=== PATIENT | male | born 1980 ===

== ENCOUNTER 2022-06-13 12:59 | Inpatient (IN) | payer SELFPAY ==
[2022-06-13] MEDS ORDERED: PIPERACILLIN/TAZOBACTAM 3.375 3.375 GM/50 ML BAG IV ONE (21:25)
[2022-06-13] MEDS ORDERED: SODIUM CHLORIDE 0.9% 1000 ML 1,000 ML IV ONE ×2 (21:25→21:28)
[2022-06-13] MEDS ORDERED: VANCOMYCIN/NS 1 GM/250 ML 1 GM/250 ML BAG IV ONE (21:25)
[2022-06-13] MEDS ORDERED: ONDANSETRON 4 MG/2 ML INJ IV ONE (21:27)
[2022-06-13] MEDS ORDERED: MORPHINE 4 MG/1 ML INJ IV ONE (21:27)
[2022-06-13 23:15] LABS: Basophils % (Auto) 0.3 % (0.0-1.8); Eosinophils # (Auto) 0.1 K/mm3 (0.0-0.4); Eosinophils % (Auto) 0.9 % (0.0-4.3); Hematocrit 32.6 % (35.5-45.6); Hemoglobin 10.9 gm/dl (11.8-15.2); Lymphocytes # (Auto) 1.1 K/mm3 (1.2-5.4); Lymphocytes % (Auto) 16.4 % (13.4-35.0); Mean Corpuscular HGB Conc 34 % (32-34); Mean Corpuscular Volume 88 fl (84-94); Monocytes # (Auto) 0.7 K/mm3 (0.0-0.8); Platelet Count 262 K/mm3 (140-440); Red Blood Count 3.71 M/mm3 (3.65-5.03); Red Cell Distribution Width 13.5 % (13.2-15.2)
[2022-06-13 23:32] LABS: Alanine Aminotransferase 43 units/L (7-56); Albumin 2.2 g/dL (3.9-5); Blood Urea Nitrogen 16 mg/dL (9-20); Calcium 7.5 mg/dL (8.4-10.2); Hemolysis Index 5
[2022-06-13 23:33] LABS: BUN/Creatinine Ratio 32
--- NOTE | 2022-06-14 01:59 | Cat Scan Report ---
CT neck w con HISTORY: PAIN - ABSCESS COMPARISON: None. TECHNIQUE: CT of the neck is performed. All CT scans at this location are performed using CT dose red uction for ALARA by means of automated exposure control. FINDINGS: * There is large peripherally enhancing multiseptated organized collection seen extending from the p osterior scalp caudally along the subcutis tissues and paraspinal musculature to the level of the T1 spinous process. There is small quantity of gas. No cortical lysis. * There is also a large peripherally enhancing collection underlying the left scapula. Skull Base: No significant abnormality. Nasopharynx, oropharynx, hypopharynx: No significant abnormality. No mass identified.. Tonsils: Tonsils appear within normal limits. Airway: Patent and without significant abnormality. Salivary glands: No significant abnormality. Thyroid:No significant abnormality. Lymphatics: No lymphadenopathy. Vasculature: No significant abnormality. Osseous Structures: No significant abnormality Additional findings: Nonspecific dependent groundglass opacity seen within the superior segment of th e right lower lobe. Noncalcified subpleural left apicoposterior pulmonary nodule measuring 7 mm, imag e 39 series 2. IMPRESSION: 1. Large complex abscess involving the subcutaneous soft tissues and paraspinal musculature extending from the scalp to the level of the T1 spinous process. No evidence of osteomyelitis. 2. There is also a large abscess underlying the right scapula. 3. 7mm pulmonary nodule in the apicoposterior segment of the left upper lobe of lung. Recommend CT ch est to further characterize. Signer Name: Hector Mcfarland MD Signed: 06/14/2022 1:55 AM Workstation Name: [id number]
--- NOTE | 2022-06-14 02:03 | Cat Scan Report ---
CT HEAD WITH CONTRAST INDICATION / CLINICAL INFORMATION: PAIN - ABSCESS. TECHNIQUE: All CT scans at this location are performed using CT dose reduction for ALARA by means of automated exposure control. 100 cc of Omnipaque 350 intravenous contrast administered. COMPARISON: Concurrent CT of the soft tissues of the neck. FINDINGS: Please see concurrent soft tissue of the neck for extensive multiloculated multiseptated pe ripherally enhancing collection in the posterior scalp and posterior paraspinal soft tissues. BRAIN PARENCHYMA: No acute intracranial hemorrhage. No evidence of recent infarct. No mass effect or midline shift. Arachnoid cyst in the left middle cranial fossa. VENTRICULAR SYSTEM/EXTRA-AXIAL SPACES: Ventricles are normal for age. No extra-axial fluid collection . ORBITS: Normal as visualized. SKELETAL SYSTEM/SOFT TISSUES: Normal bones and soft tissues. PARANASAL SINUSES/MASTOID AIR CELLS: No significant abnormality. ADDITIONAL FINDINGS: None. IMPRESSION: No acute intracranial abnormality. Signer Name: Narciso Teran MD Signed: 06/14/2022 1:58 AM Workstation Name: [id number]
--- NOTE | 2022-06-14 03:36 | Emergency Department Report ---
ED Neck Pain/Injury HPI - General Chief Complaint: Neck Pain/Injury Stated Complaint: HEAD INJURY Mode of arrival: Ambulatory Limitations: No Limitations - History of Present Illness Initial Comments: Patient is a 41-year-old male with a history of [id number]-wvrudqvpk diabetes who presents to the ED with complaint of acute onset persistent posterior neck pain with swollen erythematous maculopapular rash around an open necrotic wound with thick yellowish malodorous discharge for the last 1 week. 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 Patient states that he is unable to sleep or eat because of worsening pain. Patient also states that he is unable to perform any active range of motion with his neck due to worsening pain and swelling of the neck. Patient denies dizziness, syncope, chest pain or shortness of breath, nausea and vomiting, diarrhea, fever, chills, headache, change in vision, change in speech, dysphagia or dysphonia, numbness and tingling or weakness of upper extremities bilaterally. MD Complaint: neck pain (Posterior neck pain), other (swollen painful erythematous rash with thick purulent discharge ) -: Gradual, week(s) (1) Place: work Radiation: head, occiput Severity: severe Severity scale (0 -10): 8 Quality: sharp, aching Consistency: constant Improves With: none Worsens With: movement of neck Context: direct blow (posterior neck penetrating injury) Associated Symptoms: headache. denies: fever, numbness, tingling, weakness, vertigo, difficulty walking, swollen glands, difficulty swallowing, nausea, vomiting Treatments Prior to Arrival: none - Related Data Allergies Allergy/AdvReac Type Severity Reaction Status Date / Time No Known Allergies Allergy Verified 06/13/22 21:45 ED Review of Systems ROS: Stated complaint: HEAD INJURY Other details as noted in HPI Constitutional: denies: chills, fever Eyes: denies: eye pain, eye discharge, vision change ENT: denies: ear pain, throat pain Respiratory: denies: cough, shortness of breath, wheezing Cardiovascular: denies: chest pain, palpitations Endocrine: no symptoms reported Gastrointestinal: denies: abdominal pain, nausea, diarrhea Genitourinary: denies: urgency, dysuria Musculoskeletal: arthralgia (Posterior neck pain due to erythematous maculopapular rash and open wound with necrotic tissue and thick purulent discharge with malodorous smell), myalgia. denies: back pain, joint swelling Skin: rash, change in color, other (Erythematous maculopapular rash diffusely on posterior neck with open necrotic wound with thick purulent malodorous discharge). denies: lesions Neurological: headache. denies: weakness, paresthesias Psychiatric: denies: anxiety, depression Hematological/Lymphatic: denies: easy bleeding, easy bruising ED Past Medical Hx - Past Medical History Previous Medical History?: Yes Hx Diabetes: Yes ED Physical Exam - General Limitations: No Limitations General appearance: alert, in no apparent distress - Head Head exam: Present: other (Posterior occipital swollen tender rash with necrotic open wound with thick purulent discharge) - Eye Eye exam: Present: normal appearance, PERRL, EOMI Pupils: Present: normal accommodation - ENT ENT exam: Present: normal exam, normal orophraynx, mucous membranes moist, TM's normal bilaterally, normal external ear exam - Neck Neck exam: Present: tenderness, lymphadenopathy, other (Swelling, tender, posterior neck and left scapular region due to erythematous maculopapular rash with open necrotic wound with thick purulent malodorous smell). Absent: full ROM (Limited range of motion due to pain) - Respiratory Respiratory exam: Present: normal lung sounds bilaterally. Absent: respiratory distress, wheezes, rales, rhonchi, chest wall tenderness, accessory muscle use - Cardiovascular Cardiovascular Exam: Present: normal rhythm, tachycardia, normal heart sounds. Absent: systolic murmur, diastolic murmur, rubs, gallop - GI/Abdominal GI/Abdominal exam: Present: soft, normal bowel sounds. Absent: distended, tenderness, rebound, hyperactive bowel sounds, hypoactive bowel sounds, org anomegaly - Extremities Exam Extremities exam: Present: normal inspection, full ROM, normal capillary refill. Absent: tenderness, pedal edema, joint swelling, calf tenderness - Back Exam Back exam: Present: normal inspection, full ROM. Absent: tenderness, CVA tenderness (R), CVA tenderness (L), muscle spasm, paraspinal tenderness, vertebral tenderness - Neurological Exam Neurological exam: Present: alert, oriented X3, CN II-XII intact, normal gait, reflexes normal - Psychiatric Psychiatric exam: Present: normal affect, normal mood - Skin Skin exam: Present: warm, dry, intact, rash (Swollen, tender erythematous maculopapular fluctuant rash diffusely on posterior cervical region due to an open necrotic wound with thick purulent discharge malodorous and localized tenderness), erythema. Absent: normal color ED Course Vital Signs 06/13/22 06/13/22 06/14/22 13:49 23:17 04:15 Temperature 98.6 F 98.8 F Pulse Rate 142 H 92 H Respiratory 20 16 16 Rate Blood Pressure 109/74 [Left] O2 Sat by Pulse 97 100 Oximetry - Reevaluation(s) Reevaluation #1: 06/14/22 04:32 I paged and discussed the patient case with the general surgeon on-call, Dr. Jorge King who advised that the patient be kept n.p.o., and that the patient be treated with IV antibiotics and IV fluids as well as pain medications and that the hospitalist physician admit the patient and he shall consult the patient upon admission. ED Medical Decision Making - Lab Data Result diagrams: 06/13/22 23:24 06/13/22 22:05 - Radiology Data Radiology results: report reviewed, [place] [address] Cat Scan Report Signed Patient: JOSE LUIS MARTINEZ MR#: [id number] : 1980 Acct:[id number] Age/Sex: 41 / M ADM Date: 06/13/22 Loc: ED Attending Dr: Ordering Physician: NANETTE BARBER Date of Service: 06/13/22 Procedure(s): CT neck w con Accession Number(s): [id number] cc: NANETTE BARBER CT neck w con HISTORY: PAIN - ABSCESS COMPARISON: None. TECHNIQUE: CT of the neck is performed. All CT scans at this location are performed using CT dose reduction for ALARA by means of automated exposure control. FINDINGS: * There is large peripherally enhancing multiseptated organized collection seen extending from the posterior scalp caudally along the subcutis tissues and paraspinal musculature to the level of the T1 spinous process. There is small quantity of gas. No cortical lysis. * There is also a large peripherally enhancing collection underlying the left scapula. Skull Base: No significant abnormality. Nasopharynx, oropharynx, hypopharynx: No significant abnormality. No mass identified.. Tonsils: Tonsils appear within normal limits. Airway: Patent and without significant abnormality. Salivary glands: No significant abnormality. Thyroid:No significant abnormality. Lymphatics: No lymphadenopathy. Vasculature: No significant abnormality. Osseous Structures: No significant abnormality Additional findings: Nonspecific dependent groundglass opacity seen within the superior segment of the right lower lobe. Noncalcified subpleural left apicoposterior pulmonary nodule measuring 7 mm, image 39 series 2. IMPRESSION: 1. Large complex abscess involving the subcutaneous soft tissues and paraspinal musculature extending from the scalp to the level of the T1 spinous process. No evidence of osteomyelitis. 2. There is also a large abscess underlying the right scapula. 3. 7mm pulmonary nodule in the apicoposterior segment of the left upper lobe of lung. Recommend CT chest to further characterize. Signer Name: Hector Mcfarland MD Signed: 06/14/2022 1:55 AM Workstation Name: [id number] Transcribed By: RENEE Dictated By: Hector Mcfarland MD Electronically Authenticated By: Hector Mcfarland MD Signed Date/Time: 06/14/22 0155 DD/ 014 TD/TT: [facility] [address] [place] [address] Cat Scan Report Signed Patient: JOSE LUIS MARTINEZ MR#: [id number] : 1980 Acct:[id number] Age/Sex: 41 / M ADM Date: 06/13/22 Loc: ED Attending Dr: Ordering Physician: NANETTE BARBER Date of Service: 06/13/22 Procedure(s): CT head/brain w con Accession Number(s): [id number] cc: NANETTE BARBER CT HEAD WITH CONTRAST INDICATION / CLINICAL INFORMATION: PAIN - ABSCESS. TECHNIQUE: All CT scans at this location are performed using CT dose reduction for ALARA by means of automated exposure control. 100 cc of Omnipaque 350 intravenous contrast administered. COMPARISON: Concurrent CT of the soft tissues of the neck. FINDINGS: Please see concurrent soft tissue of the neck for extensive multiloculated multiseptated peripherally enhancing collection in the posterior scalp and posterior paraspinal soft tissues. BRAIN PARENCHYMA: No acute intracranial hemorrhage. No evidence of recent infarct. No mass effect or midline shift. Arachnoid cyst in the left middle cranial fossa. VENTRICULAR SYSTEM/EXTRA-AXIAL SPACES: Ventricles are normal for age. No extra- axial fluid collection. ORBITS: Normal as visualized. SKELETAL SYSTEM/SOFT TISSUES: Normal bones and soft tissues. PARANASAL SINUSES/MASTOID AIR CELLS: No significant abnormality. ADDITIONAL FINDINGS: None. IMPRESSION: No acute intracranial abnormality. Signer Name: Fletcher Teran MD Signed: 06/14/2022 1:58 AM Workstation Name: [id number] Transcribed By: JS Dictated By: FLETCHER TERAN MD Electronically Authenticated By: FLETCHER TERAN MD Signed Date/Time: 06/14/22157 DD/ 4 TD/TT: - Medical Decision Making This is a 41-year-old male with a history of ssk-uagadvm-docpfanna diabetes who presents to the ED with complaint of acute onset persistent posterior neck pain with swollen erythematous maculopapular rash around an open necrotic wound with thick yellowish malodorous discharge for the last 1 week. 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 Patient states that he is unable to sleep or eat because of worsening pain. Patient also states that he is unable to perform any active range of motion with his neck due to worsening pain and swelling of the neck. In the ED, patient is alert and oriented x3 and is not in any distress. Patient is however tachycardic but afebrile in triage. Patient was treated for pain in the ED, and the other side for sepsis was activated. Patient was initially empirically treated with Zosyn and also treated with vancomycin 1 g IV x1. Patient also got treated for pain and also received 2 L of normal saline IV bolus. Lab test results were reviewed and showed lactic acidosis of 2.70, acute hyponatremia of 122 mmol/L, acute hypochloremia of 87.7 mmol/L, and hyperglycemia of 381 mg/dL. The head CT scan with IV contrast showed no acute acute intracranial abnormalities or hemorrhage. The soft tissue neck CT scan with IV contrast showed large complex abscess involving the subcutaneous soft tissues and paraspinal musculature extending from the scalp to the level of the T1 spinous process. No evidence of osteomyelitis. It also showed a large abscess underlying the right scapula. In addition, there was also an incidental finding of a 7mm pulmonary nodule in the apicoposterior segment of the left up per lobe of lung. Recommend CT chest to further characterize. These findings were discussed with the ED attending physician Dr. Guillaume who advised that the patient be admitted to the hospital after discussing the patient's findings with the general surgeon on-call. I therefore paged and discussed Dr. Patel the general surgeon on-call who advised that the patient be kept n.p.o., patient be treated with IV antibiotics and pain medications as well as IV fluids and that the hospitalist physician on-call Dr. Malloy to admit the patient. Dr. Patel told to consult on the patient in the morning upon admission for possible debridement in the OR. I therefore paged and discussed the patient's case with the hospitalist physician on-call Dr. Malloy who admitted the patient to the hospital. - Differential Diagnosis abscess of neck; cellulitis of neck; sepsis due to abscess Critical care attestation.: If time is entered above; I have spent that time in minutes in the direct care of this critically ill patient, excluding procedure time. ED Disposition Clinical Impression: Abscess of multiple sites of head and neck, Cellulitis and abscess of neck, Acute hyponatremia Hyperglycemia due to type 2 diabetes mellitus Qualifiers: Diabetes mellitus intermediate accountant insulin use: without intermediate accountant use Qualified Code(s): E11.65 - Type 2 diabetes mellitus with hyperglycemia Disposition: 02 [facility]ORT TERM HOSPITAL Is pt being admited?: Yes Does the pt Need Aspirin: No Condition: Stable Instructions: Diabetes Mellitus Type 2 in Adults (ED) Referrals: TRICIA WILLINGHAM MD [Primary Care Provider] - 3-5 Days Time of Disposition: 03:42 Print Language: SAMOAN
[2022-06-14] MEDS ORDERED: ONDANSETRON 4 MG/2 ML INJ IV ONE (04:16)
[2022-06-14] MEDS ORDERED: MORPHINE 4 MG/1 ML INJ IV ONE (04:16)
[2022-06-14] MEDS ORDERED: SODIUM CHLORIDE 0.9% 1000 ML 1,000 ML IV ONE (04:16)
[2022-06-14] MEDS ORDERED: METOCLOPRAMIDE 10 MG/2 ML INJ IV PRN (04:33)
[2022-06-14] MEDS ORDERED: ACETAMINOPHEN 325 MG TAB PO PRN (04:33)
[2022-06-14] MEDS ORDERED: ONDANSETRON 4 MG/2 ML INJ IV PRN ×2 (04:33→10:00)
[2022-06-14] MEDS ORDERED: HYDROmorphone 0.5 MG/0.5 ML INJ IV PRN (04:33)
[2022-06-14] MEDS ORDERED: SODIUM CHLORIDE 0.45% 1000 ML 1,000 ML IV SCH (05:00)
[2022-06-14] MEDS ORDERED: TETANUS,DIPH,PERTUSS(ACELL) VACCINE 0.5 ML SYRINGE IM ONE (06:46)
[2022-06-14] MEDS ORDERED: MORPHINE 4 MG/1 ML INJ IV PRN (08:26)
--- NOTE | 2022-06-14 09:45 | Cat Scan Report ---
CT CHEST WITH CONTRAST INDICATION / CLINICAL INFORMATION: abscess. TECHNIQUE: Axial CT images were obtained through the chest after 100 cc of Omnipaque 350 IV contrast. Please note that IV infiltration occurred during this exam. The technologist notes that approximatel y 50 cc of IV contrast was received prior to infiltration. I see no convincing IV contrast within the vascular structures on this exam. This is essentially a noncontrast CT chest. All CT scans at this l ocation are performed using CT dose reduction for ALARA by means of automated exposure control. COMPARISON: Correlation is made with CT neck with contrast 06/13/2022. FINDINGS: HEART: Heart size is within normal limits. Small pericardial effusion is identified measuring up to 8 mm in thickness along the left ventricular wall. No pericardial thickening or calcification. CORONARY ARTERY CALCIFICATION: Absent -- None. THORACIC AORTA: No significant abnormality. MEDIASTINUM / TRISH: No significant abnormality. PLEURA: No pleural effusion. No pneumothorax. LUNGS: No acute air space or interstitial disease. There are subtle bibasilar airspace opacities most consistent with hypoventilatory/atelectatic changes. No consolidation. An 8 mm subpleural nodule is identified in the anterior right middle lobe. A 6 mm subpleural nodules identified in the posterolate ral left upper lobe. ADDITIONAL FINDINGS: Although this examination received very limited IV contrast and is essentially a noncontrast CT chest which limits detection of abscesses, there does appear to be 2 separate abscess es in the vicinity of the right shoulder. The right subscapularis muscle is thickened and hypodense c ompared to the left side with suspected developing intramuscular abscess. There is a smaller similar appearing hypodense area involving the distal supraspinatus muscle/tendon measuring 3.3 x 2.1 cm in a xial plane on image 7 of series 4. This may represent a second developing abscess. There is diffuse s kin thickening in the upper back consistent with a cellulitis. No soft tissue gas or intramuscular ga s is appreciated. UPPER ABDOMEN: No significant abnormality. SKELETAL SYSTEM: No significant abnormality. IMPRESSION: 1. Limited exam as described. 2. There appear to be 2 developing intramuscular abscesses in the right shoulder region, the largest involving the subscapularis muscle and the smaller involving the distal supraspinatus muscle. 3. Small pericardial effusion. 4. Bibasilar airspace opacities most consistent with atelectatic changes. 5. Multiple incidental pulmonary nodule(s) in the right middle lobe and left upper lobe measuring 8 a nd 6 mm with solid characteristics. Recommendation according to Fleischner Society 2017 Guidelines: L ow Risk Patient: CT at 3-6 months, then consider CT at 18-24 months; High Risk Patient: CT at 3-6 mon ths, then CT at 18-24 month. Signer Name: Antonio Conner Jr, MD Signed: 06/14/2022 9:41 AM Workstation Name: [id number]
[2022-06-14] MEDS ORDERED: VANCOMYCIN PHARMACY TO DOSE IV SCH (10:00)
[2022-06-14] MEDS ORDERED: VANCOMYCIN 1,250 MG in SODIUM CHLORIDE 0.9% 250ML 250 ML IV ONE (10:30)
[2022-06-14 11:21] LABS: Iron 18 ug/dL (49-181); Total Iron Binding Capacity 79 mcg/dL (250-450)
[2022-06-14] MEDS: CEFEPIME/NS 1 GM/100 ML 1 GM/100 ML BAG IV SCH ×2 (12:31→22:02)
[2022-06-14] MEDS ORDERED: BUPIVACAINE-EPINEPHRINE/PF 0.5%-1:200,000 (30 ML) VIAL INFILTRATI ONE ×2 (14:01→15:15)
[2022-06-14] MEDS ORDERED: LIDOCAINE (1%) 10 MG/1 ML VIAL 20 ML MDV ONE (14:01)
[2022-06-14] MEDS ORDERED: LIDOCAINE MPF (2%) 20 MG/1 ML VIAL 5 ML ONE (14:07)
[2022-06-14] MEDS ORDERED: SUCCINYLCHOLINE CHLORIDE 200 MG/10 ML INJ MDV ONE (14:07)
[2022-06-14] MEDS ORDERED: propofoL 200 MG/20 ML VIAL IV ONE ×2 (14:08→14:33)
[2022-06-14] MEDS ORDERED: fentaNYL 100 MCG/2 ML INJ ONE ×2 (14:08→14:52)
--- NOTE | 2022-06-14 14:39 | Consultation ---
History of Present Illness Consult date: 06/14/22 - History of present illness History of present illness: Patient is a 41-year-old male with a history of fhm-zrwishx-wflzrmcyd diabetes who presents to the ED with complaint of acute onset persistent posterior neck pain with swollen erythematous maculopapular rash around an open necrotic wound with thick yellowish malodorous discharge for the last 1 week. 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 Patient states that he is unable to sleep or eat because of worsening pain. Patient also states that he is unable to perform any active range of motion with his neck due to worsening pain and swelling of the neck. Patient denies dizziness, syncope, chest pain or shortness of breath, nausea and vomiting, diarrhea, fever, chills, headache, change in vision, change in speech, dysphagia or dysphonia, numbness and tingling or weakness of upper extremities bilaterally. CT of the Neck and Chest show an extensive soft tissue abscess with extension to the paravertebral muscle and to the deep surface of the scapula on the right side. Several leural based pulmonary nodules were also seen separate from the sti. Medications and Allergies Allergies Allergy/AdvReac Type Severity Reaction Status Date / Time No Known Allergies Allergy Verified 06/13/22 21:45 Active Meds: Active Medications Acetaminophen (Acetaminophen 325 Mg Tab) 650 mg PO Q4H PRN PRN Reason: Pain MILD(1-3)/Fever >100.5/ALMAZAN Heparin Sodium (Porcine) (Heparin 5,000 Unit/1 Ml Vial) 5,000 unit SUB-Q Q8HR KARAN Hydromorphone HCl (Hydromorphone 0.5 Mg/0.5 Ml Inj) 1 mg IV Q4H PRN PRN Reason: Pain , Severe (7-10) Sodium Chloride (Nacl 0.45% 1000 Ml) 1,000 mls @ 125 mls/hr IV DIRECT KARAN Cefepime HCl (Cefepime/Ns 1 Gm/100 Ml) 1 gm in 100 mls @ 200 mls/hr IV Q8H KARAN; Protocol Last Admin: 06/14/22 12:31 Dose: 200 mls/hr Ketorolac Tromethamine (Ketorolac 30 Mg/1 Ml Inj) 15 mg IV Q8H PRN PRN Reason: Pain, Mild (1-3) Stop: 06/19/22 10:59 Metoclopramide HCl (Metoclopramide 10 Mg/2 Ml Inj) 10 mg IV Q6H PRN PRN Reason: Nausea And Vomiting Last Admin: 06/14/22 07:44 Dose: 10 mg Ondansetron HCl (Ondansetron 4 Mg/2 Ml Inj) 4 mg IV Q8H PRN PRN Reason: Nausea And Vomiting Oxycodone/Acetaminophen (Oxycodone /Acetaminophen 5-325mg Tab) 1 tab PO Q6H PRN PRN Reason: Pain, Moderate (4-6) Sodium Chloride (Sodium Chloride 0.9% 10 Ml Flush Syringe) 10 ml IV PRN PRN PRN Reason: LINE FLUSH Sodium Chloride (Sodium Chloride 0.9% 10 Ml Flush Syringe) 10 ml IV BID KARAN Last Admin: 06/14/22 12:30 Dose: 10 ml Exam Vital Signs Temp Pulse Resp BP Pulse Ox 98.6 F 142 H 20 109/74 97 06/13/22 13:49 06/13/22 13:49 06/13/22 13:49 06/13/22 13:49 06/13/22 13:49 - General physical appearance Positive: moderate distress - Neck Positive: no masses, no bruits, trachea midline - Respiratory Positive: normal expansion - Cardiovascular Rhythm: regular - Extremities Extremities: no ischemia, No edema - Abdomen Abdomen: Present: soft, bowel sounds normal. Absent: tender, masses, rebound - Integumentary other (4 x 5 cm area of skin necrosis noted in the posterior neck slightly to th e right side. Purulent drainage from this process is noted.) - Neurologic Neurologic: alert and oriented to time, place and person, motor strength and sensation are grossly intact, CN II-XII intact Results - Labs 06/13/22 23:24 06/13/22 22:05 Abnormal lab results 06/13/22 06/13/22 06/13/22 Range/Units 22:05 22:05 23:24 Hgb 10.9 L (11.8-15.2) gm/dl Hct 32.6 L (35.5-45.6) % [place] % (Auto) 11.0 H (0.0-7.3) % Lymph # (Auto) 1.1 L (1.2-5.4) K/mm3 Seg Neutrophils % 71.4 H (40.0-70.0) % Sodium 122 L (137-145) mmol/L Chloride 87.7 L (98-107) mmol/L Carbon Dioxide 20 L (22-30) mmol/L Creatinine 0.5 L (0.8-1.3) mg/dL Glucose 381 H (75-100) mg/dL POC Glucose (70-105) mg/dL Hemoglobin A1c (4-6) % Lactic Acid 2.70 H* (0.7-2.0) mmol/L Calcium 7.5 L (8.4-10.2) mg/dL Iron (49-181) ug/dL TIBC (250-450) mcg/dL Ferritin (30.0-300.0) ng/mL Albumin 2.2 L (3.9-5) g/dL 06/14/22 06/14/22 06/14/22 Range/Units 09:08 09:08 09:08 Hgb (11.8-15.2) gm/dl Hct (35.5-45.6) % [place] % (Auto) (0.0-7.3) % Lymph # (Auto) (1.2-5.4) K/mm3 Seg Neutrophils % (40.0-70.0) % Sodium (137-145) mmol/L Chloride (98-107) mmol/L Carbon Dioxide (22-30) mmol/L Creatinine (0.8-1.3) mg/dL Glucose (75-100) mg/dL POC Glucose (70-105) mg/dL Hemoglobin A1c 15.6 H (4-6) % Lactic Acid (0.7-2.0) mmol/L Calcium (8.4-10.2) mg/dL Iron 18 L (49-181) ug/dL TIBC 79 L (250-450) mcg/dL Ferritin 894.3 H (30.0-300.0) ng/mL Albumin (3.9-5) g/dL 06/14/22 Range/Units 14:23 Hgb (11.8-15.2) gm/dl Hct (35.5-45.6) % [place] % (Auto) (0.0-7.3) % Lymph # (Auto) (1.2-5.4) K/mm3 Seg Neutrophils % (40.0-70.0) % Sodium (137-145) mmol/L Chloride (98-107) mmol/L Carbon Dioxide (22-30) mmol/L Creatinine (0.8-1.3) mg/dL Glucose (75-100) mg/dL POC Glucose 168 H (70-105) mg/dL Hemoglobin A1c (4-6) % Lactic Acid (0.7-2.0) mmol/L Calcium (8.4-10.2) mg/dL Iron (49-181) ug/dL TIBC (250-450) mcg/dL Ferritin (30.0-300.0) ng/mL Albumin (3.9-5) g/dL Diabetes panel 06/13/22 06/14/22 Range/Units 22:05 09:08 Sodium 122 L (137-145) mmol/L Potassium 4.9 (3.6-5.0) mmol/L Chloride 87.7 L (98-107) mmol/L Carbon Dioxide 20 L (22-30) mmol/L BUN 16 (9-20) mg/dL Creatinine 0.5 L (0.8-1.3) mg/dL Glucose 381 H (75-100) mg/dL Hemoglobin A1c 15.6 H (4-6) % Calcium 7.5 L (8.4-10.2) mg/dL AST 37 (5-40) units/L ALT 43 (7-56) units/L Alkaline Phosphatase 127 (35-129) units/L Total Protein 7.0 (6.3-8.2) g/dL Albumin 2.2 L (3.9-5) g/dL Calcium panel 06/13/22 Range/Units 22:05 Calcium 7.5 L (8.4-10.2) mg/dL Albumin 2.2 L (3.9-5) g/dL Pituitary panel 06/13/22 Range/Units 22:05 Sodium 122 L (137-145) mmol/L Potassium 4.9 (3.6-5.0) mmol/L Chloride 87.7 L (98-107) mmol/L Carbon Dioxide 20 L (22-30) mmol/L BUN 16 (9-20) mg/dL Creatinine 0.5 L (0.8-1.3) mg/dL Glucose 381 H (75-100) mg/dL Calcium 7.5 L (8.4-10.2) mg/dL Adrenal panel 06/13/22 Range/Units 22:05 Sodium 122 L (137-145) mmol/L Potassium 4.9 (3.6-5.0) mmol/L Chloride 87.7 L (98-107) mmol/L Carbon Dioxide 20 L (22-30) mmol/L BUN 16 (9-20) mg/dL Creatinine 0.5 L (0.8-1.3) mg/dL Glucose 381 H (75-100) mg/dL Calcium 7.5 L (8.4-10.2) mg/dL Total Bilirubin 0.60 (0.1-1.2) mg/dL AST 37 (5-40) units/L ALT 43 (7-56) units/L Alkaline Phosphatase 127 (35-129) units/L Total Protein 7.0 (6.3-8.2) g/dL Albumin 2.2 L (3.9-5) g/dL
[2022-06-14] MEDS ORDERED: SODIUM HYPOCHLORITE, DAKIN'S FULL STRENGTH (0.5%) 473 ML TOPICAL SOLN ONE (14:45)
[2022-06-14] MEDS ORDERED: LIDOCAINE (1%) 10 MG/1 ML VIAL 20 ML MDV INFILTRATI ONE (15:15)
[2022-06-14] MEDS ORDERED: SODIUM CHLORIDE 0.9% IRR 1,500 ML BOTTLE IR ONE (15:15)
[2022-06-14] MEDS ORDERED: SODIUM CHLORIDE 0.9% IRRIG SOLN 2000 ML IR ONE (15:15)
--- NOTE | 2022-06-14 15:53 | History and Physical Report ---
History of Present Illness Date of examination: 06/14/22 Date of admission: 06/14/22 08:28 Chief complaint: Neck abscess History of present illness: Patient is a 41-year-old male with a history of ilk-fkybnla-qpunkdvge diabetes who presents to the ED with complaint of acute onset persistent posterior neck pain with swollen erythematous maculopapular rash around an open necrotic wound with thick yellowish malodorous discharge for the last 1 week. 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 Patient states that he is unable to sleep or eat because of worsening pain. Patient also states that he is unable to perform any active range of motion with his neck due to worsening pain and swelling of the neck. Patient denies dizziness, syncope, chest pain or shortness of breath, nausea and vomiting, diarrhea, fever, chills, headache, change in vision, change in speech, dysphagia or dysphonia, numbness and tingling or weakness of upper extremities bilaterally. In the ED, the patient was found to be hemodynamically stable. Labs were remarkable for lactic acid 2.7, sodium 122, bicarbonate 20, hemoglobin 10.9, calcium 7.5, and glucose 3. Patient underwent CT of the head and chest with contrast revealing "large peripherally enhancing multiseptated organized collection seen extending from the posterior scalp along the subcutis tissues + paraspinal musculature to the level of T1 spinous process". Patient was initiated on vancomycin + Zosyn for antibiotic coverage. General surgery was consulted for further management. Past History Past Medical History: diabetes Past Surgical History: No surgical history Social history: Lives alone, full code Family history: diabetes, hypertension Medications and Allergies Allergies Allergy/AdvReac Type Severity Reaction Status Date / Time No Known Allergies Allergy Verified 06/13/22 21:45 Active Meds: Active Medications Acetaminophen (Acetaminophen 325 Mg Tab) 650 mg PO Q4H PRN PRN Reason: Pain MILD(1-3)/Fever >100.5/ALMAZAN Heparin Sodium (Porcine) (Heparin 5,000 Unit/1 Ml Vial) 5,000 unit SUB-Q Q8HR KARAN Hydromorphone HCl (Hydromorphone 0.5 Mg/0.5 Ml Inj) 1 mg IV Q4H PRN PRN Reason: Pain , Severe (7-10) Sodium Chloride (Nacl 0.45% 1000 Ml) 1,000 mls @ 125 mls/hr IV DIRECT KARAN Cefepime HCl (Cefepime/Ns 1 Gm/100 Ml) 1 gm in 100 mls @ 200 mls/hr IV Q8H KARAN; Protocol Last Admin: 06/14/22 12:31 Dose: 200 mls/hr Vancomycin HCl (Vancomycin/Ns 1 Gm/250 Ml) 1 gm in 250 mls @ 166.667 mls/hr IV Q12H KARAN Ketorolac Tromethamine (Ketorolac 30 Mg/1 Ml Inj) 15 mg IV Q8H PRN PRN Reason: Pain, Mild (1-3) Stop: 06/19/22 10:59 Metoclopramide HCl (Metoclopramide 10 Mg/2 Ml Inj) 10 mg IV Q6H PRN PRN Reason: Nausea And Vomiting Last Admin: 06/14/22 07:44 Dose: 10 mg Ondansetron HCl (Ondansetron 4 Mg/2 Ml Inj) 4 mg IV Q8H PRN PRN Reason: Nausea And Vomiting Oxycodone/Acetaminophen (Oxycodone /Acetaminophen 5-325mg Tab) 1 tab PO Q6H PRN PRN Reason: Pain, Moderate (4-6) Sodium Chloride (Sodium Chloride 0.9% 10 Ml Flush Syringe) 10 ml IV PRN PRN PRN Reason: LINE FLUSH Sodium Chloride (Sodium Chloride 0.9% 10 Ml Flush Syringe) 10 ml IV BID [facility] Last Admin: 06/14/22 12:30 Dose: 10 ml Review of Systems All systems: negative Ears, nose, mouth and throat: headache Musculoskeletal: neck pain, limitation of motion Exam - Constitutional Vitals: Temp Pulse Resp BP Pulse Ox 98.8 F 92 H 16 109/74 100 06/14/22 04:15 06/14/22 04:15 06/14/22 04:15 06/13/22 13:49 06/14/22 04:15 General appearance: Present: mild distress, well-nourished - EENT Eyes: Present: PERRL, EOM intact ENT: hearing intact, clear oral mucosa - Neck Neck: Present: other (Necrotic wound of posterior neck with draining purulent fluid. Wound surrounded by erythema and warmth.) - Respiratory Respiratory effort: normal Respiratory: bilateral: CTA - Cardiovascular Rhythm: regular Heart Sounds: Present: S1 & S2 - Extremities Extremities: no ischemia, pulses intact, pulses symmetrical, No edema, normal temperature, normal color, abnormal (Decreased range of motion of neck) Peripheral Pulses: within normal limits - Abdominal General gastrointestinal: Present: soft, non-tender, non-distended, normal bowel sounds Male genitourinary: Present: deferred - Rectal Rectal Exam: deferred - Integumentary Integumentary: Present: clear, warm, dry - Musculoskeletal Musculoskeletal: strength equal bilaterally - Psychiatric Psychiatric: appropriate mood/affect, intact judgment & insight, memory intact, cooperative - Neurologic Neurologic: CNII-XII intact - Allied Health Allied health notes reviewed: nursing Results - Labs CBC & Chem 7: 06/13/22 23:24 06/13/22 22:05 Labs: Laboratory Last Values WBC 6.5 K/mm3 (4.5-11.0) 06/13/22 23:24 RBC 3.71 M/mm3 (3.65-5.03) 06/13/22 23:24 Hgb 10.9 gm/dl (11.8-15.2) L 06/13/22 23:24 Hct 32.6 % (35.5-45.6) L 06/13/22 23:24 MCV 88 fl (84-94) 06/13/22 23:24 MCH 29 pg (28-32) 06/13/22 23:24 MCHC 34 % (32-34) 06/13/22 23:24 RDW 13.5 % (13.2-15.2) 06/13/22 23:24 Plt Count 262 K/mm3 (140-440) 06/13/22 23:24 Lymph % (Auto) 16.4 % (13.4-35.0) 06/13/22 23:24 [place] % (Auto) 11.0 % (0.0-7.3) H 06/13/22 23:24 Eos % (Auto) 0.9 % (0.0-4.3) 06/13/22 23:24 Baso % (Auto) 0.3 % (0.0-1.8) 06/13/22 23:24 Lymph # (Auto) 1.1 K/mm3 (1.2-5.4) L 06/13/22 23:24 [place] # (Auto) 0.7 K/mm3 (0.0-0.8) 06/13/22 23:24 Eos # (Auto) 0.1 K/mm3 (0.0-0.4) 06/13/22 23:24 Baso # (Auto) 0.0 K/mm3 (0.0-0.1) 06/13/22 23:24 Seg Neutrophils % 71.4 % (40.0-70.0) H 06/13/22 23:24 Seg Neutrophils # 4.6 K/mm3 (1.8-7.7) 06/13/22 23:24 Sodium 122 mmol/L (137-145) L 06/13/22 22:05 Potassium 4.9 mmol/L (3.6-5.0) 06/13/22 22:05 Chloride 87.7 mmol/L (98-107) L 06/13/22 22:05 Carbon Dioxide 20 mmol/L (22-30) L 06/13/22 22:05 Anion Gap 19 mmol/L 06/13/22 22:05 BUN 16 mg/dL (9-20) 06/13/22 22:05 Creatinine 0.5 mg/dL (0.8-1.3) L 06/13/22 22:05 Estimated GFR > 60 ml/min 06/13/22 22:05 BUN/Creatinine Ratio 32 % 06/13/22 22:05 Glucose 381 mg/dL (75-100) H 06/13/22 22:05 POC Glucose 168 mg/dL (70-105) H 06/14/22 14:23 Hemoglobin A1c 15.6 % (4-6) H 06/14/22 09:08 Lactic Acid 2.70 mmol/L (0.7-2.0) H* 06/13/22 22:05 Calcium 7.5 mg/dL (8.4-10.2) L 06/13/22 22:05 Iron 18 ug/dL (49-181) L 06/14/22 09:08 TIBC 79 mcg/dL (250-450) L 06/14/22 09:08 Ferritin 894.3 ng/mL (30.0-300.0) H 06/14/22 09:08 Total Bilirubin 0.60 mg/dL (0.1-1.2) 06/13/22 22:05 AST 37 units/L (5-40) 06/13/22 22:05 ALT 43 units/L (7-56) 06/13/22 22:05 Alkaline Phosphatase 127 units/L (35-129) 06/13/22 22:05 Total Protein 7.0 g/dL (6.3-8.2) 06/13/22 22:05 Albumin 2.2 g/dL (3.9-5) L 06/13/22 22:05 Albumin/Globulin Ratio 0.5 % 06/13/22 22:05 Microbiology: Microbiology 06/13/22 22:05 Peripheral/Venous Blood Culture - Preliminary Culture in Progress 06/13/22 22:05 Peripheral/Venous Blood Culture - Preliminary Culture in Progress Assessment and Plan Assessment and plan: #Posterior neck abscess likely secondary to gram-positive cocci #Lactic acidosis Lactic acid 2.7. Pending repeat. CT of the head and chest with contrast revealing "large peripherally enhancing multiseptated organized collection seen extending from the posterior scalp along the subcutis tissues + paraspinal musculature to the level of T1 spinous process". Starting vancomycin + cefepime. Zosyn discontinued due to concerns for increa sed nephrotoxicity in the setting of continued vancomycin. General surgery consulted; appreciate recs. Patient status post I&D of posterior neck abscess. Plans for repeat debridement tomorrow. Blood and wound cultures pending. Infectious disease consulted; pending recs. Continue analgesics as needed. Occupational Therapy consulted due to decreased mobility of right shoulder; pending recs. Continue to monitor. #Non-insulin dependent type II diabetes mellitus - hemoglobin A1c: 15.6 - home regimen: None - current regimen: NPH 70/30 10 units twice daily + moderate SSI - blood glucose goal 140-180 while inpatient - continue to monitor #Hyponatremia Sodium 122 Continue to monitor with repeat BMP. Consider IV fluid resuscitation if sodium level decreases. Pending repeat BMP. #Iron deficiency anemia Hemoglobin 10.9 Iron 18, TIBC 79, ferritin 894 Patient will benefit from IV iron infusions; however, this will be performed after extensive I&D of posterior neck abscess has been completed. Transfuse if hemoglobin <7 or patient become symptomatic. #Hypocalcemia Calcium 7.5 Replete. Continue to monitor. #Moderate protein caloric malnutrition Albumin 2.2 Starting dietary supplementation #Advanced care planning -Disease education conducted, care plan discussed, diagnoses discussed, prognosi s discussed, and patient acknowledges understanding with care plan -Time: +30 min Advance Directives: No VTE prophylaxis?: Chemical Plan of care discussed with patient/family: Yes
--- NOTE | 2022-06-14 16:00 | Operative Report ---
Operative Report Operative Report: Date of procedure: 06/14/2022 Preop diagnosis: Abscess of posterior neck Postop diagnosis: Same with extension of abscess to deep fascia layers paravertebral muscle layers and subscapular areas. Abscess skin wound 8 x 4 cm tunneling sac 9 cm to the patient's right and 8 cm to the patient's left tunneling inferiorly 8 cm 300cm2 Procedure: Drainage of abscess with debridement of necrotic skin and necrotic deep tissue Surgeon: Dr. Patel Anesthesia: General endotracheal anesthesia Estimated blood loss: Minimal Specimen: Gram stain and culture sensitivity Findings: This is a 41-year-old patient with an abscess of the posterior neck and back. He was taken to the OR timeouts are completed consents on the chart. He is under general anesthesia. He is in a prone position. The area of concern is prepped with Betadine draped in a sterile fashion. The area of fluctuance is noted and a 8 x 4 area of necrotic skin is excised. Extensive deep fascial tissue is necrotic and it is sharply debrided with scissors. Bleeding is controlled with hemostasis and pressure. The wound is probed and the abscess is noted to extend 9 cm to the patient's right and 8 cm to the patient's left. It also extends 8 cm towards the back. The total area of the abscess is 300 cm. The wound is irrigated with copious amounts of saline. A wound pulse auto self service station attendant is used to help with irrigation. The wound is then packed with a Kerlix gauze soaked in Dakin solution. Sterile dressing is placed on this.
--- NOTE | 2022-06-14 16:02 | Post Anesthesia Evaluation ---
- Post Anesthesia Evaluation Patient Participated: Yes Airway Patent: Yes Stable Respiratory Function: Yes Nausea/Vomiting: No Temp > 96.8F: Yes Pain Manageable: Yes Adequeate Hydration: Yes Anesthesia Complications: No Block Receding Appropriately: Not Applicable Patient on Ventilator: No
--- NOTE | 2022-06-14 16:22 | Anesthesia Day of Surgery ---
Anesthesia Day of Surgery - Day of Surgery Patient Examined: Yes Patient H&P Reviewed: Yes Patient is NPO: Yes
--- NOTE | 2022-06-14 16:23 | Anesthesia Consultation ---
Anesthesia Consult and Med Hx Date of service: 06/14/22 - Airway Anesthetic Teeth Evaluation: Good ROM Head & Neck: Inadequate Mental/Hyoid Distance: Adequate Mallampati Class: Class III Intubation Access Assessment: Possibly Difficult - Pre-Operative Health Status ASA Pre-Surgery Classification: ASA3, Emergency Proposed Anesthetic Plan: General - Pulmonary Hx Smoking: No Hx Sleep Apnea: No - Gastrointestinal Hx Gastroesophageal Reflux Disease: No - Endocrine Hx Non-Insulin Dependent Diabetes: Yes (HgbA1C 15.6) - Other Systems Hx Obesity: Yes - Additional Comments Anesthesia Medical History Comments: Hyponatremia
[2022-06-14 16:29] LABS: Blood Urea Nitrogen 8 mg/dL (9-20); Calcium 7.3 mg/dL (8.4-10.2); Hemolysis Index 6
[2022-06-14 16:32] LABS: BUN/Creatinine Ratio 27
[2022-06-14] MEDS ORDERED: SODIUM CHLORIDE 0.9% 250ML 250 ML ONE (17:51)
[2022-06-14] MEDS: INSULIN REGULAR, HUMAN 100 UNITS/1 ML SUB-Q SCH ×2 (18:05→22:14)
[2022-06-14] MEDS: INSULIN NPH/REGULAR 70/30 INJ SUB-Q SCH (18:05)
[2022-06-14] MEDS: VANCOMYCIN/NS 1 GM/250 ML 1 GM/250 ML BAG IV SCH (18:06)
[2022-06-14] MEDS ORDERED: LACTATED RINGERS 1,000 ML IV ONE (18:21)
[2022-06-14] MEDS: ACETAMINOPHEN 325 MG TAB PO PRN (21:58)
[2022-06-14] MEDS: HEPARIN 5,000 UNIT/1 ML VIAL SUB-Q SCH (22:00)
[2022-06-15] MEDS: VANCOMYCIN/NS 1 GM/250 ML 1 GM/250 ML BAG IV SCH ×2 (04:11→18:40)
[2022-06-15] MEDS: KETOROLAC 30 MG/1 ML INJ IV PRN (04:11)
[2022-06-15 05:39] LABS: Basophils % (Auto) 0.6 % (0.0-1.8); Eosinophils # (Auto) 0.1 K/mm3 (0.0-0.4); Eosinophils % (Auto) 1.7 % (0.0-4.3); Hematocrit 25.2 % (35.5-45.6); Hemoglobin 8.5 gm/dl (11.8-15.2); Lymphocytes # (Auto) 0.9 K/mm3 (1.2-5.4); Lymphocytes % (Auto) 24.9 % (13.4-35.0); Mean Corpuscular HGB Conc 34 % (32-34); Mean Corpuscular Volume 87 fl (84-94); Monocytes # (Auto) 0.4 K/mm3 (0.0-0.8); Monocytes % (Auto) 11.3 % (0.0-7.3); Platelet Count 221 K/mm3 (140-440); Red Blood Count 2.91 M/mm3 (3.65-5.03); Red Cell Distribution Width 13.6 % (13.2-15.2)
[2022-06-15 05:55] LABS: Blood Urea Nitrogen 7 mg/dL (9-20); Calcium 7.1 mg/dL (8.4-10.2); Hemolysis Index 8
[2022-06-15] MEDS: CEFEPIME/NS 1 GM/100 ML 1 GM/100 ML BAG IV SCH ×3 (05:55→21:47)
[2022-06-15] MEDS: HEPARIN 5,000 UNIT/1 ML VIAL SUB-Q SCH ×3 (05:56→21:47)
[2022-06-15 05:58] LABS: BUN/Creatinine Ratio 23
[2022-06-15] MEDS ORDERED: POTASSIUM CHLORIDE ER 20 MEQ TAB PO NR (08:00)
[2022-06-15] MEDS: INSULIN REGULAR, HUMAN 100 UNITS/1 ML SUB-Q SCH ×3 (09:21→22:00)
[2022-06-15] MEDS: INSULIN NPH/REGULAR 70/30 INJ SUB-Q SCH ×2 (09:21→18:40)
[2022-06-15] MEDS ORDERED: HYDROGEN PEROXIDE 118 ML SOLUTION ONE (10:45)
[2022-06-15] MEDS ORDERED: BUPIVACAINE/PF (0.5%) 5 MG/1 ML 30 ML VIAL INFILTRATI ONE ×2 (10:45→14:03)
--- NOTE | 2022-06-15 10:47 | Consultation ---
History of Present Illness - Reason for Consult Consult date: 06/15/22 large neck abscess Requesting physician: SUSY KNIGHT - History of Present Illness The patient is a 41-year-old male with diabetes admitted to the hospital with acute onset of posterior neck pain and necrotic, malodorous discharge for the last [address] of the neck and chest revealed extensive soft tissue abscess with extension to the paravertebral muscle. CT chest also revealed multiple incidental pulmonary nodules in the right middle lobe and left upper lobe. Taken to the OR on 06/14/2022, found to have extensive deep fascial tissue which was necrotic appearing, abscess noted to extend 9 cm to the patient's right and 8 cm of the patient's left, 8 cm towards the back. Wound was irrigated and then packed. ID consulted for abx management. Patient is mainly Mohawk speaking, speaks a little Latvian. Pain is better. No fever, Tmax 100.2F Review of Systems: Per HPI Past History Past Medical History: diabetes Past Surgical History: No surgical history Social history: Lives alone, full code Family history: diabetes, hypertension Medications and Allergies Allergies Allergy/AdvReac Type Severity Reaction Status Date / Time No Known Allergies Allergy Verified 06/13/22 21:45 Active Meds: Active Medications Acetaminophen (Acetaminophen 325 Mg Tab) 650 mg PO Q4H PRN PRN Reason: Pain MILD(1-3)/Fever >100.5/ALMAZAN Last Admin: 06/14/22 21:58 Dose: 650 mg Dextrose (Dextrose 50% In Water (25gm) 50 Ml Syringe) 50 ml IV Q30MIN PRN; Protocol PRN Reason: Hypoglycemia Heparin Sodium (Porcine) (Heparin 5,000 Unit/1 Ml Vial) 5,000 unit SUB-Q Q8HR KARAN Last Admin: 06/15/22 05:56 Dose: 5,000 unit Hydromorphone HCl (Hydromorphone 0.5 Mg/0.5 Ml Inj) 1 mg IV Q4H PRN PRN Reason: Pain , Severe (7-10) Cefepime HCl (Cefepime/Ns 1 Gm/100 Ml) 1 gm in 100 mls @ 200 mls/hr IV Q8H KARAN; Protocol Last Admin: 06/15/22 05:55 Dose: 200 mls/hr Vancomycin HCl (Vancomycin/Ns 1 Gm/250 Ml) 1 gm in 250 mls @ 166.667 mls/hr IV Q12H [facility] Last Admin: 06/15/22 04:11 Dose: 166.667 mls/hr Insulin Human Isoph/Insulin Regular (Insulin Nph/Regular 70/30 Inj) 10 unit SUB-Q BIDDIAB [facility] Last Admin: 06/15/22 09:21 Dose: Not Given Insulin Human Regular (Insulin Regular, Human 100 Units/1 Ml) 0 units SUB-Q ACHS [facility]; Protocol Last Admin: 06/15/22 09:21 Dose: Not Given Ketorolac Tromethamine (Ketorolac 30 Mg/1 Ml Inj) 15 mg IV Q8H PRN PRN Reason: Pain, Mild (1-3) Stop: 06/19/22 10:59 Last Admin: 06/15/22 04:11 Dose: 15 mg Metoclopramide HCl (Metoclopramide 10 Mg/2 Ml Inj) 10 mg IV Q6H PRN PRN Reason: Nausea And Vomiting Last Admin: 06/14/22 07:44 Dose: 10 mg Ondansetron HCl (Ondansetron 4 Mg/2 Ml Inj) 4 mg IV Q8H PRN PRN Reason: Nausea And Vomiting Oxycodone/Acetaminophen (Oxycodone /Acetaminophen 5-325mg Tab) 1 tab PO Q6H PRN PRN Reason: Pain, Moderate (4-6) Potassium Chloride (Potassium Chloride Er 20 Meq Tab) 40 meq PO ONCE@0800 NR Stop: 06/15/22 12:00 Last Admin: 06/15/22 09:22 Dose: 40 meq Sodium Chloride (Sodium Chloride 0.9% 10 Ml Flush Syringe) 10 ml IV PRN PRN PRN Reason: LINE FLUSH Sodium Chloride (Sodium Chloride 0.9% 10 Ml Flush Syringe) 10 ml IV BID [facility] Last Admin: 06/15/22 09:20 Dose: 10 ml Physical Examination - Physical Exam Narrative exam: Physical Exam: Constitutional: Alert, cooperative. No acute distress Head, Ears, Nose: Normocephalic, atraumatic. External ears, nose normal Eyes: Conjunctivae/corneas clear. No icterus. No ptosis. Neck: Posterior neck region with a large wound, packing, dressing Cardiovascular: S1, S2 + Respiratory: Good air entry, clear to auscultation bilaterally GI: Soft, non-tender; bowel sounds normal. No peritoneal signs Musculoskeletal: No pedal edema, no cyanosis. Skin: No rash or abscess Hem/Lymphatic: No palpable cervical or supraclavicular nodes. No lymphangitis Psych: Mood ok. Affect normal Neurological: Awake, alert, oriented. No gross abnormality - Constitutional Vitals: Vital Signs Temp Pulse Resp BP Pulse Ox 100.2 F H 104 H 18 110/58 100 06/14/22 21:49 06/14/22 21:49 06/15/22 09:26 06/14/22 21:49 06/15/22 09:26 Temperature -Last 24 Hours Temperature 100.2 F Temperature 99.8 F Temperature 98.9 F Temperature 98.8 F Temperature 97.4 F Results - Labs CBC & Chem 7: 06/15/22 04:42 06/15/22 04:42 Labs: Abnormal lab results 06/14/22 06/14/22 06/14/22 Range/Units 09:08 09:08 09:08 WBC (4.5-11.0) K/mm3 RBC (3.65-5.03) M/mm3 Hgb (11.8-15.2) gm/dl Hct (35.5-45.6) % [place] % (Auto) (0.0-7.3) % Lymph # (Auto) (1.2-5.4) K/mm3 Sodium (137-145) mmol/L Potassium (3.6-5.0) mmol/L Carbon Dioxide (22-30) mmol/L BUN (9-20) mg/dL Creatinine (0.8-1.3) mg/dL Glucose (75-100) mg/dL POC Glucose (70-105) mg/dL Hemoglobin A1c 15.6 H (4-6) % Calcium (8.4-10.2) mg/dL Iron 18 L (49-181) ug/dL TIBC 79 L (250-450) mcg/dL Ferritin 894.3 H (30.0-300.0) ng/mL 06/14/22 06/14/22 06/14/22 Range/Units 14:23 15:55 17:35 WBC (4.5-11.0) K/mm3 RBC (3.65-5.03) M/mm3 Hgb (11.8-15.2) gm/dl Hct (35.5-45.6) % [place] % (Auto) (0.0-7.3) % Lymph # (Auto) (1.2-5.4) K/mm3 Sodium 131 L D (137-145) mmol/L Potassium (3.6-5.0) mmol/L Carbon Dioxide 21 L (22-30) mmol/L BUN 8 L (9-20) mg/dL Creatinine 0.3 L (0.8-1.3) mg/dL Glucose 167 H (75-100) mg/dL POC Glucose 168 H 160 H (70-105) mg/dL Hemoglobin A1c (4-6) % Calcium 7.3 L (8.4-10.2) mg/dL Iron (49-181) ug/dL TIBC (250-450) mcg/dL Ferritin (30.0-300.0) ng/mL 06/14/22 06/15/22 06/15/22 Range/Units 21:27 04:42 04:42 WBC 3.5 L (4.5-11.0) K/mm3 RBC 2.91 L (3.65-5.03) M/mm3 Hgb 8.5 L (11.8-15.2) gm/dl Hct 25.2 L D (35.5-45.6) % [place] % (Auto) 11.3 H (0.0-7.3) % Lymph # (Auto) 0.9 L (1.2-5.4) K/mm3 Sodium 129 L (137-145) mmol/L Potassium 3.5 L D (3.6-5.0) mmol/L Carbon Dioxide (22-30) mmol/L BUN 7 L (9-20) mg/dL Creatinine 0.3 L (0.8-1.3) mg/dL Glucose (75-100) mg/dL POC Glucose 207 H (70-105) mg/dL Hemoglobin A1c (4-6) % Calcium 7.1 L (8.4-10.2) mg/dL Iron (49-181) ug/dL TIBC (250-450) mcg/dL Ferritin (30.0-300.0) ng/mL Assessment and Plan Cultures: 06/13/2022 blood culture: No growth 06/14/2022 surgical culture: In process A/P: 41-year-old male with diabetes: #Extensive, necrotic posterior neck abscess extending to the paraspinal musculature: No evidence of osteomyelitis on imaging. S/p extensive I&D on 06/14/2022 by general surgery. #Diabetes mellitus type 2, uncontrolled: HbA1c 15.6 Recs: Continue IV cefepime and vancomycin for now Follow-up OR drainage cultures Anticipate at least 3 weeks of culture directed antibiotics given the extent as well as myositis Rosanna Cartagena MD, FACP, DINA [facility] O: [phone] F: [phone] C: [phone]
--- NOTE | 2022-06-15 10:51 | Electrocardiograph Report ---
[facility] Test Date: 2022-06-13 Test Time: 14:01:07 Pat Name: JOSE LUIS MARTINEZ Department: Room: [facility], [place] Gender: M [employer] Supervisor: CHRISTA : 1980 Requested By: SUSY KNIGHT Order Number: [id number] Reading MD: Matt Rizvi Measurements Intervals [place] Rate: 131 P: 147 VT: 116 QRS: 142 QRSD: 80 T: QT: 275 QTc: 407 Interpretive Statements Right and left arm electrode reversal, interpretation assumes no reversal Sinus or ectopic atrial tachycardia Right axis deviation Nonspecific T abnormalities, lateral leads No previous ECG available for comparison Electronically Signed On 06-15-2022 10:51:39 EDT by Matt Rizvi
--- NOTE | 2022-06-15 12:14 | Progress Note ---
Assessment and Plan Assessment and plan: #Posterior neck abscess likely secondary to gram-positive bacteria #Lactic acidosisresolved Lactic acid 2.7-->1.8 CT of the head and chest with contrast revealing "large peripherally enhancing multiseptated organized collection seen extending from the posterior scalp along the subcutis tissues + paraspinal musculature to the level of T1 spinous process". Continue vancomycin + cefepime. Zosyn discontinued due to concerns for increased nephrotoxicity in the setting of continued vancomycin. General surgery consulted; appreciate recs. Patient status post I&D of posterior neck abscess. Plans for repeat debridement today (06/15/2022). Blood and wound cultures pending. Infectious disease consulted; appreciate recs. Continue analgesics as needed. Occupational Therapy consulted due to decreased mobility of right shoulder; pending recs. Continue to monitor. #Non-insulin dependent type II diabetes mellitus - hemoglobin A1c: 15.6 - home regimen: None - current regimen: NPH 70/30 5 units twice daily + moderate SSI - blood glucose goal 140-180 while inpatient - continue to monitor #Hyponatremiaimproving Sodium 122-->129 Continue to monitor with repeat BMP. Consider IV fluid resuscitation if sodium level decreases. Pending repeat BMP. #Hypokalemia Potassium 3.5 Repleted. Continue to monitor with repeat BMP. #Iron deficiency anemia Hemoglobin 10.9 Iron 18, TIBC 79, ferritin 894 Patient will benefit from IV iron infusions; however, this will be performed after extensive I&D of posterior neck abscess has been completed. Transfuse if hemoglobin <7 or patient become symptomatic. #Hypocalcemia Calcium 7.5 Replete. Continue to monitor. #Moderate protein caloric malnutrition Albumin 2.2 Continue dietary supplementation #Advanced care planning -Disease education conducted, care plan discussed, diagnoses discussed, prognosis discussed, and patient acknowledges understanding with care plan -Time: +30 min Disposition Plan: Continue medical management Total Time Spent with Patient (Minutes): 45 minutes History Interval history: Patient underwent first I&D by general surgery of posterior neck abscess. Patient returned to the room with the wound packed and covered in sterile gauze/bandaging. Hospitalist Physical - Constitutional Vitals: Temp Pulse Resp BP Pulse Ox 100.2 F H 104 H 18 110/58 100 06/14/22 21:49 06/14/22 21:49 06/15/22 09:26 06/14/22 21:49 06/15/22 09:26 General appearance: Present: no acute distress, well-nourished - EENT Eyes: Present: PERRL, EOM intact ENT: hearing intact, clear oral mucosa, dentition normal - Neck Neck: Present: supple, normal ROM - Respiratory Respiratory effort: normal Respiratory: bilateral: CTA - Cardiovascular Rhythm: regular Heart Sounds: Present: S1 & S2 - Extremities Extremities: no ischemia, pulses intact, pulses symmetrical, No edema, normal temperature, normal color Peripheral Pulses: within normal limits - Abdominal General gastrointestinal: soft, non-tender, non-distended, normal bowel sounds - Integumentary Integumentary: Present: erythema (Erythema and copious purulent drainage from posterior neck at site of I&D. Purulence oozes from muscle when pressure is applied.) - Psychiatric Psychiatric: appropriate mood/affect, cooperative, other (Decreased insight regarding overall clinical condition) - Neurologic Neurologic: CNII-XII intact - Allied Health Allied health notes reviewed: nursing Results - Labs CBC & Chem 7: 06/15/22 04:42 06/15/22 04:42 Labs: Laboratory Last Values WBC 3.5 K/mm3 (4.5-11.0) L 06/15/22 04:42 RBC 2.91 M/mm3 (3.65-5.03) L 06/15/22 04:42 Hgb 8.5 gm/dl (11.8-15.2) L 06/15/22 04:42 Hct 25.2 % (35.5-45.6) L D 06/15/22 04:42 MCV 87 fl (84-94) 06/15/22 04:42 MCH 29 pg (28-32) 06/15/22 04:42 MCHC 34 % (32-34) 06/15/22 04:42 RDW 13.6 % (13.2-15.2) 06/15/22 04:42 Plt Count 221 K/mm3 (140-440) 06/15/22 04:42 Lymph % (Auto) 24.9 % (13.4-35.0) 06/15/22 04:42 [place] % (Auto) 11.3 % (0.0-7.3) H 06/15/22 04:42 Eos % (Auto) 1.7 % (0.0-4.3) 06/15/22 04:42 Baso % (Auto) 0.6 % (0.0-1.8) 06/15/22 04:42 Lymph # (Auto) 0.9 K/mm3 (1.2-5.4) L 06/15/22 04:42 [place] # (Auto) 0.4 K/mm3 (0.0-0.8) 06/15/22 04:42 Eos # (Auto) 0.1 K/mm3 (0.0-0.4) 06/15/22 04:42 Baso # (Auto) 0.0 K/mm3 (0.0-0.1) 06/15/22 04:42 Seg Neutrophils % 61.5 % (40.0-70.0) 06/15/22 04:42 Seg Neutrophils # 2.2 K/mm3 (1.8-7.7) 06/15/22 04:42 Sodium 129 mmol/L (137-145) L 06/15/22 04:42 Potassium 3.5 mmol/L (3.6-5.0) L D 06/15/22 04:42 Chloride 98.9 mmol/L (98-107) 06/15/22 04:42 Carbon Dioxide 23 mmol/L (22-30) 06/15/22 04:42 Anion Gap 11 mmol/L 06/15/22 04:42 BUN 7 mg/dL (9-20) L 06/15/22 04:42 Creatinine 0.3 mg/dL (0.8-1.3) L 06/15/22 04:42 Estimated GFR > 60 ml/min 06/15/22 04:42 BUN/Creatinine Ratio 23 % 06/15/22 04:42 Glucose 80 mg/dL (75-100) 06/15/22 04:42 POC Glucose 112 mg/dL (70-105) H 06/15/22 11:47 Hemoglobin A1c 15.6 % (4-6) H 06/14/22 09:08 Lactic Acid 1.80 mmol/L (0.7-2.0) 06/14/22 16:27 Calcium 7.1 mg/dL (8.4-10.2) L 06/15/22 04:42 Iron 18 ug/dL (49-181) L 06/14/22 09:08 TIBC 79 mcg/dL (250-450) L 06/14/22 09:08 Ferritin 894.3 ng/mL (30.0-300.0) H 06/14/22 09:08 Total Bilirubin 0.60 mg/dL (0.1-1.2) 06/13/22 22:05 AST 37 units/L (5-40) 06/13/22 22:05 ALT 43 units/L (7-56) 06/13/22 22:05 Alkaline Phosphatase 127 units/L (35-129) 06/13/22 22:05 Total Protein 7.0 g/dL (6.3-8.2) 06/13/22 22:05 Albumin 2.2 g/dL (3.9-5) L 06/13/22 22:05 Albumin/Globulin Ratio 0.5 % 06/13/22 22:05 Microbiology: Microbiology 06/13/22 22:05 Peripheral/Venous Blood Culture - Preliminary NO GROWTH AFTER 24 HOURS 06/13/22 22:05 Peripheral/Venous Blood Culture - Preliminary NO GROWTH AFTER 24 HOURS Perez/IV: Voiding Method Toilet Active Medications - Current Medications Current Medications: Generic Name Dose Route Start Last Admin Trade Name Freq PRN Reason Stop Dose Admin Acetaminophen 650 mg 06/14/22 10:00 06/14/22 21:58 Acetaminophen 325 Mg Tab PO 650 mg Q4H PRN Administration Pain MILD(1-3)/Fever >100.5/ALMAZAN Dextrose 50 ml 06/14/22 15:48 Dextrose 50% In Water (25gm) 50 Ml Syringe IV Q30MIN PRN Hypoglycemia Protocol Heparin Sodium (Porcine) 5,000 unit 06/14/22 14:00 06/15/22 05:56 Heparin 5,000 Unit/1 Ml Vial SUB-Q 5,000 unit Q8HR KARAN Administration Hydromorphone HCl 1 mg 06/14/22 10:00 Hydromorphone 0.5 Mg/0.5 Ml Inj IV Q4H PRN Pain , Severe (7-10) Cefepime HCl 1 gm in 100 mls @ 200 mls/hr 06/14/22 10:00 06/15/22 05:55 Cefepime/Ns 1 Gm/100 Ml IV 200 mls/hr Q8H KARAN Administration Protocol Vancomycin HCl 1 gm in 250 mls @ 166.667 mls/hr 06/14/22 16:00 06/15/22 04:11 Vancomycin/Ns 1 Gm/250 Ml IV 166.667 mls/hr Q12H KARAN Administration Insulin Human Isoph/Insulin Regular 10 unit 06/14/22 17:00 06/15/22 09:21 Insulin Nph/Regular 70/30 Inj SUB-Q Not Given BIDDIAB [facility] Insulin Human Regular 0 units 06/14/22 16:30 06/15/22 09:21 Insulin Regular, Human 100 Units/1 Ml SUB-Q Not Given ACHS [facility] Protocol Ketorolac Tromethamine 15 mg 06/14/22 11:00 06/15/22 04:11 Ketorolac 30 Mg/1 Ml Inj IV 06/19/22 10:59 15 mg Q8H PRN Administration Pain, Mild (1-3) Metoclopramide HCl 10 mg 06/14/22 04:33 06/14/22 07:44 Metoclopramide 10 Mg/2 Ml Inj IV 10 mg Q6H PRN Administration Nausea And Vomiting Ondansetron HCl 4 mg 06/14/22 10:00 Ondansetron 4 Mg/2 Ml Inj IV Q8H PRN Nausea And Vomiting Oxycodone/Acetaminophen 1 tab 06/14/22 10:00 Oxycodone /Acetaminophen 5-325mg Tab PO Q6H PRN Pain, Moderate (4-6) Sodium Chloride 10 ml 06/14/22 04:33 Sodium Chloride 0.9% 10 Ml Flush Syringe IV PRN PRN LINE FLUSH Sodium Chloride 10 ml 06/14/22 10:00 06/15/22 09:20 Sodium Chloride 0.9% 10 Ml Flush Syringe IV 10 ml BID KARAN Administration
[2022-06-15] MEDS ORDERED: SUCCINYLCHOLINE CHLORIDE 200 MG/10 ML INJ MDV ONE (12:19)
[2022-06-15] MEDS ORDERED: fentaNYL 100 MCG/2 ML INJ ONE ×2 (12:19→13:52)
[2022-06-15] MEDS ORDERED: LIDOCAINE MPF (2%) 20 MG/1 ML VIAL 5 ML ONE (12:19)
[2022-06-15] MEDS ORDERED: propofoL 200 MG/20 ML VIAL IV ONE (12:19)
[2022-06-15] MEDS ORDERED: SODIUM HYPOCHLORITE, DAKIN'S FULL STRENGTH (0.5%) 473 ML TOPICAL SOLN ONE (13:14)
[2022-06-15] MEDS ORDERED: KETOROLAC 30 MG/1 ML INJ ONE (13:32)
[2022-06-15] MEDS ORDERED: ONDANSETRON 4 MG/2 ML INJ ONE (13:32)
[2022-06-15] MEDS ORDERED: dexAMETHasone 20 MG/5 ML VIAL ONE (13:32)
[2022-06-15] MEDS ORDERED: SODIUM HYPOCHLORITE, DAKIN'S FULL STRENGTH (0.5%) 473 ML TOPICAL SOLN IR ONE (14:02)
[2022-06-15] MEDS ORDERED: LACTATED RINGERS 1,000 ML ONE ×3 (14:03→15:44)
[2022-06-15] MEDS ORDERED: SODIUM CHLORIDE 0.9% IRR 1,500 ML BOTTLE IR ONE (14:14)
--- NOTE | 2022-06-15 16:04 | Operative Report ---
Operative Report Operative Report: Date: 06/15/2022 Preoperative diagnosis: Abscess to deep fascia layers paravertebral muscle layers and subscapular areas. Abscess skin wound 8 x 4 cm tunneling sac 9 cm to the patient's right and 8 cm to the patient's left tunneling inferiorly 8 cm (300cm2) Postop diagnosis: Same With additional abscess cephalad 8 x 5cm (340cm2) Procedure: Debridement of neck wound ulcer Surgeon: Dr. Patel EBL: Less than 10 cc Anesthesia:GETA Specimen: Wound cultures from the deep aspect of the wound Procedure: The patient is taken to the OR and after timeouts are completed the wound is prepped with Betadine and draped in a sterile fashion. Thick necrotic tissue was encountered and debrided mechanically with a curved Campbell and an Allis forceps. Extension of the abscess cavity is noted in the cephalad direction an additional 40cm2 is found. Loculations are broken up. Cranial periostium, is at the wound base. The wound is then irrigated with copious amounts of saline and Dakin's. Dakin's quarter percent soaked Kerlix gauze is then used to pack the wound. Sterile dressings placed over this.
--- NOTE | 2022-06-15 19:08 | Anesthesia Day of Surgery ---
Anesthesia Day of Surgery - Day of Surgery Patient Examined: Yes Patient H&P Reviewed: Yes Patient is NPO: Yes
[2022-06-16] MEDS: CEFEPIME/NS 1 GM/100 ML 1 GM/100 ML BAG IV SCH ×3 (05:10→23:02)
[2022-06-16] MEDS: HEPARIN 5,000 UNIT/1 ML VIAL SUB-Q SCH ×3 (05:13→21:28)
[2022-06-16 06:41] LABS: Basophils % (Auto) 0.4 % (0.0-1.8); Eosinophils % (Auto) 1.2 % (0.0-4.3); Hematocrit 22.8 % (35.5-45.6); Hemoglobin 7.8 gm/dl (11.8-15.2); Lymphocytes # (Auto) 1.1 K/mm3 (1.2-5.4); Lymphocytes % (Auto) 34.9 % (13.4-35.0); Mean Corpuscular HGB Conc 34 % (32-34); Mean Corpuscular Volume 86 fl (84-94); Monocytes # (Auto) 0.5 K/mm3 (0.0-0.8); Monocytes % (Auto) 14.4 % (0.0-7.3); Platelet Count 209 K/mm3 (140-440); Red Blood Count 2.65 M/mm3 (3.65-5.03)
[2022-06-16 07:12] LABS: Blood Urea Nitrogen 8 mg/dL (9-20); Calcium 7.2 mg/dL (8.4-10.2); Hemolysis Index 7
[2022-06-16 07:13] LABS: BUN/Creatinine Ratio 27
[2022-06-16] MEDS: INSULIN NPH/REGULAR 70/30 INJ SUB-Q SCH ×2 (08:55→17:20)
[2022-06-16] MEDS: INSULIN REGULAR, HUMAN 100 UNITS/1 ML SUB-Q SCH ×4 (08:57→22:38)
[2022-06-16] MEDS: VANCOMYCIN/NS 1 GM/250 ML 1 GM/250 ML BAG IV SCH (08:59)
[2022-06-16] MEDS: KETOROLAC 30 MG/1 ML INJ IV PRN (09:07)
--- NOTE | 2022-06-16 10:54 | Progress Note ---
Assessment and Plan Cultures: 06/13/2022 blood culture: No growth 06/14/2022 surgical culture: Gram stain with GNR. A/P: 41-year-old male with diabetes: #Extensive, necrotic posterior neck abscess extending to the paraspinal musculature: No evidence of osteomyelitis on imaging. S/p extensive I&D on 06/14/2022, 06/15/2022 by general surgery #Diabetes mellitus type 2, uncontrolled: HbA1c 15.6 Recs: Continue IV cefepime and vancomycin Follow-up OR drainage cultures Anticipate at least 3 weeks of culture directed antibiotics given the extent as well as myositis Rosanna Cartagena MD, FACP, DINA [facility] O: [phone] F: [phone] C: [phone] Subjective Date of service: 06/16/22 Interval history: No fever. Sitting up in a chair. Objective - Exam Narrative Exam: Physical Exam: Constitutional: Alert, cooperative. No acute distress Head, Ears, Nose: Normocephalic, atraumatic. External ears, nose normal Eyes: Conjunctivae/corneas clear. No icterus. No ptosis. Neck: Posterior neck and scalp region with a large wound, packing, dressing Cardiovascular: S1, S2 + Respiratory: Good air entry, clear to auscultation bilaterally GI: Soft, non-tender; bowel sounds normal. No peritoneal signs Musculoskeletal: No pedal edema, no cyanosis. Skin: No rash or abscess Hem/Lymphatic: No palpable cervical or supraclavicular nodes. No lymphangitis Psych: Mood ok. Affect normal Neurological: Awake, alert, oriented. No gross abnormality - Constitutional Vitals: Vital Signs Temp Pulse Resp BP Pulse Ox 98.4 F 74 14 118/76 97 06/16/22 05:06 06/16/22 05:06 06/16/22 09:07 06/16/22 05:06 06/16/22 05:06 Temperature -Last 24 Hours Temperature 98.4 F Temperature 98.5 F Temperature 98.8 F Temperature 97.7 F - Labs CBC & Chem 7: 06/16/22 06:00 06/16/22 06:00 Labs: Abnormal lab results 06/15/22 06/15/22 06/15/22 Range/Units 11:47 17:23 20:47 WBC (4.5-11.0) K/mm3 RBC (3.65-5.03) M/mm3 Hgb (11.8-15.2) gm/dl Hct (35.5-45.6) % RDW (13.2-15.2) % [place] % (Auto) (0.0-7.3) % Lymph # (Auto) (1.2-5.4) K/mm3 Seg Neutrophils # (1.8-7.7) K/mm3 Sodium (137-145) mmol/L Carbon Dioxide (22-30) mmol/L BUN (9-20) mg/dL Creatinine (0.8-1.3) mg/dL Glucose (75-100) mg/dL POC Glucose 112 H 203 H 302 H (70-105) mg/dL Calcium (8.4-10.2) mg/dL 06/16/22 06/16/22 06/16/22 Range/Units 06:00 06:00 07:52 WBC 3.2 L (4.5-11.0) K/mm3 RBC 2.65 L (3.65-5.03) M/mm3 Hgb 7.8 L (11.8-15.2) gm/dl Hct 22.8 L (35.5-45.6) % RDW 13.0 L (13.2-15.2) % [place] % (Auto) 14.4 H (0.0-7.3) % Lymph # (Auto) 1.1 L (1.2-5.4) K/mm3 Seg Neutrophils # 1.6 L (1.8-7.7) K/mm3 Sodium 126 L (137-145) mmol/L Carbon Dioxide 19 L (22-30) mmol/L BUN 8 L (9-20) mg/dL Creatinine 0.3 L (0.8-1.3) mg/dL Glucose 172 H (75-100) mg/dL POC Glucose 162 H (70-105) mg/dL Calcium 7.2 L (8.4-10.2) mg/dL
--- NOTE | 2022-06-16 11:10 | Progress Note ---
Assessment and Plan Continue local wound care continue IV antibiotics. Discussed with hospitalist regarding low white counts and large septic area. HIV testing will be done. Patient may need oncology consult. Subjective Date of service: 06/16/22 Patient Reports: Positive: no new complaints Narrative: Patient resting comfortably in chair. Denies any pain. He is hungry. Objective Vital Signs - 12hr 06/15/22 06/16/22 06/16/22 23:35 01:00 05:06 Temperature 98.5 F 98.4 F Pulse Rate 72 74 Respiratory 20 20 Rate Blood Pressure 100/65 118/76 [Left] O2 Sat by Pulse 97 97 97 Oximetry 06/16/22 09:07 Temperature Pulse Rate Respiratory 14 Rate Blood Pressure [Left] O2 Sat by Pulse Oximetry - Labs 06/16/22 06:00 06/16/22 06:00 Diabetes panel 06/16/22 Range/Units 06:00 Sodium 126 L (137-145) mmol/L Potassium 4.3 D (3.6-5.0) mmol/L Chloride 98.9 (98-107) mmol/L Carbon Dioxide 19 L (22-30) mmol/L BUN 8 L (9-20) mg/dL Creatinine 0.3 L (0.8-1.3) mg/dL Glucose 172 H (75-100) mg/dL Calcium 7.2 L (8.4-10.2) mg/dL Calcium panel 06/16/22 Range/Units 06:00 Calcium 7.2 L (8.4-10.2) mg/dL Pituitary panel 06/16/22 Range/Units 06:00 Sodium 126 L (137-145) mmol/L Potassium 4.3 D (3.6-5.0) mmol/L Chloride 98.9 (98-107) mmol/L Carbon Dioxide 19 L (22-30) mmol/L BUN 8 L (9-20) mg/dL Creatinine 0.3 L (0.8-1.3) mg/dL Glucose 172 H (75-100) mg/dL Calcium 7.2 L (8.4-10.2) mg/dL Adrenal panel 06/16/22 Range/Units 06:00 Sodium 126 L (137-145) mmol/L Potassium 4.3 D (3.6-5.0) mmol/L Chloride 98.9 (98-107) mmol/L Carbon Dioxide 19 L (22-30) mmol/L BUN 8 L (9-20) mg/dL Creatinine 0.3 L (0.8-1.3) mg/dL Glucose 172 H (75-100) mg/dL Calcium 7.2 L (8.4-10.2) mg/dL
--- NOTE | 2022-06-16 11:42 | Progress Note ---
Assessment and Plan Assessment and plan: #Posterior neck abscess likely secondary to gram-positive bacteria #Lactic acidosisresolved Lactic acid 2.7-->1.8 CT of the head and chest with contrast revealing "large peripherally enhancing multiseptated organized collection seen extending from the posterior scalp along the subcutis tissues + paraspinal musculature to the level of T1 spinous process". Continue vancomycin + cefepime. Zosyn discontinued due to concerns for increased nephrotoxicity in the setting of continued vancomycin. General surgery consulted; appreciate recs. Patient status post I&D of posterior neck abscess. Plans for repeat debridement today (06/16/2022). Blood negative x48hrs and wound cultures pending. Infectious disease consulted; appreciate recs. Continue analgesics as needed. Occupational Therapy consulted due to decreased mobility of right shoulder; pending recs. Continue to monitor. #Non-insulin dependent type II diabetes mellitus - hemoglobin A1c: 15.6 - home regimen: None - current regimen: NPH 70/30 5 units twice daily + moderate SSI - blood glucose goal 140-180 while inpatient - continue to monitor #Hyponatremiaimproving Sodium 122-->129 Continue to monitor with repeat BMP. Consider IV fluid resuscitation if sodium level decreases. Pending repeat BMP. #Hypokalemia-resolved Potassium 3.5 Repleted. Continue to monitor with repeat BMP. #Iron deficiency anemia Hemoglobin 10.9 Iron 18, TIBC 79, ferritin 894 Patient will benefit from IV iron infusions; however, this will be performed after extensive I&D of posterior neck abscess has been completed. Transfuse if hemoglobin <7 or patient become symptomatic. #Hypocalcemia Calcium 7.5 Replete. Continue to monitor. #Moderate protein caloric malnutrition Albumin 2.2 Continue dietary supplementation #Advanced care planning -Disease education conducted, care plan discussed, diagnoses discussed, prognosis discussed, and patient acknowledges understanding with care plan -Time: +30 min Disposition Plan: Continue medical management Total Time Spent with Patient (Minutes): 45 min History Interval history: No acute events overnight. Hospitalist Physical - Constitutional Vitals: Temp Pulse Resp BP Pulse Ox 98.4 F 74 14 118/76 97 06/16/22 05:06 06/16/22 05:06 06/16/22 09:07 06/16/22 05:06 06/16/22 05:06 General appearance: Present: no acute distress, well-nourished - EENT Eyes: Present: PERRL, EOM intact ENT: hearing intact, clear oral mucosa, dentition normal - Neck Neck: Present: supple, normal ROM - Respiratory Respiratory effort: normal Respiratory: bilateral: CTA - Cardiovascular Rhythm: regular Heart Sounds: Present: S1 & S2 - Extremities Extremities: no ischemia, pulses intact, pulses symmetrical, No edema, normal temperature, normal color Peripheral Pulses: within normal limits - Abdominal General gastrointestinal: soft, non-tender, non-distended, normal bowel sounds - Integumentary Integumentary: Present: clear, warm, dry - Psychiatric Psychiatric: appropriate mood/affect, cooperative - Neurologic Neurologic: CNII-XII intact, moves all extremities - Allied Health Allied health notes reviewed: nursing, case management Results - Labs CBC & Chem 7: 06/16/22 06:00 06/16/22 06:00 Labs: Laboratory Last Values WBC 3.2 K/mm3 (4.5-11.0) L 06/16/22 06:00 RBC 2.65 M/mm3 (3.65-5.03) L 06/16/22 06:00 Hgb 7.8 gm/dl (11.8-15.2) L 06/16/22 06:00 Hct 22.8 % (35.5-45.6) L 06/16/22 06:00 MCV 86 fl (84-94) 06/16/22 06:00 MCH 29 pg (28-32) 06/16/22 06:00 MCHC 34 % (32-34) 06/16/22 06:00 RDW 13.0 % (13.2-15.2) L 06/16/22 06:00 Plt Count 209 K/mm3 (140-440) 06/16/22 06:00 Lymph % (Auto) 34.9 % (13.4-35.0) 06/16/22 06:00 [place] % (Auto) 14.4 % (0.0-7.3) H 06/16/22 06:00 Eos % (Auto) 1.2 % (0.0-4.3) 06/16/22 06:00 Baso % (Auto) 0.4 % (0.0-1.8) 06/16/22 06:00 Lymph # (Auto) 1.1 K/mm3 (1.2-5.4) L 06/16/22 06:00 [place] # (Auto) 0.5 K/mm3 (0.0-0.8) 06/16/22 06:00 Eos # (Auto) 0.0 K/mm3 (0.0-0.4) 06/16/22 06:00 Baso # (Auto) 0.0 K/mm3 (0.0-0.1) 06/16/22 06:00 Seg Neutrophils % 49.1 % (40.0-70.0) 06/16/22 06:00 Seg Neutrophils # 1.6 K/mm3 (1.8-7.7) L 06/16/22 06:00 Sodium 126 mmol/L (137-145) L 06/16/22 06:00 Potassium 4.3 mmol/L (3.6-5.0) D 06/16/22 06:00 Chloride 98.9 mmol/L (98-107) 06/16/22 06:00 Carbon Dioxide 19 mmol/L (22-30) L 06/16/22 06:00 Anion Gap 12 mmol/L 06/16/22 06:00 BUN 8 mg/dL (9-20) L 06/16/22 06:00 Creatinine 0.3 mg/dL (0.8-1.3) L 06/16/22 06:00 Estimated GFR > 60 ml/min 06/16/22 06:00 BUN/Creatinine Ratio 27 % 06/16/22 06:00 Glucose 172 mg/dL (75-100) H 06/16/22 06:00 POC Glucose 162 mg/dL (70-105) H 06/16/22 07:52 Hemoglobin A1c 15.6 % (4-6) H 06/14/22 09:08 Lactic Acid 1.80 mmol/L (0.7-2.0) 06/14/22 16:27 Calcium 7.2 mg/dL (8.4-10.2) L 06/16/22 06:00 Iron 18 ug/dL (49-181) L 06/14/22 09:08 TIBC 79 mcg/dL (250-450) L 06/14/22 09:08 Ferritin 894.3 ng/mL (30.0-300.0) H 06/14/22 09:08 Total Bilirubin 0.60 mg/dL (0.1-1.2) 06/13/22 22:05 AST 37 units/L (5-40) 06/13/22 22:05 ALT 43 units/L (7-56) 06/13/22 22:05 Alkaline Phosphatase 127 units/L (35-129) 06/13/22 22:05 Total Protein 7.0 g/dL (6.3-8.2) 06/13/22 22:05 Albumin 2.2 g/dL (3.9-5) L 06/13/22 22:05 Albumin/Globulin Ratio 0.5 % 06/13/22 22:05 Vancomycin Trough 7.3 ug/mL (5.0-20.0) 06/16/22 06:00 Microbiology: Microbiology 06/13/22 22:05 Peripheral/Venous Blood Culture - Preliminary NO GROWTH AFTER 48 HOURS 06/13/22 22:05 Peripheral/Venous Blood Culture - Preliminary NO GROWTH AFTER 48 HOURS 06/14/22 16:00 Neck Surgical Culture - Preliminary Perez/IV: Voiding Method Urinal Active Medications - Current Medications Current Medications: Generic Name Dose Route Start Last Admin Trade Name Freq PRN Reason Stop Dose Admin Acetaminophen 650 mg 06/14/22 10:00 06/14/22 21:58 Acetaminophen 325 Mg Tab PO 650 mg Q4H PRN Administration Pain MILD(1-3)/Fever >100.5/ALMAZAN Dextrose 50 ml 06/14/22 15:48 Dextrose 50% In Water (25gm) 50 Ml Syringe IV Q30MIN PRN Hypoglycemia Protocol Heparin Sodium (Porcine) 5,000 unit 06/14/22 14:00 06/16/22 05:13 Heparin 5,000 Unit/1 Ml Vial SUB-Q 5,000 unit Q8HR KARAN Administration Hydromorphone HCl 1 mg 06/14/22 10:00 Hydromorphone 0.5 Mg/0.5 Ml Inj IV Q4H PRN Pain , Severe (7-10) Cefepime HCl 1 gm in 100 mls @ 200 mls/hr 06/14/22 10:00 06/16/22 05:10 Cefepime/Ns 1 Gm/100 Ml IV 200 mls/hr Q8H KARAN Administration Protocol Vancomycin HCl 1,500 mg/ 530 mls @ 333.333 mls/hr 06/16/22 12:00 Sodium Chloride IV Q12H KARAN Insulin Human Isoph/Insulin Regular 5 unit 06/15/22 12:09 06/16/22 08:55 Insulin Nph/Regular 70/30 Inj SUB-Q 5 unit BIDDIAB KARAN Administration Insulin Human Regular 0 units 06/14/22 16:30 06/16/22 08:57 Insulin Regular, Human 100 Units/1 Ml SUB-Q 2 units ACHS KARAN Administration Protocol Ketorolac Tromethamine 15 mg 06/14/22 11:00 06/16/22 09:07 Ketorolac 30 Mg/1 Ml Inj IV 06/19/22 10:59 15 mg Q8H PRN Administration Pain, Mild (1-3) Metoclopramide HCl 10 mg 06/14/22 04:33 06/14/22 07:44 Metoclopramide 10 Mg/2 Ml Inj IV 10 mg Q6H PRN Administration Nausea And Vomiting Ondansetron HCl 4 mg 06/14/22 10:00 Ondansetron 4 Mg/2 Ml Inj IV Q8H PRN Nausea And Vomiting Oxycodone/Acetaminophen 1 tab 06/14/22 10:00 Oxycodone /Acetaminophen 5-325mg Tab PO Q6H PRN Pain, Moderate (4-6) Sodium Chloride 10 ml 06/14/22 04:33 Sodium Chloride 0.9% 10 Ml Flush Syringe IV PRN PRN LINE FLUSH Sodium Chloride 10 ml 06/14/22 10:00 06/16/22 09:00 Sodium Chloride 0.9% 10 Ml Flush Syringe IV 10 ml BID KARAN Administration Nutrition/Malnutrition Assess - Dietary Evaluation Nutrition/Malnutrition Findings: Nutrition Notes Start: 06/15/22 16:25 Freq: Status: Active Protocol: Document 06/15/22 16:25 BRIANDA (Rec: 06/15/22 16:59 BRIANDA [id number]) Nutrition Notes Need for Assessment generated from: MD Order,student finance specialist,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 Current Diet Consistent Carbohydrates Diet+ D Suppl (since D 06/15). Labs/Tests 06/15: Na 129, K 3.5, BUN 7, Crea 0.3, Ca 7.1. Pertinent Medications 06/15: Nutritionally unremarkable. 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 No reports available on Pt's PO intake of meals at the time , will assess at F/U. I will recommend dietary supplementation to support wound healing processes during LOS. Pt is on Room Air, O2 saturation @ 100%, according to Physical Asasessment history notes. Procedure on 06/14: Drainage of abscess w/debridemenmt of necrotic skin and deep tissue, well tolerated, according to Operative Report notes. Procedure on 06/15: Debridement of posterior neck wound ulcer, well tolerated, according to Operative Procedure notes. Pt shows a surgical wound on the posterior neck as sign of concern for skin risk at the time, according to Physical Assessment History notes. Pt is not a new onset diabetes candidate for nutrition education. Percent of energy/protein needs met: Prescribed Consistent Carbohydrates Diet provides for energy/protein needs (2, 061 Kcal/91 g) during LOS; additionally, Dietary Supplements will support wound healing processes with 190 Kcal and 5 g of protein. Burn Absent Trauma Absent GI Symptoms None Food Allergy No Skin Integrity/Comment Neck surgical wound. Minimum of two criteria No Fluid Accumulation N/A Reduced Patient Biller Strength N/A (non-severe) Protein-Calorie Malnutrition N\\A #1 Nutrition Diagnosis Increased nutrient needs ( specify in comment below) Comments: Protein to support wound healing processes. Etiology Posterior Neck wound ulcer. As Evidenced by Signs and Symptoms Procedure on 06/14: Drainage of abscess w/debridemenmt of necrotic skin and deep tissue, well tolerated, according to Operative Report notes. Procedure on 06/15: Debridement of posterior neck wound ulcer, well tolerated, according to Operative Procedure notes. Is patient on ventilator? No Is Patient Ambulatory and/or Out of Bed Yes REE-([place]-St. Jeor-ambulatory/OOB) [ 1968.044 NUTR.[id number]] Kcal/Kg value to use for calculation 23 Approximate Energy Requirements Using 1546 kcal/Kg Calculation Used for Recommendations Kcal/kg Additional Notes Protein: 1.25-1.5 g/Kg ABW; 84 -101 g/day. Fluids: 1 ml/Kcal, or as per MD. Nutrition Intervention Change Diet Order: Continue Consistent Carbohydrates Diet as tolerated. Add Supplement/Snack (indicate name/kcal Start 28.8 g pkt Kash; BID. /protein ) Provides kCal: 190 Provides Protein (gm) 5 Goal #1 Support, through dietary supplementation, wound healing processes during LOS. Goal #2 Adjust the dietary intervention to better serve Pt's needs and clinical conditions during LOS. Follow-Up By: 06/22/22 Additional Comments Continue monitoring food tolerance, %PO intake of meals , dietary supplements, and BM.
[2022-06-16] MEDS: VANCOMYCIN 1,500 MG in SODIUM CHLORIDE 0.9% 500 ML 500 ML IV SCH (12:52)
[2022-06-17] MEDS: VANCOMYCIN 1,500 MG in SODIUM CHLORIDE 0.9% 500 ML 500 ML IV SCH ×2 (01:34→11:38)
[2022-06-17] MEDS: ACETAMINOPHEN 325 MG TAB PO PRN (01:36)
[2022-06-17 05:11] LABS: Basophils % (Auto) 0.4 % (0.0-1.8); Hematocrit 22.4 % (35.5-45.6); Hemoglobin 7.5 gm/dl (11.8-15.2); Lymphocytes % (Auto) 23.3 % (13.4-35.0); Mean Corpuscular HGB Conc 34 % (32-34); Mean Corpuscular Volume 86 fl (84-94); Monocytes # (Auto) 0.4 K/mm3 (0.0-0.8); Monocytes % (Auto) 9.4 % (0.0-7.3); Platelet Count 252 K/mm3 (140-440); Red Cell Distribution Width 13.5 % (13.2-15.2)
[2022-06-17 05:27] LABS: Blood Urea Nitrogen 5 mg/dL (9-20); Calcium 7.1 mg/dL (8.4-10.2); Hemolysis Index 3
[2022-06-17 05:29] LABS: BUN/Creatinine Ratio 17
[2022-06-17] MEDS: HEPARIN 5,000 UNIT/1 ML VIAL SUB-Q SCH ×3 (05:41→21:53)
[2022-06-17] MEDS: CEFEPIME/NS 1 GM/100 ML 1 GM/100 ML BAG IV SCH (05:43)
[2022-06-17] MEDS ORDERED: LIDOCAINE MPF (2%) 20 MG/1 ML VIAL 5 ML ONE (07:16)
[2022-06-17] MEDS ORDERED: propofoL 200 MG/20 ML VIAL IV ONE (07:16)
[2022-06-17] MEDS ORDERED: MIDAZOLAM 2 MG/2 ML INJ ONE (07:16)
[2022-06-17] MEDS ORDERED: SUCCINYLCHOLINE CHLORIDE 200 MG/10 ML INJ MDV ONE (07:46)
[2022-06-17] MEDS: INSULIN REGULAR, HUMAN 100 UNITS/1 ML SUB-Q SCH ×5 (07:48→22:06)
[2022-06-17] MEDS ORDERED: fentaNYL 100 MCG/2 ML INJ ONE (07:50)
[2022-06-17] MEDS: INSULIN NPH/REGULAR 70/30 INJ SUB-Q SCH ×2 (08:00→17:09)
[2022-06-17] MEDS ORDERED: BUPIVACAINE/PF (0.25%) 2.5 MG/ML 30 ML VIAL INFILTRATI ONE ×2 (08:03→08:04)
[2022-06-17] MEDS ORDERED: SODIUM HYPOCHLORITE, DAKIN'S FULL STRENGTH (0.5%) 473 ML TOPICAL SOLN ONE (08:03)
[2022-06-17] MEDS ORDERED: LIDOCAINE (1%) 10 MG/1 ML VIAL 20 ML MDV ONE (08:03)
--- NOTE | 2022-06-17 08:13 | Anesthesia Day of Surgery ---
Anesthesia Day of Surgery - Day of Surgery Patient Examined: Yes Patient H&P Reviewed: Yes Patient is NPO: Yes
[2022-06-17] MEDS ORDERED: KETAMINE/STERILE WATER 50 MG/ML SYRINGE ONE (08:37)
[2022-06-17] MEDS ORDERED: SODIUM CHLORIDE 0.9% 1000 ML 1,000 ML ONE (08:59)
--- NOTE | 2022-06-17 10:04 | Event Note ---
Date: 06/17/22 Patient off the floor. Cultures so far growing Klebsiella and Staph aureus. Cefepime switched to ceftriaxone. Continue IV vancomycin given Staphylococcus aureus susceptibilities are available.
--- NOTE | 2022-06-17 10:23 | Progress Note ---
Assessment and Plan Assessment and plan: #Posterior neck abscess secondary to Klebsiella + staph aureus #Lactic acidosisresolved Lactic acid 2.7-->1.8 CT of the head and chest with contrast revealing "large peripherally enhancing multiseptated organized collection seen extending from the posterior scalp along the subcutis tissues + paraspinal musculature to the level of T1 spinous process". Continue vancomycin + starting ceftriaxone (discontinuing cefepime based on sensitivities). General surgery consulted; appreciate recs. Patient status post I&D of posterior neck abscess. Plans for repeat debridement today (06/17/2022). Blood negative x78hrs. wound cultures positive for Klebsiella and staph aureus (pending speciation). Infectious disease consulted; appreciate recs. HIV negative. Continue analgesics as needed. Occupational Therapy consulted due to decreased mobility of right shoulder; pending recs. Continue to monitor. #Non-insulin dependent type II diabetes mellitus - hemoglobin A1c: 15.6 - home regimen: None - current regimen: NPH 70/30 5 units twice daily + moderate SSI - blood glucose goal 140-180 while inpatient - continue to monitor #Hyponatremiaimproving Sodium 122-->129 Continue to monitor with repeat BMP. Consider IV fluid resuscitation if sodium level decreases. Pending repeat BMP. #Hypokalemia-resolved Potassium 3.5 Repleted. Continue to monitor with repeat BMP. #Iron deficiency anemia Hemoglobin 10.9 Iron 18, TIBC 79, ferritin 894 Patient will benefit from IV iron infusions; however, this will be performed after extensive I&D of posterior neck abscess has been completed. Transfuse if hemoglobin <7 or patient become symptomatic. #Hypocalcemia Calcium 7.5 Replete. Continue to monitor. #Moderate protein caloric malnutrition Albumin 2.2 Continue dietary supplementation #Advanced care planning -Disease education conducted, care plan discussed, diagnoses discussed, prognosis discussed, and patient acknowledges understanding with care plan -Time: +30 min Disposition Plan: Continue medical management Total Time Spent with Patient (Minutes): 45 minutes History Interval history: No acute events overnight. Hospitalist Physical - Constitutional Vitals: Temp Pulse Resp BP Pulse Ox 97.3 F L 88 16 161/91 100 06/17/22 09:33 06/17/22 10:00 06/17/22 10:00 06/17/22 10:00 06/17/22 10:00 General appearance: Present: no acute distress, well-nourished - EENT Eyes: Present: PERRL, EOM intact ENT: hearing intact, clear oral mucosa, dentition normal - Neck Neck: Present: supple, other (Decreased range of motion) - Respiratory Respiratory effort: normal Respiratory: bilateral: CTA - Cardiovascular Rhythm: regular Heart Sounds: Present: S1 & S2 - Extremities Extremities: no ischemia, pulses intact, pulses symmetrical, No edema, normal temperature, normal color, abnormal (Decreased range of motion of right shoulder and upper extremity) Peripheral Pulses: within normal limits - Abdominal General gastrointestinal: soft, non-tender, non-distended, normal bowel sounds - Integumentary Integumentary: Present: erythema (Erythema, purulence, and necrosis of posterior neck; purulent fluid expressed from muscles of posterior neck on palpation) - Psychiatric Psychiatric: appropriate mood/affect, cooperative - Neurologic Neurologic: CNII-XII intact, moves all extremities - Allied Health Allied health notes reviewed: nursing Results - Labs CBC & Chem 7: 06/17/22 04:41 06/17/22 04:41 Labs: Laboratory Last Values WBC 4.2 K/mm3 (4.5-11.0) L 06/17/22 04:41 RBC 2.60 M/mm3 (3.65-5.03) L 06/17/22 04:41 Hgb 7.5 gm/dl (11.8-15.2) L 06/17/22 04:41 Hct 22.4 % (35.5-45.6) L 06/17/22 04:41 MCV 86 fl (84-94) 06/17/22 04:41 MCH 29 pg (28-32) 06/17/22 04:41 MCHC 34 % (32-34) 06/17/22 04:41 RDW 13.5 % (13.2-15.2) 06/17/22 04:41 Plt Count 252 K/mm3 (140-440) 06/17/22 04:41 Lymph % (Auto) 23.3 % (13.4-35.0) 06/17/22 04:41 [place] % (Auto) 9.4 % (0.0-7.3) H 06/17/22 04:41 Eos % (Auto) 1.0 % (0.0-4.3) 06/17/22 04:41 Baso % (Auto) 0.4 % (0.0-1.8) 06/17/22 04:41 Lymph # (Auto) 1.0 K/mm3 (1.2-5.4) L 06/17/22 04:41 [place] # (Auto) 0.4 K/mm3 (0.0-0.8) 06/17/22 04:41 Eos # (Auto) 0.0 K/mm3 (0.0-0.4) 06/17/22 04:41 Baso # (Auto) 0.0 K/mm3 (0.0-0.1) 06/17/22 04:41 Seg Neutrophils % 65.9 % (40.0-70.0) 06/17/22 04:41 Seg Neutrophils # 2.8 K/mm3 (1.8-7.7) 06/17/22 04:41 Sodium 128 mmol/L (137-145) L 06/17/22 04:41 Potassium 3.8 mmol/L (3.6-5.0) 06/17/22 04:41 Chloride 96.8 mmol/L (98-107) L 06/17/22 04:41 Carbon Dioxide 22 mmol/L (22-30) 06/17/22 04:41 Anion Gap 13 mmol/L 06/17/22 04:41 BUN 5 mg/dL (9-20) L 06/17/22 04:41 Creatinine 0.3 mg/dL (0.8-1.3) L 06/17/22 04:41 Estimated GFR > 60 ml/min 06/17/22 04:41 BUN/Creatinine Ratio 17 % 06/17/22 04:41 Glucose 138 mg/dL (75-100) H 06/17/22 04:41 POC Glucose 119 mg/dL (70-105) H 06/17/22 09:41 Hemoglobin A1c 15.6 % (4-6) H 06/14/22 09:08 Lactic Acid 1.80 mmol/L (0.7-2.0) 06/14/22 16:27 Calcium 7.1 mg/dL (8.4-10.2) L 06/17/22 04:41 Iron 18 ug/dL (49-181) L 06/14/22 09:08 TIBC 79 mcg/dL (250-450) L 06/14/22 09:08 Ferritin 894.3 ng/mL (30.0-300.0) H 06/14/22 09:08 Total Bilirubin 0.60 mg/dL (0.1-1.2) 06/13/22 22:05 AST 37 units/L (5-40) 06/13/22 22:05 ALT 43 units/L (7-56) 06/13/22 22:05 Alkaline Phosphatase 127 units/L (35-129) 06/13/22 22:05 Total Protein 7.0 g/dL (6.3-8.2) 06/13/22 22:05 Albumin 2.2 g/dL (3.9-5) L 06/13/22 22:05 Albumin/Globulin Ratio 0.5 % 06/13/22 22:05 Vancomycin Trough 7.3 ug/mL (5.0-20.0) 06/16/22 06:00 HIV 1&2 Antibody Rapid Non react (Non React) 06/16/22 11:11 HIV P24 Antigen Non react (Non React) 06/16/22 11:11 Microbiology: Microbiology 06/13/22 22:05 Peripheral/Venous Blood Culture - Preliminary NO GROWTH AFTER 72 HOURS 06/13/22 22:05 Peripheral/Venous Blood Culture - Preliminary NO GROWTH AFTER 72 HOURS 06/14/22 16:00 Neck Anaerobic Culture - Preliminary 06/14/22 16:00 Neck Surgical Culture - Preliminary Klebsiella Pneumoniae Staphylococcus Aureus Perez/IV: Voiding Method Urinal Active Medications - Current Medications Current Medications: Generic Name Dose Route Start Last Admin Trade Name Freq PRN Reason Stop Dose Admin Acetaminophen 650 mg 06/14/22 10:00 06/17/22 01:36 Acetaminophen 325 Mg Tab PO 650 mg Q4H PRN Administration Pain MILD(1-3)/Fever >100.5/ALMAZAN Dextrose 50 ml 06/14/22 15:48 Dextrose 50% In Water (25gm) 50 Ml Syringe IV Q30MIN PRN Hypoglycemia Protocol Heparin Sodium (Porcine) 5,000 unit 06/14/22 14:00 06/17/22 05:41 Heparin 5,000 Unit/1 Ml Vial SUB-Q 5,000 unit Q8HR KARAN Administration Hydromorphone HCl 1 mg 06/14/22 10:00 Hydromorphone 0.5 Mg/0.5 Ml Inj IV Q4H PRN Pain , Severe (7-10) Vancomycin HCl 1,500 mg/ 530 mls @ 333.333 mls/hr 06/16/22 12:00 06/17/22 01:34 Sodium Chloride IV 333.333 mls/hr Q12H KARAN Administration Ceftriaxone Sodium 2 gm in 100 mls @ 200 mls/hr 06/17/22 11:00 Rocephin/Ns 2 Gm/100 Ml IV Q24HR [facility] Protocol Insulin Human Isoph/Insulin Regular 5 unit 06/15/22 12:09 06/17/22 08:00 Insulin Nph/Regular 70/30 Inj SUB-Q Not Given BIDDIAB [facility] Insulin Human Regular 0 units 06/14/22 16:30 06/17/22 07:48 Insulin Regular, Human 100 Units/1 Ml SUB-Q Not Given ACHS [facility] Protocol Ketorolac Tromethamine 15 mg 06/14/22 11:00 06/16/22 09:07 Ketorolac 30 Mg/1 Ml Inj IV 06/19/22 10:59 15 mg Q8H PRN Administration Pain, Mild (1-3) Metoclopramide HCl 10 mg 06/14/22 04:33 06/14/22 07:44 Metoclopramide 10 Mg/2 Ml Inj IV 10 mg Q6H PRN Administration Nausea And Vomiting Ondansetron HCl 4 mg 06/14/22 10:00 Ondansetron 4 Mg/2 Ml Inj IV Q8H PRN Nausea And Vomiting Oxycodone/Acetaminophen 1 tab 06/14/22 10:00 Oxycodone /Acetaminophen 5-325mg Tab PO Q6H PRN Pain, Moderate (4-6) Sodium Chloride 10 ml 06/14/22 04:33 Sodium Chloride 0.9% 10 Ml Flush Syringe IV PRN PRN LINE FLUSH Sodium Chloride 10 ml 06/14/22 10:00 06/16/22 21:29 Sodium Chloride 0.9% 10 Ml Flush Syringe IV 10 ml BID KARAN Administration Nutrition/Malnutrition Assess - Dietary Evaluation Nutrition/Malnutrition Findings: Nutrition Notes Start: 06/15/22 16:25 Freq: Status: Active Protocol: Document 06/15/22 16:25 BRIANDA (Rec: 06/15/22 16:59 BRIANDA [id number]) Nutrition Notes Need for Assessment generated from: 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 Current Diet Consistent Carbohydrates Diet+ D Suppl (since D 06/15). Labs/Tests 06/15: Na 129, K 3.5, BUN 7, Crea 0.3, Ca 7.1. Pertinent Medications 06/15: Nutritionally unremarkable. 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 No reports available on Pt's PO intake of meals at the time , will assess at F/U. I will recommend dietary supplementation to support wound healing processes during LOS. Pt is on Room Air, O2 saturation @ 100%, according to Physical Asasessment history notes. Procedure on 06/14: Drainage of abscess w/debridemenmt of necrotic skin and deep tissue, well tolerated, according to Operative Report notes. Procedure on 06/15: Debridement of posterior neck wound ulcer, well tolerated, according to Operative Procedure notes. Pt shows a surgical wound on the posterior neck as sign of concern for skin risk at the time, according to Physical Assessment History notes. Pt is not a new onset diabetes candidate for nutrition education. Percent of energy/protein needs met: Prescribed Consistent Carbohydrates Diet provides for energy/protein needs (2, 061 Kcal/91 g) during LOS; additionally, Dietary Supplements will support wound healing processes with 190 Kcal and 5 g of protein. Burn Absent Trauma Absent GI Symptoms None Food Allergy No Skin Integrity/Comment Neck surgical wound. Minimum of two criteria No Fluid Accumulation N/A Reduced Nursing Assoc Strength N/A (non-severe) Protein-Calorie Malnutrition N\\A #1 Nutrition Diagnosis Increased nutrient needs ( specify in comment below) Comments: Protein to support wound healing processes. Etiology Posterior Neck wound ulcer. As Evidenced by Signs and Symptoms Procedure on 06/14: Drainage of abscess w/debridemenmt of necrotic skin and deep tissue, well tolerated, according to Operative Report notes. Procedure on 06/15: Debridement of posterior neck wound ulcer, well tolerated, according to Operative Procedure notes. Is patient on ventilator? No Is Patient Ambulatory and/or Out of Bed Yes REE-([place]-St. Jeor-ambulatory/OOB) [ 1968.044 NUTR.MSJOOB] Kcal/Kg value to use for calculation 23 Approximate Energy Requirements Using 1546 kcal/Kg Calculation Used for Recommendations Kcal/kg Additional Notes Protein: 1.25-1.5 g/Kg ABW; 84 -101 g/day. Fluids: 1 ml/Kcal, or as per MD. Nutrition Intervention Change Diet Order: Continue Consistent Carbohydrates Diet as tolerated. Add Supplement/Snack (indicate name/kcal Start 28.8 g pkt Kash; BID. /protein ) Provides kCal: 190 Provides Protein (gm) 5 Goal #1 Support, through dietary supplementation, wound healing processes during LOS. Goal #2 Adjust the dietary intervention to better serve Pt's needs and clinical conditions during LOS. Follow-Up By: 06/22/22 Additional Comments Continue monitoring food tolerance, %PO intake of meals , dietary supplements, and BM.
--- NOTE | 2022-06-17 10:36 | Operative Report ---
Operative Report Operative Report: Date: 06/09/2022 Preoperative diagnosis: Chronic wound of posterior neck Postop diagnosis: Same Procedure: Debridement of Chronic wound of posterior neck Surgeon: Dr. Patel EBL: Less than 10 cc Anesthesia: General endotracheal anesthesia Specimen: None Procedure: The patient is taken to the OR and after timeouts are completed. Patient is intubated and then rolled into a prone position all pressure points were padded. The Chronic wound of posterior neck is prepped with Betadine and draped in a sterile fashion. Thick necrotic tissue was encountered and debrided mechanically with a curved Campbell and an Allis forceps. The [employer] generator platform was then used with the flat tip for ultrasound debridement of the interface between the necrotic tissue and the living tissue. The wound site including all areas of tunneling is 23 cm x 19 cm x 1 cm. Debridement is of the dermis and epidermis muscle and deep fascia and subcutaneous tissue. Electrocautery was used for hemostasis. The wound is then irrigated with copious amounts of saline. Dakin's quarter percent is used to irrigate the wound. The black foam from the wound VAC kit is then placed into the wound in all areas of tunneling. Skin-Prep is used along the wound edge. Wound VAC adhesive dressing is then placed and attached to vacu um. A good seal was obtained.
[2022-06-17] MEDS: cefTRIAXone/NS 2 GM/100 ML 2 GM/100 ML BAG IV SCH (11:36)
[2022-06-17] MEDS: HYDROmorphone 0.5 MG/0.5 ML INJ IV PRN (11:38)
[2022-06-18] MEDS: VANCOMYCIN 1,500 MG in SODIUM CHLORIDE 0.9% 500 ML 500 ML IV SCH ×2 (01:33→12:09)
[2022-06-18] MEDS: HEPARIN 5,000 UNIT/1 ML VIAL SUB-Q SCH ×3 (06:00→21:44)
[2022-06-18 06:17] LABS: Basophils % (Auto) 0.4 % (0.0-1.8); Eosinophils % (Auto) 1.2 % (0.0-4.3); Hematocrit 20.9 % (35.5-45.6); Lymphocytes % (Auto) 24.3 % (13.4-35.0); Mean Corpuscular HGB Conc 34 % (32-34); Mean Corpuscular Volume 86 fl (84-94); Monocytes # (Auto) 0.4 K/mm3 (0.0-0.8); Monocytes % (Auto) 10.2 % (0.0-7.3); Platelet Count 246 K/mm3 (140-440); Red Blood Count 2.42 M/mm3 (3.65-5.03); Red Cell Distribution Width 13.5 % (13.2-15.2)
[2022-06-18 06:35] LABS: Blood Urea Nitrogen 4 mg/dL (9-20); Hemolysis Index 0
[2022-06-18 06:51] LABS: BUN/Creatinine Ratio 13
[2022-06-18] MEDS: INSULIN REGULAR, HUMAN 100 UNITS/1 ML SUB-Q SCH ×4 (08:46→21:52)
[2022-06-18] MEDS: INSULIN NPH/REGULAR 70/30 INJ SUB-Q SCH ×2 (08:47→18:14)
[2022-06-18] MEDS: POTASSIUM CHLORIDE ER 20 MEQ TAB PO SCH ×2 (09:45→21:43)
[2022-06-18] MEDS: cefTRIAXone/NS 2 GM/100 ML 2 GM/100 ML BAG IV SCH (11:07)
[2022-06-18] MEDS: ACETAMINOPHEN 325 MG TAB PO PRN (17:05)
[2022-06-18] MEDS ORDERED: POTASSIUM CHLORIDE ER 20 MEQ TAB PO ONE (19:53)
[2022-06-18] MEDS: KETOROLAC 30 MG/1 ML INJ IV PRN (21:44)
[2022-06-19] MEDS: VANCOMYCIN 1,500 MG in SODIUM CHLORIDE 0.9% 500 ML 500 ML IV SCH ×2 (01:12→11:23)
[2022-06-19 06:20] LABS: Basophils % (Auto) 0.7 % (0.0-1.8); Eosinophils # (Auto) 0.1 K/mm3 (0.0-0.4); Eosinophils % (Auto) 2.7 % (0.0-4.3); Hematocrit 22.7 % (35.5-45.6); Hemoglobin 7.7 gm/dl (11.8-15.2); Lymphocytes # (Auto) 0.9 K/mm3 (1.2-5.4); Lymphocytes % (Auto) 24.5 % (13.4-35.0); Mean Corpuscular HGB Conc 34 % (32-34); Mean Corpuscular Volume 87 fl (84-94); Monocytes # (Auto) 0.3 K/mm3 (0.0-0.8); Monocytes % (Auto) 9.2 % (0.0-7.3); Platelet Count 290 K/mm3 (140-440); Red Blood Count 2.62 M/mm3 (3.65-5.03); Red Cell Distribution Width 13.5 % (13.2-15.2)
[2022-06-19] MEDS: HEPARIN 5,000 UNIT/1 ML VIAL SUB-Q SCH ×3 (06:43→22:12)
[2022-06-19 06:44] LABS: BUN/Creatinine Ratio 15; Blood Urea Nitrogen 3 mg/dL (9-20); Calcium 7.3 mg/dL (8.4-10.2); Hemolysis Index 2
--- NOTE | 2022-06-19 07:42 | Progress Note ---
Assessment and Plan Assessment and plan: #Posterior neck abscess secondary to Klebsiella + staph aureus #Lactic acidosisresolved Lactic acid 2.7-->1.8 CT of the head and chest with contrast revealing "large peripherally enhancing multiseptated organized collection seen extending from the posterior scalp along the subcutis tissues + paraspinal musculature to the level of T1 spinous process". Continue vancomycin + ceftriaxone (discontinuing cefepime based on sensitivities). General surgery consulted; appreciate recs. Patient status post I&D of posterior neck abscess. Blood negative x96hrs. wound cultures positive for Klebsiella and staph aureus (pending speciation). Infectious disease consulted; appreciate recs. HIV negative. Continue analgesics as needed. Occupational Therapy consulted due to decreased mobility of right shoulder; recommending acute rehab. Continue to monitor. #Non-insulin dependent type II diabetes mellitus - hemoglobin A1c: 15.6 - home regimen: None - current regimen: NPH 70/30 5 units twice daily + moderate SSI - blood glucose goal 140-180 while inpatient - continue to monitor #Hyponatremiaimproving Sodium 122-->129-->131 Continue to monitor with repeat BMP. Consider IV fluid resuscitation if sodium level decreases. Pending repeat BMP. #Hypokalemia-resolved Potassium 3.5 Repleted. Continue to monitor with repeat BMP. #Iron deficiency anemia Hemoglobin 10.9 Iron 18, TIBC 79, ferritin 894 Patient will benefit from IV iron infusions; however, this will be performed after extensive I&D of posterior neck abscess has been completed. Transfuse if hemoglobin <7 or patient become symptomatic. #Hypocalcemia Calcium 7.5 Replete. Continue to monitor. #Moderate protein caloric malnutrition Albumin 2.2 Continue dietary supplementation #Advanced care planning -Disease education conducted, care plan discussed, diagnoses discussed, prognosis discussed, and patient acknowledges understanding with care plan -Time: +30 min Disposition Plan: Continue medical management Total Time Spent with Patient (Minutes): 45 min History Interval history: No acute events overnight. Hospitalist Physical - Constitutional Vitals: Temp Pulse Resp BP Pulse Ox 99.1 F 77 17 139/81 97 06/19/22 06:36 06/19/22 06:36 06/19/22 06:36 06/19/22 06:36 06/19/22 06:36 General appearance: Present: no acute distress, well-nourished - EENT Eyes: Present: PERRL, EOM intact ENT: hearing intact, clear oral mucosa, dentition normal - Neck Neck: Present: supple, normal ROM - Respiratory Respiratory effort: normal Respiratory: bilateral: CTA - Cardiovascular Rhythm: regular Heart Sounds: Present: S1 & S2 - Extremities Extremities: no ischemia, pulses intact, pulses symmetrical, No edema, normal temperature, normal color, abnormal (limited ROM of R shoulder and upper extremity) Peripheral Pulses: within normal limits - Abdominal General gastrointestinal: soft, non-tender, non-distended, normal bowel sounds - Integumentary Integumentary: Present: warm, dry, erythema (erythema, purulence, and significant tenderness of posterior neck abscess) - Psychiatric Psychiatric: appropriate mood/affect, memory intact, cooperative - Neurologic Neurologic: CNII-XII intact, moves all extremities - Allied Health Allied health notes reviewed: nursing Results - Labs CBC & Chem 7: 06/19/22 05:19 06/19/22 05:19 Labs: Laboratory Last Values WBC 3.5 K/mm3 (4.5-11.0) L 06/19/22 05:19 RBC 2.62 M/mm3 (3.65-5.03) L 06/19/22 05:19 Hgb 7.7 gm/dl (11.8-15.2) L 06/19/22 05:19 Hct 22.7 % (35.5-45.6) L 06/19/22 05:19 MCV 87 fl (84-94) 06/19/22 05:19 MCH 29 pg (28-32) 06/19/22 05:19 MCHC 34 % (32-34) 06/19/22 05:19 RDW 13.5 % (13.2-15.2) 06/19/22 05:19 Plt Count 290 K/mm3 (140-440) 06/19/22 05:19 Lymph % (Auto) 24.5 % (13.4-35.0) 06/19/22 05:19 Luna % (Auto) 9.2 % (0.0-7.3) H 06/19/22 05:19 Eos % (Auto) 2.7 % (0.0-4.3) 06/19/22 05:19 Baso % (Auto) 0.7 % (0.0-1.8) 06/19/22 05:19 Lymph # (Auto) 0.9 K/mm3 (1.2-5.4) L 06/19/22 05:19 Luna # (Auto) 0.3 K/mm3 (0.0-0.8) 06/19/22 05:19 Eos # (Auto) 0.1 K/mm3 (0.0-0.4) 06/19/22 05:19 Baso # (Auto) 0.0 K/mm3 (0.0-0.1) 06/19/22 05:19 Seg Neutrophils % 62.9 % (40.0-70.0) 06/19/22 05:19 Seg Neutrophils # 2.2 K/mm3 (1.8-7.7) 06/19/22 05:19 Sodium 131 mmol/L (137-145) L 06/19/22 05:19 Potassium 4.0 mmol/L (3.6-5.0) 06/19/22 05:19 Chloride 98.5 mmol/L (98-107) 06/19/22 05:19 Carbon Dioxide 25 mmol/L (22-30) 06/19/22 05:19 Anion Gap 12 mmol/L 06/19/22 05:19 BUN 3 mg/dL (9-20) L 06/19/22 05:19 Creatinine 0.2 mg/dL (0.8-1.3) L 06/19/22 05:19 Estimated GFR > 60 ml/min 06/19/22 05:19 BUN/Creatinine Ratio 15 % 06/19/22 05:19 Glucose 90 mg/dL (75-100) 06/19/22 05:19 POC Glucose 88 mg/dL (70-105) 06/19/22 07:27 Hemoglobin A1c 15.6 % (4-6) H 06/14/22 09:08 Lactic Acid 1.80 mmol/L (0.7-2.0) 06/14/22 16:27 Calcium 7.3 mg/dL (8.4-10.2) L 06/19/22 05:19 Iron 18 ug/dL (49-181) L 06/14/22 09:08 TIBC 79 mcg/dL (250-450) L 06/14/22 09:08 Ferritin 894.3 ng/mL (30.0-300.0) H 06/14/22 09:08 Total Bilirubin 0.60 mg/dL (0.1-1.2) 06/13/22 22:05 AST 37 units/L (5-40) 06/13/22 22:05 ALT 43 units/L (7-56) 06/13/22 22:05 Alkaline Phosphatase 127 units/L (35-129) 06/13/22 22:05 Total Protein 7.0 g/dL (6.3-8.2) 06/13/22 22:05 Albumin 2.2 g/dL (3.9-5) L 06/13/22 22:05 Albumin/Globulin Ratio 0.5 % 06/13/22 22:05 Vancomycin Trough 7.3 ug/mL (5.0-20.0) 06/16/22 06:00 HIV 1&2 Antibody Rapid Non react (Non React) 06/16/22 11:11 HIV P24 Antigen Non react (Non React) 06/16/22 11:11 Microbiology: Microbiology 06/13/22 22:05 Peripheral/Venous Blood Culture - Final NO GROWTH AFTER 5 DAYS 06/13/22 22:05 Peripheral/Venous Blood Culture - Final NO GROWTH AFTER 5 DAYS 06/14/22 16:00 Neck Anaerobic Culture - Final 06/14/22 16:00 Neck Surgical Culture - Final Klebsiella Pneumoniae Staphylococcus Aureus Perez/IV: Voiding Method Urinal Active Medications - Current Medications Current Medications: Generic Name Dose Route Start Last Admin Trade Name Freq PRN Reason Stop Dose Admin Acetaminophen 650 mg 06/14/22 10:00 06/18/22 17:05 Acetaminophen 325 Mg Tab PO 650 mg Q4H PRN Administration Pain MILD(1-3)/Fever >100.5/ALMAZAN Dextrose 50 ml 06/14/22 15:48 Dextrose 50% In Water (25gm) 50 Ml Syringe IV Q30MIN PRN Hypoglycemia Protocol Heparin Sodium (Porcine) 5,000 unit 06/14/22 14:00 06/19/22 06:43 Heparin 5,000 Unit/1 Ml Vial SUB-Q 5,000 unit Q8HR KARAN Administration Hydromorphone HCl 1 mg 06/14/22 10:00 06/17/22 11:38 Hydromorphone 0.5 Mg/0.5 Ml Inj IV 1 mg Q4H PRN Administration Pain , Severe (7-10) Vancomycin HCl 1,500 mg/ 530 mls @ 333.333 mls/hr 06/16/22 12:00 06/19/22 01:12 Sodium Chloride IV 333.333 mls/hr Q12H KARAN Administration Ceftriaxone Sodium 2 gm in 100 mls @ 200 mls/hr 06/17/22 11:00 06/18/22 11:07 Rocephin/Ns 2 Gm/100 Ml IV 200 mls/hr Q24H KARAN Administration Protocol Insulin Human Isoph/Insulin Regular 5 unit 06/15/22 12:09 06/18/22 18:14 Insulin Nph/Regular 70/30 Inj SUB-Q 5 unit BIDDIAB [facility] Administration Insulin Human Regular 0 units 06/14/22 16:30 06/18/22 21:52 Insulin Regular, Human 100 Units/1 Ml SUB-Q Not Given ACHS [facility] Protocol Ketorolac Tromethamine 15 mg 06/14/22 11:00 06/18/22 21:44 Ketorolac 30 Mg/1 Ml Inj IV 06/19/22 10:59 15 mg Q8H PRN Administration Pain, Mild (1-3) Metoclopramide HCl 10 mg 06/14/22 04:33 06/14/22 07:44 Metoclopramide 10 Mg/2 Ml Inj IV 10 mg Q6H PRN Administration Nausea And Vomiting Ondansetron HCl 4 mg 06/14/22 10:00 Ondansetron 4 Mg/2 Ml Inj IV Q8H PRN Nausea And Vomiting Oxycodone/Acetaminophen 1 tab 06/14/22 10:00 Oxycodone /Acetaminophen 5-325mg Tab PO Q6H PRN Pain, Moderate (4-6) Sodium Chloride 10 ml 06/14/22 04:33 Sodium Chloride 0.9% 10 Ml Flush Syringe IV PRN PRN LINE FLUSH Sodium Chloride 10 ml 06/14/22 10:00 06/18/22 21:47 Sodium Chloride 0.9% 10 Ml Flush Syringe IV 10 ml BID KARAN Administration Nutrition/Malnutrition Assess - Dietary Evaluation Nutrition/Malnutrition Findings: Nutrition Notes Start: 06/15/22 16:25 Freq: Status: Active Protocol: Document 06/15/22 16:25 BRIANDA (Rec: 06/15/22 16:59 BRIANDA [id number]) Nutrition Notes Need for Assessment generated from: MD Order,hand hardener,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 Current Diet Consistent Carbohydrates Diet+ D Suppl (since D 06/15). Labs/Tests 06/15: Na 129, K 3.5, BUN 7, Crea 0.3, Ca 7.1. Pertinent Medications 06/15: Nutritionally unremarkable. 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 Weight Status Appropriate Subjective/Other Information RD consult for new onset diabetes and dietary supplementation assessment. No reports available on Pt's PO intake of meals at the time , will assess at F/U. I will recommend dietary supplementation to support wound healing processes during LOS. Pt is on Room Air, O2 saturation @ 100%, according to Physical Asasessment history notes. Procedure on 06/14: Drainage of abscess w/debridemenmt of necrotic skin and deep tissue, well tolerated, according to Operative Report notes. Procedure on 06/15: Debridement of posterior neck wound ulcer, well tolerated, according to Operative Procedure notes. Pt shows a surgical wound on the posterior neck as sign of concern for skin risk at the time, according to Physical Assessment History notes. Pt is not a new onset diabetes candidate for nutrition education. Percent of energy/protein needs met: Prescribed Consistent Carbohydrates Diet provides for energy/protein needs (2, 061 Kcal/91 g) during LOS; additionally, Dietary Supplements will support wound healing processes with 190 Kcal and 5 g of protein. Burn Absent Trauma Absent GI Symptoms None Food Allergy No Skin Integrity/Comment Neck surgical wound. 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 Etiology Posterior Neck wound ulcer. As Evidenced by Signs and Symptoms Procedure on 06/14: Drainage of abscess w/debridemenmt of necrotic skin and deep tissue, well tolerated, according to Operative Report notes. Procedure on 06/15: Debridement of posterior neck wound ulcer, well tolerated, according to Operative Procedure notes. Is patient on ventilator? No Is Patient Ambulatory and/or Out of Bed Yes REE-([place]-St. Jeor-ambulatory/OOB) [ 1968.044 [id number]] Kcal/Kg value to use for calculation 23 Approximate Energy Requirements Using 1546 kcal/Kg Calculation Used for Recommendations Kcal/kg Additional Notes Protein: 1.25-1.5 g/Kg ABW; 84 -101 g/day. Fluids: 1 ml/Kcal, or as per MD. Nutrition Intervention Change Diet Order: Continue Consistent Carbohydrates Diet as tolerated. Add Supplement/Snack (indicate name/kcal Start 28.8 g pkt Kash; BID. /protein ) Provides kCal: 190 Provides Protein (gm) 5 Goal #1 Support, through dietary supplementation, wound healing processes during LOS. Goal #2 Adjust the dietary intervention to better serve Pt's needs and clinical conditions during LOS. Follow-Up By: 06/22/22 Additional Comments Continue monitoring food tolerance, %PO intake of meals , dietary supplements, and BM.
--- NOTE | 2022-06-19 07:44 | Progress Note ---
Assessment and Plan Assessment and plan: #Posterior neck abscess secondary to Klebsiella + staph aureus #Lactic acidosisresolved Lactic acid 2.7-->1.8 CT of the head and chest with contrast revealing "large peripherally enhancing multiseptated organized collection seen extending from the posterior scalp along the subcutis tissues + paraspinal musculature to the level of T1 spinous process". Continue vancomycin + ceftriaxone (discontinuing cefepime based on sensitivities). General surgery consulted; appreciate recs. Patient status post I&D of posterior neck abscess. Blood negative x96hrs. wound cultures positive for Klebsiella and staph aureus (pending speciation). Infectious disease consulted; appreciate recs. HIV negative. Continue analgesics as needed. Occupational Therapy consulted due to decreased mobility of right shoulder; recommending acute rehab. Continue to monitor. #Non-insulin dependent type II diabetes mellitus - hemoglobin A1c: 15.6 - home regimen: None - current regimen: NPH 70/30 5 units twice daily + moderate SSI - blood glucose goal 140-180 while inpatient - continue to monitor #Hyponatremiaimproving Sodium 122-->129-->131 Continue to monitor with repeat BMP. Consider IV fluid resuscitation if sodium level decreases. Pending repeat BMP. #Hypokalemia-resolved Potassium 3.5 Repleted. Continue to monitor with repeat BMP. #Iron deficiency anemia Hemoglobin 10.9 Iron 18, TIBC 79, ferritin 894 Patient will benefit from IV iron infusions; however, this will be performed after extensive I&D of posterior neck abscess has been completed. Transfuse if hemoglobin <7 or patient become symptomatic. #Hypocalcemia Calcium 7.5 Replete. Continue to monitor. #Moderate protein caloric malnutrition Albumin 2.2 Continue dietary supplementation #Advanced care planning -Disease education conducted, care plan discussed, diagnoses discussed, prognosis discussed, and patient acknowledges understanding with care plan -Time: +30 min Disposition Plan: Continue medical management Total Time Spent with Patient (Minutes): 45 min History Interval history: No acute events overnight. Hospitalist Physical - Constitutional Vitals: Temp Pulse Resp BP Pulse Ox 99.1 F 77 17 139/81 97 06/19/22 06:36 06/19/22 06:36 06/19/22 06:36 06/19/22 06:36 06/19/22 06:36 General appearance: Present: no acute distress, well-nourished - EENT Eyes: Present: PERRL, EOM intact ENT: hearing intact, clear oral mucosa, dentition normal - Neck Neck: Present: supple - Respiratory Respiratory effort: normal Respiratory: bilateral: CTA - Cardiovascular Rhythm: regular Heart Sounds: Present: S1 & S2 - Extremities Extremities: no ischemia, pulses intact, pulses symmetrical, No edema, normal temperature, normal color, abnormal (decreased ROM of R shoulder and upper extremity) Peripheral Pulses: within normal limits - Abdominal General gastrointestinal: soft, non-tender, non-distended, normal bowel sounds - Integumentary Integumentary: Present: warm, dry, erythema (erythema, tenderness, and purulence of posterior neck abscess) - Psychiatric Psychiatric: appropriate mood/affect, intact judgment & insight, memory intact, cooperative - Neurologic Neurologic: CNII-XII intact, moves all extremities - Allied Health Allied health notes reviewed: nursing Results - Labs CBC & Chem 7: 06/19/22 05:19 06/19/22 05:19 Labs: Laboratory Last Values WBC 3.5 K/mm3 (4.5-11.0) L 06/19/22 05:19 RBC 2.62 M/mm3 (3.65-5.03) L 06/19/22 05:19 Hgb 7.7 gm/dl (11.8-15.2) L 06/19/22 05:19 Hct 22.7 % (35.5-45.6) L 06/19/22 05:19 MCV 87 fl (84-94) 06/19/22 05:19 MCH 29 pg (28-32) 06/19/22 05:19 MCHC 34 % (32-34) 06/19/22 05:19 RDW 13.5 % (13.2-15.2) 06/19/22 05:19 Plt Count 290 K/mm3 (140-440) 06/19/22 05:19 Lymph % (Auto) 24.5 % (13.4-35.0) 06/19/22 05:19 [place] % (Auto) 9.2 % (0.0-7.3) H 06/19/22 05:19 Eos % (Auto) 2.7 % (0.0-4.3) 06/19/22 05:19 Baso % (Auto) 0.7 % (0.0-1.8) 06/19/22 05:19 Lymph # (Auto) 0.9 K/mm3 (1.2-5.4) L 06/19/22 05:19 [place] # (Auto) 0.3 K/mm3 (0.0-0.8) 06/19/22 05:19 Eos # (Auto) 0.1 K/mm3 (0.0-0.4) 06/19/22 05:19 Baso # (Auto) 0.0 K/mm3 (0.0-0.1) 06/19/22 05:19 Seg Neutrophils % 62.9 % (40.0-70.0) 06/19/22 05:19 Seg Neutrophils # 2.2 K/mm3 (1.8-7.7) 06/19/22 05:19 Sodium 131 mmol/L (137-145) L 06/19/22 05:19 Potassium 4.0 mmol/L (3.6-5.0) 06/19/22 05:19 Chloride 98.5 mmol/L (98-107) 06/19/22 05:19 Carbon Dioxide 25 mmol/L (22-30) 06/19/22 05:19 Anion Gap 12 mmol/L 06/19/22 05:19 BUN 3 mg/dL (9-20) L 06/19/22 05:19 Creatinine 0.2 mg/dL (0.8-1.3) L 06/19/22 05:19 Estimated GFR > 60 ml/min 06/19/22 05:19 BUN/Creatinine Ratio 15 % 06/19/22 05:19 Glucose 90 mg/dL (75-100) 06/19/22 05:19 POC Glucose 88 mg/dL (70-105) 06/19/22 07:27 Hemoglobin A1c 15.6 % (4-6) H 06/14/22 09:08 Lactic Acid 1.80 mmol/L (0.7-2.0) 06/14/22 16:27 Calcium 7.3 mg/dL (8.4-10.2) L 06/19/22 05:19 Iron 18 ug/dL (49-181) L 06/14/22 09:08 TIBC 79 mcg/dL (250-450) L 06/14/22 09:08 Ferritin 894.3 ng/mL (30.0-300.0) H 06/14/22 09:08 Total Bilirubin 0.60 mg/dL (0.1-1.2) 06/13/22 22:05 AST 37 units/L (5-40) 06/13/22 22:05 ALT 43 units/L (7-56) 06/13/22 22:05 Alkaline Phosphatase 127 units/L (35-129) 06/13/22 22:05 Total Protein 7.0 g/dL (6.3-8.2) 06/13/22 22:05 Albumin 2.2 g/dL (3.9-5) L 06/13/22 22:05 Albumin/Globulin Ratio 0.5 % 06/13/22 22:05 Vancomycin Trough 7.3 ug/mL (5.0-20.0) 06/16/22 06:00 HIV 1&2 Antibody Rapid Non react (Non React) 06/16/22 11:11 HIV P24 Antigen Non react (Non React) 06/16/22 11:11 Microbiology: Microbiology 06/13/22 22:05 Peripheral/Venous Blood Culture - Final NO GROWTH AFTER 5 DAYS 06/13/22 22:05 Peripheral/Venous Blood Culture - Final NO GROWTH AFTER 5 DAYS 06/14/22 16:00 Neck Anaerobic Culture - Final 06/14/22 16:00 Neck Surgical Culture - Final Klebsiella Pneumoniae Staphylococcus Aureus Perez/IV: Voiding Method Urinal Active Medications - Current Medications Current Medications: Generic Name Dose Route Start Last Admin Trade Name Freq PRN Reason Stop Dose Admin Acetaminophen 650 mg 06/14/22 10:00 06/18/22 17:05 Acetaminophen 325 Mg Tab PO 650 mg Q4H PRN Administration Pain MILD(1-3)/Fever >100.5/ALMAZAN Dextrose 50 ml 06/14/22 15:48 Dextrose 50% In Water (25gm) 50 Ml Syringe IV Q30MIN PRN Hypoglycemia Protocol Heparin Sodium (Porcine) 5,000 unit 06/14/22 14:00 06/19/22 06:43 Heparin 5,000 Unit/1 Ml Vial SUB-Q 5,000 unit Q8HR KARAN Administration Hydromorphone HCl 1 mg 06/14/22 10:00 06/17/22 11:38 Hydromorphone 0.5 Mg/0.5 Ml Inj IV 1 mg Q4H PRN Administration Pain , Severe (7-10) Vancomycin HCl 1,500 mg/ 530 mls @ 333.333 mls/hr 06/16/22 12:00 06/19/22 01:12 Sodium Chloride IV 333.333 mls/hr Q12H KARAN Administration Ceftriaxone Sodium 2 gm in 100 mls @ 200 mls/hr 06/17/22 11:00 06/18/22 11:07 Rocephin/Ns 2 Gm/100 Ml IV 200 mls/hr Q24H KARAN Administration Protocol Insulin Human Isoph/Insulin Regular 5 unit 06/15/22 12:09 06/18/22 18:14 Insulin Nph/Regular 70/30 Inj SUB-Q 5 unit [facility] Administration Insulin Human Regular 0 units 06/14/22 16:30 06/18/22 21:52 Insulin Regular, Human 100 Units/1 Ml SUB-Q Not Given A[facility]S [facility] Protocol Ketorolac Tromethamine 15 mg 06/14/22 11:00 06/18/22 21:44 Ketorolac 30 Mg/1 Ml Inj IV 06/19/22 10:59 15 mg Q8H PRN Administration Pain, Mild (1-3) Metoclopramide HCl 10 mg 06/14/22 04:33 06/14/22 07:44 Metoclopramide 10 Mg/2 Ml Inj IV 10 mg Q6H PRN Administration Nausea And Vomiting Ondansetron HCl 4 mg 06/14/22 10:00 Ondansetron 4 Mg/2 Ml Inj IV Q8H PRN Nausea And Vomiting Oxycodone/Acetaminophen 1 tab 06/14/22 10:00 Oxycodone /Acetaminophen 5-325mg Tab PO Q6H PRN Pain, Moderate (4-6) Sodium Chloride 10 ml 06/14/22 04:33 Sodium Chloride 0.9% 10 Ml Flush Syringe IV PRN PRN LINE FLUSH Sodium Chloride 10 ml 06/14/22 10:00 06/18/22 21:47 Sodium Chloride 0.9% 10 Ml Flush Syringe IV 10 ml BID KARAN Administration Nutrition/Malnutrition Assess - Dietary Evaluation Nutrition/Malnutrition Findings: Nutrition Notes Start: 06/15/22 16:25 Freq: Status: Active Protocol: Document 06/15/22 16:25 BRIANDA (Rec: 06/15/22 16:59 BRIANDA [id number]) Nutrition Notes Need for Assessment generated from: MD Order,investigator fraud,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 Current Diet Consistent Carbohydrates Diet+ D Suppl (since D 06/15). Labs/Tests 06/15: Na 129, K 3.5, BUN 7, Crea 0.3, Ca 7.1. Pertinent Medications 06/15: Nutritionally unremarkable. Height 5 ft 5 in Weight 67.2 kg [place] Body Weight (kg) 61.81 BMI 24.6 Intake Prior to Admission Good Weight change and time frame Pt denies having loss body weight [employer]. Weight Status Appropriate Subjective/Other Information RD consult for new onset diabetes and dietary supplementation assessment. No reports available on Pt's PO intake of meals at the time , will assess at F/U. I will recommend dietary supplementation to support wound healing processes during LOS. Pt is on Room Air, O2 saturation @ 100%, according to Physical Asasessment history notes. Procedure on 06/14: Drainage of abscess w/debridemenmt of necrotic skin and deep tissue, well tolerated, according to Operative Report notes. Procedure on 06/15: Debridement of posterior neck wound ulcer, well tolerated, according to Operative Procedure notes. Pt shows a surgical wound on the posterior neck as sign of concern for skin risk at the time, according to Physical Assessment History notes. Pt is not a new onset diabetes candidate for nutrition education. Percent of energy/protein needs met: Prescribed Consistent Carbohydrates Diet provides for energy/protein needs (2, 061 Kcal/91 g) during LOS; additionally, Dietary Supplements will support wound healing processes with 190 Kcal and 5 g of protein. Burn Absent Trauma Absent GI Symptoms None Food Allergy No Skin Integrity/Comment Neck surgical wound. Minimum of two criteria No Fluid Accumulation N/A Reduced Betting Clerks Strength N/A (non-severe) Protein-Calorie Malnutrition N\\A #1 Nutrition Diagnosis Increased nutrient needs ( specify in comment below) Comments: Protein to support wound healing processes. Etiology Posterior Neck wound ulcer. As Evidenced by Signs and Symptoms Procedure on 06/14: Drainage of abscess w/debridemenmt of necrotic skin and deep tissue, well tolerated, according to Operative Report notes. Procedure on 06/15: Debridement of posterior neck wound ulcer, well tolerated, according to Operative Procedure notes. Is patient on ventilator? No Is Patient Ambulatory and/or Out of Bed Yes REE-([place]. Jeor-ambulatory/OOB) [ 1968.044 [id number]] Kcal/Kg value to use for calculation 23 Approximate Energy Requirements Using 1546 kcal/Kg Calculation Used for Recommendations Kcal/kg Additional Notes Protein: 1.25-1.5 g/Kg ABW; 84 -101 g/day. Fluids: 1 ml/Kcal, or as per MD. Nutrition Intervention Change Diet Order: Continue Consistent Carbohydrates Diet as tolerated. Add Supplement/Snack (indicate name/kcal Start 28.8 g pkt Kash; BID. /protein ) Provides kCal: 190 Provides Protein (gm) 5 Goal #1 Support, through dietary supplementation, wound healing processes during LOS. Goal #2 Adjust the dietary intervention to better serve Pt's needs and clinical conditions during LOS. Follow-Up By: 06/22/22 Additional Comments Continue monitoring food tolerance, %PO intake of meals , dietary supplements, and BM.
[2022-06-19] MEDS: INSULIN REGULAR, HUMAN 100 UNITS/1 ML SUB-Q SCH ×4 (08:59→22:13)
[2022-06-19] MEDS: INSULIN NPH/REGULAR 70/30 INJ SUB-Q SCH ×2 (09:01→18:09)
[2022-06-19] MEDS: cefTRIAXone/NS 2 GM/100 ML 2 GM/100 ML BAG IV SCH (11:10)
[2022-06-20] MEDS: VANCOMYCIN 1,500 MG in SODIUM CHLORIDE 0.9% 500 ML 500 ML IV SCH (00:37)
[2022-06-20] MEDS: HEPARIN 5,000 UNIT/1 ML VIAL SUB-Q SCH ×3 (06:27→22:17)
[2022-06-20] MEDS: INSULIN REGULAR, HUMAN 100 UNITS/1 ML SUB-Q SCH ×4 (07:30→22:24)
[2022-06-20] MEDS: INSULIN NPH/REGULAR 70/30 INJ SUB-Q SCH ×2 (08:00→17:04)
[2022-06-20 08:25] LABS: Blood Urea Nitrogen 2 mg/dL (9-20); Calcium 7.3 mg/dL (8.4-10.2); Hemolysis Index 7
[2022-06-20 08:37] LABS: Basophils % (Auto) 0.9 % (0.0-1.8); Eosinophils # (Auto) 0.1 K/mm3 (0.0-0.4); Eosinophils % (Auto) 2.7 % (0.0-4.3); Hematocrit 24.2 % (35.5-45.6); Hemoglobin 8.2 gm/dl (11.8-15.2); Lymphocytes # (Auto) 0.9 K/mm3 (1.2-5.4); Lymphocytes % (Auto) 20.3 % (13.4-35.0); Mean Corpuscular HGB Conc 34 % (32-34); Mean Corpuscular Volume 86 fl (84-94); Monocytes # (Auto) 0.4 K/mm3 (0.0-0.8); Monocytes % (Auto) 9.6 % (0.0-7.3); Platelet Count 344 K/mm3 (140-440); Red Blood Count 2.83 M/mm3 (3.65-5.03); Red Cell Distribution Width 13.3 % (13.2-15.2)
[2022-06-20 08:48] LABS: BUN/Creatinine Ratio 7
[2022-06-20] MEDS ORDERED: SODIUM HYPOCHLORITE, DAKIN'S FULL STRENGTH (0.5%) 473 ML TOPICAL SOLN TP PRN (09:39)
[2022-06-20] MEDS: cefTRIAXone/NS 2 GM/100 ML 2 GM/100 ML BAG IV SCH (10:10)
--- NOTE | 2022-06-20 10:22 | Progress Note ---
Assessment and Plan Cultures: 06/13/2022 blood culture: No growth 06/14/2022 surgical culture: MSSA, Klebsiella pneumoniae A/P: 41-year-old male with diabetes: #Extensive, necrotic posterior neck abscess extending to the paraspinal musculature: No evidence of osteomyelitis on imaging. S/p extensive I&D on 06/14/2022, 06/15/2022 by general surgery #Diabetes mellitus type 2, uncontrolled: HbA1c 15.6 Recs: -Antibiotics switched to IV Ancef 2 g every 8 hours while he remains inpatient. Upon discharge, plan for p.o. Keflex 750 mg QID for 3 weeks -CRP ordered -wound care and glycemic control Rosanna Cartagena MD, FACP, DINA [facility] ([facility] O: [phone] F: [phone] C: [phone] Subjective Date of service: 06/20/22 Interval history: No fever. No pain in neck. Objective - Exam Narrative Exam: Physical Exam: Constitutional: Alert, cooperative. No acute distress Head, Ears, Nose: Normocephalic, atraumatic. External ears, nose normal Eyes: Conjunctivae/corneas clear. No icterus. No ptosis. Neck: Posterior neck and scalp region with a large wound, packing, dressing Cardiovascular: S1, S2 + Respiratory: Good air entry, clear to auscultation bilaterally GI: Soft, non-tender; bowel sounds normal. No peritoneal signs Musculoskeletal: No pedal edema, no cyanosis. Skin: No rash or abscess Hem/Lymphatic: No palpable cervical or supraclavicular nodes. No lymphangitis Psych: Mood ok. Affect normal Neurological: Awake, alert, oriented. No gross abnormality - Constitutional Vitals: Vital Signs Temp Pulse Resp BP Pulse Ox 97.4 F L 80 16 136/80 98 06/20/22 04:16 06/20/22 04:16 06/20/22 04:16 06/20/22 04:16 06/20/22 05:00 Temperature -Last 24 Hours Temperature 97.4 F Temperature 99.0 F Temperature 99.0 F - Labs CBC & Chem 7: 06/20/22 Unknown 06/20/22 Unknown Labs: Abnormal lab results 06/19/22 06/19/22 06/20/22 Range/Units 16:45 21:31 07:41 RBC (3.65-5.03) M/mm3 Hgb (11.8-15.2) gm/dl Hct (35.5-45.6) % [place] % (Auto) (0.0-7.3) % Lymph # (Auto) (1.2-5.4) K/mm3 Sodium (137-145) mmol/L Chloride (98-107) mmol/L BUN (9-20) mg/dL Creatinine (0.8-1.3) mg/dL Glucose (75-100) mg/dL POC Glucose 123 H 125 H 106 H (70-105) mg/dL Calcium (8.4-10.2) mg/dL 06/20/22 06/20/22 Range/Units Unknown Unknown RBC 2.83 L (3.65-5.03) M/mm3 Hgb 8.2 L (11.8-15.2) gm/dl Hct 24.2 L (35.5-45.6) % [place] % (Auto) 9.6 H (0.0-7.3) % Lymph # (Auto) 0.9 L (1.2-5.4) K/mm3 Sodium 129 L (137-145) mmol/L Chloride 94.3 L (98-107) mmol/L BUN 2 L (9-20) mg/dL Creatinine 0.3 L (0.8-1.3) mg/dL Glucose 109 H (75-100) mg/dL POC Glucose (70-105) mg/dL Calcium 7.3 L (8.4-10.2) mg/dL
--- NOTE | 2022-06-20 13:16 | Progress Note ---
Assessment and Plan Assessment and plan: #Posterior neck abscess secondary to Klebsiella + staph aureus #Lactic acidosisresolved Lactic acid 2.7-->1.8 CT of the head and chest with contrast revealing "large peripherally enhancing multiseptated organized collection seen extending from the posterior scalp along the subcutis tissues + paraspinal musculature to the level of T1 spinous process". Antibiotics switched to IV Ancef 2 g every 8 hours while he remains inpatient. Upon discharge, plan for p.o. Keflex 750 mg QID for 3 weeks General surgery consulted; appreciate recs. Patient status post I&D of posterior neck abscess. Blood negative x96hrs. wound cultures positive for Klebsiella and staph aureus. Currently exchanging wound vacs. General surgery will decide if the patient needs further I&D's. Infectious disease consulted; appreciate recs. HIV negative. Continue analgesics as needed. Occupational Therapy consulted due to decreased mobility of right shoulder; recommending acute rehab. Continue to monitor. #Non-insulin dependent type II diabetes mellitus - hemoglobin A1c: 15.6 - home regimen: None - current regimen: NPH 70/30 5 units twice daily + moderate SSI - blood glucose goal 140-180 while inpatient - continue to monitor #Hyponatremiaimproving Sodium 122-->129-->131 Continue to monitor with repeat BMP. Consider IV fluid resuscitation if sodium level decreases. Pending repeat BMP. #Hypokalemia-resolved Potassium 3.5 Repleted. Continue to monitor with repeat BMP. #Iron deficiency anemia Hemoglobin 10.9 Iron 18, TIBC 79, ferritin 894 Patient will benefit from IV iron infusions; however, this will be performed after extensive I&D of posterior neck abscess has been completed. Transfuse if hemoglobin <7 or patient become symptomatic. #Hypocalcemia Calcium 7.5 Replete. Continue to monitor. #Moderate protein caloric malnutrition Albumin 2.2 Continue dietary supplementation #Advanced care planning -Disease education conducted, care plan discussed, diagnoses discussed, prognosis discussed, and patient acknowledges understanding with care plan -Time: +30 min Disposition Plan: Continue medical manage Total Time Spent with Patient (Minutes): 45 min History Interval history: No acute events overnight. Hospitalist Physical - Constitutional Vitals: Temp Pulse Resp BP Pulse Ox 97.4 F L 80 16 136/80 98 06/20/22 04:16 06/20/22 04:16 06/20/22 04:16 06/20/22 04:16 06/20/22 05:00 General appearance: Present: no acute distress, well-nourished - EENT Eyes: Present: PERRL, EOM intact ENT: hearing intact, clear oral mucosa, dentition normal - Neck Neck: Present: supple, other (Decreased range of motion) - Respiratory Respiratory effort: normal Respiratory: bilateral: CTA - Cardiovascular Rhythm: regular Heart Sounds: Present: S1 & S2 - Extremities Extremities: no ischemia, pulses intact, pulses symmetrical, No edema, normal temperature, normal color Peripheral Pulses: within normal limits - Abdominal General gastrointestinal: soft, non-tender, non-distended, normal bowel sounds - Integumentary Integumentary: Present: warm, dry, erythema (Erythema and decreased purulence of posterior neck abscess; wound VAC in place draining purulent fluid) - Psychiatric Psychiatric: appropriate mood/affect, memory intact, cooperative - Neurologic Neurologic: CNII-XII intact, moves all extremities - Allied Health Allied health notes reviewed: nursing Results - Labs CBC & Chem 7: 06/20/22 Unknown 06/20/22 Unknown Labs: Laboratory Last Values WBC 4.5 K/mm3 (4.5-11.0) 06/20/22 Unknown RBC 2.83 M/mm3 (3.65-5.03) L 06/20/22 Unknown Hgb 8.2 gm/dl (11.8-15.2) L 06/20/22 Unknown Hct 24.2 % (35.5-45.6) L 06/20/22 Unknown MCV 86 fl (84-94) 06/20/22 Unknown MCH 29 pg (28-32) 06/20/22 Unknown MCHC 34 % (32-34) 06/20/22 Unknown RDW 13.3 % (13.2-15.2) 06/20/22 Unknown Plt Count 344 K/mm3 (140-440) 06/20/22 Unknown Lymph % (Auto) 20.3 % (13.4-35.0) 06/20/22 Unknown [place] % (Auto) 9.6 % (0.0-7.3) H 06/20/22 Unknown Eos % (Auto) 2.7 % (0.0-4.3) 06/20/22 Unknown Baso % (Auto) 0.9 % (0.0-1.8) 06/20/22 Unknown Lymph # (Auto) 0.9 K/mm3 (1.2-5.4) L 06/20/22 Unknown [place] # (Auto) 0.4 K/mm3 (0.0-0.8) 06/20/22 Unknown Eos # (Auto) 0.1 K/mm3 (0.0-0.4) 06/20/22 Unknown Baso # (Auto) 0.0 K/mm3 (0.0-0.1) 06/20/22 Unknown Seg Neutrophils % 66.5 % (40.0-70.0) 06/20/22 Unknown Seg Neutrophils # 3.0 K/mm3 (1.8-7.7) 06/20/22 Unknown Sodium 129 mmol/L (137-145) L 06/20/22 Unknown Potassium 4.3 mmol/L (3.6-5.0) 06/20/22 Unknown Chloride 94.3 mmol/L (98-107) L 06/20/22 Unknown Carbon Dioxide 26 mmol/L (22-30) 06/20/22 Unknown Anion Gap 13 mmol/L 06/20/22 Unknown BUN 2 mg/dL (9-20) L 06/20/22 Unknown Creatinine 0.3 mg/dL (0.8-1.3) L 06/20/22 Unknown Estimated GFR > 60 ml/min 06/20/22 Unknown BUN/Creatinine Ratio 7 % 06/20/22 Unknown Glucose 109 mg/dL (75-100) H 06/20/22 Unknown POC Glucose 98 mg/dL (70-105) 06/20/22 11:46 Hemoglobin A1c 15.6 % (4-6) H 06/14/22 09:08 Lactic Acid 1.80 mmol/L (0.7-2.0) 06/14/22 16:27 Calcium 7.3 mg/dL (8.4-10.2) L 06/20/22 Unknown Iron 18 ug/dL (49-181) L 06/14/22 09:08 TIBC 79 mcg/dL (250-450) L 06/14/22 09:08 Ferritin 894.3 ng/mL (30.0-300.0) H 06/14/22 09:08 Total Bilirubin 0.60 mg/dL (0.1-1.2) 06/13/22 22:05 AST 37 units/L (5-40) 06/13/22 22:05 ALT 43 units/L (7-56) 06/13/22 22:05 Alkaline Phosphatase 127 units/L (35-129) 06/13/22 22:05 Total Protein 7.0 g/dL (6.3-8.2) 06/13/22 22:05 Albumin 2.2 g/dL (3.9-5) L 06/13/22 22:05 Albumin/Globulin Ratio 0.5 % 06/13/22 22:05 Vancomycin Trough 7.3 ug/mL (5.0-20.0) 06/16/22 06:00 HIV DNA Qual (PCR) Not detected (Not Detected) 06/16/22 11:11 HIV 1&2 Antibody Rapid Non react (Non React) 06/16/22 11:11 HIV P24 Antigen Non react (Non React) 06/16/22 11:11 Perez/IV: Voiding Method Urinal Active Medications - Current Medications Current Medications: Generic Name Dose Route Start Last Admin Trade Name Freq PRN Reason Stop Dose Admin Acetaminophen 650 mg 06/14/22 10:00 06/18/22 17:05 Acetaminophen 325 Mg Tab PO 650 mg Q4H PRN Administration Pain MILD(1-3)/Fever >100.5/ALMAZAN Dextrose 50 ml 06/14/22 15:48 Dextrose 50% In Water (25gm) 50 Ml Syringe IV Q30MIN PRN Hypoglycemia Protocol Heparin Sodium (Porcine) 5,000 unit 06/14/22 14:00 06/20/22 06:27 Heparin 5,000 Unit/1 Ml Vial SUB-Q 5,000 unit Q8HR KARAN Administration Hydromorphone HCl 1 mg 06/14/22 10:00 06/17/22 11:38 Hydromorphone 0.5 Mg/0.5 Ml Inj IV 1 mg Q4H PRN Administration Pain , Severe (7-10) Cefazolin Sodium 2 gm/ Sodium 100 mls @ 200 mls/hr 06/20/22 14:00 Chloride IV Q8HR [facility] Protocol Insulin Human Isoph/Insulin Regular 5 unit 06/15/22 12:09 06/20/22 08:00 Insulin Nph/Regular 70/30 Inj SUB-Q Not Given BIDDIAB [facility] Insulin Human Regular 0 units 08/09/22 16:30 06/20/22 11:30 Insulin Regular, Human 100 Units/1 Ml SUB-Q Not Given ACHS [facility] Protocol Metoclopramide HCl 10 mg 06/14/22 04:33 06/14/22 07:44 Metoclopramide 10 Mg/2 Ml Inj IV 10 mg Q6H PRN Administration Nausea And Vomiting Ondansetron HCl 4 mg 06/14/22 10:00 Ondansetron 4 Mg/2 Ml Inj IV Q8H PRN Nausea And Vomiting Oxycodone/Acetaminophen 1 tab 06/14/22 10:00 Oxycodone /Acetaminophen 5-325mg Tab PO Q6H PRN Pain, Moderate (4-6) Sodium Chloride 10 ml 06/14/22 04:33 Sodium Chloride 0.9% 10 Ml Flush Syringe IV PRN PRN LINE FLUSH Sodium Chloride 10 ml 06/14/22 10:00 06/20/22 10:11 Sodium Chloride 0.9% 10 Ml Flush Syringe IV 10 ml BID [facility] Administration Sodium Hypochlorite 1 applic 06/20/22 09:39 Sodium Hypochlorite, [place]'s Full Strength (0.5%) 473 Ml Topical Soln TP Q12H PRN Wound Care Nutrition/Malnutrition Assess - Dietary Evaluation Nutrition/Malnutrition Findings: Nutrition Notes Start: 06/15/22 16:25 Freq: Status: Active Protocol: Document 06/15/22 16:25 BRIANDA (Rec: 06/15/22 16:59 BRIANDA [id number]) Nutrition Notes Need for Assessment generated from: MD Order,emergency medicine nurse practitioner,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 Current Diet Consistent Carbohydrates Diet+ D Suppl (since D 06/15). Labs/Tests 06/15: Na 129, K 3.5, BUN 7, Crea 0.3, Ca 7.1. Pertinent Medications 06/15: Nutritionally unremarkable. 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 Weight Status Appropriate Subjective/Other Information RD consult for new onset diabetes and dietary supplementation assessment. No reports available on Pt's PO intake of meals at the time , will assess at F/U. I will recommend dietary supplementation to support wound healing processes during LOS. Pt is on Room Air, O2 saturation @ 100%, according to Physical Asasessment history notes. Procedure on 06/14: Drainage of abscess w/debridemenmt of necrotic skin and deep tissue, well tolerated, according to Operative Report notes. Procedure on 06/15: Debridement of posterior neck wound ulcer, well tolerated, according to Operative Procedure notes. Pt shows a surgical wound on the posterior neck as sign of concern for skin risk at the time, according to Physical Assessment History notes. Pt is not a new onset diabetes candidate for nutrition education. Percent of energy/protein needs met: Prescribed Consistent Carbohydrates Diet provides for energy/protein needs (2, 061 Kcal/91 g) during LOS; additionally, Dietary Supplements will support wound healing processes with 190 Kcal and 5 g of protein. Burn Absent Trauma Absent GI Symptoms None Food Allergy No Skin Integrity/Comment Neck surgical wound. 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 Etiology Posterior Neck wound ulcer. As Evidenced by Signs and Symptoms Procedure on 06/14: Drainage of abscess w/debridemenmt of necrotic skin and deep tissue, well tolerated, according to Operative Report notes. Procedure on 06/15: Debridement of posterior neck wound ulcer, well tolerated, according to Operative Procedure notes. Is patient on ventilator? No Is Patient Ambulatory and/or Out of Bed Yes REE-([place]-ambulatory/OOB) [ 1968.044 [id number]] Kcal/Kg value to use for calculation 23 Approximate Energy Requirements Using 1546 kcal/Kg Calculation Used for Recommendations Kcal/kg Additional Notes Protein: 1.25-1.5 g/Kg ABW; 84 -101 g/day. Fluids: 1 ml/Kcal, or as per MD. Nutrition Intervention Change Diet Order: Continue Consistent Carbohydrates Diet as tolerated. Add Supplement/Snack (indicate name/kcal Start 28.8 g pkt Kash; BID. /protein ) Provides kCal: 190 Provides Protein (gm) 5 Goal #1 Support, through dietary supplementation, wound healing processes during LOS. Goal #2 Adjust the dietary intervention to better serve Pt's needs and clinical conditions during LOS. Follow-Up By: 06/22/22 Additional Comments Continue monitoring food tolerance, %PO intake of meals , dietary supplements, and BM.
[2022-06-21] MEDS ORDERED: diphenhydrAMINE 25 MG CAP PO ONE (05:00)
[2022-06-21] MEDS: oxyCODONE /ACETAMINOPHEN 5-325MG TAB PO PRN (05:13)
[2022-06-21] MEDS: HEPARIN 5,000 UNIT/1 ML VIAL SUB-Q SCH ×3 (05:18→22:44)
[2022-06-21 05:28] LABS: Basophils % (Auto) 0.5 % (0.0-1.8); Eosinophils # (Auto) 0.1 K/mm3 (0.0-0.4); Eosinophils % (Auto) 1.5 % (0.0-4.3); Hematocrit 21.9 % (35.5-45.6); Hemoglobin 7.7 gm/dl (11.8-15.2); Lymphocytes % (Auto) 17.6 % (13.4-35.0); Mean Corpuscular HGB Conc 35 % (32-34); Mean Corpuscular Volume 85 fl (84-94); Monocytes # (Auto) 0.5 K/mm3 (0.0-0.8); Monocytes % (Auto) 8.4 % (0.0-7.3); Platelet Count 349 K/mm3 (140-440); Red Blood Count 2.57 M/mm3 (3.65-5.03); Red Cell Distribution Width 13.8 % (13.2-15.2)
[2022-06-21 05:33] LABS: Blood Urea Nitrogen 3 mg/dL (9-20); Calcium 7.4 mg/dL (8.4-10.2); Hemolysis Index 0
[2022-06-21 05:52] LABS: BUN/Creatinine Ratio 10
[2022-06-21] MEDS ORDERED: SODIUM CHLORIDE 0.9% 1000 ML 1,000 ML IV SCH (07:30)
[2022-06-21] MEDS: INSULIN REGULAR, HUMAN 100 UNITS/1 ML SUB-Q SCH ×4 (07:30→22:44)
[2022-06-21] MEDS: INSULIN NPH/REGULAR 70/30 INJ SUB-Q SCH ×2 (08:25→17:36)
--- NOTE | 2022-06-21 11:20 | Progress Note ---
Assessment and Plan Cultures: 06/13/2022 blood culture: No growth 06/14/2022 surgical culture: MSSA, Klebsiella pneumoniae A/P: 41-year-old male with diabetes: #Extensive, necrotic posterior neck abscess extending to the paraspinal musculature: No evidence of osteomyelitis on imaging. S/p extensive I&D on 06/14/2022, 06/15/2022 and 06/17/2022 by general surgery. #Diabetes mellitus type 2, uncontrolled: HbA1c 15.6 Recs: -continue IV Ancef 2 g every 8 hours while he remains inpatient. Upon discharge, plan for p.o. Keflex 750 mg QID for 3 weeks -f/u CRP -wound care and glycemic control Rosanna Cartagena MD, FACP, DINA [facility] ([facility] O: [phone] F: [phone] C: [phone] Subjective Date of service: 06/21/22 Interval history: No fever. No new complaints. Appears comfortable. Objective - Exam Narrative Exam: Physical Exam: Constitutional: Alert, cooperative. No acute distress Head, Ears, Nose: Normocephalic, atraumatic. External ears, nose normal Eyes: Conjunctivae/corneas clear. No icterus. No ptosis. Neck: Posterior neck and scalp region with a large wound, packing, dressing Cardiovascular: S1, S2 + Respiratory: Good air entry, clear to auscultation bilaterally GI: Soft, non-tender; bowel sounds normal. No peritoneal signs Musculoskeletal: No pedal edema, no cyanosis. Skin: No rash or abscess Hem/Lymphatic: No palpable cervical or supraclavicular nodes. No lymphangitis Psych: Mood ok. Affect normal Neurological: Awake, alert, oriented. No gross abnormality - Constitutional Vitals: Vital Signs Temp Pulse Resp BP Pulse Ox 99.0 F 89 20 145/87 96 06/21/22 05:20 06/21/22 05:20 06/21/22 05:20 06/21/22 05:20 06/21/22 05:20 Temperature -Last 24 Hours Temperature 99.0 F Temperature 99.7 F Temperature 100.0 F Temperature 98.7 F - Labs CBC & Chem 7: 06/21/22 04:00 06/21/22 04:00 Labs: Abnormal lab results 06/20/22 06/20/22 06/21/22 Range/Units 16:55 21:27 04:00 RBC 2.57 L (3.65-5.03) M/mm3 Hgb 7.7 L (11.8-15.2) gm/dl Hct 21.9 L (35.5-45.6) % MCHC 35 H (32-34) % [place] % (Auto) 8.4 H (0.0-7.3) % Lymph # (Auto) 1.0 L (1.2-5.4) K/mm3 Seg Neutrophils % 72.0 H (40.0-70.0) % Sodium (137-145) mmol/L Chloride (98-107) mmol/L BUN (9-20) mg/dL Creatinine (0.8-1.3) mg/dL Glucose (75-100) mg/dL POC Glucose 127 H 137 H (70-105) mg/dL Calcium (8.4-10.2) mg/dL 06/21/22 06/21/22 Range/Units 04:00 07:42 RBC (3.65-5.03) M/mm3 Hgb (11.8-15.2) gm/dl Hct (35.5-45.6) % MCHC (32-34) % [place] % (Auto) (0.0-7.3) % Lymph # (Auto) (1.2-5.4) K/mm3 Seg Neutrophils % (40.0-70.0) % Sodium 127 L (137-145) mmol/L Chloride 94.7 L (98-107) mmol/L BUN 3 L (9-20) mg/dL Creatinine 0.3 L (0.8-1.3) mg/dL Glucose 134 H (75-100) mg/dL POC Glucose 128 H (70-105) mg/dL Calcium 7.4 L (8.4-10.2) mg/dL
--- NOTE | 2022-06-21 13:21 | Progress Note ---
Assessment and Plan Assessment and plan: #Posterior neck abscess secondary to Klebsiella + staph aureus #R scapular abscess #Lactic acidosisresolved CT of the head and chest with contrast revealing "large peripherally enhancing multiseptated organized collection seen extending from the posterior scalp along the subcutis tissues + paraspinal musculature to the level of T1 spinous process". continue IV Ancef 2 g every 8 hours while inpatient. Upon discharge, plan for p.o. Keflex 750 mg QID for 3 weeks General surgery consulted; appreciate recs. status post I&D of posterior neck abscess. Blood cultures negative. wound cultures positive for Klebsiella and staph aureus. Currently exchanging wound vacs. Infectious disease consulted; appreciate recs. HIV negative. Continue analgesics as needed. Occupational Therapy consulted due to decreased mobility of right shoulder; recommending acute rehab. Continue to monitor, patient will likely need wound care and PT as outpatient - CT of the R arm ordered due to patient inability to move and noted abscess on CT scan #Non-insulin dependent type II diabetes mellitus - hemoglobin A1c: 15.6 - home regimen: None - current regimen: NPH 70/30 5 units twice daily + moderate SSI - blood glucose goal 140-180 while inpatient - continue to monitor #Hyponatremiaimproving Sodium 122-->129-->131 Continue to monitor with repeat BMP. Consider IV fluid resuscitation if sodium level decreases. Pending repeat BMP. #Hypokalemia-resolved Potassium 3.5 Repleted. Continue to monitor with repeat BMP. #Iron deficiency anemia Hemoglobin 10.9 Iron 18, TIBC 79, ferritin 894 Transfuse if hemoglobin <7 or patient become symptomatic. #Hypocalcemia Calcium 7.5 Replete. Continue to monitor. #Moderate protein caloric malnutrition Albumin 2.2 Continue dietary supplementation #Advanced care planning -Disease education conducted, care plan discussed, diagnoses discussed, prognosis discussed, and patient acknowledges understanding with care plan -Time: +30 min #Social issues -Patient is undocumented and does not have health insurance. All items needed for wound VAC and medications mood be required to self-pay. Case management/social work aware to attempt to provide patient with lucero items History Interval history: No acute events overnight. 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 Patient reports right arm pain that has worsened over the last 4 days. He is unable to move the arm and has to put a cover on it to keep it from hurting. We discussed his current care plan and the importance of him following with a PCP at discharge. Hospitalist Physical - Physical exam Narrative exam: GENERAL: Well-developed well-nourished. In no acute distress. HEENT: Normocephalic. Atraumatic. NECK: Wound vac in place @ posterior neck CHEST/LUNGS: CTAB on room air HEART/CARDIOVASCULAR: RRR. No murmur, rubs or gallops appreciated. ABDOMEN: +BS. NT/ND. NEURO: No focal motor deficit. Follows all commands. MUSCULOSKELETAL: R arm with limited movement due to pain. Arm TTP most exquisite at the upper arm and shoulder. EXTREMITIES: No cyanosis, clubbing or edema. PSYCH: Cooperative. - Constitutional Vitals: Temp Pulse Resp BP Pulse Ox 98.4 F 79 16 126/80 99 06/21/22 12:01 06/21/22 12:01 06/21/22 12:01 06/21/22 12:01 06/21/22 12:01 General appearance: Present: no acute distress, well-nourished Results - Labs CBC & Chem 7: 06/21/22 04:00 06/21/22 04:00 Labs: Laboratory Last Values WBC 5.8 K/mm3 (4.5-11.0) 06/21/22 04:00 RBC 2.57 M/mm3 (3.65-5.03) L 06/21/22 04:00 Hgb 7.7 gm/dl (11.8-15.2) L 06/21/22 04:00 Hct 21.9 % (35.5-45.6) L 06/21/22 04:00 MCV 85 fl (84-94) 06/21/22 04:00 MCH 30 pg (28-32) 06/21/22 04:00 MCHC 35 % (32-34) H 06/21/22 04:00 RDW 13.8 % (13.2-15.2) 06/21/22 04:00 Plt Count 349 K/mm3 (140-440) 06/21/22 04:00 Lymph % (Auto) 17.6 % (13.4-35.0) 06/21/22 04:00 [place] % (Auto) 8.4 % (0.0-7.3) H 06/21/22 04:00 Eos % (Auto) 1.5 % (0.0-4.3) 06/21/22 04:00 Baso % (Auto) 0.5 % (0.0-1.8) 06/21/22 04:00 Lymph # (Auto) 1.0 K/mm3 (1.2-5.4) L 06/21/22 04:00 [place] # (Auto) 0.5 K/mm3 (0.0-0.8) 06/21/22 04:00 Eos # (Auto) 0.1 K/mm3 (0.0-0.4) 06/21/22 04:00 Baso # (Auto) 0.0 K/mm3 (0.0-0.1) 06/21/22 04:00 Seg Neutrophils % 72.0 % (40.0-70.0) H 06/21/22 04:00 Seg Neutrophils # 4.2 K/mm3 (1.8-7.7) 06/21/22 04:00 Sodium 127 mmol/L (137-145) L 06/21/22 04:00 Potassium 3.6 mmol/L (3.6-5.0) 06/21/22 04:00 Chloride 94.7 mmol/L (98-107) L 06/21/22 04:00 Carbon Dioxide 25 mmol/L (22-30) 06/21/22 04:00 Anion Gap 11 mmol/L 06/21/22 04:00 BUN 3 mg/dL (9-20) L 06/21/22 04:00 Creatinine 0.3 mg/dL (0.8-1.3) L 06/21/22 04:00 Estimated GFR > 60 ml/min 06/21/22 04:00 BUN/Creatinine Ratio 10 % 06/21/22 04:00 Glucose 134 mg/dL (75-100) H 06/21/22 04:00 POC Glucose 77 mg/dL (70-105) 06/21/22 12:10 Hemoglobin A1c 15.6 % (4-6) H 06/14/22 09:08 Lactic Acid 1.80 mmol/L (0.7-2.0) 06/14/22 16:27 Calcium 7.4 mg/dL (8.4-10.2) L 06/21/22 04:00 Iron 18 ug/dL (49-181) L 06/14/22 09:08 TIBC 79 mcg/dL (250-450) L 06/14/22 09:08 Ferritin 894.3 ng/mL (30.0-300.0) H 06/14/22 09:08 Total Bilirubin 0.60 mg/dL (0.1-1.2) 06/13/22 22:05 AST 37 units/L (5-40) 06/13/22 22:05 ALT 43 units/L (7-56) 06/13/22 22:05 Alkaline Phosphatase 127 units/L (35-129) 06/13/22 22:05 Total Protein 7.0 g/dL (6.3-8.2) 06/13/22 22:05 Albumin 2.2 g/dL (3.9-5) L 06/13/22 22:05 Albumin/Globulin Ratio 0.5 % 06/13/22 22:05 Vancomycin Trough 7.3 ug/mL (5.0-20.0) 06/16/22 06:00 HIV DNA Qual (PCR) Not detected (Not Detected) 06/16/22 11:11 HIV 1&2 Antibody Rapid Non react (Non React) 06/16/22 11:11 HIV P24 Antigen Non react (Non React) 06/16/22 11:11 Perez/IV: Voiding Method Urinal Active Medications - Current Medications Current Medications: Generic Name Dose Route Start Last Admin Trade Name Freq PRN Reason Stop Dose Admin Acetaminophen 650 mg 06/14/22 10:00 06/18/22 17:05 Acetaminophen 325 Mg Tab PO 650 mg Q4H PRN Administration Pain MILD(1-3)/Fever >100.5/ALMAZAN Dextrose 50 ml 06/14/22 15:48 Dextrose 50% In Water (25gm) 50 Ml Syringe IV Q30MIN PRN Hypoglycemia Protocol Heparin Sodium (Porcine) 5,000 unit 06/14/22 14:00 06/21/22 05:18 Heparin 5,000 Unit/1 Ml Vial SUB-Q 5,000 unit Q8HR KARAN Administration Hydromorphone HCl 1 mg 06/14/22 10:00 06/17/22 11:38 Hydromorphone 0.5 Mg/0.5 Ml Inj IV 1 mg Q4H PRN Administration Pain , Severe (7-10) Cefazolin Sodium 2 gm/ Sodium 100 mls @ 200 mls/hr 06/20/22 14:00 06/21/22 07:08 Chloride IV Infused Q8HR KARAN Infusion Protocol Sodium Chloride 1,000 mls @ 75 mls/hr 06/21/22 07:30 06/21/22 08:26 Nacl 0.9% 1000 Ml IV 06/21/22 20:49 75 mls/hr DIRECT KARAN Administration Insulin Human Isoph/Insulin Regular 5 unit 06/15/22 12:09 06/21/22 08:25 Insulin Nph/Regular 70/30 Inj SUB-Q 5 unit BIDDIAB KARAN Administration Insulin Human Regular 0 units 06/14/22 16:30 06/21/22 11:30 Insulin Regular, Human 100 Units/1 Ml SUB-Q Not Given ACHS KARAN Protocol Metoclopramide HCl 10 mg 06/14/22 04:33 06/14/22 07:44 Metoclopramide 10 Mg/2 Ml Inj IV 10 mg Q6H PRN Administration Nausea And Vomiting Ondansetron HCl 4 mg 06/14/22 10:00 Ondansetron 4 Mg/2 Ml Inj IV Q8H PRN Nausea And Vomiting Oxycodone/Acetaminophen 1 tab 06/14/22 10:00 06/21/22 05:13 Oxycodone /Acetaminophen 5-325mg Tab PO 1 tab Q6H PRN Administration Pain, Moderate (4-6) Sodium Chloride 10 ml 06/14/22 04:33 Sodium Chloride 0.9% 10 Ml Flush Syringe IV PRN PRN LINE FLUSH Sodium Chloride 10 ml 06/14/22 10:00 06/20/22 21:46 Sodium Chloride 0.9% 10 Ml Flush Syringe IV 10 ml BID KARAN Administration Sodium Hypochlorite 1 applic 06/20/22 09:39 Sodium Hypochlorite, Dakin's Full Strength (0.5%) 473 Ml Topical Soln TP Q12H PRN Wound Care Nutrition/Malnutrition Assess - Dietary Evaluation Nutrition/Malnutrition Findings: Nutrition Notes Start: 06/15/22 16:25 Freq: Status: Active Protocol: Document 06/15/22 16:25 BRIANDA (Rec: 06/15/22 16:59 BRIANDA [id number]) Nutrition Notes Need for Assessment generated from: MD Order,qualifications examiner,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 Current Diet Consistent Carbohydrates Diet+ D Suppl (since D 06/15). Labs/Tests 06/15: Na 129, K 3.5, BUN 7, Crea 0.3, Ca 7.1. Pertinent Medications 06/15: Nutritionally unremarkable. 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 No reports available on Pt's PO intake of meals at the time , will assess at F/U. I will recommend dietary supplementation to support wound healing processes during LOS. Pt is on Room Air, O2 saturation @ 100%, according to Physical Asasessment history notes. Procedure on 06/14: Drainage of abscess w/debridemenmt of necrotic skin and deep tissue, well tolerated, according to Operative Report notes. Procedure on 06/15: Debridement of posterior neck wound ulcer, well tolerated, according to Operative Procedure notes. Pt shows a surgical wound on the posterior neck as sign of concern for skin risk at the time, according to Physical Assessment History notes. Pt is not a new onset diabetes candidate for nutrition education. Percent of energy/protein needs met: Prescribed Consistent Carbohydrates Diet provides for energy/protein needs (2, 061 Kcal/91 g) during LOS; additionally, Dietary Supplements will support wound healing processes with 190 Kcal and 5 g of protein. Burn Absent Trauma Absent GI Symptoms None Food Allergy No Skin Integrity/Comment Neck surgical wound. Minimum of two criteria No Fluid Accumulation N/A Reduced Imaging Scheduler Strength N/A (non-severe) Protein-Calorie Malnutrition N\\A #1 Nutrition Diagnosis Increased nutrient needs ( specify in comment below) Comments: Protein to support wound healing processes. Etiology Posterior Neck wound ulcer. As Evidenced by Signs and Symptoms Procedure on 06/14: Drainage of abscess w/debridemenmt of necrotic skin and deep tissue, well tolerated, according to Operative Report notes. Procedure on 06/15: Debridement of posterior neck wound ulcer, well tolerated, according to Operative Procedure notes. Is patient on ventilator? No Is Patient Ambulatory and/or Out of Bed Yes REE-(Benson-St. Jeor-ambulatory/OOB) [ 1968.044 [id number]] Kcal/Kg value to use for calculation 23 Approximate Energy Requirements Using 1546 kcal/Kg Calculation Used for Recommendations Kcal/kg Additional Notes Protein: 1.25-1.5 g/Kg ABW; 84 -101 g/day. Fluids: 1 ml/Kcal, or as per MD. Nutrition Intervention Change Diet Order: Continue Consistent Carbohydrates Diet as tolerated. Add Supplement/Snack (indicate name/kcal Start 28.8 g pkt Kash; BID. /protein ) Provides kCal: 190 Provides Protein (gm) 5 Goal #1 Support, through dietary supplementation, wound healing processes during LOS. Goal #2 Adjust the dietary intervention to better serve Pt's needs and clinical conditions during LOS. Follow-Up By: 06/22/22 Additional Comments Continue monitoring food tolerance, %PO intake of meals , dietary supplements, and BM.
--- NOTE | 2022-06-21 16:53 | XRay Report ---
RIGHT SHOULDER 2 VIEWS INDICATION / CLINICAL INFORMATION: Right shoulder pain. COMPARISON: None available. FINDINGS: BONES / JOINT(S): The joint spaces are well-maintained. No significant arthritis. There is no evidenc e of fracture, subluxation or destructive lesion. SOFT TISSUES: No significant abnormality. ADDITIONAL FINDINGS: There is patchy parenchymal opacity in the right lower lung, likely representing atelectasis. IMPRESSION: No acute osseous abnormality. Signer Name: Alexander Day MD Signed: 06/21/2022 4:48 PM Workstation Name: [id number]
--- NOTE | 2022-06-21 20:31 | Post Operative Note ---
Pre-op diagnosis: Chronic neck wound 2 to 3 cm Post-op diagnosis: same Findings: Patient with chronic neck wound posteriorly as a result of a large abscess initially being 300 cm in size. Abscess appears to be closing in from the periphery. Wound VAC was placed last week and is changed today. Procedure: Changing wound VAC at bedside Anesthesia: none Surgeon: ADITYA SINGH Estimated blood loss: minimal Pathology: none Condition: stable Disposition: floor
--- NOTE | 2022-06-21 21:57 | Cat Scan Report ---
CT RIGHT SHOULDER WITHOUT AND WITH CONTRAST INDICATION / CLINICAL INFORMATION: R arm pain and R shoulder abscesses 100ml of [id number]. TECHNIQUE: All CT scans at this location are performed using CT dose reduction for ALARA by means of automated exposure control. COMPARISON: Radiographs earlier today. FINDINGS: BONES: No fracture or subluxation. No osseous lesion. JOINT SPACE / CAPSULE: There is an effusion. ACROMION / A.C. JOINT: No significant abnormality. SUBACROMIAL / SUBDELTOID SPACE: No significant abnormality. MUSCLES / TENDONS: In the expected location of the subscapularis muscle, there is a peripherally enha ncing, somewhat septated fluid collection which measures 10.1 x 4.0 cm on axial image 30. This may co mmunicate with joint space. More inferiorly, there is a second collection anterior and inferior to th e scapula which measures 4.3 x 3.1 cm on axial image 46. There is a small 3.4 x 1.2 cm fluid collecti on in the proximal anterior deltoid muscle adjacent to the distal clavicle. There is also a tiny flui d collection superficial to the inferior scapula (axial image 61. SOFT TISSUES: Incompletely included on this exam within the paraspinous musculature posterior lateral to the cervical spine, there is an elongate fluid collection which extends craniocaudally for at jacoby st 9 cm (axial images 1-31. VISUALIZED CHEST: Small right pleural effusion with atelectasis in the dependent right lung. There is a 2.7 cm epicardial/pericardial cyst in the mediastinum on axial image 56. ADDITIONAL FINDINGS: There are a few shotty right axillary nodes. IMPRESSION: 1. In addition to a small joint effusion at the right shoulder, there are multiple peripherally enhan cing circumscribed fluid collections primarily in the region of the subscapularis muscle bed, measure ments as above.. These are concerning for multiple abscesses. These may communicate with the joint sp sherry. 2. Incompletely included on this exam there is a peripherally enhancing fluid collection within the p araspinous musculature right of midline adjacent to the cervical spine. This is likely an additional abscess. CT of the neck is recommended to completely characterize this. 3. Trace right pleural effusion. 4. No acute skeletal abnormality. Signer Name: Aleksandr Agarwal MD Signed: 06/21/2022 9:53 PM Workstation Name: [id number]
[2022-06-21] MEDS: DEXTROSE 50% IN WATER (25GM) 50 ML SYRINGE IV PRN ×2 (22:41→22:42)
[2022-06-22 05:34] LABS: Hematocrit 22.6 % (35.5-45.6); Hemoglobin 7.6 gm/dl (11.8-15.2); Mean Corpuscular HGB Conc 34 % (32-34); Mean Corpuscular Volume 86 fl (84-94); Platelet Count 371 K/mm3 (140-440); Red Blood Count 2.62 M/mm3 (3.65-5.03); Red Cell Distribution Width 13.8 % (13.2-15.2)
[2022-06-22 05:48] LABS: Blood Urea Nitrogen 3 mg/dL (9-20); Calcium 7.5 mg/dL (8.4-10.2); Hemolysis Index 4
[2022-06-22 05:52] LABS: BUN/Creatinine Ratio 10
[2022-06-22] MEDS: HEPARIN 5,000 UNIT/1 ML VIAL SUB-Q SCH ×3 (06:08→20:59)
[2022-06-22] MEDS: INSULIN REGULAR, HUMAN 100 UNITS/1 ML SUB-Q SCH ×4 (07:30→23:24)
[2022-06-22] MEDS ORDERED: POTASSIUM CHLORIDE ER 20 MEQ TAB PO NR (08:30)
--- NOTE | 2022-06-22 09:41 | Progress Note ---
Assessment and Plan Assessment and plan: #Posterior neck abscess secondary to Klebsiella + staph aureus #R scapular abscess #Lactic acidosisresolved CT of the head and chest with contrast revealing "large peripherally enhancing multiseptated organized collection seen extending from the posterior scalp along the subcutis tissues + paraspinal musculature to the level of T1 spinous process". continue IV Ancef 2 g every 8 hours while inpatient. Upon discharge, plan for p.o. Keflex 750 mg QID for 3 weeks General surgery consulted; appreciate recs. status post I&D of posterior neck abscess. Blood cultures negative. wound cultures positive for Klebsiella and staph aureus. Currently exchanging wound vacs. Infectious disease consulted; appreciate recs. HIV negative. Continue analgesics as needed. Occupational Therapy consulted due to decreased mobility of right shoulder; recommending acute rehab. - CT of the R arm showed possible fluid collections at the the subscapularis muscle bed. Discussed findings with general surgery, IR consult for possible drainage of abscess -Plan for wound VAC exchange in OR Monday #Non-insulin dependent type II diabetes mellitus - hemoglobin A1c: 15.6 - home regimen: None - current regimen: NPH 70/30 5 units twice daily + moderate SSI - blood glucose goal 140-180 while inpatient - continue to monitor #Hyponatremiaimproving Continue to monitor with repeat BMP. Consider IV fluid resuscitation if sodium level decreases. #Hypokalemia will continue to replete and monitor #Iron deficiency anemia Hemoglobin 7-8 Iron 18, TIBC 79, ferritin 894 Transfuse if hemoglobin <7 or patient become symptomatic. #Hypocalcemia Calcium 7.5 Replete. Continue to monitor. #Moderate protein caloric malnutrition Albumin 2.2 Continue dietary supplementation #Advanced care planning -Disease education conducted, care plan discussed, diagnoses discussed, prognosis discussed, and patient acknowledges understanding with care plan -Time: +30 min #Social issues -Patient is undocumented and does not have health insurance. All items needed for wound VAC and medications mood be required to self-pay. Case management/social work aware to attempt to provide patient with lucero items History Interval history: No acute events overnight. Medicated with the patient through [place] ([place] [id number]) at bedside. Patient reports right arm pain is improving. We discussed the CT findings from yesterday and the need for intervention to remove fluid collections. Patient is agreeable with IR consult for abscess drainage. We will continue with current care plan. Hospitalist Physical - Physical exam Narrative exam: GENERAL: Well-developed well-nourished. In no acute distress. HEENT: Normocephalic. Atraumatic. NECK: Wound vac in place @ posterior neck CHEST/LUNGS: CTAB on room air HEART/CARDIOVASCULAR: RRR. No murmur, rubs or gallops appreciated. ABDOMEN: +BS. NT/ND. NEURO: No focal motor deficit. Follows all commands. MUSCULOSKELETAL: R arm with limited movement due to pain. Arm TTP most exquisite at the upper arm. EXTREMITIES: No cyanosis, clubbing or edema. PSYCH: Cooperative. - Constitutional Vitals: Temp Pulse Resp BP Pulse Ox 99.5 F 84 18 123/77 98 06/22/22 05:48 06/22/22 05:48 06/22/22 05:48 06/22/22 05:48 06/22/22 05:48 General appearance: Present: no acute distress, well-nourished Results - Labs CBC & Chem 7: 06/22/22 04:55 06/22/22 04:55 Labs: Laboratory Last Values WBC 5.6 K/mm3 (4.5-11.0) 06/22/22 04:55 RBC 2.62 M/mm3 (3.65-5.03) L 06/22/22 04:55 Hgb 7.6 gm/dl (11.8-15.2) L 06/22/22 04:55 Hct 22.6 % (35.5-45.6) L 06/22/22 04:55 MCV 86 fl (84-94) 06/22/22 04:55 MCH 29 pg (28-32) 06/22/22 04:55 MCHC 34 % (32-34) 06/22/22 04:55 RDW 13.8 % (13.2-15.2) 06/22/22 04:55 Plt Count 371 K/mm3 (140-440) 06/22/22 04:55 Lymph % (Auto) 17.6 % (13.4-35.0) 06/21/22 04:00 [place] % (Auto) 8.4 % (0.0-7.3) H 06/21/22 04:00 Eos % (Auto) 1.5 % (0.0-4.3) 06/21/22 04:00 Baso % (Auto) 0.5 % (0.0-1.8) 06/21/22 04:00 Lymph # (Auto) 1.0 K/mm3 (1.2-5.4) L 06/21/22 04:00 [place] # (Auto) 0.5 K/mm3 (0.0-0.8) 06/21/22 04:00 Eos # (Auto) 0.1 K/mm3 (0.0-0.4) 06/21/22 04:00 Baso # (Auto) 0.0 K/mm3 (0.0-0.1) 06/21/22 04:00 Seg Neutrophils % 72.0 % (40.0-70.0) H 06/21/22 04:00 Seg Neutrophils # 4.2 K/mm3 (1.8-7.7) 06/21/22 04:00 Sodium 130 mmol/L (137-145) L 06/22/22 04:55 Potassium 3.5 mmol/L (3.6-5.0) L 06/22/22 04:55 Chloride 95.2 mmol/L (98-107) L 06/22/22 04:55 Carbon Dioxide 25 mmol/L (22-30) 06/22/22 04:55 Anion Gap 13 mmol/L 06/22/22 04:55 BUN 3 mg/dL (9-20) L 06/22/22 04:55 Creatinine 0.3 mg/dL (0.8-1.3) L 06/22/22 04:55 Estimated GFR > 60 ml/min 06/22/22 04:55 BUN/Creatinine Ratio 10 % 06/22/22 04:55 Glucose 102 mg/dL (75-100) H 06/22/22 04:55 POC Glucose 62 mg/dL (70-105) L 06/21/22 22:30 Hemoglobin A1c 15.6 % (4-6) H 06/14/22 09:08 Lactic Acid 1.80 mmol/L (0.7-2.0) 06/14/22 16:27 Calcium 7.5 mg/dL (8.4-10.2) L 06/22/22 04:55 Iron 18 ug/dL (49-181) L 06/14/22 09:08 TIBC 79 mcg/dL (250-450) L 06/14/22 09:08 Ferritin 894.3 ng/mL (30.0-300.0) H 06/14/22 09:08 Total Bilirubin 0.60 mg/dL (0.1-1.2) 06/13/22 22:05 AST 37 units/L (5-40) 06/13/22 22:05 ALT 43 units/L (7-56) 06/13/22 22:05 Alkaline Phosphatase 127 units/L (35-129) 06/13/22 22:05 C-Reactive Protein 12.60 mg/dL (0.00-1.30) H 06/22/22 04:55 Total Protein 7.0 g/dL (6.3-8.2) 06/13/22 22:05 Albumin 2.2 g/dL (3.9-5) L 06/13/22 22:05 Albumin/Globulin Ratio 0.5 % 06/13/22 22:05 Vancomycin Trough 7.3 ug/mL (5.0-20.0) 06/16/22 06:00 HIV DNA Qual (PCR) Not detected (Not Detected) 06/16/22 11:11 HIV 1&2 Antibody Rapid Non react (Non React) 06/16/22 11:11 HIV P24 Antigen Non react (Non React) 06/16/22 11:11 Perez/IV: Voiding Method Urinal Active Medications - Current Medications Current Medications: Generic Name Dose Route Start Last Admin Trade Name Freq PRN Reason Stop Dose Admin Acetaminophen 650 mg 06/14/22 10:00 06/18/22 17:05 Acetaminophen 325 Mg Tab PO 650 mg Q4H PRN Administration Pain MILD(1-3)/Fever >100.5/ALMAZAN Dextrose 50 ml 06/14/22 15:48 06/21/22 22:42 Dextrose 50% In Water (25gm) 50 Ml Syringe IV 50 ml Q30MIN PRN Administration Hypoglycemia Protocol Heparin Sodium (Porcine) 5,000 unit 06/14/22 14:00 06/22/22 06:08 Heparin 5,000 Unit/1 Ml Vial SUB-Q 5,000 unit Q8HR KARAN Administration Hydromorphone HCl 1 mg 06/14/22 10:00 06/17/22 11:38 Hydromorphone 0.5 Mg/0.5 Ml Inj IV 1 mg Q4H PRN Administration Pain , Severe (7-10) Cefazolin Sodium 2 gm/ Sodium 100 mls @ 200 mls/hr 06/20/22 14:00 06/22/22 06:08 Chloride IV 200 mls/hr Q8HR KARAN Administration Protocol Insulin Human Isoph/Insulin Regular 5 unit 06/15/22 12:09 06/21/22 17:36 Insulin Nph/Regular 70/30 Inj SUB-Q 5 unit BIDDIAB KARAN Administration Insulin Human Regular 0 units 06/14/22 16:30 06/21/22 22:44 Insulin Regular, Human 100 Units/1 Ml SUB-Q Not Given ACHS [facility] Protocol Metoclopramide HCl 10 mg 06/14/22 04:33 06/14/22 07:44 Metoclopramide 10 Mg/2 Ml Inj IV 10 mg Q6H PRN Administration Nausea And Vomiting Ondansetron HCl 4 mg 06/14/22 10:00 Ondansetron 4 Mg/2 Ml Inj IV Q8H PRN Nausea And Vomiting Oxycodone/Acetaminophen 1 tab 06/14/22 10:00 06/21/22 05:13 Oxycodone /Acetaminophen 5-325mg Tab PO 1 tab Q6H PRN Administration Pain, Moderate (4-6) Potassium Chloride 40 meq 06/22/22 08:30 Potassium Chloride Er 20 Meq Tab PO 06/22/22 14:00 ONCE@0830 NR Sodium Chloride 10 ml 06/14/22 04:33 Sodium Chloride 0.9% 10 Ml Flush Syringe IV PRN PRN LINE FLUSH Sodium Chloride 10 ml 06/14/22 10:00 06/21/22 22:44 Sodium Chloride 0.9% 10 Ml Flush Syringe IV 10 ml BID KARAN Administration Sodium Hypochlorite 1 applic 06/20/22 09:39 Sodium Hypochlorite, Dakin's Full Strength (0.5%) 473 Ml Topical Soln TP Q12H PRN Wound Care Nutrition/Malnutrition Assess - Dietary Evaluation Nutrition/Malnutrition Findings: Nutrition Notes Start: 06/15/22 16:25 Freq: Status: Active Protocol: Document 06/15/22 16:25 BRIANDA (Rec: 06/15/22 16:59 BRIANDA [id number]) Nutrition Notes Need for Assessment 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 Current Diet Consistent Carbohydrates Diet+ D Suppl (since D 06/15). Labs/Tests 06/15: Na 129, K 3.5, BUN 7, Crea 0.3, Ca 7.1. Pertinent Medications 06/15: Nutritionally unremarkable. 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 No reports available on Pt's PO intake of meals at the time , will assess at F/U. I will recommend dietary supplementation to support wound healing processes during LOS. Pt is on Room Air, O2 saturation @ 100%, according to Physical Asasessment history notes. Procedure on 06/14: Drainage of abscess w/debridemenmt of necrotic skin and deep tissue, well tolerated, according to Operative Report notes. Procedure on 06/15: Debridement of posterior neck wound ulcer, well tolerated, according to Operative Procedure notes. Pt shows a surgical wound on the posterior neck as sign of concern for skin risk at the time, according to Physical Assessment History notes. Pt is not a new onset diabetes candidate for nutrition education. Percent of energy/protein needs met: Prescribed Consistent Carbohydrates Diet provides for energy/protein needs (2, 061 Kcal/91 g) during LOS; additionally, Dietary Supplements will support wound healing processes with 190 Kcal and 5 g of protein. Burn Absent Trauma Absent GI Symptoms None Food Allergy No Skin Integrity/Comment Neck surgical wound. 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 Etiology Posterior Neck wound ulcer. As Evidenced by Signs and Symptoms Procedure on 06/14: Drainage of abscess w/debridemenmt of necrotic skin and deep tissue, well tolerated, according to Operative Report notes. Procedure on 06/15: Debridement of posterior neck wound ulcer, well tolerated, according to Operative Procedure notes. Is patient on ventilator? No Is Patient Ambulatory and/or Out of Bed Yes REE-([place]-St. Jeor-ambulatory/OOB) [ 1968.044 [id number]] Kcal/Kg value to use for calculation 23 Approximate Energy Requirements Using 1546 kcal/Kg Calculation Used for Recommendations Kcal/kg Additional Notes Protein: 1.25-1.5 g/Kg ABW; 84 -101 g/day. Fluids: 1 ml/Kcal, or as per MD. Nutrition Intervention Change Diet Order: Continue Consistent Carbohydrates Diet as tolerated. Add Supplement/Snack (indicate name/kcal Start 28.8 g pkt Kash; BID. /protein ) Provides kCal: 190 Provides Protein (gm) 5 Goal #1 Support, through dietary supplementation, wound healing processes during LOS. Goal #2 Adjust the dietary intervention to better serve Pt's needs and clinical conditions during LOS. Follow-Up By: 06/22/22 Additional Comments Continue monitoring food tolerance, %PO intake of meals , dietary supplements, and BM.
--- NOTE | 2022-06-22 11:02 | Progress Note ---
Assessment and Plan Cultures: 06/13/2022 blood culture: No growth 06/14/2022 surgical culture: MSSA, Klebsiella pneumoniae A/P: 41-year-old male with diabetes: #Extensive, necrotic posterior neck abscess extending to the paraspinal musculature: No evidence of osteomyelitis on imaging. S/p extensive I&D on 06/14/2022, 06/15/2022 and 06/17/2022 by general surgery. VAC changed on 06/21/2022. #Diabetes mellitus type 2, uncontrolled: HbA1c 15.6 #Leucopenia: resolved. HIV negative. Recs: -continue IV Ancef 2 g every 8 hours -recheck CRP in 2-3 days -d/w Dr. Patel, planned for IR drainage -wound care and glycemic control Rosanna Cartagena MD, FACP, DINA [facility] O: [phone] F: [phone] C: [phone] Subjective Date of service: 06/22/22 Interval history: No fever. No new complaints. Appears comfortable. Lying in bed. Objective - Exam Narrative Exam: Physical Exam: Constitutional: Alert, cooperative. No acute distress Head, Ears, Nose: Normocephalic, atraumatic. External ears, nose normal Eyes: Conjunctivae/corneas clear. No icterus. No ptosis. Neck: Posterior neck and scalp region with a large wound, VAC + Cardiovascular: S1, S2 + Respiratory: Good air entry, clear to auscultation bilaterally GI: Soft, non-tender; bowel sounds normal. No peritoneal signs Musculoskeletal: No pedal edema, no cyanosis. Skin: No rash or abscess Hem/Lymphatic: No palpable cervical or supraclavicular nodes. No lymphangitis Psych: Mood ok. Affect normal Neurological: Awake, alert, oriented. No gross abnormality - Constitutional Vitals: Vital Signs Temp Pulse Resp BP Pulse Ox 99.5 F 84 18 123/77 98 06/22/22 05:48 06/22/22 05:48 06/22/22 05:48 06/22/22 05:48 06/22/22 05:48 Temperature -Last 24 Hours Temperature 99.5 F Temperature 100.1 F Temperature 98.4 F - Labs CBC & Chem 7: 06/22/22 04:55 06/22/22 04:55 Labs: Abnormal lab results 06/21/22 06/22/22 06/22/22 Range/Units 22:30 04:55 04:55 RBC 2.62 L (3.65-5.03) M/mm3 Hgb 7.6 L (11.8-15.2) gm/dl Hct 22.6 L (35.5-45.6) % Sodium 130 L (137-145) mmol/L Potassium 3.5 L (3.6-5.0) mmol/L Chloride 95.2 L (98-107) mmol/L BUN 3 L (9-20) mg/dL Creatinine 0.3 L (0.8-1.3) mg/dL Glucose 102 H (75-100) mg/dL POC Glucose 62 L (70-105) mg/dL Calcium 7.5 L (8.4-10.2) mg/dL C-Reactive Protein 12.60 H (0.00-1.30) mg/dL
[2022-06-22] MEDS: INSULIN NPH/REGULAR 70/30 INJ SUB-Q SCH ×2 (12:14→16:47)
[2022-06-23] MEDS: HEPARIN 5,000 UNIT/1 ML VIAL SUB-Q SCH ×3 (05:12→22:52)
[2022-06-23 06:14] LABS: Blood Urea Nitrogen 4 mg/dL (9-20); Calcium 7.7 mg/dL (8.4-10.2); Hemolysis Index 0
[2022-06-23 06:32] LABS: BUN/Creatinine Ratio 13
[2022-06-23] MEDS ORDERED: CALCIUM GLUCONATE 1,000 MG in SODIUM CHLORIDE 0.9% 100 ML IV ONE (07:06)
--- NOTE | 2022-06-23 07:29 | Progress Note ---
Assessment and Plan Cultures: 06/13/2022 blood culture: No growth 06/14/2022 surgical culture: MSSA, Klebsiella pneumoniae A/P: 41-year-old male with diabetes: #Extensive, necrotic posterior neck abscess extending to the paraspinal musculature: No evidence of osteomyelitis on imaging. S/p extensive I&D on 06/14/2022, 06/15/2022 and 06/17/2022 by general surgery. VAC changed on 06/21/2022. #R shoulder abscess: CT right shoulder with and without contrast showed multiple abscesses in the right subscapularis muscle bed. #Diabetes mellitus type 2, uncontrolled: HbA1c 15.6 #Leucopenia: resolved. HIV negative. Recs: -continue IV Ancef 2 g every 8 hours -recheck CRP tomorrow -planned for IR drainage of R subscapularis muscle bed abscesses -wound care and glycemic control Rosanna Cartagena MD, FACP, DINA [facility] O: [phone] F: [phone] C: [phone] Subjective Date of service: 06/23/22 Interval history: No fever, low grade temps +. No new complaints. Appears comfortable. Lying in bed. Objective - Exam Narrative Exam: Physical Exam: Constitutional: Alert, cooperative. No acute distress Head, Ears, Nose: Normocephalic, atraumatic. External ears, nose normal Eyes: Conjunctivae/corneas clear. No icterus. No ptosis. Neck: Posterior neck and scalp region with a large wound, VAC + Cardiovascular: S1, S2 + Respiratory: Good air entry, clear to auscultation bilaterally GI: Soft, non-tender; bowel sounds normal. No peritoneal signs Musculoskeletal: No pedal edema, no cyanosis. Skin: No rash or abscess Hem/Lymphatic: No palpable cervical or supraclavicular nodes. No lymphangitis Psych: Mood ok. Affect normal Neurological: Awake, alert, oriented. No gross abnormality - Constitutional Vitals: Vital Signs Temp Pulse Resp BP Pulse Ox 98.5 F 88 20 133/79 100 06/22/22 23:39 06/22/22 23:39 06/22/22 23:39 06/22/22 23:39 06/22/22 23:39 Temperature -Last 24 Hours Temperature 98.5 F Temperature 98.2 F - Labs CBC & Chem 7: 06/22/22 04:55 06/23/22 05:02 Labs: Abnormal lab results 06/22/22 06/22/22 06/22/22 Range/Units 08:11 11:20 12:07 Sodium (137-145) mmol/L Chloride (98-107) mmol/L BUN (9-20) mg/dL Creatinine (0.8-1.3) mg/dL Glucose (75-100) mg/dL POC Glucose 145 H 111 H 110 H (70-105) mg/dL Calcium (8.4-10.2) mg/dL 06/22/22 06/22/22 06/23/22 Range/Units 16:45 20:15 05:02 Sodium 129 L (137-145) mmol/L Chloride 95.9 L (98-107) mmol/L BUN 4 L (9-20) mg/dL Creatinine 0.3 L (0.8-1.3) mg/dL Glucose 110 H (75-100) mg/dL POC Glucose 126 H 127 H (70-105) mg/dL Calcium 7.7 L (8.4-10.2) mg/dL
[2022-06-23] MEDS: INSULIN NPH/REGULAR 70/30 INJ SUB-Q SCH ×2 (08:57→17:19)
[2022-06-23] MEDS ORDERED: CALC GLUCONATE 1GM/NS 100 ML 1 GM/100 ML BAG IV ONE (09:00)
[2022-06-23] MEDS: INSULIN REGULAR, HUMAN 100 UNITS/1 ML SUB-Q SCH ×4 (09:16→22:31)
--- NOTE | 2022-06-23 11:56 | Progress Note ---
Assessment and Plan Continue local wound care continue IV antibiotics. Discussed with hospitalist regarding low white counts and large septic area. HIV testing was negative. CT of the shoulder is showing a large abscess under the scapula. Awaiting consultation with Dr. Chavarria with IR with regards to the subscapular abscess. Will likely need wound VAC change tomorrow in the OR. No other procedure is being planned. Subjective Date of service: 06/23/22 Patient Reports: Positive: still having pain Narrative: Awaiting consultation with Dr. hCavarria with IR with regards to the subscapular abscess. Will likely need wound VAC change tomorrow in the OR. No other procedure is being planned. Objective Vital Signs - 12hr 06/23/22 11:00 O2 Sat by Pulse 97 Oximetry - Labs 06/22/22 04:55 06/23/22 05:02 Diabetes panel 06/23/22 Range/Units 05:02 Sodium 129 L (137-145) mmol/L Potassium 4.1 (3.6-5.0) mmol/L Chloride 95.9 L (98-107) mmol/L Carbon Dioxide 26 (22-30) mmol/L BUN 4 L (9-20) mg/dL Creatinine 0.3 L (0.8-1.3) mg/dL Glucose 110 H (75-100) mg/dL Calcium 7.7 L (8.4-10.2) mg/dL Calcium panel 06/23/22 Range/Units 05:02 Calcium 7.7 L (8.4-10.2) mg/dL Pituitary panel 06/23/22 Range/Units 05:02 Sodium 129 L (137-145) mmol/L Potassium 4.1 (3.6-5.0) mmol/L Chloride 95.9 L (98-107) mmol/L Carbon Dioxide 26 (22-30) mmol/L BUN 4 L (9-20) mg/dL Creatinine 0.3 L (0.8-1.3) mg/dL Glucose 110 H (75-100) mg/dL Calcium 7.7 L (8.4-10.2) mg/dL Adrenal panel 06/23/22 Range/Units 05:02 Sodium 129 L (137-145) mmol/L Potassium 4.1 (3.6-5.0) mmol/L Chloride 95.9 L (98-107) mmol/L Carbon Dioxide 26 (22-30) mmol/L BUN 4 L (9-20) mg/dL Creatinine 0.3 L (0.8-1.3) mg/dL Glucose 110 H (75-100) mg/dL Calcium 7.7 L (8.4-10.2) mg/dL
--- NOTE | 2022-06-23 12:36 | Progress Note ---
Assessment and Plan Assessment and plan: #Posterior neck abscess secondary to Klebsiella + staph aureus #R scapular abscess #Septic joint #Lactic acidosisresolved CT of the head and chest with contrast revealing "large peripherally enhancing multiseptated organized collection seen extending from the posterior scalp along the subcutis tissues + paraspinal musculature to the level of T1 spinous process". continue IV Ancef 2 g every 8 hours while inpatient. Upon discharge, plan for p.o. Keflex 750 mg QID for 3 weeks General surgery consulted; appreciate recs. status post I&D of posterior neck abscess. Blood cultures negative. wound cultures positive for Klebsiella and staph aureus. Currently exchanging wound vacs. Infectious disease consulted; appreciate recs. HIV negative. Continue analgesics as needed. Occupational Therapy consulted due to decreased mobility of right shoulder; recommending acute rehab. - CT of the R arm showed possible fluid collections at the the subscapularis m uscle bed. Discussed findings with general surgery, concern for septic joint, Orthopaedic surgery consulted -Plan for wound VAC exchange in OR tomorrow #Non-insulin dependent type II diabetes mellitus - hemoglobin A1c: 15.6 - home regimen: None - current regimen: NPH 70/30 5 units twice daily + moderate SSI - blood glucose goal 140-180 while inpatient - continue to monitor #Hyponatremia-stable Continue to monitor with repeat BMP #Hypokalemia will continue to replete and monitor #Iron deficiency anemia Hemoglobin 7-8 Iron 18, TIBC 79, ferritin 894 Transfuse if hemoglobin <7 or patient become symptomatic. #Hypocalcemia Calcium 7.5 Replete. Continue to monitor. #Moderate protein caloric malnutrition Albumin 2.2 Continue dietary supplementation #Advanced care planning -Disease education conducted, care plan discussed, diagnoses discussed, prognosis discussed, and patient acknowledges understanding with care plan -Time: +30 min #Social issues -Patient is undocumented and does not have health insurance. All items needed for wound VAC and medications mood be required to self-pay. Case management/social work aware to attempt to provide patient with lucero items History Interval history: No acute events overnight. Patient still has limited motion in his R arm and pain. We discussed clinical updates. Patient seen by interventional radiology today and orthopedic surgery was consulted. Patient agreeable to treatment plan. Hospitalist Physical - Physical exam Narrative exam: GENERAL: Well-developed well-nourished. In no acute distress. HEENT: Normocephalic. Atraumatic. NECK: Wound vac in place @ posterior neck CHEST/LUNGS: CTAB on room air HEART/CARDIOVASCULAR: RRR. No murmur, rubs or gallops appreciated. ABDOMEN: +BS. NT/ND. NEURO: No focal motor deficit. Follows all commands. MUSCULOSKELETAL: R arm with limited movement due to pain. Arm TTP most exquisite at the upper arm. EXTREMITIES: No cyanosis, clubbing or edema. PSYCH: Cooperative. - Constitutional Vitals: Temp Pulse Resp BP Pulse Ox 98.5 F 88 20 133/79 97 06/22/22 23:39 06/22/22 23:39 06/22/22 23:39 06/22/22 23:39 06/23/22 11:00 General appearance: Present: no acute distress, well-nourished Results - Labs CBC & Chem 7: 06/22/22 04:55 06/23/22 05:02 Labs: Laboratory Last Values WBC 5.6 K/mm3 (4.5-11.0) 06/22/22 04:55 RBC 2.62 M/mm3 (3.65-5.03) L 06/22/22 04:55 Hgb 7.6 gm/dl (11.8-15.2) L 06/22/22 04:55 Hct 22.6 % (35.5-45.6) L 06/22/22 04:55 MCV 86 fl (84-94) 06/22/22 04:55 MCH 29 pg (28-32) 06/22/22 04:55 MCHC 34 % (32-34) 06/22/22 04:55 RDW 13.8 % (13.2-15.2) 06/22/22 04:55 Plt Count 371 K/mm3 (140-440) 06/22/22 04:55 Lymph % (Auto) 17.6 % (13.4-35.0) 06/21/22 04:00 Boyle % (Auto) 8.4 % (0.0-7.3) H 06/21/22 04:00 Eos % (Auto) 1.5 % (0.0-4.3) 06/21/22 04:00 Baso % (Auto) 0.5 % (0.0-1.8) 06/21/22 04:00 Lymph # (Auto) 1.0 K/mm3 (1.2-5.4) L 06/21/22 04:00 Boyle # (Auto) 0.5 K/mm3 (0.0-0.8) 06/21/22 04:00 Eos # (Auto) 0.1 K/mm3 (0.0-0.4) 06/21/22 04:00 Baso # (Auto) 0.0 K/mm3 (0.0-0.1) 06/21/22 04:00 Seg Neutrophils % 72.0 % (40.0-70.0) H 06/21/22 04:00 Seg Neutrophils # 4.2 K/mm3 (1.8-7.7) 06/21/22 04:00 Sodium 129 mmol/L (137-145) L 06/23/22 05:02 Potassium 4.1 mmol/L (3.6-5.0) 06/23/22 05:02 Chloride 95.9 mmol/L (98-107) L 06/23/22 05:02 Carbon Dioxide 26 mmol/L (22-30) 06/23/22 05:02 Anion Gap 11 mmol/L 06/23/22 05:02 BUN 4 mg/dL (9-20) L 06/23/22 05:02 Creatinine 0.3 mg/dL (0.8-1.3) L 06/23/22 05:02 Estimated GFR > 60 ml/min 06/23/22 05:02 BUN/Creatinine Ratio 13 % 06/23/22 05:02 Glucose 110 mg/dL (75-100) H 06/23/22 05:02 POC Glucose 127 mg/dL (70-105) H 06/22/22 20:15 Hemoglobin A1c 15.6 % (4-6) H 06/14/22 09:08 Lactic Acid 1.80 mmol/L (0.7-2.0) 06/14/22 16:27 Calcium 7.7 mg/dL (8.4-10.2) L 06/23/22 05:02 Iron 18 ug/dL (49-181) L 06/14/22 09:08 TIBC 79 mcg/dL (250-450) L 06/14/22 09:08 Ferritin 894.3 ng/mL (30.0-300.0) H 06/14/22 09:08 Total Bilirubin 0.60 mg/dL (0.1-1.2) 06/13/22 22:05 AST 37 units/L (5-40) 06/13/22 22:05 ALT 43 units/L (7-56) 06/13/22 22:05 Alkaline Phosphatase 127 units/L (35-129) 06/13/22 22:05 C-Reactive Protein 12.60 mg/dL (0.00-1.30) H 06/22/22 04:55 Total Protein 7.0 g/dL (6.3-8.2) 06/13/22 22:05 Albumin 2.2 g/dL (3.9-5) L 06/13/22 22:05 Albumin/Globulin Ratio 0.5 % 06/13/22 22:05 Vancomycin Trough 7.3 ug/mL (5.0-20.0) 06/16/22 06:00 HIV DNA Qual (PCR) Not detected (Not Detected) 06/16/22 11:11 HIV 1&2 Antibody Rapid Non react (Non React) 06/16/22 11:11 HIV P24 Antigen Non react (Non React) 06/16/22 11:11 Perez/IV: Voiding Method Urinal Active Medications - Current Medications Current Medications: Generic Name Dose Route Start Last Admin Trade Name Freq PRN Reason Stop Dose Admin Acetaminophen 650 mg 06/14/22 10:00 06/18/22 17:05 Acetaminophen 325 Mg Tab PO 650 mg Q4H PRN Administration Pain MILD(1-3)/Fever >100.5/ALMAZAN Dextrose 50 ml 06/14/22 15:48 06/21/22 22:42 Dextrose 50% In Water (25gm) 50 Ml Syringe IV 50 ml Q30MIN PRN Administration Hypoglycemia Protocol Heparin Sodium (Porcine) 5,000 unit 06/14/22 14:00 06/23/22 05:12 Heparin 5,000 Unit/1 Ml Vial SUB-Q 5,000 unit Q8HR KARAN Administration Hydromorphone HCl 1 mg 06/14/22 10:00 06/17/22 11:38 Hydromorphone 0.5 Mg/0.5 Ml Inj IV 1 mg Q4H PRN Administration Pain , Severe (7-10) Cefazolin Sodium 2 gm/ Sodium 100 mls @ 200 mls/hr 06/20/22 14:00 06/23/22 05:12 Chloride IV 200 mls/hr Q8HR KARAN Administration Protocol Insulin Human Isoph/Insulin Regular 5 unit 06/15/22 12:09 06/23/22 08:57 Insulin Nph/Regular 70/30 Inj SUB-Q 5 unit BIDDIAB KARAN Administration Insulin Human Regular 0 units 06/14/22 16:30 06/23/22 09:16 Insulin Regular, Human 100 Units/1 Ml SUB-Q Not Given ACHS [facility] Protocol Metoclopramide HCl 10 mg 06/14/22 04:33 06/14/22 07:44 Metoclopramide 10 Mg/2 Ml Inj IV 10 mg Q6H PRN Administration Nausea And Vomiting Ondansetron HCl 4 mg 06/14/22 10:00 Ondansetron 4 Mg/2 Ml Inj IV Q8H PRN Nausea And Vomiting Oxycodone/Acetaminophen 1 tab 06/14/22 10:00 06/21/22 05:13 Oxycodone /Acetaminophen 5-325mg Tab PO 1 tab Q6H PRN Administration Pain, Moderate (4-6) Sodium Chloride 10 ml 06/14/22 04:33 Sodium Chloride 0.9% 10 Ml Flush Syringe IV PRN PRN LINE FLUSH Sodium Chloride 10 ml 06/14/22 10:00 06/23/22 09:05 Sodium Chloride 0.9% 10 Ml Flush Syringe IV 10 ml BID KARAN Administration Sodium Hypochlorite 1 applic 06/20/22 09:39 Sodium Hypochlorite, Dakin's Full Strength (0.5%) 473 Ml Topical Soln TP Q12H PRN Wound Care Nutrition/Malnutrition Assess - Dietary Evaluation Nutrition/Malnutrition Findings: Nutrition Notes Start: 06/15/22 16:25 Freq: Status: Active Protocol: Document 06/22/22 15:18 BRIANDA (Rec: 06/22/22 15:47 BRIANDA [id number]) Nutrition Notes Initial or Follow up Reassessment Current Diagnosis Diabetes,Malnutrition Other Pertinent Diagnosis s/p Neck Abscess, Anemia, Electrolyte Imbalance. Current Diet Consistent Carbohydrates Diet (since L 06/17)+D Suppl (from D 06/22). Labs/Tests 06/22: Na 130, K 3.5, Cl 95.2, BUN 3, Crea 0.3, Glu 102, Ca 7.5, HbA1c 15.6%. Pertinent Medications 06/22: Nutritionally unremarkable. Height 5 ft 5 in Weight 73.3 kg Tripp Body Weight (kg) 61.81 BMI 26.9 Weight change and time frame 6.1 Kg body weight gain reported in 1 week. Weight Status Overweight Subjective/Other Information RD consult for routine F/U on dietyary advancement. Diet continues as prescribed, without the dietary supplements, Pt's PO intake of meals has been Poor (25-50%) and fairly tolerated, according to ADL notes. I will prescribe dietary supplements to compensate for poor or insufficient PO intake of meals during LOS. Pt is on Room Air, O2 saturation @ 100%, according to Physical Assessment history notes. Pt shows a surgical incision on the back of the neck as sign of concern for skin risk at the time, according to Physical Assessment history notes. Procedure on 06/21: WoundVac replacement over neck wound, well tolerated, according to Pprogress notes. Percent of energy/protein needs met: Prescribed Consistent Carbohydrates Diet provides for energy/protein needs (2, 061 Kcal/91 g) during LOS; additionally, Dietary Supplements will compensate for possible poor or insufficient PO intake of meals with 660 Kcal and 30 g of protein. Burn Absent Trauma Absent GI Symptoms None Food Allergy No Skin Integrity/Comment Neck surgical wound. Current % PO Poor (25-49%) Minimum of two criteria No Fluid Accumulation N/A Reduced Purification Operator Helper Strength N/A (non-severe) Protein-Calorie Malnutrition N\\A #2 Nutrition Diagnosis Inadequate protein-energy intake Etiology Uncertain. As Evidenced by Signs and Symptoms Pt's PO intake of meals has been Poor (25-50%) and fairly tolerated, according to ADL notes. #1 Nutrition Diagnosis Increased nutrient needs ( specify in comment below) Comments: Protein to support wound healing processes. Diagnosis Progress(for reassessment Continues documentation) Is patient on ventilator? No Is Patient Ambulatory and/or Out of Bed Yes REE-([place]house-St. Jeor-ambulatory/OOB) [ 7.344 NUTR.MSJOOB] Kcal/Kg value to use for calculation 21 Approximate Energy Requirements Using 1539 kcal/Kg Calculation Used for Recommendations Kcal/kg Additional Notes Protein: 1.25-1.5 g/Kg ABW; 84 -101 g/day. Fluids: 1 ml/Kcal, or as per MD. Nutrition Intervention Change Diet Order: Continue Consistent Carbohydrates Diet as tolerated. Add Supplement/Snack (indicate name/kcal Start 8 fl oz Glucerna; TID /protein ) Provides kCal: 660 Provides Protein (gm) 30 Goal #1 Compensate, through dietary supplementation, for possible poor or insufficient PO intake of meals during LOS. Goal #2 Adjust the dietary intervention to better serve Pt's needs and clinical conditions during LOS. Follow-Up By: 06/29/22 Additional Comments Continue monitoring food tolerance, %PO intake of meals , dietary supplements, and BM.
--- NOTE | 2022-06-23 13:21 | Consultation ---
History of Present Illness - Reason for Consult Consult date: 06/23/22 Abscess - History of Present Illness Patient with a history of posterior fossa abscess extending to the crown of his head. Additionally, there is multiseptated abscess extending along the anterior aspect of the scapula with extension to the right shoulder. Of the right shoulder joint is involved consistent with septic arthritis and the patient is unable to raise his arm. Past History Past Medical History: diabetes Past Surgical History: No surgical history Social history: Lives alone, full code Family history: diabetes, hypertension Medications and Allergies Allergies Allergy/AdvReac Type Severity Reaction Status Date / Time No Known Allergies Allergy Verified 06/13/22 21:45 Active Meds: Active Medications Acetaminophen (Acetaminophen 325 Mg Tab) 650 mg PO Q4H PRN PRN Reason: Pain MILD(1-3)/Fever >100.5/ALMAZAN Last Admin: 06/18/22 17:05 Dose: 650 mg Dextrose (Dextrose 50% In Water (25gm) 50 Ml Syringe) 50 ml IV Q30MIN PRN; Protocol PRN Reason: Hypoglycemia Last Admin: 06/21/22 22:42 Dose: 50 ml Heparin Sodium (Porcine) (Heparin 5,000 Unit/1 Ml Vial) 5,000 unit SUB-Q Q8HR KARAN Last Admin: 06/23/22 05:12 Dose: 5,000 unit Hydromorphone HCl (Hydromorphone 0.5 Mg/0.5 Ml Inj) 1 mg IV Q4H PRN PRN Reason: Pain , Severe (7-10) Last Admin: 06/17/22 11:38 Dose: 1 mg Cefazolin Sodium 2 gm/ Sodium (Chloride) 100 mls @ 200 mls/hr IV Q8HR KARAN; Protocol Last Admin: 06/23/22 05:12 Dose: 200 mls/hr Insulin Human Isoph/Insulin Regular (Insulin Nph/Regular 70/30 Inj) 5 unit SUB- Q BIDDIAB KARAN Last Admin: 06/23/22 08:57 Dose: 5 unit Insulin Human Regular (Insulin Regular, Human 100 Units/1 Ml) 0 units SUB-Q ACHS KARAN; Protocol Last Admin: 06/23/22 09:16 Dose: Not Given Metoclopramide HCl (Metoclopramide 10 Mg/2 Ml Inj) 10 mg IV Q6H PRN PRN Reason: Nausea And Vomiting Last Admin: 06/14/22 07:44 Dose: 10 mg Ondansetron HCl (Ondansetron 4 Mg/2 Ml Inj) 4 mg IV Q8H PRN PRN Reason: Nausea And Vomiting Oxycodone/Acetaminophen (Oxycodone /Acetaminophen 5-325mg Tab) 1 tab PO Q6H PRN PRN Reason: Pain, Moderate (4-6) Last Admin: 06/21/22 05:13 Dose: 1 tab Sodium Chloride (Sodium Chloride 0.9% 10 Ml Flush Syringe) 10 ml IV PRN PRN PRN Reason: LINE FLUSH Sodium Chloride (Sodium Chloride 0.9% 10 Ml Flush Syringe) 10 ml IV BID KARAN Last Admin: 06/23/22 09:05 Dose: 10 ml Sodium Hypochlorite (Sodium Hypochlorite, Dakin's Full Strength (0.5%) 473 Ml Topical Soln) 1 applic TP Q12H PRN PRN Reason: Wound Care Exam - Constitutional Vitals: Temp Pulse Resp BP Pulse Ox 98.5 F 88 20 133/79 97 06/22/22 23:39 06/22/22 23:39 06/22/22 23:39 06/22/22 23:39 06/23/22 11:00 General appearance: Present: no acute distress - EENT Eyes: Present: EOM intact ENT: hearing intact - Neck Neck: Present: supple - Respiratory Respiratory effort: normal - Extremities Extremities: abnormal - Abdominal General gastrointestinal: Present: deferred Male genitourinary: Present: deferred - Rectal Rectal Exam: deferred Results - Labs CBC & Chem 7: 06/22/22 04:55 06/23/22 05:02 Labs: Abnormal lab results 06/22/22 06/22/22 06/22/22 Range/Units 08:11 11:20 12:07 Sodium (137-145) mmol/L Chloride (98-107) mmol/L BUN (9-20) mg/dL Creatinine (0.8-1.3) mg/dL Glucose (75-100) mg/dL POC Glucose 145 H 111 H 110 H (70-105) mg/dL Calcium (8.4-10.2) mg/dL 06/22/22 06/22/22 06/23/22 Range/Units 16:45 20:15 05:02 Sodium 129 L (137-145) mmol/L Chloride 95.9 L (98-107) mmol/L BUN 4 L (9-20) mg/dL Creatinine 0.3 L (0.8-1.3) mg/dL Glucose 110 H (75-100) mg/dL POC Glucose 126 H 127 H (70-105) mg/dL Calcium 7.7 L (8.4-10.2) mg/dL 06/23/22 Range/Units 07:47 Sodium (137-145) mmol/L Chloride (98-107) mmol/L BUN (9-20) mg/dL Creatinine (0.8-1.3) mg/dL Glucose (75-100) mg/dL POC Glucose 106 H (70-105) mg/dL Calcium (8.4-10.2) mg/dL - Imaging and Cardiology CT Scan - head: image reviewed (Neck) Assessment and Plan A given the fact that the patient has a right septic shoulder joint with extension to the scapula, the patient will need evaluation by orthopedic surgery. The scapular abscess demonstrates significant number of septations which would not be beneficial to drainage through percutaneous drainage and may likely require washout.
[2022-06-24] MEDS: HEPARIN 5,000 UNIT/1 ML VIAL SUB-Q SCH ×3 (06:09→21:35)
[2022-06-24] MEDS: INSULIN NPH/REGULAR 70/30 INJ SUB-Q SCH ×2 (09:01→17:14)
[2022-06-24] MEDS: INSULIN REGULAR, HUMAN 100 UNITS/1 ML SUB-Q SCH ×4 (10:08→21:36)
--- NOTE | 2022-06-24 10:19 | Consultation ---
History of Present Illness - HPI Consult date: 06/24/22 Consult reason: joint pain History of present illness: 41 y/o male with c/o right shoulder pain, hx of infected neck wound, s/p I&D... Past History Past Medical History: diabetes Past Surgical History: No surgical history Social history: Lives alone, full code Family history: diabetes, hypertension Medications and Allergies Allergies Allergy/AdvReac Type Severity Reaction Status Date / Time No Known Allergies Allergy Verified 06/13/22 21:45 Active Meds: Active Medications Acetaminophen (Acetaminophen 325 Mg Tab) 650 mg PO Q4H PRN PRN Reason: Pain MILD(1-3)/Fever >100.5/ALMAZAN Last Admin: 06/18/22 17:05 Dose: 650 mg Dextrose (Dextrose 50% In Water (25gm) 50 Ml Syringe) 50 ml IV Q30MIN PRN; Protocol PRN Reason: Hypoglycemia Last Admin: 06/21/22 22:42 Dose: 50 ml Heparin Sodium (Porcine) (Heparin 5,000 Unit/1 Ml Vial) 5,000 unit SUB-Q Q8HR [facility] Last Admin: 06/24/22 06:09 Dose: 5,000 unit Hydromorphone HCl (Hydromorphone 0.5 Mg/0.5 Ml Inj) 1 mg IV Q4H PRN PRN Reason: Pain , Severe (7-10) Last Admin: 06/17/22 11:38 Dose: 1 mg Cefazolin Sodium 2 gm/ Sodium (Chloride) 100 mls @ 200 mls/hr IV Q8HR [facility]; Protocol Last Admin: 06/24/22 06:09 Dose: 200 mls/hr Insulin Human Isoph/Insulin Regular (Insulin Nph/Regular 70/30 Inj) 5 unit SUB- Q BIDDIAB [facility] Last Admin: 06/24/22 09:01 Dose: 5 unit Insulin Human Regular (Insulin Regular, Human 100 Units/1 Ml) 0 units SUB-Q ACHS [facility]; Protocol Last Admin: 06/24/22 10:08 Dose: Not Given Metoclopramide HCl (Metoclopramide 10 Mg/2 Ml Inj) 10 mg IV Q6H PRN PRN Reason: Nausea And Vomiting Last Admin: 06/14/22 07:44 Dose: 10 mg Ondansetron HCl (Ondansetron 4 Mg/2 Ml Inj) 4 mg IV Q8H PRN PRN Reason: Nausea And Vomiting Oxycodone/Acetaminophen (Oxycodone /Acetaminophen 5-325mg Tab) 1 tab PO Q6H PRN PRN Reason: Pain, Moderate (4-6) Last Admin: 06/21/22 05:13 Dose: 1 tab Sodium Chloride (Sodium Chloride 0.9% 10 Ml Flush Syringe) 10 ml IV PRN PRN PRN Reason: LINE FLUSH Sodium Chloride (Sodium Chloride 0.9% 10 Ml Flush Syringe) 10 ml IV BID KARAN Last Admin: 06/24/22 09:04 Dose: 10 ml Sodium Hypochlorite (Sodium Hypochlorite, Dakin's Full Strength (0.5%) 473 Ml Topical Soln) 1 applic TP Q12H PRN PRN Reason: Wound Care Physical Examination - Physical exam Narrative exam: right shoulder - no obvious swelling, no redness/erythema, dec PROM at GH joint, distal n/v intact Eyes: PERRL ENT: Positive: clear oral mucosa Respiratory effort: normal Respiratory: bilateral: CTA Rhythm: regular Heart Sounds: Positive: S1 & S2 General gastrointestinal: Positive: soft, non-tender, non-distended, normal bowel sounds Integumentary: clear, warm, dry Neurologic: Positive: CNII-XII intact, moves all extremities, gait normal. Neg ative: focal deficits Assessment and Plan r/o sepsis right shoulder under sterile conditions, right shoulder aspiration attempted with no aspirate, " dry tap " .... CT scan appears to show subscapular fluid collection recommend head/neck surgeon possible drainage...
--- NOTE | 2022-06-24 10:35 | Progress Note ---
Assessment and Plan Cultures: 06/13/2022 blood culture: No growth 06/14/2022 surgical culture: MSSA, Klebsiella pneumoniae A/P: 41-year-old male with diabetes: #Extensive, necrotic posterior neck abscess extending to the paraspinal musculature: No evidence of osteomyelitis on imaging. S/p extensive I&D on 06/14/2022, 06/15/2022 and 06/17/2022 by general surgery. VAC changed on 06/21/2022. #R shoulder abscess: CT right shoulder with and without contrast showed multiple abscesses in the right subscapularis muscle bed. #Diabetes mellitus type 2, uncontrolled: HbA1c 15.6 #Leucopenia: resolved. HIV negative. Recs: -continue IV Ancef 2 g every 8 hours -awaiting R shoulder arthrocentesis by orthopedics -continue wound care and glycemic control Rosanna Cartagena MD, FACP, DINA [facility] ([facility] O: [phone] F: [phone] C: [phone] Subjective Date of service: 06/24/22 Interval history: No fever. Painful ROM of R shoulder, awaiting arthrocentesis. Appears comfortable. Lying in bed. Objective - Exam Narrative Exam: Physical Exam: Constitutional: Alert, cooperative. No acute distress Head, Ears, Nose: Normocephalic, atraumatic. External ears, nose normal Eyes: Conjunctivae/corneas clear. No icterus. No ptosis. Neck: Posterior neck and scalp region with a large wound, VAC + Cardiovascular: S1, S2 + Respiratory: Good air entry, clear to auscultation bilaterally GI: Soft, non-tender; bowel sounds normal. No peritoneal signs Musculoskeletal: R shoulder painful ROM Skin: No rash or abscess Hem/Lymphatic: No palpable cervical or supraclavicular nodes. No lymphangitis Psych: Mood ok. Affect normal Neurological: Awake, alert, oriented. No gross abnormality - Constitutional Vitals: Vital Signs Temp Pulse Resp BP Pulse Ox 98.6 F 83 18 130/88 98 06/24/22 04:53 06/24/22 04:53 06/24/22 04:53 06/24/22 04:53 06/24/22 04:53 Temperature -Last 24 Hours Temperature 98.6 F Temperature 98.3 F Temperature 99.4 F Temperature 98.6 F - Labs CBC & Chem 7: 06/22/22 04:55 06/23/22 05:02 Labs: Abnormal lab results 06/23/22 06/23/22 06/23/22 Range/Units 07:47 16:25 21:43 POC Glucose 106 H 126 H 117 H (70-105) mg/dL C-Reactive Protein (0.00-1.30) mg/dL 06/24/22 Range/Units 05:54 POC Glucose (70-105) mg/dL C-Reactive Protein 9.30 H (0.00-1.30) mg/dL
--- NOTE | 2022-06-24 11:30 | Progress Note ---
Hospitalist Physical - Constitutional Vitals: Temp Pulse Resp BP Pulse Ox 98.6 F 83 18 130/88 98 06/24/22 04:53 06/24/22 04:53 06/24/22 04:53 06/24/22 04:53 06/24/22 04:53 General appearance: Present: no acute distress, well-nourished Results - Labs CBC & Chem 7: 06/22/22 04:55 06/23/22 05:02 Labs: Laboratory Last Values WBC 5.6 K/mm3 (4.5-11.0) 06/22/22 04:55 RBC 2.62 M/mm3 (3.65-5.03) L 06/22/22 04:55 Hgb 7.6 gm/dl (11.8-15.2) L 06/22/22 04:55 Hct 22.6 % (35.5-45.6) L 06/22/22 04:55 MCV 86 fl (84-94) 06/22/22 04:55 MCH 29 pg (28-32) 06/22/22 04:55 MCHC 34 % (32-34) 06/22/22 04:55 RDW 13.8 % (13.2-15.2) 06/22/22 04:55 Plt Count 371 K/mm3 (140-440) 06/22/22 04:55 Lymph % (Auto) 17.6 % (13.4-35.0) 06/21/22 04:00 [place] % (Auto) 8.4 % (0.0-7.3) H 06/21/22 04:00 Eos % (Auto) 1.5 % (0.0-4.3) 06/21/22 04:00 Baso % (Auto) 0.5 % (0.0-1.8) 06/21/22 04:00 Lymph # (Auto) 1.0 K/mm3 (1.2-5.4) L 06/21/22 04:00 [place] # (Auto) 0.5 K/mm3 (0.0-0.8) 06/21/22 04:00 Eos # (Auto) 0.1 K/mm3 (0.0-0.4) 06/21/22 04:00 Baso # (Auto) 0.0 K/mm3 (0.0-0.1) 06/21/22 04:00 Seg Neutrophils % 72.0 % (40.0-70.0) H 06/21/22 04:00 Seg Neutrophils # 4.2 K/mm3 (1.8-7.7) 06/21/22 04:00 Sodium 129 mmol/L (137-145) L 06/23/22 05:02 Potassium 4.1 mmol/L (3.6-5.0) 06/23/22 05:02 Chloride 95.9 mmol/L (98-107) L 06/23/22 05:02 Carbon Dioxide 26 mmol/L (22-30) 06/23/22 05:02 Anion Gap 11 mmol/L 06/23/22 05:02 BUN 4 mg/dL (9-20) L 06/23/22 05:02 Creatinine 0.3 mg/dL (0.8-1.3) L 06/23/22 05:02 Estimated GFR > 60 ml/min 06/23/22 05:02 BUN/Creatinine Ratio 13 % 06/23/22 05:02 Glucose 110 mg/dL (75-100) H 06/23/22 05:02 POC Glucose 117 mg/dL (70-105) H 06/23/22 21:43 Hemoglobin A1c 15.6 % (4-6) H 06/14/22 09:08 Lactic Acid 1.80 mmol/L (0.7-2.0) 06/14/22 16:27 Calcium 7.7 mg/dL (8.4-10.2) L 06/23/22 05:02 Iron 18 ug/dL (49-181) L 06/14/22 09:08 TIBC 79 mcg/dL (250-450) L 06/14/22 09:08 Ferritin 894.3 ng/mL (30.0-300.0) H 06/14/22 09:08 Total Bilirubin 0.60 mg/dL (0.1-1.2) 06/13/22 22:05 AST 37 units/L (5-40) 06/13/22 22:05 ALT 43 units/L (7-56) 06/13/22 22:05 Alkaline Phosphatase 127 units/L (35-129) 06/13/22 22:05 C-Reactive Protein 9.30 mg/dL (0.00-1.30) H 06/24/22 05:54 Total Protein 7.0 g/dL (6.3-8.2) 06/13/22 22:05 Albumin 2.2 g/dL (3.9-5) L 06/13/22 22:05 Albumin/Globulin Ratio 0.5 % 06/13/22 22:05 Vancomycin Trough 7.3 ug/mL (5.0-20.0) 06/16/22 06:00 HIV DNA Qual (PCR) Not detected (Not Detected) 06/16/22 11:11 HIV 1&2 Antibody Rapid Non react (Non React) 06/16/22 11:11 HIV P24 Antigen Non react (Non React) 06/16/22 11:11 Perez/IV: Voiding Method Urinal Active Medications - Current Medications Current Medications: Generic Name Dose Route Start Last Admin Trade Name Freq PRN Reason Stop Dose Admin Acetaminophen 650 mg 06/14/22 10:00 06/18/22 17:05 Acetaminophen 325 Mg Tab PO 650 mg Q4H PRN Administration Pain MILD(1-3)/Fever >100.5/ALMAZAN Dextrose 50 ml 06/14/22 15:48 06/21/22 22:42 Dextrose 50% In Water (25gm) 50 Ml Syringe IV 50 ml Q30MIN PRN Administration Hypoglycemia Protocol Heparin Sodium (Porcine) 5,000 unit 06/14/22 14:00 06/24/22 06:09 Heparin 5,000 Unit/1 Ml Vial SUB-Q 5,000 unit Q8HR KARAN Administration Hydromorphone HCl 1 mg 06/14/22 10:00 06/17/22 11:38 Hydromorphone 0.5 Mg/0.5 Ml Inj IV 1 mg Q4H PRN Administration Pain , Severe (7-10) Cefazolin Sodium 2 gm/ Sodium 100 mls @ 200 mls/hr 06/20/22 14:00 06/24/22 06:09 Chloride IV 200 mls/hr Q8HR KARAN Administration Protocol Insulin Human Isoph/Insulin Regular 5 unit 06/15/22 12:09 06/24/22 09:01 Insulin Nph/Regular 70/30 Inj SUB-Q 5 unit BIDDIAB KARAN Administration Insulin Human Regular 0 units 06/14/22 16:30 06/24/22 10:08 Insulin Regular, Human 100 Units/1 Ml SUB-Q Not Given ACHS [facility] Protocol Metoclopramide HCl 10 mg 06/14/22 04:33 06/14/22 07:44 Metoclopramide 10 Mg/2 Ml Inj IV 10 mg Q6H PRN Administration Nausea And Vomiting Ondansetron HCl 4 mg 06/14/22 10:00 Ondansetron 4 Mg/2 Ml Inj IV Q8H PRN Nausea And Vomiting Oxycodone/Acetaminophen 1 tab 06/14/22 10:00 06/21/22 05:13 Oxycodone /Acetaminophen 5-325mg Tab PO 1 tab Q6H PRN Administration Pain, Moderate (4-6) Sodium Chloride 10 ml 06/14/22 04:33 Sodium Chloride 0.9% 10 Ml Flush Syringe IV PRN PRN LINE FLUSH Sodium Chloride 10 ml 06/14/22 10:00 06/24/22 09:04 Sodium Chloride 0.9% 10 Ml Flush Syringe IV 10 ml BID KARAN Administration Sodium Hypochlorite 1 applic 06/20/22 09:39 Sodium Hypochlorite, Dakin's Full Strength (0.5%) 473 Ml Topical Soln TP Q12H PRN Wound Care Nutrition/Malnutrition Assess - Dietary Evaluation Nutrition/Malnutrition Findings: Nutrition Notes Start: 06/15/22 16:25 Freq: Status: Active Protocol: Document 06/22/22 15:18 BRIANDA (Rec: 06/22/22 15:47 BRIANDA [id number]) Nutrition Notes Initial or Follow up Reassessment Current Diagnosis Diabetes,Malnutrition Other Pertinent Diagnosis s/p Neck Abscess, Anemia, Electrolyte Imbalance. Current Diet Consistent Carbohydrates Diet (since L 06/17)+D Suppl (from D 06/22). Labs/Tests 06/22: Na 130, K 3.5, Cl 95.2, BUN 3, Crea 0.3, Glu 102, Ca 7.5, HbA1c 15.6%. Pertinent Medications 06/22: Nutritionally unremarkable. Height 5 ft 5 in Weight 73.3 kg [place] Body Weight (kg) 61.81 BMI 26.9 Weight change and time frame 6.1 Kg body weight gain reported in 1 week. Weight Status Overweight Subjective/Other Information RD consult for routine F/U on dietyary advancement. Diet continues as prescribed, without the dietary supplements, Pt's PO intake of meals has been Poor (25-50%) and fairly tolerated, according to ADL notes. I will prescribe dietary supplements to compensate for poor or insufficient PO intake of meals during LOS. Pt is on Room Air, O2 saturation @ 100%, according to Physical Assessment history notes. Pt shows a surgical incision on the back of the neck as sign of concern for skin risk at the time, according to Physical Assessment history notes. Procedure on 06/21: WoundVac replacement over neck wound, well tolerated, according to Pprogress notes. Percent of energy/protein needs met: Prescribed Consistent Carbohydrates Diet provides for energy/protein needs (2, 061 Kcal/91 g) during LOS; additionally, Dietary Supplements will compensate for possible poor or insufficient PO intake of meals with 660 Kcal and 30 g of protein. Burn Absent Trauma Absent GI Symptoms None Food Allergy No Skin Integrity/Comment Neck surgical wound. Current % PO Poor (25-49%) Minimum of two criteria No Fluid Accumulation N/A Reduced Trans Router Strength N/A (non-severe) Protein-Calorie Malnutrition N\A #2 Nutrition Diagnosis Inadequate protein-energy intake Etiology Uncertain. As Evidenced by Signs and Symptoms Pt's PO intake of meals has been Poor (25-50%) and fairly tolerated, according to ADL notes. #1 Nutrition Diagnosis Increased nutrient needs ( specify in comment below) Comments: Protein to support wound healing processes. Diagnosis Progress(for reassessment Continues documentation) Is patient on ventilator? No Is Patient Ambulatory and/or Out of Bed Yes REE-([place]-St. Jeor-ambulatory/OOB) [ 2047.344 NUTR.MSJOOB] Kcal/Kg value to use for calculation 21 Approximate Energy Requirements Using 1539 kcal/Kg Calculation Used for Recommendations Kcal/kg Additional Notes Protein: 1.25-1.5 g/Kg ABW; 84 -101 g/day. Fluids: 1 ml/Kcal, or as per MD. Nutrition Intervention Change Diet Order: Continue Consistent Carbohydrates Diet as tolerated. Add Supplement/Snack (indicate name/kcal Start 8 fl oz Glucerna; TID /protein ) Provides kCal: 660 Provides Protein (gm) 30 Goal #1 Compensate, through dietary supplementation, for possible poor or insufficient PO intake of meals during LOS. Goal #2 Adjust the dietary intervention to better serve Pt's needs and clinical conditions during LOS. Follow-Up By: 06/29/22 Additional Comments Continue monitoring food tolerance, %PO intake of meals , dietary supplements, and BM.
--- NOTE | 2022-06-24 12:04 | Progress Note ---
Assessment and Plan Continue local wound care continue IV antibiotics. Discussed with hospitalist regarding low white counts and large septic area. HIV testing was negative. CT of the shoulder is showing a large abscess under the scapula. Patient with continued wound VAC care of large open wound posterior neck. IR is unable to drain subscapular abscess because of loculations. Orthopedics plans to tap the shoulder to rule out a septic arthritis. Would consider transferring patient to hospital that can address the subscapular abscess at this point. Will plan to change patient's wound VAC for the neck wound tomorrow in the OR. Patient will need to be n.p.o. after midnight tonight. Subjective Date of service: 06/24/22 Patient Reports: Positive: pain is less Narrative: Patient with continued wound VAC care of large open wound posterior neck. IR is unable to drain subscapular abscess because of loculations. Orthopedics plans to tap the shoulder to rule out a septic arthritis. Would consider transferring patient to hospital that can address the subscapular abscess at this point. Objective Vital Signs - 12hr 06/24/22 04:53 Temperature 98.6 F Pulse Rate 83 Respiratory 18 Rate Blood Pressure 130/88 O2 Sat by Pulse 98 Oximetry - Labs 06/22/22 04:55 06/23/22 05:02
--- NOTE | 2022-06-24 12:10 | Progress Note ---
Assessment and Plan Assessment and plan: #Posterior neck abscess secondary to Klebsiella + staph aureus #R scapular abscess #Septic joint #Lactic acidosisresolved CT of the head and chest with contrast revealing "large peripherally enhancing multiseptated organized collection seen extending from the posterior scalp along the subcutis tissues + paraspinal musculature to the level of T1 spinous process". continue IV Ancef 2 g every 8 hours while inpatient. Upon discharge, plan for p.o. Keflex 750 mg QID for 3 weeks General surgery consulted; appreciate recs. status post I&D of posterior neck abscess. Blood cultures negative. wound cultures positive for Klebsiella and staph aureus. Currently exchanging wound vacs. Infectious disease consulted; appreciate recs. HIV negative. CRP 12.60 -> 9.30 Continue analgesics as needed. Occupational Therapy consulted due to decreased mobility of right shoulder; recommending acute rehab. - CT of the R arm showed possible fluid collections at the the subscapularis muscle bed. Discussed findings with general surgery, concern for septic joint - Orthopaedics consulted, assistance appreciated, plan for arthrocentesis -Plan for wound VAC exchange in OR tomorrow #Non-insulin dependent type II diabetes mellitus - hemoglobin A1c: 15.6 - home regimen: None - current regimen: NPH 70/30 5 units twice daily + moderate SSI - blood glucose goal 140-180 while inpatient - continue to monitor #Hyponatremia-stable Continue to monitor with repeat BMP #Hypokalemia will continue to replete and monitor #Iron deficiency anemia Hemoglobin 7-8 Iron 18, TIBC 79, ferritin 894 Transfuse if hemoglobin <7 or patient become symptomatic. #Hypocalcemia Calcium 7.5 Replete. Continue to monitor. #Moderate protein caloric malnutrition Albumin 2.2 Continue dietary supplementation #Advanced care planning -Disease education conducted, care plan discussed, diagnoses discussed, prognosis discussed, and patient acknowledges understanding with care plan -Time: +30 min #Social issues -Patient is undocumented and does not have health insurance. All items needed for wound VAC and medications may be required to self-pay. Case management/social work aware to attempt to provide patient with lucero items History Interval history: No acute events overnight. Patient still has limited motion in his R arm with pain. He knows that he has pain medications available, but he does not want to take any extra medications if he does not have to. Patient agreeable to surgery tomorrow. Hospitalist Physical - Physical exam Narrative exam: GENERAL: Well-developed well-nourished. In no acute distress. HEENT: Normocephalic. Atraumatic. NECK: Wound vac in place @ posterior neck CHEST/LUNGS: CTAB on room air HEART/CARDIOVASCULAR: RRR. No murmur, rubs or gallops appreciated. ABDOMEN: +BS. NT/ND. NEURO: No focal motor deficit. Follows all commands. MUSCULOSKELETAL: R arm with limited movement due to pain. Arm TTP most exquisite at the upper arm. EXTREMITIES: No cyanosis, clubbing or edema. PSYCH: Cooperative. - Constitutional Vitals: Temp Pulse Resp BP Pulse Ox 98.6 F 83 18 130/88 98 06/24/22 04:53 06/24/22 04:53 06/24/22 04:53 06/24/22 04:53 06/24/22 04:53 General appearance: Present: no acute distress, well-nourished Results - Labs CBC & Chem 7: 06/22/22 04:55 06/23/22 05:02 Labs: Laboratory Last Values WBC 5.6 K/mm3 (4.5-11.0) 06/22/22 04:55 RBC 2.62 M/mm3 (3.65-5.03) L 06/22/22 04:55 Hgb 7.6 gm/dl (11.8-15.2) L 06/22/22 04:55 Hct 22.6 % (35.5-45.6) L 06/22/22 04:55 MCV 86 fl (84-94) 06/22/22 04:55 MCH 29 pg (28-32) 06/22/22 04:55 MCHC 34 % (32-34) 06/22/22 04:55 RDW 13.8 % (13.2-15.2) 06/22/22 04:55 Plt Count 371 K/mm3 (140-440) 06/22/22 04:55 Lymph % (Auto) 17.6 % (13.4-35.0) 06/21/22 04:00 [place] % (Auto) 8.4 % (0.0-7.3) H 06/21/22 04:00 Eos % (Auto) 1.5 % (0.0-4.3) 06/21/22 04:00 Baso % (Auto) 0.5 % (0.0-1.8) 06/21/22 04:00 Lymph # (Auto) 1.0 K/mm3 (1.2-5.4) L 06/21/22 04:00 [place] # (Auto) 0.5 K/mm3 (0.0-0.8) 06/21/22 04:00 Eos # (Auto) 0.1 K/mm3 (0.0-0.4) 06/21/22 04:00 Baso # (Auto) 0.0 K/mm3 (0.0-0.1) 06/21/22 04:00 Seg Neutrophils % 72.0 % (40.0-70.0) H 06/21/22 04:00 Seg Neutrophils # 4.2 K/mm3 (1.8-7.7) 06/21/22 04:00 Sodium 129 mmol/L (137-145) L 06/23/22 05:02 Potassium 4.1 mmol/L (3.6-5.0) 06/23/22 05:02 Chloride 95.9 mmol/L (98-107) L 06/23/22 05:02 Carbon Dioxide 26 mmol/L (22-30) 06/23/22 05:02 Anion Gap 11 mmol/L 06/23/22 05:02 BUN 4 mg/dL (9-20) L 06/23/22 05:02 Creatinine 0.3 mg/dL (0.8-1.3) L 06/23/22 05:02 Estimated GFR > 60 ml/min 06/23/22 05:02 BUN/Creatinine Ratio 13 % 06/23/22 05:02 Glucose 110 mg/dL (75-100) H 06/23/22 05:02 POC Glucose 117 mg/dL (70-105) H 06/23/22 21:43 Hemoglobin A1c 15.6 % (4-6) H 06/14/22 09:08 Lactic Acid 1.80 mmol/L (0.7-2.0) 06/14/22 16:27 Calcium 7.7 mg/dL (8.4-10.2) L 06/23/22 05:02 Iron 18 ug/dL (49-181) L 06/14/22 09:08 TIBC 79 mcg/dL (250-450) L 06/14/22 09:08 Ferritin 894.3 ng/mL (30.0-300.0) H 06/14/22 09:08 Total Bilirubin 0.60 mg/dL (0.1-1.2) 06/13/22 22:05 AST 37 units/L (5-40) 06/13/22 22:05 ALT 43 units/L (7-56) 06/13/22 22:05 Alkaline Phosphatase 127 units/L (35-129) 06/13/22 22:05 C-Reactive Protein 9.30 mg/dL (0.00-1.30) H 06/24/22 05:54 Total Protein 7.0 g/dL (6.3-8.2) 06/13/22 22:05 Albumin 2.2 g/dL (3.9-5) L 06/13/22 22:05 Albumin/Globulin Ratio 0.5 % 06/13/22 22:05 Vancomycin Trough 7.3 ug/mL (5.0-20.0) 06/16/22 06:00 HIV DNA Qual (PCR) Not detected (Not Detected) 06/16/22 11:11 HIV 1&2 Antibody Rapid Non react (Non React) 06/16/22 11:11 HIV P24 Antigen Non react (Non React) 06/16/22 11:11 Perez/IV: Voiding Method Urinal Active Medications - Current Medications Current Medications: Generic Name Dose Route Start Last Admin Trade Name Freq PRN Reason Stop Dose Admin Acetaminophen 650 mg 06/14/22 10:00 06/18/22 17:05 Acetaminophen 325 Mg Tab PO 650 mg Q4H PRN Administration Pain MILD(1-3)/Fever >100.5/ALMAZAN Dextrose 50 ml 06/14/22 15:48 06/21/22 22:42 Dextrose 50% In Water (25gm) 50 Ml Syringe IV 50 ml Q30MIN PRN Administration Hypoglycemia Protocol Heparin Sodium (Porcine) 5,000 unit 06/14/22 14:00 06/24/22 06:09 Heparin 5,000 Unit/1 Ml Vial SUB-Q 5,000 unit Q8HR KARAN Administration Hydromorphone HCl 1 mg 06/14/22 10:00 06/17/22 11:38 Hydromorphone 0.5 Mg/0.5 Ml Inj IV 1 mg Q4H PRN Administration Pain , Severe (7-10) Cefazolin Sodium 2 gm/ Sodium 100 mls @ 200 mls/hr 06/20/22 14:00 06/24/22 06:09 Chloride IV 200 mls/hr Q8HR KARAN Administration Protocol Insulin Human Isoph/Insulin Regular 5 unit 06/15/22 12:09 06/24/22 09:01 Insulin Nph/Regular 70/30 Inj SUB-Q 5 unit BIDDIAB KARAN Administration Insulin Human Regular 0 units 06/14/22 16:30 06/24/22 10:08 Insulin Regular, Human 100 Units/1 Ml SUB-Q Not Given ACHS [facility] Protocol Metoclopramide HCl 10 mg 06/14/22 04:33 06/14/22 07:44 Metoclopramide 10 Mg/2 Ml Inj IV 10 mg Q6H PRN Administration Nausea And Vomiting Ondansetron HCl 4 mg 06/14/22 10:00 Ondansetron 4 Mg/2 Ml Inj IV Q8H PRN Nausea And Vomiting Oxycodone/Acetaminophen 1 tab 06/14/22 10:00 06/21/22 05:13 Oxycodone /Acetaminophen 5-325mg Tab PO 1 tab Q6H PRN Administration Pain, Moderate (4-6) Sodium Chloride 10 ml 06/14/22 04:33 Sodium Chloride 0.9% 10 Ml Flush Syringe IV PRN PRN LINE FLUSH Sodium Chloride 10 ml 06/14/22 10:00 06/24/22 09:04 Sodium Chloride 0.9% 10 Ml Flush Syringe IV 10 ml BID KARAN Administration Sodium Hypochlorite 1 applic 06/20/22 09:39 Sodium Hypochlorite, Dakin's Full Strength (0.5%) 473 Ml Topical Soln TP Q12H PRN Wound Care Nutrition/Malnutrition Assess - Dietary Evaluation Nutrition/Malnutrition Findings: Nutrition Notes Start: 06/15/22 16:25 Freq: Status: Active Protocol: Document 06/22/22 15:18 BRIANDA (Rec: 06/22/22 15:47 BRIANDA [id number]) Nutrition Notes Initial or Follow up Reassessment Current Diagnosis Diabetes,Malnutrition Other Pertinent Diagnosis s/p Neck Abscess, Anemia, Electrolyte Imbalance. Current Diet Consistent Carbohydrates Diet (since L 06/17)+D Suppl (from D 06/22). Labs/Tests 06/22: Na 130, K 3.5, Cl 95.2, BUN 3, Crea 0.3, Glu 102, Ca 7.5, HbA1c 15.6%. Pertinent Medications 06/22: Nutritionally unremarkable. Height 5 ft 5 in Weight 73.3 kg [place] Body Weight (kg) 61.81 BMI 26.9 Weight change and time frame 6.1 Kg body weight gain reported in 1 week. Weight Status Overweight Subjective/Other Information RD consult for routine F/U on dietyary advancement. Diet continues as prescribed, without the dietary supplements, Pt's PO intake of meals has been Poor (25-50%) and fairly tolerated, according to ADL notes. I will prescribe dietary supplements to compensate for poor or insufficient PO intake of meals during LOS. Pt is on Room Air, O2 saturation @ 100%, according to Physical Assessment history notes. Pt shows a surgical incision on the back of the neck as sign of concern for skin risk at the time, according to Physical Assessment history notes. Procedure on 06/21: WoundVac replacement over neck wound, well tolerated, according to Pprogress notes. Percent of energy/protein needs met: Prescribed Consistent Carbohydrates Diet provides for energy/protein needs (2, 061 Kcal/91 g) during LOS; additionally, Dietary Supplements will compensate for possible poor or insufficient PO intake of meals with 660 Kcal and 30 g of protein. Burn Absent Trauma Absent GI Symptoms None Food Allergy No Skin Integrity/Comment Neck surgical wound. Current % PO Poor (25-49%) Minimum of two criteria No Fluid Accumulation N/A Reduced Customs Consultant Strength N/A (non-severe) Protein-Calorie Malnutrition N\\A #2 Nutrition Diagnosis Inadequate protein-energy intake Etiology Uncertain. As Evidenced by Signs and Symptoms Pt's PO intake of meals has been Poor (25-50%) and fairly tolerated, according to ADL notes. #1 Nutrition Diagnosis Increased nutrient needs ( specify in comment below) Comments: Protein to support wound healing processes. Diagnosis Progress(for reassessment Continues documentation) Is patient on ventilator? No Is Patient Ambulatory and/or Out of Bed Yes REE-([place]-St. Jeor-ambulatory/OOB) [ 7.344 NUTR.MSJOOB] Kcal/Kg value to use for calculation 21 Approximate Energy Requirements Using 1539 kcal/Kg Calculation Used for Recommendations Kcal/kg Additional Notes Protein: 1.25-1.5 g/Kg ABW; 84 -101 g/day. Fluids: 1 ml/Kcal, or as per MD. Nutrition Intervention Change Diet Order: Continue Consistent Carbohydrates Diet as tolerated. Add Supplement/Snack (indicate name/kcal Start 8 fl oz Glucerna; TID /protein ) Provides kCal: 660 Provides Protein (gm) 30 Goal #1 Compensate, through dietary supplementation, for possible poor or insufficient PO intake of meals during LOS. Goal #2 Adjust the dietary intervention to better serve Pt's needs and clinical conditions during LOS. Follow-Up By: 06/29/22 Additional Comments Continue monitoring food tolerance, %PO intake of meals , dietary supplements, and BM.
--- NOTE | 2022-06-24 14:26 | Event Note ---
Date: 06/24/22 Spoke with earlier today about patient's current clinical status. He suggested transfer to outside facility that could intervene on the subscapularis abscesses. [facility] and [place] were contacted. They did not have any available beds at this time. I spoke with [facility] and I am currently awaiting callback from surgeon manager environmental services to discuss possibility of transfer.
[2022-06-25 05:10] LABS: Hematocrit 23.7 % (35.5-45.6); Hemoglobin 8.1 gm/dl (11.8-15.2); Mean Corpuscular HGB Conc 34 % (32-34); Mean Corpuscular Volume 85 fl (84-94); Platelet Count 419 K/mm3 (140-440); Red Blood Count 2.77 M/mm3 (3.65-5.03); Red Cell Distribution Width 14.2 % (13.2-15.2)
[2022-06-25 05:18] LABS: Blood Urea Nitrogen 5 mg/dL (9-20); Calcium 7.5 mg/dL (8.4-10.2); Hemolysis Index 4
[2022-06-25 05:21] LABS: BUN/Creatinine Ratio 17
[2022-06-25] MEDS: HEPARIN 5,000 UNIT/1 ML VIAL SUB-Q SCH ×3 (05:56→22:34)
[2022-06-25] MEDS: INSULIN NPH/REGULAR 70/30 INJ SUB-Q SCH ×2 (07:52→16:03)
[2022-06-25] MEDS: INSULIN REGULAR, HUMAN 100 UNITS/1 ML SUB-Q SCH ×4 (07:52→22:41)
--- NOTE | 2022-06-25 09:09 | Progress Note ---
Assessment and Plan Assessment and plan: #Posterior neck abscess secondary to Klebsiella + staph aureus #R scapular abscess #Septic joint #Lactic acidosisresolved CT of the head and chest with contrast revealing "large peripherally enhancing multiseptated organized collection seen extending from the posterior scalp along the subcutis tissues + paraspinal musculature to the level of T1 spinous process". continue IV Ancef 2 g every 8 hours while inpatient. Upon discharge, plan for p.o. Keflex 750 mg QID for 3 weeks General surgery consulted; appreciate recs. status post I&D of posterior neck abscess. Blood cultures negative. wound cultures positive for Klebsiella and staph aureus. Currently exchanging wound vacs. Infectious disease consulted; appreciate recs. HIV negative. CRP 12.60 -> 9.30 Continue analgesics as needed. Occupational Therapy consulted due to decreased mobility of right shoulder; recommending acute rehab. - CT of the R arm showed possible fluid collections at the the subscapularis muscle bed. Discussed findings with general surgery, concern for septic joint - Orthopaedics consulted, plan for arthrocentesis -wound VAC exchange in OR today -General surgery recommends patient transfer to OSH for intervention of the abscesses at subscapularis muscle bed. [place], [facility] [place] was contacted and they all are at capacity and unable to take the patient #Non-insulin dependent type II diabetes mellitus - hemoglobin A1c: 15.6 - home regimen: None - current regimen: NPH 70/30 5 units twice daily + moderate SSI - blood glucose goal 140-180 while inpatient - continue to monitor #Hyponatremia-stable Continue to monitor with repeat BMP #Hypokalemia will continue to replete and monitor #Iron deficiency anemia Hemoglobin 7-8 Iron 18, TIBC 79, ferritin 894 Transfuse if hemoglobin <7 or patient become symptomatic. #Hypocalcemia Calcium 7.5 Replete. Continue to monitor. #Moderate protein caloric malnutrition Albumin 2.2 Continue dietary supplementation #Advanced care planning -Disease education conducted, care plan discussed, diagnoses discussed, prognosis discussed, and patient acknowledges understanding with care plan -Time: +30 min #Social issues -Patient is undocumented and does not have health insurance. All items needed for wound VAC and medications may be required to self-pay. Case management/social work aware to attempt to provide patient with lucero items History Interval history: No acute events overnight. Patient reports stable arm pain that is not distressing to him. He was updated about current care plan and is awaiting wound vac change. Hospitalist Physical - Physical exam Narrative exam: GENERAL: Well-developed well-nourished. In no acute distress. HEENT: Normocephalic. Atraumatic. NECK: Wound vac in place @ posterior neck CHEST/LUNGS: CTAB on room air HEART/CARDIOVASCULAR: RRR. No murmur, rubs or gallops appreciated. ABDOMEN: +BS. NT/ND. NEURO: No focal motor deficit. Follows all commands. MUSCULOSKELETAL: R arm with limited movement due to pain. EXTREMITIES: No cyanosis, clubbing or edema. PSYCH: Cooperative. - Constitutional Vitals: Temp Pulse Resp BP Pulse Ox 98.6 F 88 18 116/73 99 06/24/22 04:53 06/24/22 21:33 06/24/22 21:33 06/24/22 21:33 06/25/22 02:00 General appearance: Present: no acute distress, well-nourished Results - Labs CBC & Chem 7: 06/25/22 04:34 06/25/22 04:34 Labs: Laboratory Last Values WBC 5.8 K/mm3 (4.5-11.0) 06/25/22 04:34 RBC 2.77 M/mm3 (3.65-5.03) L 06/25/22 04:34 Hgb 8.1 gm/dl (11.8-15.2) L 06/25/22 04:34 Hct 23.7 % (35.5-45.6) L 06/25/22 04:34 MCV 85 fl (84-94) 06/25/22 04:34 MCH 29 pg (28-32) 06/25/22 04:34 MCHC 34 % (32-34) 06/25/22 04:34 RDW 14.2 % (13.2-15.2) 06/25/22 04:34 Plt Count 419 K/mm3 (140-440) 06/25/22 04:34 Lymph % (Auto) 17.6 % (13.4-35.0) 06/21/22 04:00 [place] % (Auto) 8.4 % (0.0-7.3) H 06/21/22 04:00 Eos % (Auto) 1.5 % (0.0-4.3) 06/21/22 04:00 Baso % (Auto) 0.5 % (0.0-1.8) 06/21/22 04:00 Lymph # (Auto) 1.0 K/mm3 (1.2-5.4) L 06/21/22 04:00 [place] # (Auto) 0.5 K/mm3 (0.0-0.8) 06/21/22 04:00 Eos # (Auto) 0.1 K/mm3 (0.0-0.4) 06/21/22 04:00 Baso # (Auto) 0.0 K/mm3 (0.0-0.1) 06/21/22 04:00 Seg Neutrophils % 72.0 % (40.0-70.0) H 06/21/22 04:00 Seg Neutrophils # 4.2 K/mm3 (1.8-7.7) 06/21/22 04:00 Sodium 127 mmol/L (137-145) L 06/25/22 04:34 Potassium 3.9 mmol/L (3.6-5.0) 06/25/22 04:34 Chloride 94.4 mmol/L (98-107) L 06/25/22 04:34 Carbon Dioxide 24 mmol/L (22-30) 06/25/22 04:34 Anion Gap 13 mmol/L 06/25/22 04:34 BUN 5 mg/dL (9-20) L 06/25/22 04:34 Creatinine 0.3 mg/dL (0.8-1.3) L 06/25/22 04:34 Estimated GFR > 60 ml/min 06/25/22 04:34 BUN/Creatinine Ratio 17 % 06/25/22 04:34 Glucose 109 mg/dL (75-100) H 06/25/22 04:34 POC Glucose 113 mg/dL (70-105) H 06/25/22 07:31 Hemoglobin A1c 15.6 % (4-6) H 06/14/22 09:08 Lactic Acid 1.80 mmol/L (0.7-2.0) 06/14/22 16:27 Calcium 7.5 mg/dL (8.4-10.2) L 06/25/22 04:34 Iron 18 ug/dL (49-181) L 06/14/22 09:08 TIBC 79 mcg/dL (250-450) L 06/14/22 09:08 Ferritin 894.3 ng/mL (30.0-300.0) H 06/14/22 09:08 Total Bilirubin 0.60 mg/dL (0.1-1.2) 06/13/22 22:05 AST 37 units/L (5-40) 06/13/22 22:05 ALT 43 units/L (7-56) 06/13/22 22:05 Alkaline Phosphatase 127 units/L (35-129) 06/13/22 22:05 C-Reactive Protein 9.30 mg/dL (0.00-1.30) H 06/24/22 05:54 Total Protein 7.0 g/dL (6.3-8.2) 06/13/22 22:05 Albumin 2.2 g/dL (3.9-5) L 06/13/22 22:05 Albumin/Globulin Ratio 0.5 % 06/13/22 22:05 Vancomycin Trough 7.3 ug/mL (5.0-20.0) 06/16/22 06:00 HIV DNA Qual (PCR) Not detected (Not Detected) 06/16/22 11:11 HIV 1&2 Antibody Rapid Non react (Non React) 06/16/22 11:11 HIV P24 Antigen Non react (Non React) 06/16/22 11:11 Blood Type O POSITIVE 06/25/22 04:34 Antibody Screen Negative 06/25/22 04:34 Perez/IV: Voiding Method Urinal Active Medications - Current Medications Current Medications: Generic Name Dose Route Start Last Admin Trade Name Freq PRN Reason Stop Dose Admin Acetaminophen 650 mg 06/14/22 10:00 06/18/22 17:05 Acetaminophen 325 Mg Tab PO 650 mg Q4H PRN Administration Pain MILD(1-3)/Fever >100.5/ALMAZAN Dextrose 50 ml 06/14/22 15:48 06/21/22 22:42 Dextrose 50% In Water (25gm) 50 Ml Syringe IV 50 ml Q30MIN PRN Administration Hypoglycemia Protocol Heparin Sodium (Porcine) 5,000 unit 06/14/22 14:00 06/25/22 05:56 Heparin 5,000 Unit/1 Ml Vial SUB-Q Not Given Q8HR KARAN Hydromorphone HCl 1 mg 06/14/22 10:00 06/17/22 11:38 Hydromorphone 0.5 Mg/0.5 Ml Inj IV 1 mg Q4H PRN Administration Pain , Severe (7-10) Cefazolin Sodium 2 gm/ Sodium 100 mls @ 200 mls/hr 06/20/22 14:00 06/25/22 05:56 Chloride IV 200 mls/hr Q8HR KARAN Administration Protocol Insulin Human Isoph/Insulin Regular 5 unit 06/15/22 12:09 06/25/22 07:52 Insulin Nph/Regular 70/30 Inj SUB-Q Not Given BIDDIAB KARAN Insulin Human Regular 0 units 06/14/22 16:30 06/25/22 07:52 Insulin Regular, Human 100 Units/1 Ml SUB-Q Not Given ACHS [facility] Protocol Metoclopramide HCl 10 mg 06/14/22 04:33 06/14/22 07:44 Metoclopramide 10 Mg/2 Ml Inj IV 10 mg Q6H PRN Administration Nausea And Vomiting Ondansetron HCl 4 mg 06/14/22 10:00 Ondansetron 4 Mg/2 Ml Inj IV Q8H PRN Nausea And Vomiting Oxycodone/Acetaminophen 1 tab 06/14/22 10:00 06/21/22 05:13 Oxycodone /Acetaminophen 5-325mg Tab PO 1 tab Q6H PRN Administration Pain, Moderate (4-6) Sodium Chloride 10 ml 06/14/22 04:33 Sodium Chloride 0.9% 10 Ml Flush Syringe IV PRN PRN LINE FLUSH Sodium Chloride 10 ml 06/14/22 10:00 06/24/22 21:35 Sodium Chloride 0.9% 10 Ml Flush Syringe IV 10 ml BID KARAN Administration Sodium Hypochlorite 1 applic 06/20/22 09:39 Sodium Hypochlorite, Dakin's Full Strength (0.5%) 473 Ml Topical Soln TP Q12H PRN Wound Care Nutrition/Malnutrition Assess - Dietary Evaluation Nutrition/Malnutrition Findings: Nutrition Notes Start: 06/15/22 16:25 Freq: Status: Active Protocol: Document 06/22/22 15:18 BRIANDA (Rec: 06/22/22 15:47 BRIANDA [id number]) Nutrition Notes Initial or Follow up Reassessment Current Diagnosis Diabetes,Malnutrition Other Pertinent Diagnosis s/p Neck Abscess, Anemia, Electrolyte Imbalance. Current Diet Consistent Carbohydrates Diet (since L 06/17)+D Suppl (from D 06/22). Labs/Tests 06/22: Na 130, K 3.5, Cl 95.2, BUN 3, Crea 0.3, Glu 102, Ca 7.5, HbA1c 15.6%. Pertinent Medications 06/22: Nutritionally unremarkable. Height 5 ft 5 in Weight 73.3 kg [place] Body Weight (kg) 61.81 BMI 26.9 Weight change and time frame 6.1 Kg body weight gain reported in 1 week. Weight Status Overweight Subjective/Other Information RD consult for routine F/U on dietyary advancement. Diet continues as prescribed, without the dietary supplements, Pt's PO intake of meals has been Poor (25-50%) and fairly tolerated, according to ADL notes. I will prescribe dietary supplements to compensate for poor or insufficient PO intake of meals during LOS. Pt is on Room Air, O2 saturation @ 100%, according to Physical Assessment history notes. Pt shows a surgical incision on the back of the neck as sign of concern for skin risk at the time, according to Physical Assessment history notes. Procedure on 06/21: WoundVac replacement over neck wound, well tolerated, according to Pprogress notes. Percent of energy/protein needs met: Prescribed Consistent Carbohydrates Diet provides for energy/protein needs (2, 061 Kcal/91 g) during LOS; additionally, Dietary Supplements will compensate for possible poor or insufficient PO intake of meals with 660 Kcal and 30 g of protein. Burn Absent Trauma Absent GI Symptoms None Food Allergy No Skin Integrity/Comment Neck surgical wound. 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 As Evidenced by Signs and Symptoms Pt's PO intake of meals has been Poor (25-50%) and fairly tolerated, according to ADL notes. #1 Nutrition Diagnosis Increased nutrient needs ( specify in comment below) Comments: Protein to support wound healing processes. Diagnosis Progress(for reassessment Continues documentation) Is patient on ventilator? No Is Patient Ambulatory and/or Out of Bed Yes [facility]) [ 2046.344 NUTR.MSJOOB] Kcal/Kg value to use for calculation 21 Approximate Energy Requirements Using 1539 kcal/Kg Calculation Used for Recommendations Kcal/kg Additional Notes Protein: 1.25-1.5 g/Kg ABW; 84 -101 g/day. Fluids: 1 ml/Kcal, or as per MD. Nutrition Intervention Change Diet Order: Continue Consistent Carbohydrates Diet as tolerated. Add Supplement/Snack (indicate name/kcal Start 8 fl oz Glucerna; TID /protein ) Provides kCal: 660 Provides Protein (gm) 30 Goal #1 Compensate, through dietary supplementation, for possible poor or insufficient PO intake of meals during LOS. Goal #2 Adjust the dietary intervention to better serve Pt's needs and clinical conditions during LOS. Follow-Up By: 06/29/22 Additional Comments Continue monitoring food tolerance, %PO intake of meals , dietary supplements, and BM.
[2022-06-25] MEDS ORDERED: ONDANSETRON 4 MG/2 ML INJ ONE (09:12)
[2022-06-25] MEDS ORDERED: LIDOCAINE MPF (2%) 20 MG/1 ML VIAL 5 ML ONE (09:12)
[2022-06-25] MEDS ORDERED: SUCCINYLCHOLINE CHLORIDE 200 MG/10 ML INJ MDV ONE (09:12)
[2022-06-25] MEDS ORDERED: HYDROmorphone 0.5 MG/0.5 ML INJ ONE (09:13)
[2022-06-25] MEDS ORDERED: propofoL 200 MG/20 ML VIAL IV ONE (09:13)
--- NOTE | 2022-06-25 09:26 | Anesthesia Day of Surgery ---
<MICK THAKKAR - Last Filed: 06/25/22 09:24> Anesthesia Day of Surgery - Day of Surgery Patient Examined: Yes Patient H&P Reviewed: Yes Patient is NPO: Yes Beta Blockers: No Cardiac Clearance: No Pulmonary Clearance: No <CANDI ZAMORANO - Last Filed: 06/30/22 15:05> Anesthesia Day of Surgery - Day of Surgery Patient Examined: No (Co-signed for chart completion only.)
[2022-06-25] MEDS ORDERED: LACTATED RINGERS 1,000 ML ONE ×2 (09:38→11:40)
[2022-06-25] MEDS ORDERED: SODIUM HYPOCHLORITE, DAKIN'S 1/2 STRENGTH (0.25%) 473 ML TOPICAL SOLN IR ONE (11:07)
[2022-06-25] MEDS ORDERED: SODIUM CHLORIDE 0.9% IRR 1,500 ML BOTTLE IR ONE (11:07)
--- NOTE | 2022-06-25 12:00 | Operative Report ---
Operative Report Operative Report: Date: 06/25/2022 Preoperative diagnosis: Ulcer of posterior neck and abscess under right scapula Postop diagnosis: Same Procedure: Debridement of chronic wound posterior neck Surgeon: Dr. Patel EBL: Less than 10 cc Anesthesia: General endotracheal anesthesia Specimen: Wound cultures from the deep aspect of the wound cultures to include fungal cultures Procedure: The patient is taken to the OR and after timeouts are completed the neck ulcer is prepped with Betadine and draped in a sterile fashion. Patient is in a prone position Thick necrotic tissue was encountered and debrided mechanically with a curved Campbell and an Allis forceps and electrocautery. Deep fascia and muscle as well as subcutaneous tissue are excised. Extensive granulation tissue is also excised. Several tunneling areas are noted superiorly to the base of the skull. To the right lateral and inferior area of the wound. And also to the right lateral temporal area more medially located a deep tunnel is located. Extensive debridement to the necrotic tissue was done to all areas. Each area systematically irrigated with half percent Dakin solution. The wound is then irrigated with copious amounts of saline. Dakin's quarter percent soaked Kerlix gauze is then used to pack the wound. Sterile dressings placed over this.
--- NOTE | 2022-06-25 12:30 | Post Anesthesia Evaluation ---
<MICK THAKKAR - Last Filed: 06/25/22 12:29> - Post Anesthesia Evaluation Patient Participated: Yes Airway Patent: Yes Stable Respiratory Function: Yes Nausea/Vomiting: No Temp > 96.8F: Yes Pain Manageable: Yes Adequeate Hydration: Yes Anesthesia Complications: No Block Receding Appropriately: Not Applicable Patient on Ventilator: No <CANDI ZAMORANO - Last Filed: 06/30/22 15:04> - Post Anesthesia Evaluation Other Comments: Co-signed for chart completion only.
[2022-06-25] MEDS: HYDROmorphone 0.5 MG/0.5 ML INJ IV PRN (23:41)
[2022-06-26] MEDS: HEPARIN 5,000 UNIT/1 ML VIAL SUB-Q SCH ×3 (07:22→23:09)
[2022-06-26] MEDS: INSULIN REGULAR, HUMAN 100 UNITS/1 ML SUB-Q SCH ×4 (07:30→23:17)
--- NOTE | 2022-06-26 07:37 | Progress Note ---
Assessment and Plan Assessment and plan: #Posterior neck abscess secondary to Klebsiella + staph aureus #R scapular abscess #Septic joint #Lactic acidosisresolved CT of the head and chest with contrast revealing "large peripherally enhancing multiseptated organized collection seen extending from the posterior scalp along the subcutis tissues + paraspinal musculature to the level of T1 spinous process". continue IV Ancef 2 g every 8 hours while inpatient. Upon discharge, plan for p.o. Keflex 750 mg QID for 3 weeks General surgery consulted; appreciate recs. status post I&D of posterior neck abscess. Blood cultures negative. wound cultures positive for Klebsiella and staph aureus. Currently exchanging wound vacs. Infectious disease consulted; appreciate recs. HIV negative. CRP 12.60 -> 9.30 Continue analgesics as needed. Occupational Therapy consulted due to decreased mobility of right shoulder; recommending acute rehab. - CT of the R arm showed possible fluid collections at the the subscapularis muscle bed. Discussed findings with general surgery, concern for septic joint - Orthopaedics consulted, plan for arthrocentesis -wound VAC exchanged 06/25 -General surgery recommends patient transfer to OSH for intervention of the abscesses at subscapularis muscle bed. [place], [facility] [place] was contacted and they all are at capacity and unable to take the patient #Non-insulin dependent type II diabetes mellitus - hemoglobin A1c: 15.6 - home regimen: None - current regimen: NPH 70/30 5 units twice daily + moderate SSI - blood glucose goal 140-180 while inpatient - continue to monitor #Hyponatremia-stable Continue to monitor with repeat BMP #Hypokalemia will continue to replete and monitor #Iron deficiency anemia Hemoglobin 7-8 Iron 18, TIBC 79, ferritin 894 Transfuse if hemoglobin <7 or patient become symptomatic. #Hypocalcemia Calcium 7.5 Replete. Continue to monitor. #Moderate protein caloric malnutrition Albumin 2.2 Continue dietary supplementation #Advanced care planning -Disease education conducted, care plan discussed, diagnoses discussed, prog nosis discussed, and patient acknowledges understanding with care plan -Time: +30 min #Social issues -Patient is undocumented and does not have health insurance. All items needed for wound VAC and medications may be required to self-pay. Case management/social work aware to attempt to provide patient with lucero items History Interval history: No acute events overnight. Patient reports improvement in neck pain. He was updated about current care plan. Hospitalist Physical - Physical exam Narrative exam: GENERAL: Well-developed well-nourished. In no acute distress. HEENT: Normocephalic. Atraumatic. NECK: Wound vac in place @ posterior neck CHEST/LUNGS: CTAB on room air HEART/CARDIOVASCULAR: RRR. No murmur, rubs or gallops appreciated. ABDOMEN: +BS. NT/ND. NEURO: No focal motor deficit. Follows all commands. MUSCULOSKELETAL: R arm with limited movement due to pain. EXTREMITIES: No cyanosis, clubbing or edema. PSYCH: Cooperative. - Constitutional Vitals: Temp Pulse Resp BP Pulse Ox 99 F 96 H 16 120/72 99 06/25/22 21:35 06/25/22 21:35 06/25/22 21:35 06/25/22 21:35 06/26/22 02:00 General appearance: Present: no acute distress, well-nourished Results - Labs CBC & Chem 7: 06/25/22 04:34 06/25/22 04:34 Labs: Laboratory Last Values WBC 5.8 K/mm3 (4.5-11.0) 06/25/22 04:34 RBC 2.77 M/mm3 (3.65-5.03) L 06/25/22 04:34 Hgb 8.1 gm/dl (11.8-15.2) L 06/25/22 04:34 Hct 23.7 % (35.5-45.6) L 06/25/22 04:34 MCV 85 fl (84-94) 06/25/22 04:34 MCH 29 pg (28-32) 06/25/22 04:34 MCHC 34 % (32-34) 06/25/22 04:34 RDW 14.2 % (13.2-15.2) 06/25/22 04:34 Plt Count 419 K/mm3 (140-440) 06/25/22 04:34 Lymph % (Auto) 17.6 % (13.4-35.0) 06/21/22 04:00 [place] % (Auto) 8.4 % (0.0-7.3) H 06/21/22 04:00 Eos % (Auto) 1.5 % (0.0-4.3) 06/21/22 04:00 Baso % (Auto) 0.5 % (0.0-1.8) 06/21/22 04:00 Lymph # (Auto) 1.0 K/mm3 (1.2-5.4) L 06/21/22 04:00 [place] # (Auto) 0.5 K/mm3 (0.0-0.8) 06/21/22 04:00 Eos # (Auto) 0.1 K/mm3 (0.0-0.4) 06/21/22 04:00 Baso # (Auto) 0.0 K/mm3 (0.0-0.1) 06/21/22 04:00 Seg Neutrophils % 72.0 % (40.0-70.0) H 06/21/22 04:00 Seg Neutrophils # 4.2 K/mm3 (1.8-7.7) 06/21/22 04:00 Sodium 127 mmol/L (137-145) L 06/25/22 04:34 Potassium 3.9 mmol/L (3.6-5.0) 06/25/22 04:34 Chloride 94.4 mmol/L (98-107) L 06/25/22 04:34 Carbon Dioxide 24 mmol/L (22-30) 06/25/22 04:34 Anion Gap 13 mmol/L 06/25/22 04:34 BUN 5 mg/dL (9-20) L 06/25/22 04:34 Creatinine 0.3 mg/dL (0.8-1.3) L 06/25/22 04:34 Estimated GFR > 60 ml/min 06/25/22 04:34 BUN/Creatinine Ratio 17 % 06/25/22 04:34 Glucose 109 mg/dL (75-100) H 06/25/22 04:34 POC Glucose 174 mg/dL (70-105) H 06/25/22 22:35 Hemoglobin A1c 15.6 % (4-6) H 06/14/22 09:08 Lactic Acid 1.80 mmol/L (0.7-2.0) 06/14/22 16:27 Calcium 7.5 mg/dL (8.4-10.2) L 06/25/22 04:34 Iron 18 ug/dL (49-181) L 06/14/22 09:08 TIBC 79 mcg/dL (250-450) L 06/14/22 09:08 Ferritin 894.3 ng/mL (30.0-300.0) H 06/14/22 09:08 Total Bilirubin 0.60 mg/dL (0.1-1.2) 06/13/22 22:05 AST 37 units/L (5-40) 06/13/22 22:05 ALT 43 units/L (7-56) 06/13/22 22:05 Alkaline Phosphatase 127 units/L (35-129) 06/13/22 22:05 C-Reactive Protein 9.30 mg/dL (0.00-1.30) H 06/24/22 05:54 Total Protein 7.0 g/dL (6.3-8.2) 06/13/22 22:05 Albumin 2.2 g/dL (3.9-5) L 06/13/22 22:05 Albumin/Globulin Ratio 0.5 % 06/13/22 22:05 Vancomycin Trough 7.3 ug/mL (5.0-20.0) 06/16/22 06:00 HIV DNA Qual (PCR) Not detected (Not Detected) 06/16/22 11:11 HIV 1&2 Antibody Rapid Non react (Non React) 06/16/22 11:11 HIV P24 Antigen Non react (Non React) 06/16/22 11:11 Blood Type O POSITIVE 06/25/22 04:34 Antibody Screen Negative 06/25/22 04:34 Perez/IV: Voiding Method Urinal Active Medications - Current Medications Current Medications: Generic Name Dose Route Start Last Admin Trade Name Mykeq PRN Reason Stop Dose Admin Acetaminophen 650 mg 06/14/22 10:00 06/18/22 17:05 Acetaminophen 325 Mg Tab PO 650 mg Q4H PRN Administration Pain MILD(1-3)/Fever >100.5/ALMAZAN Dextrose 50 ml 06/14/22 15:48 06/21/22 22:42 Dextrose 50% In Water (25gm) 50 Ml Syringe IV 50 ml Q30MIN PRN Administration Hypoglycemia Protocol Heparin Sodium (Porcine) 5,000 unit 06/14/22 14:00 06/26/22 07:22 Heparin 5,000 Unit/1 Ml Vial SUB-Q 5,000 unit Q8HR KARAN Administration Hydromorphone HCl 1 mg 06/14/22 10:00 06/25/22 23:41 Hydromorphone 0.5 Mg/0.5 Ml Inj IV 1 mg Q4H PRN Administration Pain , Severe (7-10) Cefazolin Sodium 2 gm/ Sodium 100 mls @ 200 mls/hr 06/20/22 14:00 06/26/22 07:21 Chloride IV Infused Q8HR [facility] Infusion Protocol Insulin Human Isoph/Insulin Regular 5 unit 06/15/22 12:09 06/25/22 16:03 Insulin Nph/Regular 70/30 Inj SUB-Q Not Given BIDDIAB KARAN Insulin Human Regular 0 units 06/14/22 16:30 06/25/22 22:41 Insulin Regular, Human 100 Units/1 Ml SUB-Q 2 units ACHS KARAN Administration Protocol Metoclopramide HCl 10 mg 06/14/22 04:33 06/14/22 07:44 Metoclopramide 10 Mg/2 Ml Inj IV 10 mg Q6H PRN Administration Nausea And Vomiting Ondansetron HCl 4 mg 06/14/22 10:00 Ondansetron 4 Mg/2 Ml Inj IV Q8H PRN Nausea And Vomiting Oxycodone/Acetaminophen 1 tab 06/14/22 10:00 06/21/22 05:13 Oxycodone /Acetaminophen 5-325mg Tab PO 1 tab Q6H PRN Administration Pain, Moderate (4-6) Sodium Chloride 10 ml 06/14/22 04:33 Sodium Chloride 0.9% 10 Ml Flush Syringe IV PRN PRN LINE FLUSH Sodium Chloride 10 ml 06/14/22 10:00 06/25/22 22:35 Sodium Chloride 0.9% 10 Ml Flush Syringe IV 10 ml BID KARAN Administration Sodium Hypochlorite 1 applic 06/20/22 09:39 Sodium Hypochlorite, Dakin's Full Strength (0.5%) 473 Ml Topical Soln TP Q12H PRN Wound Care Nutrition/Malnutrition Assess - Dietary Evaluation Nutrition/Malnutrition Findings: Nutrition Notes Start: 06/15/22 16:25 Freq: Status: Active Protocol: Document 06/25/22 13:09 BRIANDA (Rec: 06/25/22 13:25 BRIANDA [id number]) Nutrition Notes Initial or Follow up Brief Note Current Diagnosis Diabetes,Malnutrition Other Pertinent Diagnosis s/p Neck Abscess, Anemia. Current Diet Consistent Carbohydrates Diet (since L 06/17)+D Suppl (from D 06/25). Height 5 ft 5 in Weight 73.3 kg [place] Body Weight (kg) 61.81 BMI 26.9 Weight change and time frame No body weight change reported in 2 days. Weight Status Overweight Subjective/Other Information RD consult for dietary supplementation assessment. Pt was temporarily on NPO due to surgical procedure. Pt's PO intake of meals has been Poor (25-50%) and fairly tolerated, according to ADL notes. Procedure on 06/25: Debridement of posterior neck wound, well tolerated, according to Procedure notes. I will prescribe again dietary supplements to compensate for poor or insufficient PO intake of meals during LOS. Pt is on Room Air, O2 saturation @ 99%, according to Physical Assessment history notes. Percent of energy/protein needs met: Prescribed Consistent Carbohydrates Diet provides for energy/protein needs (2, 061 Kcal/91 g) during LOS; additionally, Dietary Supplements will compensate for possible poor or insufficient PO intake of meals with 660 Kcal and 30 g of protein. #2 Nutrition Diagnosis Inadequate protein-energy intake Comments: Pt's PO intake of meals has been Poor (25-50%) and fairly tolerated, according to ADL notes. Diagnosis Progress(for reassessment Continues documentation) #1 Nutrition Diagnosis Increased nutrient needs ( specify in comment below) Diagnosis Progress(for reassessment Continues documentation) Is patient on ventilator? No Is Patient Ambulatory and/or Out of Bed Yes REE-([place]-ambulatory/OOB) [ 2047.344 NUTR.MSJOOB] Kcal/Kg value to use for calculation 21 Approximate Energy Requirements Using 1539 kcal/Kg Calculation Used for Recommendations Kcal/kg Additional Notes Protein: 1.25-1.5 g/Kg ABW; 84 -101 g/day. Fluids: 1 ml/Kcal, or as per MD. Nutrition Intervention Change Diet Order: Continue Consistent Carbohydrates Diet as tolerated. Add Supplement/Snack (indicate name/kcal Restart 8 fl oz Glucerna; TID. /protein ) Provides kCal: 660 Provides Protein (gm) 30 Goal #1 Compensate, through dietary supplementation, for possible poor or insufficient PO intake of meals during LOS. Goal #2 Adjust the dietary intervention to better serve Pt's needs and clinical conditions during LOS. Follow-Up By: 06/29/22 Additional Comments Continue monitoring food tolerance, %PO intake of meals , dietary supplements, and BM.
[2022-06-26] MEDS: INSULIN NPH/REGULAR 70/30 INJ SUB-Q SCH ×2 (08:00→19:12)
--- NOTE | 2022-06-26 13:01 | Progress Note ---
Assessment and Plan Continue local wound care continue IV antibiotics. Discussed with hospitalist regarding low white counts and large septic area. HIV testing was negative. CT of the shoulder is showing a large abscess under the scapula. Debridement yesterday showed that wound vac was not evacuating purulent discharge effectively. Extensive tunnelling and tissue necrosis encountered. Dressing changes altered to BID wound irrigations with packing. Pt also with continued abscess in subscapular area. Pt notes pain with motion of the shoulder or arm. Would continue to try to transfer to an inpt setting that can manage the extensive nexk wound and subscapular abscess. Subjective Date of service: 06/26/22 Narrative: Debridement yesterday showed that wound vac was not evacuating purulent discharge effectively. Extensive tunnelling and tissue necrosis encountered. Dressing changes altered to BID wound irrigations with packing. Pt also with continued abscess in subscapular area. Pt notes pain with motion of the shoulder or arm. Would continue to try to transfer to an inpt setting that can manage the extensive nexk wound and subscapular abscess. Objective Vital Signs - 12hr 06/26/22 06/26/22 02:00 09:46 O2 Sat by Pulse 99 99 Oximetry - Labs 06/25/22 04:34 06/25/22 04:34
[2022-06-27] MEDS: HEPARIN 5,000 UNIT/1 ML VIAL SUB-Q SCH ×3 (06:38→22:37)
[2022-06-27] MEDS: INSULIN REGULAR, HUMAN 100 UNITS/1 ML SUB-Q SCH ×4 (09:32→22:56)
[2022-06-27] MEDS: INSULIN NPH/REGULAR 70/30 INJ SUB-Q SCH ×2 (09:32→17:08)
--- NOTE | 2022-06-27 11:39 | Progress Note ---
Assessment and Plan Assessment and plan: #Posterior neck abscess secondary to Klebsiella + staph aureus #R scapular abscess #Septic joint #Lactic acidosisresolved CT of the head and chest with contrast revealing "large peripherally enhancing multiseptated organized collection seen extending from the posterior scalp along the subcutis tissues + paraspinal musculature to the level of T1 spinous process". continue IV Ancef 2 g every 8 hours while inpatient. Upon discharge, plan for p.o. Keflex 750 mg QID for 3 weeks General surgery consulted; appreciate recs. status post I&D of posterior neck abscess. Blood cultures negative. wound cultures positive for Klebsiella and staph aureus. Currently exchanging wound vacs. Infectious disease consulted; appreciate recs. HIV negative. CRP 12.60 -> 9.30 Continue analgesics as needed. Occupational Therapy consulted due to decreased mobility of right shoulder; recommending acute rehab. - CT of the R arm showed possible fluid collections at the the subscapularis muscle bed. Discussed findings with general surgery, concern for septic joint - Orthopaedics consulted, plan for arthrocentesis -wound VAC exchanged 06/25 -General surgery recommends patient transfer to OSH for intervention of the abscesses at subscapularis muscle bed. [place], [facility] [place] was contacted again. They are unable to accept the patient at this time. #Non-insulin dependent type II diabetes mellitus - hemoglobin A1c: 15.6 - home regimen: None - current regimen: NPH 70/30 5 units twice daily + moderate SSI - blood glucose goal 140-180 while inpatient - continue to monitor #Hyponatremia-stable Continue to monitor with repeat BMP #Hypokalemia will continue to replete and monitor #Iron deficiency anemia Hemoglobin 7-8 Iron 18, TIBC 79, ferritin 894 Transfuse if hemoglobin <7 or patient become symptomatic. #Hypocalcemia Calcium 7.5 Replete. Continue to monitor. #Moderate protein caloric malnutrition Albumin 2.2 Continue dietary supplementation #Advanced care planning -Disease education conducted, care plan discussed, diagnoses discussed, progn osis discussed, and patient acknowledges understanding with care plan -Time: +30 min #Social issues -Patient is undocumented and does not have health insurance. All items needed for wound VAC and medications may be required to self-pay. Case management/social work aware to attempt to provide patient with lucero items History Interval history: No acute events overnight. Patient denies pain and discomfort at this time. He still has unlimited range of motion in the R arm. He was updated about current issues with his care. Hospitalist Physical - Physical exam Narrative exam: GENERAL: Well-developed well-nourished. In no acute distress. HEENT: Normocephalic. Atraumatic. NECK: Wound vac in place @ posterior neck CHEST/LUNGS: CTAB on room air HEART/CARDIOVASCULAR: RRR. No murmur, rubs or gallops appreciated. ABDOMEN: +BS. NT/ND. NEURO: No focal motor deficit. Follows all commands. MUSCULOSKELETAL: R arm with limited movement due to pain. EXTREMITIES: No cyanosis, clubbing or edema. PSYCH: Cooperative. - Constitutional Vitals: Temp Pulse Resp BP Pulse Ox 99.2 F 90 16 121/78 99 06/26/22 21:18 06/26/22 21:18 06/27/22 10:00 06/26/22 21:18 06/27/22 10:00 General appearance: Present: no acute distress, well-nourished Results - Labs CBC & Chem 7: 06/25/22 04:34 06/25/22 04:34 Labs: Laboratory Last Values WBC 5.8 K/mm3 (4.5-11.0) 06/25/22 04:34 RBC 2.77 M/mm3 (3.65-5.03) L 06/25/22 04:34 Hgb 8.1 gm/dl (11.8-15.2) L 06/25/22 04:34 Hct 23.7 % (35.5-45.6) L 06/25/22 04:34 MCV 85 fl (84-94) 06/25/22 04:34 MCH 29 pg (28-32) 06/25/22 04:34 MCHC 34 % (32-34) 06/25/22 04:34 RDW 14.2 % (13.2-15.2) 06/25/22 04:34 Plt Count 419 K/mm3 (140-440) 06/25/22 04:34 Lymph % (Auto) 17.6 % (13.4-35.0) 06/21/22 04:00 [place] % (Auto) 8.4 % (0.0-7.3) H 06/21/22 04:00 Eos % (Auto) 1.5 % (0.0-4.3) 06/21/22 04:00 Baso % (Auto) 0.5 % (0.0-1.8) 06/21/22 04:00 Lymph # (Auto) 1.0 K/mm3 (1.2-5.4) L 06/21/22 04:00 [place] # (Auto) 0.5 K/mm3 (0.0-0.8) 06/21/22 04:00 Eos # (Auto) 0.1 K/mm3 (0.0-0.4) 06/21/22 04:00 Baso # (Auto) 0.0 K/mm3 (0.0-0.1) 06/21/22 04:00 Seg Neutrophils % 72.0 % (40.0-70.0) H 06/21/22 04:00 Seg Neutrophils # 4.2 K/mm3 (1.8-7.7) 06/21/22 04:00 Sodium 127 mmol/L (137-145) L 06/25/22 04:34 Potassium 3.9 mmol/L (3.6-5.0) 06/25/22 04:34 Chloride 94.4 mmol/L (98-107) L 06/25/22 04:34 Carbon Dioxide 24 mmol/L (22-30) 06/25/22 04:34 Anion Gap 13 mmol/L 06/25/22 04:34 BUN 5 mg/dL (9-20) L 06/25/22 04:34 Creatinine 0.3 mg/dL (0.8-1.3) L 06/25/22 04:34 Estimated GFR > 60 ml/min 06/25/22 04:34 BUN/Creatinine Ratio 17 % 06/25/22 04:34 Glucose 109 mg/dL (75-100) H 06/25/22 04:34 POC Glucose 100 mg/dL (70-105) 06/27/22 07:32 Hemoglobin A1c 15.6 % (4-6) H 06/14/22 09:08 Lactic Acid 1.80 mmol/L (0.7-2.0) 06/14/22 16:27 Calcium 7.5 mg/dL (8.4-10.2) L 06/25/22 04:34 Iron 18 ug/dL (49-181) L 06/14/22 09:08 TIBC 79 mcg/dL (250-450) L 06/14/22 09:08 Ferritin 894.3 ng/mL (30.0-300.0) H 06/14/22 09:08 Total Bilirubin 0.60 mg/dL (0.1-1.2) 06/13/22 22:05 AST 37 units/L (5-40) 06/13/22 22:05 ALT 43 units/L (7-56) 06/13/22 22:05 Alkaline Phosphatase 127 units/L (35-129) 06/13/22 22:05 C-Reactive Protein 8.00 mg/dL (0.00-1.30) H 06/27/22 04:53 Total Protein 7.0 g/dL (6.3-8.2) 06/13/22 22:05 Albumin 2.2 g/dL (3.9-5) L 06/13/22 22:05 Albumin/Globulin Ratio 0.5 % 06/13/22 22:05 Vancomycin Trough 7.3 ug/mL (5.0-20.0) 06/16/22 06:00 HIV DNA Qual (PCR) Not detected (Not Detected) 06/16/22 11:11 HIV 1&2 Antibody Rapid Non react (Non React) 06/16/22 11:11 HIV P24 Antigen Non react (Non React) 06/16/22 11:11 Blood Type O POSITIVE 06/25/22 04:34 Antibody Screen Negative 06/25/22 04:34 Microbiology: Microbiology 06/25/22 Unknown Neck Surgical Culture - Preliminary Gram Negative [place] Staphylococcus Aureus Perez/IV: Voiding Method Urinal Active Medications - Current Medications Current Medications: Generic Name Dose Route Start Last Admin Trade Name Freq PRN Reason Stop Dose Admin Acetaminophen 650 mg 06/14/22 10:00 06/18/22 17:05 Acetaminophen 325 Mg Tab PO 650 mg Q4H PRN Administration Pain MILD(1-3)/Fever >100.5/ALMAZAN Dextrose 50 ml 06/14/22 15:48 06/21/22 22:42 Dextrose 50% In Water (25gm) 50 Ml Syringe IV 50 ml Q30MIN PRN Administration Hypoglycemia Protocol Heparin Sodium (Porcine) 5,000 unit 06/14/22 14:00 06/27/22 06:38 Heparin 5,000 Unit/1 Ml Vial SUB-Q 5,000 unit Q8HR KARAN Administration Hydromorphone HCl 1 mg 06/14/22 10:00 06/25/22 23:41 Hydromorphone 0.5 Mg/0.5 Ml Inj IV 1 mg Q4H PRN Administration Pain , Severe (7-10) Cefazolin Sodium 2 gm/ Sodium 100 mls @ 200 mls/hr 06/20/22 14:00 06/27/22 06:34 Chloride IV 200 mls/hr Q8HR KARAN Administration Protocol Insulin Human Isoph/Insulin Regular 5 unit 06/15/22 12:09 06/27/22 09:32 Insulin Nph/Regular 70/30 Inj SUB-Q Not Given BIDDIAB [facility] Insulin Human Regular 0 units 06/14/22 16:30 06/27/22 09:32 Insulin Regular, Human 100 Units/1 Ml SUB-Q Not Given ACHS [facility] Protocol Metoclopramide HCl 10 mg 06/14/22 04:33 06/14/22 07:44 Metoclopramide 10 Mg/2 Ml Inj IV 10 mg Q6H PRN Administration Nausea And Vomiting Ondansetron HCl 4 mg 06/14/22 10:00 Ondansetron 4 Mg/2 Ml Inj IV Q8H PRN Nausea And Vomiting Oxycodone/Acetaminophen 1 tab 06/14/22 10:00 06/21/22 05:13 Oxycodone /Acetaminophen 5-325mg Tab PO 1 tab Q6H PRN Administration Pain, Moderate (4-6) Sodium Chloride 10 ml 06/14/22 04:33 Sodium Chloride 0.9% 10 Ml Flush Syringe IV PRN PRN LINE FLUSH Sodium Chloride 10 ml 06/14/22 10:00 06/27/22 09:31 Sodium Chloride 0.9% 10 Ml Flush Syringe IV 10 ml BID KARAN Administration Sodium Hypochlorite 1 applic 06/20/22 09:39 Sodium Hypochlorite, Dakin's Full Strength (0.5%) 473 Ml Topical Soln TP Q12H PRN Wound Care Nutrition/Malnutrition Assess - Dietary Evaluation Nutrition/Malnutrition Findings: Nutrition Notes Start: 06/15/22 16:25 Freq: Status: Active Protocol: Document 06/25/22 13:09 BRIANDA (Rec: 06/25/22 13:25 BRIANDA [id number]) Nutrition Notes Initial or Follow up Brief Note Current Diagnosis Diabetes,Malnutrition Other Pertinent Diagnosis s/p Neck Abscess, Anemia. Current Diet Consistent Carbohydrates Diet (since L 06/17)+D Suppl (from D 06/25). Height 5 ft 5 in Weight 73.3 kg [place] Body Weight (kg) 61.81 BMI 26.9 Weight change and time frame No body weight change reported in 2 days. Weight Status Overweight Subjective/Other Information RD consult for dietary supplementation assessment. Pt was temporarily on NPO due to surgical procedure. Pt's PO intake of meals has been Poor (25-50%) and fairly tolerated, according to ADL notes. Procedure on 06/25: Debridement of posterior neck wound, well tolerated, according to Procedure notes. I will prescribe again dietary supplements to compensate for poor or insufficient PO intake of meals during LOS. Pt is on Room Air, O2 saturation @ 99%, according to Physical Assessment history notes. Percent of energy/protein needs met: Prescribed Consistent Carbohydrates Diet provides for energy/protein needs (2, 061 Kcal/91 g) during LOS; additionally, Dietary Supplements will compensate for possible poor or insufficient PO intake of meals with 660 Kcal and 30 g of protein. #2 Nutrition Diagnosis Inadequate protein-energy intake Comments: Pt's PO intake of meals has been Poor (25-50%) and fairly tolerated, according to ADL notes. Diagnosis Progress(for reassessment Continues documentation) #1 Nutrition Diagnosis Increased nutrient needs ( specify in comment below) Diagnosis Progress(for reassessment Continues documentation) Is patient on ventilator? No Is Patient Ambulatory and/or Out of Bed Yes REE-([place]-ambulatory/OOB) [ 2047.344 NUTR.MSJOOB] Kcal/Kg value to use for calculation 21 Approximate Energy Requirements Using 1539 kcal/Kg Calculation Used for Recommendations Kcal/kg Additional Notes Protein: 1.25-1.5 g/Kg ABW; 84 -101 g/day. Fluids: 1 ml/Kcal, or as per MD. Nutrition Intervention Change Diet Order: Continue Consistent Carbohydrates Diet as tolerated. Add Supplement/Snack (indicate name/kcal Restart 8 fl oz Glucerna; TID. /protein ) Provides kCal: 660 Provides Protein (gm) 30 Goal #1 Compensate, through dietary supplementation, for possible poor or insufficient PO intake of meals during LOS. Goal #2 Adjust the dietary intervention to better serve Pt's needs and clinical conditions during LOS. Follow-Up By: 06/29/22 Additional Comments Continue monitoring food tolerance, %PO intake of meals , dietary supplements, and BM.
--- NOTE | 2022-06-27 17:58 | Progress Note ---
Assessment and Plan Continue local wound care continue IV antibiotics. Discussed with hospitalist regarding low white counts and large septic area. HIV testing was negative. CT of the shoulder is showing a large abscess under the scapula. Dressing changes altered to BID wound irrigations with packing. Pt also with continued abscess in subscapular area. Pt notes pain with motion of the shoulder or arm. Would continue to try to transfer to an inpt setting that can manage the extensive nexk wound and subscapular abscess. Subjective Date of service: 06/27/22 Patient Reports: Positive: no new complaints, still having pain Objective Vital Signs - 12hr 06/27/22 06/27/22 06/27/22 10:00 11:25 16:14 Temperature 98.1 F 98.1 F Pulse Rate 89 91 H Respiratory 16 18 16 Rate Blood Pressure 107/67 106/67 O2 Sat by Pulse 99 99 100 Oximetry - Labs 06/25/22 04:34 06/25/22 04:34
[2022-06-28] MEDS: HEPARIN 5,000 UNIT/1 ML VIAL SUB-Q SCH ×3 (05:32→21:53)
[2022-06-28 05:57] LABS: Blood Urea Nitrogen 4 mg/dL (9-20); Calcium 7.4 mg/dL (8.4-10.2); Hemolysis Index 1
[2022-06-28 06:05] LABS: BUN/Creatinine Ratio 13
[2022-06-28] MEDS: INSULIN REGULAR, HUMAN 100 UNITS/1 ML SUB-Q SCH ×4 (07:13→21:56)
--- NOTE | 2022-06-28 07:59 | Progress Note ---
Assessment and Plan Assessment and plan: #Posterior neck abscess secondary to Klebsiella + staph aureus #R scapular abscess #Septic joint #Lactic acidosisresolved CT of the head and chest with contrast revealing "large peripherally enhancing multiseptated organized collection seen extending from the posterior scalp along the subcutis tissues + paraspinal musculature to the level of T1 spinous process". continue IV Ancef 2 g every 8 hours while inpatient. Upon discharge, plan for p.o. Keflex 750 mg QID for 3 weeks General surgery consulted; appreciate recs. status post I&D of posterior neck abscess. Blood cultures negative. wound cultures positive for Klebsiella and staph aureus. Currently exchanging wound vacs. Infectious disease consulted; appreciate recs. HIV negative. CRP 12.60 -> 9.30 Continue analgesics as needed. Occupational Therapy consulted due to decreased mobility of right shoulder; recommending acute rehab. - CT of the R arm showed possible fluid collections at the the subscapularis muscle bed. Discussed findings with general surgery, concern for septic joint - Orthopaedics consulted, plan for arthrocentesis -wound VAC exchanged 06/25 -General surgery recommends patient transfer to OSH for intervention of the abscesses at subscapularis muscle bed. [place], [facility] was contacted again. They are unable to accept the patient at this time. #Non-insulin dependent type II diabetes mellitus - hemoglobin A1c: 15.6 - home regimen: None - current regimen: NPH 70/30 5 units twice daily + moderate SSI - blood glucose goal 140-180 while inpatient - continue to monitor #Hyponatremia-stable Continue to monitor with repeat BMP #Hypokalemia will continue to replete and monitor #Iron deficiency anemia Hemoglobin 7-8 Iron 18, TIBC 79, ferritin 894 Transfuse if hemoglobin <7 or patient become symptomatic. #Hypocalcemia Calcium 7.5 Replete. Continue to monitor. #Moderate protein caloric malnutrition Albumin 2.2 Continue dietary supplementation #Advanced care planning -Disease education conducted, care plan discussed, diagnoses discussed, progn osis discussed, and patient acknowledges understanding with care plan -Time: +30 min #Social issues -Patient is undocumented and does not have health insurance. All items needed for wound VAC and medications may be required to self-pay. Case management/social work aware to attempt to provide patient with lucero items DC planning per case management We will closely monitor patient and adjust management as needed Plan of care reviewed with the patient and his nurse History Interval history: Have seen and examined the patient at the bedside Patient's chart and medications reviewed Patient is feeling better Complains of some headache and neck pain vital IND was started Vital signs noted Patient underwent IND of the neck abscess Hospitalist Physical - Constitutional Vitals: Temp Pulse Resp BP Pulse Ox 98.7 F 92 H 16 123/75 98 06/27/22 21:31 06/27/22 21:31 06/27/22 22:00 06/27/22 21:31 06/27/22 22:00 General appearance: Present: no acute distress, well-nourished - EENT Eyes: Present: PERRL, EOM intact - Neck Neck: Present: supple, normal ROM, other (Neck pain/dressing in place) - Respiratory Respiratory effort: normal Respiratory: bilateral: diminished, negative: rales, rhonchi, wheezing - Cardiovascular Rhythm: regular Heart Sounds: Present: S1 & S2 - Extremities Extremities: no ischemia, No edema - Abdominal General gastrointestinal: soft, non-tender, non-distended, normal bowel sounds - Integumentary Integumentary: Present: clear, warm - Psychiatric Psychiatric: appropriate mood/affect, cooperative - Neurologic Neurologic: CNII-XII intact, moves all extremities Results - Labs CBC & Chem 7: 06/25/22 04:34 06/28/22 04:41 Labs: Laboratory Last Values WBC 5.8 K/mm3 (4.5-11.0) 06/25/22 04:34 RBC 2.77 M/mm3 (3.65-5.03) L 06/25/22 04:34 Hgb 8.1 gm/dl (11.8-15.2) L 06/25/22 04:34 Hct 23.7 % (35.5-45.6) L 06/25/22 04:34 MCV 85 fl (84-94) 06/25/22 04:34 MCH 29 pg (28-32) 06/25/22 04:34 MCHC 34 % (32-34) 06/25/22 04:34 RDW 14.2 % (13.2-15.2) 06/25/22 04:34 Plt Count 419 K/mm3 (140-440) 06/25/22 04:34 Lymph % (Auto) 17.6 % (13.4-35.0) 06/21/22 04:00 [place] % (Auto) 8.4 % (0.0-7.3) H 06/21/22 04:00 Eos % (Auto) 1.5 % (0.0-4.3) 06/21/22 04:00 Baso % (Auto) 0.5 % (0.0-1.8) 06/21/22 04:00 Lymph # (Auto) 1.0 K/mm3 (1.2-5.4) L 06/21/22 04:00 [place] # (Auto) 0.5 K/mm3 (0.0-0.8) 06/21/22 04:00 Eos # (Auto) 0.1 K/mm3 (0.0-0.4) 06/21/22 04:00 Baso # (Auto) 0.0 K/mm3 (0.0-0.1) 06/21/22 04:00 Seg Neutrophils % 72.0 % (40.0-70.0) H 06/21/22 04:00 Seg Neutrophils # 4.2 K/mm3 (1.8-7.7) 06/21/22 04:00 Sodium 126 mmol/L (137-145) L 06/28/22 04:41 Potassium 4.0 mmol/L (3.6-5.0) 06/28/22 04:41 Chloride 94.9 mmol/L (98-107) L 06/28/22 04:41 Carbon Dioxide 23 mmol/L (22-30) 06/28/22 04:41 Anion Gap 12 mmol/L 06/28/22 04:41 BUN 4 mg/dL (9-20) L 06/28/22 04:41 Creatinine 0.3 mg/dL (0.8-1.3) L 06/28/22 04:41 Estimated GFR > 60 ml/min 06/28/22 04:41 BUN/Creatinine Ratio 13 % 06/28/22 04:41 Glucose 107 mg/dL (75-100) H 06/28/22 04:41 POC Glucose 141 mg/dL (70-105) H 06/27/22 21:53 Hemoglobin A1c 15.6 % (4-6) H 06/14/22 09:08 Lactic Acid 1.80 mmol/L (0.7-2.0) 06/14/22 16:27 Calcium 7.4 mg/dL (8.4-10.2) L 06/28/22 04:41 Iron 18 ug/dL (49-181) L 06/14/22 09:08 TIBC 79 mcg/dL (250-450) L 06/14/22 09:08 Ferritin 894.3 ng/mL (30.0-300.0) H 06/14/22 09:08 Total Bilirubin 0.60 mg/dL (0.1-1.2) 06/13/22 22:05 AST 37 units/L (5-40) 06/13/22 22:05 ALT 43 units/L (7-56) 06/13/22 22:05 Alkaline Phosphatase 127 units/L (35-129) 06/13/22 22:05 C-Reactive Protein 8.00 mg/dL (0.00-1.30) H 06/27/22 04:53 Total Protein 7.0 g/dL (6.3-8.2) 06/13/22 22:05 Albumin 2.2 g/dL (3.9-5) L 06/13/22 22:05 Albumin/Globulin Ratio 0.5 % 06/13/22 22:05 Vancomycin Trough 7.3 ug/mL (5.0-20.0) 06/16/22 06:00 HIV DNA Qual (PCR) Not detected (Not Detected) 06/16/22 11:11 HIV 1&2 Antibody Rapid Non react (Non React) 06/16/22 11:11 HIV P24 Antigen Non react (Non React) 06/16/22 11:11 Blood Type O POSITIVE 06/25/22 04:34 Antibody Screen Negative 06/25/22 04:34 Microbiology: Microbiology 06/25/22 Unknown Neck Surgical Culture - Final Klebsiella Pneumoniae Methicillin Resist S. Aureus 06/25/22 Unknown Neck Anaerobic Culture - Preliminary Perez/IV: Voiding Method Toilet Active Medications - Current Medications Current Medications: Generic Name Dose Route Start Last Admin Trade Name Freq PRN Reason Stop Dose Admin Acetaminophen 650 mg 06/14/22 10:00 06/18/22 17:05 Acetaminophen 325 Mg Tab PO 650 mg Q4H PRN Administration Pain MILD(1-3)/Fever >100.5/ALMAZAN Dextrose 50 ml 06/14/22 15:48 06/21/22 22:42 Dextrose 50% In Water (25gm) 50 Ml Syringe IV 50 ml Q30MIN PRN Administration Hypoglycemia Protocol Heparin Sodium (Porcine) 5,000 unit 06/14/22 14:00 06/28/22 05:32 Heparin 5,000 Unit/1 Ml Vial SUB-Q 5,000 unit Q8HR KARAN Administration Hydromorphone HCl 1 mg 06/14/22 10:00 06/25/22 23:41 Hydromorphone 0.5 Mg/0.5 Ml Inj IV 1 mg Q4H PRN Administration Pain , Severe (7-10) Cefazolin Sodium 2 gm/ Sodium 100 mls @ 200 mls/hr 06/20/22 14:00 06/28/22 05:28 Chloride IV 200 mls/hr Q8HR KARAN Administration Protocol Insulin Human Isoph/Insulin Regular 5 unit 06/15/22 12:09 06/27/22 17:08 Insulin Nph/Regular 70/30 Inj SUB-Q 5 unit BIDDIAB KARAN Administration Insulin Human Regular 0 units 06/14/22 16:30 06/27/22 22:56 Insulin Regular, Human 100 Units/1 Ml SUB-Q 2 units ACHS KARAN Administration Protocol Metoclopramide HCl 10 mg 06/14/22 04:33 06/14/22 07:44 Metoclopramide 10 Mg/2 Ml Inj IV 10 mg Q6H PRN Administration Nausea And Vomiting Ondansetron HCl 4 mg 06/14/22 10:00 Ondansetron 4 Mg/2 Ml Inj IV Q8H PRN Nausea And Vomiting Oxycodone/Acetaminophen 1 tab 06/14/22 10:00 06/21/22 05:13 Oxycodone /Acetaminophen 5-325mg Tab PO 1 tab Q6H PRN Administration Pain, Moderate (4-6) Sodium Chloride 10 ml 06/14/22 04:33 Sodium Chloride 0.9% 10 Ml Flush Syringe IV PRN PRN LINE FLUSH Sodium Chloride 10 ml 06/14/22 10:00 06/27/22 22:38 Sodium Chloride 0.9% 10 Ml Flush Syringe IV 10 ml BID KARAN Administration Sodium Hypochlorite 1 applic 06/20/22 09:39 Sodium Hypochlorite, Dakin's Full Strength (0.5%) 473 Ml Topical Soln TP Q12H PRN Wound Care Nutrition/Malnutrition Assess - Dietary Evaluation Nutrition/Malnutrition Findings: Nutrition Notes Start: 06/15/22 16:25 Freq: Status: Active Protocol: Document 06/25/22 13:09 BRIANDA (Rec: 06/25/22 13:25 BRIANDA [id number]) Nutrition Notes Initial or Follow up Brief Note Current Diagnosis Diabetes,Malnutrition Other Pertinent Diagnosis s/p Neck Abscess, Anemia. Current Diet Consistent Carbohydrates Diet (since L 06/17)+D Suppl (from D 06/25). Height 5 ft 5 in Weight 73.3 kg [place] Body Weight (kg) 61.81 BMI 26.9 Weight change and time frame No body weight change reported in 2 days. Weight Status Overweight Subjective/Other Information RD consult for dietary supplementation assessment. Pt was temporarily on NPO due to surgical procedure. Pt's PO intake of meals has been Poor (25-50%) and fairly tolerated, according to ADL notes. Procedure on 06/25: Debridement of posterior neck wound, well tolerated, according to Procedure notes. I will prescribe again dietary supplements to compensate for poor or insufficient PO intake of meals during LOS. Pt is on Room Air, O2 saturation @ 99%, according to Physical Assessment history notes. Percent of energy/protein needs met: Prescribed Consistent Carbohydrates Diet provides for energy/protein needs (2, 061 Kcal/91 g) during LOS; additionally, Dietary Supplements will compensate for possible poor or insufficient PO intake of meals with 660 Kcal and 30 g of protein. #2 Nutrition Diagnosis Inadequate protein-energy intake Comments: Pt's PO intake of meals has been Poor (25-50%) and fairly tolerated, according to ADL notes. Diagnosis Progress(for reassessment Continues documentation) #1 Nutrition Diagnosis Increased nutrient needs ( specify in comment below) Diagnosis Progress(for reassessment Continues documentation) Is patient on ventilator? No Is Patient Ambulatory and/or Out of Bed Yes REE-([facility]-ambulatory/OOB) [ 2046.344 NUTR.MSJOOB] Kcal/Kg value to use for calculation 21 Approximate Energy Requirements Using 1539 kcal/Kg Calculation Used for Recommendations Kcal/kg Additional Notes Protein: 1.25-1.5 g/Kg ABW; 84 -101 g/day. Fluids: 1 ml/Kcal, or as per MD. Nutrition Intervention Change Diet Order: Continue Consistent Carbohydrates Diet as tolerated. Add Supplement/Snack (indicate name/kcal Restart 8 fl oz Glucerna; TID. /protein ) Provides kCal: 660 Provides Protein (gm) 30 Goal #1 Compensate, through dietary supplementation, for possible poor or insufficient PO intake of meals during LOS. Goal #2 Adjust the dietary intervention to better serve Pt's needs and clinical conditions during LOS. Follow-Up By: 06/29/22 Additional Comments Continue monitoring food tolerance, %PO intake of meals , dietary supplements, and BM.
[2022-06-28] MEDS: INSULIN NPH/REGULAR 70/30 INJ SUB-Q SCH ×2 (10:12→18:14)
--- NOTE | 2022-06-28 13:32 | Progress Note ---
Assessment and Plan Cultures: 06/13/2022 blood culture: No growth 06/14/2022 surgical culture: MSSA, Klebsiella pneumoniae 06/25/2022 surgical culture MRSA, Klebsiella A/P: 41-year-old male with diabetes: #Extensive, necrotic posterior neck abscess extending to the paraspinal musculature: No evidence of osteomyelitis on imaging. S/p extensive I&D on 06/14/2022, 06/15/2022 and 06/17/2022 by general surgery. VAC changed on 06/21/2022. #R shoulder abscess: CT right shoulder with and without contrast showed multiple abscesses in the right subscapularis muscle bed. #Diabetes mellitus type 2, uncontrolled: HbA1c 15.6 #Leucopenia: resolved. HIV negative. Recs: -Newest cultures with MRSA, Klebsiella. -Will change antibiotics to vancomycin, ceftriaxone -continue wound care and glycemic control Levon Burns MD [facility] ([facility] O: [phone] F: [phone] Subjective Date of service: 06/28/22 Interval history: Afebrile over the weekend, normal white count. Surgical culture finalized with Klebsiella, MRSA. This is different from his previous cultures which finalized with MSSA. Objective - Exam Narrative Exam: Physical Exam: Constitutional: Alert, cooperative. No acute distress Head, Ears, Nose: Normocephalic, atraumatic. External ears, nose normal Eyes: Conjunctivae/corneas clear. No icterus. No ptosis. Neck: Posterior neck and scalp region with a large wound, VAC + Cardiovascular: S1, S2 + Respiratory: Good air entry, clear to auscultation bilaterally GI: Soft, non-tender; bowel sounds normal. No peritoneal signs Musculoskeletal: R shoulder painful ROM Skin: No rash or abscess Hem/Lymphatic: No palpable cervical or supraclavicular nodes. No lymphangitis Psych: Mood ok. Affect normal Neurological: Awake, alert, oriented. No gross abnormality - Constitutional Vitals: Vital Signs Temp Pulse Resp BP Pulse Ox 98.6 F 82 16 110/72 100 06/28/22 11:13 06/28/22 11:13 06/28/22 11:13 06/28/22 11:13 06/28/22 11:13 Temperature -Last 24 Hours Temperature 98.6 F Temperature 98.3 F Temperature 98.7 F Temperature 98.1 F - Labs CBC & Chem 7: 06/25/22 04:34 06/28/22 04:41 Labs: Abnormal lab results 06/27/22 06/27/22 06/27/22 Range/Units 11:25 15:36 21:53 Sodium (137-145) mmol/L Chloride (98-107) mmol/L BUN (9-20) mg/dL Creatinine (0.8-1.3) mg/dL Glucose (75-100) mg/dL POC Glucose 124 H 165 H 141 H (70-105) mg/dL Calcium (8.4-10.2) mg/dL 06/28/22 Range/Units 04:41 Sodium 126 L (137-145) mmol/L Chloride 94.9 L (98-107) mmol/L BUN 4 L (9-20) mg/dL Creatinine 0.3 L (0.8-1.3) mg/dL Glucose 107 H (75-100) mg/dL POC Glucose (70-105) mg/dL Calcium 7.4 L (8.4-10.2) mg/dL
[2022-06-28] MEDS ORDERED: VANCOMYCIN PHARMACY TO DOSE IV SCH (14:00)
--- NOTE | 2022-06-28 14:43 | Cat Scan Report ---
CT CHEST WITH CONTRAST INDICATION / CLINICAL INFORMATION: Right subscapular muscle abscess. TECHNIQUE: Axial CT images were obtained through the chest after 100 cc of Omnipaque [address] scans at this location are performed using CT dose reduction for ALARA by means of automated exposure control. COMPARISON: Chest CT dated 06/14/2022 FINDINGS: HEART: Pericardial effusion is decreased in size when compared to the prior study. CORONARY ARTERY CALCIFICATION: Absent -- None. THORACIC AORTA: No significant abnormality. MEDIASTINUM / TRISH: No significant abnormality. PLEURA: No pleural effusion. No pneumothorax. LUNGS: there is a nodular density in the left upper lobe which measures 7 mm. There is small area of cavitation within this nodule on the current study which was not present previously. Pleural-based n odular density in the right lung base appears unchanged. The lungs are otherwise unchanged in appeara nce. Small additional nodules are stable. Right middle lobe nodule measured 8 mm previously and measu res 5 mm currently. ADDITIONAL FINDINGS: Fluid collections in the right shoulder region are again noted. Subscapularis co llection measures approximately 7.8 x 3.2 cm. Supraspinatus collection measures approximately 3.1 x 3 cm. UPPER ABDOMEN: No significant abnormality. SKELETAL SYSTEM: No significant abnormality. IMPRESSION: 1. Fluid collections in the right shoulder region are again noted with measurements given above. The collections appear slightly larger when compared to 06/14/2022. These could represent enlarging hematom as or enlarging abscess is. 2. Pulmonary nodules are again noted. Nodule in the left upper lobe adjacent to the pleura is slightl y increased in size measuring 7 mm currently. This measured 6 mm previously. This nodule shows a smal l area of cavitation. Pleural-based nodule in the right middle lobe has decreased in size in the inte rval. Additional smaller nodules appear similar to the prior study. 3 month follow-up CT is recommend ed. Signer Name: Jim Ramos MD Signed: 06/28/2022 2:39 PM Workstation Name: [id number]
[2022-06-28] MEDS: HYDROmorphone 0.5 MG/0.5 ML INJ IV PRN (15:00)
[2022-06-28] MEDS: cefTRIAXone/NS 2 GM/100 ML 2 GM/100 ML BAG IV SCH (15:13)
[2022-06-28] MEDS: VANCOMYCIN 1,500 MG in SODIUM CHLORIDE 0.9% 500 ML 500 ML IV SCH (18:23)
[2022-06-29] MEDS: VANCOMYCIN 1,500 MG in SODIUM CHLORIDE 0.9% 500 ML 500 ML IV SCH ×2 (05:44→19:26)
[2022-06-29] MEDS: HEPARIN 5,000 UNIT/1 ML VIAL SUB-Q SCH ×3 (05:44→21:50)
[2022-06-29] MEDS: INSULIN REGULAR, HUMAN 100 UNITS/1 ML SUB-Q SCH ×4 (08:22→23:00)
[2022-06-29] MEDS: INSULIN NPH/REGULAR 70/30 INJ SUB-Q SCH ×2 (08:23→18:26)
[2022-06-29] MEDS ORDERED: ONDANSETRON 4 MG/2 ML INJ IV NR (08:42)
[2022-06-29] MEDS ORDERED: HYDROmorphone 1 MG/1 ML INJ IV NR (08:44)
[2022-06-29] MEDS ORDERED: LIDOCAINE (1%) 10 MG/1 ML VIAL 20 ML MDV ONE (08:50)
--- NOTE | 2022-06-29 10:46 | Cat Scan Report ---
CT DRAIN CYST/ABSCESS INDICATION : Right subscapular muscle abscess. COMPARISON: CT chest with contrast performed yesterday PROCEDURE: The risks (including but not limited to bleeding and infection) and benefits were explain ed to the patient and informed consent was obtained. All CT scans at this location are performed usi ng CT dose reduction for ALARA by means of automated exposure control. A time out procedure was performed. The procedure site was prepped and draped in the usual sterile f ashion and lidocaine was used for local anesthesia. IV Dilaudid and Zofran was utilized for anxiolysi s. Using CT guidance, a 17-gauge introducer needle was advanced into the central portions of a right sub scapular abscess/fluid collection. There was spontaneous return of rather thick yellow fluid. Approxi mately 80-90 cc of debris ridden fluid was aspirated. 10-20 cc of fluid was sent to the lab for cultu re. Follow-up scan demonstrated approximately 75% evacuation of the fluid collection. The patient tolerated the procedure well with no complications. IMPRESSION: Successful CT-guided aspiration of the right subscapular abscess. See above. Signer Name: Antonio Conner Jr, MD Signed: 06/29/2022 10:42 AM Workstation Name: [id number]
[2022-06-29] MEDS: cefTRIAXone/NS 2 GM/100 ML 2 GM/100 ML BAG IV SCH (15:25)
--- NOTE | 2022-06-29 17:10 | Progress Note ---
Assessment and Plan Continue local wound care continue IV antibiotics. Discussed with hospitalist regarding low white counts and large septic area. HIV testing was negative. CT of the shoulder is showing a large abscess under the scapula. Dressing changes altered to BID wound irrigations with packing. Pt with bid dressing changes with dakins irrigation. Plan return to or in am for debridement. CT guided drainage of subscular mus abscess done today. Culture and sensitivity pending. Subjective Date of service: 06/29/22 Patient Reports: Positive: no new complaints Narrative: Pt with bid dressing changes with dakins irrigation. Plan return to or in am for debridement. CT guided drainage of subscular mus abscess done today. Culture and sensitivity pending. Objective Vital Signs - 12hr 06/29/22 06/29/22 06/29/22 09:39 09:40 09:45 Temperature [ Post-Procedure] Temperature [ 98.0 F Pre-Procedure] Pulse Rate [ 88 88 Intra-Procedure ] Pulse Rate [ Post-Procedure] Pulse Rate [Pre 92 H -Procedure] Respiratory 18 Rate Respiratory 26 H 14 Rate [Intra- Procedure] Respiratory Rate [Post- Procedure] Respiratory 14 Rate [Pre- Procedure] Blood Pressure 124/77 119/79 [Intra- Procedure] Blood Pressure [Post-Procedure ] Blood Pressure 117/74 [Pre-Procedure] O2 Sat by Pulse 100 100 Oximetry [ Intra-Procedure ] O2 Sat by Pulse Oximetry [Post -Procedure] O2 Sat by Pulse 100 Oximetry [Pre- Procedure] 06/29/22 06/29/22 06/29/22 09:50 09:55 10:00 Temperature [ Post-Procedure] Temperature [ Pre-Procedure] Pulse Rate [ 88 89 Intra-Procedure ] Pulse Rate [ 88 Post-Procedure] Pulse Rate [Pre -Procedure] Respiratory Rate Respiratory 14 12 Rate [Intra- Procedure] Respiratory 12 Rate [Post- Procedure] Respiratory Rate [Pre- Procedure] Blood Pressure 124/75 122/75 [Intra- Procedure] Blood Pressure 120/76 [Post-Procedure ] Blood Pressure [Pre-Procedure] O2 Sat by Pulse 100 100 Oximetry [ Intra-Procedure ] O2 Sat by Pulse 100 Oximetry [Post -Procedure] O2 Sat by Pulse Oximetry [Pre- Procedure] 06/29/22 06/29/22 10:15 10:31 Temperature [ 98.8 F Post-Procedure] Temperature [ Pre-Procedure] Pulse Rate [ Intra-Procedure ] Pulse Rate [ 90 85 Post-Procedure] Pulse Rate [Pre -Procedure] Respiratory Rate Respiratory Rate [Intra- Procedure] Respiratory 16 15 Rate [Post- Procedure] Respiratory Rate [Pre- Procedure] Blood Pressure [Intra- Procedure] Blood Pressure 127/78 119/68 [Post-Procedure ] Blood Pressure [Pre-Procedure] O2 Sat by Pulse Oximetry [ Intra-Procedure ] O2 Sat by Pulse 100 100 Oximetry [Post -Procedure] O2 Sat by Pulse Oximetry [Pre- Procedure] - Labs 06/25/22 04:34 06/28/22 04:41
--- NOTE | 2022-06-29 18:30 | Progress Note ---
Assessment and Plan Cultures: 06/13/2022 blood culture: No growth 06/14/2022 surgical culture: MSSA, Klebsiella pneumoniae 06/25/2022 surgical culture MRSA, Klebsiella A/P: 41-year-old male with diabetes: #Extensive, necrotic posterior neck abscess extending to the paraspinal musculature: No evidence of osteomyelitis on imaging. S/p extensive I&D on 06/14/2022, 06/15/2022 and 06/17/2022 by general surgery. VAC changed on 06/21/2022. #R shoulder abscess: CT right shoulder with and without contrast showed multiple abscesses in the right subscapularis muscle bed. #Diabetes mellitus type 2, uncontrolled: HbA1c 15.6 #Leucopenia: resolved. HIV negative. Recs: -Will change antibiotics to vancomycin, ceftriaxone -continue wound care and glycemic control -Follow-up cultures from aspiration of abscess. Levon Burns MD [facility] ([facility]) O: [phone] F: [phone] Subjective Date of service: 06/29/22 Interval history: Afebrile, normal white count. The surgical culture today. Had CT-guided aspiration of abscess. Objective - Exam Narrative Exam: Physical Exam: Constitutional: Alert, cooperative. No acute distress Head, Ears, Nose: Normocephalic, atraumatic. External ears, nose normal Eyes: Conjunctivae/corneas clear. No icterus. No ptosis. Neck: Posterior neck and scalp region with a large wound, VAC + Cardiovascular: S1, S2 + Respiratory: Good air entry, clear to auscultation bilaterally GI: Soft, non-tender; bowel sounds normal. No peritoneal signs Musculoskeletal: R shoulder painful ROM Skin: No rash or abscess Hem/Lymphatic: No palpable cervical or supraclavicular nodes. No lymphangitis Psych: Mood ok. Affect normal Neurological: Awake, alert, oriented. No gross abnormality - Constitutional Vitals: Vital Signs Temp Pulse Resp BP Pulse Ox 98.8 F 85 15 119/68 100 06/29/22 10:15 06/29/22 10:31 06/29/22 10:31 06/29/22 10:31 06/29/22 10:31 Temperature -Last 24 Hours Temperature [Post-Procedure] 98.8 F Temperature [Pre-Procedure] 98.0 F Temperature 97.7 F - Labs CBC & Chem 7: 06/25/22 04:34 06/28/22 04:41 Labs: Abnormal lab results 06/28/22 06/28/22 06/28/22 Range/Units 07:31 16:19 21:52 POC Glucose 113 H 208 H 156 H (70-105) mg/dL 06/29/22 Range/Units 07:33 POC Glucose 123 H (70-105) mg/dL
--- NOTE | 2022-06-29 21:08 | Progress Note ---
Assessment and Plan Assessment and plan: #R scapular abscess Right subcapsular muscle abscess: successful CT-guided aspiration of the right subcu scapular abscess present for fluid analysis ID change antibiotics to vancomycin and ceftriaxone Follow cultures #Posterior neck abscess secondary to Klebsiella + staph aureus #Septic joint #Lactic acidosisresolved CT of the head and chest with contrast revealing "large peripherally enhancing multiseptated organized collection seen extending from the posterior scalp along the subcutis tissues + paraspinal musculature to the level of T1 spinous process". continue IV Ancef 2 g every 8 hours while inpatient. Upon discharge, plan for p.o. Keflex 750 mg QID for 3 weeks General surgery consulted; appreciate recs. status post I&D of posterior neck abscess. Blood cultures negative. wound cultures positive for Klebsiella and staph aureus. Currently exchanging wound vacs. Infectious disease consulted; appreciate recs. HIV negative. CRP 12.60 -> 9.3 0 Continue analgesics as needed. Occupational Therapy consulted due to decreased mobility of right shoulder; recommending acute rehab. - CT of the R arm showed possible fluid collections at the the subscapularis muscle bed. Discussed findings with general surgery, concern for septic joint - Orthopaedics consulted, plan for arthrocentesis -wound VAC exchanged 06/25 -General surgery recommends patient transfer to OSH for intervention of the abscesses at subscapularis muscle bed. [facility] [place] was contacted again. They are unable to accept the patient at this time. #Non-insulin dependent type II diabetes mellitus - hemoglobin A1c: 15.6 - home regimen: None - current regimen: NPH 70/30 5 units twice daily + moderate SSI - blood glucose goal 140-180 while inpatient - continue to monitor #Hyponatremia-stable Continue to monitor with repeat BMP #Hypokalemia will continue to replete and monitor #Iron deficiency anemia Hemoglobin 7-8 Iron 18, TIBC 79, ferritin 894 Transfuse if hemoglobin <7 or patient become symptomatic. #Hypocalcemia Calcium 7.5 Replete. Continue to monitor. #Moderate protein caloric malnutrition Albumin 2.2 Continue dietary supplementation #Advanced care planning -Disease education conducted, care plan discussed, diagnoses discussed, prognosis discussed, and patient acknowledges understanding with care plan -Time: +30 min #Social issues -Patient is undocumented and does not have health insurance. All items needed for wound VAC and medications may be required to self-pay. Case management/social work aware to attempt to provide patient with lucero items DC planning per case management We will closely monitor patient and adjust management as needed Plan of care reviewed with the patient and his nurse History Interval history: Seen and examined the patient at the bedside Patient's chart and medications reviewed Patient underwent CT-guided aspiration of subscapular abscess Fluid sent for analysis Patient tolerated the procedure well Hospitalist Physical - Constitutional Vitals: Temp Pulse Resp BP Pulse Ox 99.7 F H 95 H 14 109/62 100 06/29/22 18:12 06/29/22 18:12 06/29/22 18:12 06/29/22 18:12 06/29/22 18:12 General appearance: Present: no acute distress, well-nourished - EENT Eyes: Present: PERRL, EOM intact - Neck Neck: Present: supple, normal ROM - Respiratory Respiratory effort: normal Respiratory: bilateral: diminished, negative: rales, rhonchi, wheezing - Cardiovascular Rhythm: regular Heart Sounds: Present: S1 & S2 - Extremities Extremities: no ischemia, No edema - Abdominal General gastrointestinal: soft, non-tender, non-distended, normal bowel sounds - Integumentary Integumentary: Present: clear, warm - Psychiatric Psychiatric: appropriate mood/affect - Neurologic Neurologic: moves all extremities Results - Labs CBC & Chem 7: 06/25/22 04:34 06/30/22 05:46 Labs: Laboratory Last Values WBC 5.8 K/mm3 (4.5-11.0) 06/25/22 04:34 RBC 2.77 M/mm3 (3.65-5.03) L 06/25/22 04:34 Hgb 8.1 gm/dl (11.8-15.2) L 06/25/22 04:34 Hct 23.7 % (35.5-45.6) L 06/25/22 04:34 MCV 85 fl (84-94) 06/25/22 04:34 MCH 29 pg (28-32) 06/25/22 04:34 MCHC 34 % (32-34) 06/25/22 04:34 RDW 14.2 % (13.2-15.2) 06/25/22 04:34 Plt Count 419 K/mm3 (140-440) 06/25/22 04:34 Lymph % (Auto) 17.6 % (13.4-35.0) 06/21/22 04:00 [place] % (Auto) 8.4 % (0.0-7.3) H 06/21/22 04:00 Eos % (Auto) 1.5 % (0.0-4.3) 06/21/22 04:00 Baso % (Auto) 0.5 % (0.0-1.8) 06/21/22 04:00 Lymph # (Auto) 1.0 K/mm3 (1.2-5.4) L 06/21/22 04:00 [place] # (Auto) 0.5 K/mm3 (0.0-0.8) 06/21/22 04:00 Eos # (Auto) 0.1 K/mm3 (0.0-0.4) 06/21/22 04:00 Baso # (Auto) 0.0 K/mm3 (0.0-0.1) 06/21/22 04:00 Seg Neutrophils % 72.0 % (40.0-70.0) H 06/21/22 04:00 Seg Neutrophils # 4.2 K/mm3 (1.8-7.7) 06/21/22 04:00 Sodium 126 mmol/L (137-145) L 06/28/22 04:41 Potassium 4.0 mmol/L (3.6-5.0) 06/28/22 04:41 Chloride 94.9 mmol/L (98-107) L 06/28/22 04:41 Carbon Dioxide 23 mmol/L (22-30) 06/28/22 04:41 Anion Gap 12 mmol/L 06/28/22 04:41 BUN 4 mg/dL (9-20) L 06/28/22 04:41 Creatinine 0.3 mg/dL (0.8-1.3) L 06/28/22 04:41 Estimated GFR > 60 ml/min 06/28/22 04:41 BUN/Creatinine Ratio 13 % 06/28/22 04:41 Glucose 107 mg/dL (75-100) H 06/28/22 04:41 POC Glucose 93 mg/dL (70-105) 06/29/22 11:54 Hemoglobin A1c 15.6 % (4-6) H 06/14/22 09:08 Lactic Acid 1.80 mmol/L (0.7-2.0) 06/14/22 16:27 Calcium 7.4 mg/dL (8.4-10.2) L 06/28/22 04:41 Iron 18 ug/dL (49-181) L 06/14/22 09:08 TIBC 79 mcg/dL (250-450) L 06/14/22 09:08 Ferritin 894.3 ng/mL (30.0-300.0) H 06/14/22 09:08 Total Bilirubin 0.60 mg/dL (0.1-1.2) 06/13/22 22:05 AST 37 units/L (5-40) 06/13/22 22:05 ALT 43 units/L (7-56) 06/13/22 22:05 Alkaline Phosphatase 127 units/L (35-129) 06/13/22 22:05 C-Reactive Protein 8.00 mg/dL (0.00-1.30) H 06/27/22 04:53 Total Protein 7.0 g/dL (6.3-8.2) 06/13/22 22:05 Albumin 2.2 g/dL (3.9-5) L 06/13/22 22:05 Albumin/Globulin Ratio 0.5 % 06/13/22 22:05 Vancomycin Trough 7.3 ug/mL (5.0-20.0) 06/16/22 06:00 HIV DNA Qual (PCR) Not detected (Not Detected) 06/16/22 11:11 HIV 1&2 Antibody Rapid Non react (Non React) 06/16/22 11:11 HIV P24 Antigen Non react (Non React) 06/16/22 11:11 Blood Type O POSITIVE 06/25/22 04:34 Antibody Screen Negative 06/25/22 04:34 Microbiology: Microbiology 06/29/22 Unknown Other (Please Specify:) - Abscess Surgical Culture - Preliminary Perez/IV: Voiding Method Urinal Active Medications - Current Medications Current Medications: Generic Name Dose Route Start Last Admin Trade Name Freq PRN Reason Stop Dose Admin Acetaminophen 650 mg 06/14/22 10:00 06/18/22 17:05 Acetaminophen 325 Mg Tab PO 650 mg Q4H PRN Administration Pain MILD(1-3)/Fever >100.5/ALMAZAN Dextrose 50 ml 06/14/22 15:48 06/21/22 22:42 Dextrose 50% In Water (25gm) 50 Ml Syringe IV 50 ml Q30MIN PRN Administration Hypoglycemia Protocol Heparin Sodium (Porcine) 5,000 unit 06/14/22 14:00 06/29/22 14:24 Heparin 5,000 Unit/1 Ml Vial SUB-Q 5,000 unit Q8HR KARAN Administration Hydromorphone HCl 1 mg 06/14/22 10:00 06/28/22 15:00 Hydromorphone 0.5 Mg/0.5 Ml Inj IV 1 mg Q4H PRN Administration Pain , Severe (7-10) Ceftriaxone Sodium 2 gm in 100 mls @ 200 mls/hr 06/28/22 14:00 06/29/22 15:25 Rocephin/Ns 2 Gm/100 Ml IV Not Given Q24H [facility] Protocol Vancomycin HCl 1,500 mg/ 530 mls @ 333.333 mls/hr 06/28/22 17:00 06/29/22 19:26 Sodium Chloride IV 333.333 mls/hr Q12H KARAN Administration Insulin Human Isoph/Insulin Regular 5 unit 06/15/22 12:09 06/29/22 18:26 Insulin Nph/Regular 70/30 Inj SUB-Q 5 unit BIDDIAB KARAN Administration Insulin Human Regular 0 units 06/14/22 16:30 06/29/22 17:23 Insulin Regular, Human 100 Units/1 Ml SUB-Q Not Given ACHS [facility] Protocol Metoclopramide HCl 10 mg 06/14/22 04:33 06/14/22 07:44 Metoclopramide 10 Mg/2 Ml Inj IV 10 mg Q6H PRN Administration Nausea And Vomiting Ondansetron HCl 4 mg 06/14/22 10:00 Ondansetron 4 Mg/2 Ml Inj IV Q8H PRN Nausea And Vomiting Oxycodone/Acetaminophen 1 tab 06/14/22 10:00 06/21/22 05:13 Oxycodone /Acetaminophen 5-325mg Tab PO 1 tab Q6H PRN Administration Pain, Moderate (4-6) Sodium Chloride 10 ml 06/14/22 04:33 06/29/22 05:44 Sodium Chloride 0.9% 10 Ml Flush Syringe IV 10 ml PRN PRN Administration LINE FLUSH Sodium Chloride 10 ml 06/14/22 10:00 06/29/22 12:25 Sodium Chloride 0.9% 10 Ml Flush Syringe IV 10 ml BID KARAN Administration Sodium Hypochlorite 1 applic 06/20/22 09:39 Sodium Hypochlorite, Dakin's Full Strength (0.5%) 473 Ml Topical Soln TP Q12H PRN Wound Care Nutrition/Malnutrition Assess - Dietary Evaluation Nutrition/Malnutrition Findings: Nutrition Notes Start: 06/15/22 16:25 Freq: Status: Active Protocol: Document 06/29/22 11:42 BRIANDA (Rec: 06/29/22 12:12 BRIANDA [id number]) Nutrition Notes Initial or Follow up Reassessment Current Diagnosis Diabetes,Sepsis,Malnutrition Other Pertinent Diagnosis Posterior-Neck & Subscapular Abscesses, Anemia. Current Diet Consistent Carbohydrates Diet (since L 06/17)+D Suppl (from D 06/25). Labs/Tests 06/28: Na 126, Cl 94.9, BUN 4, Crea 0.3, Glu 107, Ca 7.4. Pertinent Medications 06/29: Humulin 70/30 5U, Humulin R 2U, others nutritionally unremarkable. Height 5 ft 5 in Weight 73.3 kg [place] Body Weight (kg) 61.81 BMI 26.9 Weight change and time frame No body weight change reported in 1 week. Weight Status Overweight Subjective/Other Information RD consult for routine F/U on dietary advancement. Diet+ONS continue as prescribed, Pt's PO intake of meals has been Good (75-100%), according to ADL notes. Pt is on Room Air, O2 saturation @ 98%, according to Physical Assessment History notes. Pt shows posterior-neck surgical incision as sign of concern for skin risk at the time, according to Physical Assessment History notes. WoundVac changed on 06/25, culture showed MRSA & Klebsiella; different from previous culture withy MSSA, according to Progress notes. Pt awaiting transfer tomore specialized facility, according to Progress notes. Percent of energy/protein needs met: Prescribed Consistent Carbohydrates Diet provides for energy/protein needs (2, 061 Kcal/91 g) during LOS; additionally, Dietary Supplements will compensate for possible poor or insufficient PO intake of meals with 660 Kcal and 30 g of protein. Burn Absent Trauma Absent GI Symptoms None Food Allergy No Skin Integrity/Comment Neck surgical wound. Current % PO Good (75-100%) Minimum of two criteria No Fluid Accumulation N/A Reduced Pilot Manager Strength N/A (non-severe) Protein-Calorie Malnutrition N\\A #2 Nutrition Diagnosis Inadequate protein-energy intake Comments: Diet+ONS continue as prescribed, Pt's PO intake of meals has been Good (75-100%), according to ADL notes. Diagnosis Progress(for reassessment Improved documentation) #1 Nutrition Diagnosis Increased nutrient needs ( specify in comment below) Comments: Protein to support wound healing processes. Diagnosis Progress(for reassessment Continues documentation) Is patient on ventilator? No Is Patient Ambulatory and/or Out of Bed Yes REE-([place]-St. Jeor-ambulatory/OOB) [ 2047.344 [id number]] Kcal/Kg value to use for calculation 21 Approximate Energy Requirements Using 1539 kcal/Kg Calculation Used for Recommendations Kcal/kg Additional Notes Protein: 1.25-1.5 g/Kg ABW; 84 -101 g/day. Fluids: 1 ml/Kcal, or as per MD. Nutrition Intervention Change Diet Order: Continue Consistent Carbohydrates Diet as tolerated. Add Supplement/Snack (indicate name/kcal Continue 8 fl oz Glucerna; TID /protein ) . Provides kCal: 660 Provides Protein (gm) 30 Goal #1 Support, through dietary supplementation, wound healing processes during LOS. Goal #2 Adjust the dietary intervention to better serve Pt's needs and clinical conditions during LOS. Follow-Up By: 07/06/22 Additional Comments Continue monitoring food tolerance, %PO intake of meals , dietary supplements, and BM.
[2022-06-30] MEDS: VANCOMYCIN 1,500 MG in SODIUM CHLORIDE 0.9% 500 ML 500 ML IV SCH ×2 (05:39→20:07)
[2022-06-30] MEDS: HEPARIN 5,000 UNIT/1 ML VIAL SUB-Q SCH ×3 (05:43→22:55)
[2022-06-30 06:23] LABS: Blood Urea Nitrogen 4 mg/dL (9-20); Calcium 7.2 mg/dL (8.4-10.2); Hemolysis Index 18
[2022-06-30 06:26] LABS: BUN/Creatinine Ratio 13
[2022-06-30] MEDS: INSULIN REGULAR, HUMAN 100 UNITS/1 ML SUB-Q SCH ×4 (09:00→23:48)
[2022-06-30] MEDS: INSULIN NPH/REGULAR 70/30 INJ SUB-Q SCH ×2 (09:01→14:32)
--- NOTE | 2022-06-30 09:14 | Progress Note ---
Assessment and Plan Assessment and plan: #R scapular abscess Right subcapsular muscle abscess: successful CT-guided aspiration of the right subcu scapular abscess present for fluid analysis ID change antibiotics to vancomycin and ceftriaxone Follow cultures #Posterior neck abscess secondary to Klebsiella + staph aureus #Septic joint #Lactic acidosisresolved CT of the head and chest with contrast revealing "large peripherally enhancing multiseptated organized collection seen extending from the posterior scalp along the subcutis tissues + paraspinal musculature to the level of T1 spinous process". continue IV Ancef 2 g every 8 hours while inpatient. Upon discharge, plan for p.o. Keflex 750 mg QID for 3 weeks General surgery consulted; appreciate recs. status post I&D of posterior neck abscess. Blood cultures negative. wound cultures positive for Klebsiella and staph aureus. Currently exchanging wound vacs. Infectious disease consulted; appreciate recs. HIV negative. CRP 12.60 -> 9.3 0 Continue analgesics as needed. Occupational Therapy consulted due to decreased mobility of right shoulder; recommending acute rehab. - CT of the R arm showed possible fluid collections at the the subscapularis muscle bed. Discussed findings with general surgery, concern for septic joint - Orthopaedics consulted, plan for arthrocentesis -wound VAC exchanged 06/25 -General surgery recommends patient transfer to OSH for intervention of the abscesses at subscapularis muscle bed. [facility] [place] was contacted again. They are unable to accept the patient at this time. #Non-insulin dependent type II diabetes mellitus - hemoglobin A1c: 15.6 - home regimen: None - current regimen: NPH 70/30 5 units twice daily + moderate SSI - blood glucose goal 140-180 while inpatient - continue to monitor #Hyponatremia-stable Continue to monitor with repeat BMP #Hypokalemia will continue to replete and monitor #Iron deficiency anemia Hemoglobin 7-8 Iron 18, TIBC 79, ferritin 894 Transfuse if hemoglobin <7 or patient become symptomatic. #Hypocalcemia Calcium 7.5 Replete. Continue to monitor. #Moderate protein caloric malnutrition Albumin 2.2 Continue dietary supplementation #Advanced care planning -Disease education conducted, care plan discussed, diagnoses discussed, prognosis discussed, and patient acknowledges understanding with care plan -Time: +30 min #Social issues -Patient is undocumented and does not have health insurance. All items needed for wound VAC and medications may be required to self-pay. Case management/social work aware to attempt to provide patient with lucero items DC planning per case management We will closely monitor patient and adjust management as needed Plan of care reviewed with the patient and his nurse History Interval history: I have seen and examined the patient at the bedside Patient's chart and medications reviewed, Vital signs noted Patient underwent surgical debridement of wound on the back of the neck 06/30/2022 Patient complains of some pain Hospitalist Physical - Constitutional Vitals: Temp Pulse Resp BP Pulse Ox 98.2 F 85 18 121/77 99 06/30/22 05:53 06/30/22 05:53 06/30/22 05:53 06/30/22 05:53 06/30/22 05:53 General appearance: Present: no acute distress, well-nourished - EENT Eyes: Present: PERRL, EOM intact - Neck Neck: Present: supple, normal ROM - Respiratory Respiratory effort: normal Respiratory: bilateral: diminished, negative: rales, rhonchi, wheezing - Cardiovascular Rhythm: regular Heart Sounds: Present: S1 & S2 - Extremities Extremities: no ischemia, No edema - Abdominal General gastrointestinal: soft, non-tender, non-distended, normal bowel sounds - Integumentary Integumentary: Present: clear, warm - Psychiatric Psychiatric: appropriate mood/affect, cooperative - Neurologic Neurologic: moves all extremities Results - Labs CBC & Chem 7: 06/25/22 04:34 06/30/22 05:46 Labs: Laboratory Last Values WBC 5.8 K/mm3 (4.5-11.0) 06/25/22 04:34 RBC 2.77 M/mm3 (3.65-5.03) L 06/25/22 04:34 Hgb 8.1 gm/dl (11.8-15.2) L 06/25/22 04:34 Hct 23.7 % (35.5-45.6) L 06/25/22 04:34 MCV 85 fl (84-94) 06/25/22 04:34 MCH 29 pg (28-32) 06/25/22 04:34 MCHC 34 % (32-34) 06/25/22 04:34 RDW 14.2 % (13.2-15.2) 06/25/22 04:34 Plt Count 419 K/mm3 (140-440) 06/25/22 04:34 Lymph % (Auto) 17.6 % (13.4-35.0) 06/21/22 04:00 [place] % (Auto) 8.4 % (0.0-7.3) H 06/21/22 04:00 Eos % (Auto) 1.5 % (0.0-4.3) 06/21/22 04:00 Baso % (Auto) 0.5 % (0.0-1.8) 06/21/22 04:00 Lymph # (Auto) 1.0 K/mm3 (1.2-5.4) L 06/21/22 04:00 Wythe # (Auto) 0.5 K/mm3 (0.0-0.8) 06/21/22 04:00 Eos # (Auto) 0.1 K/mm3 (0.0-0.4) 06/21/22 04:00 Baso # (Auto) 0.0 K/mm3 (0.0-0.1) 06/21/22 04:00 Seg Neutrophils % 72.0 % (40.0-70.0) H 06/21/22 04:00 Seg Neutrophils # 4.2 K/mm3 (1.8-7.7) 06/21/22 04:00 Sodium 126 mmol/L (137-145) L 06/30/22 05:46 Potassium 3.9 mmol/L (3.6-5.0) 06/30/22 05:46 Chloride 95.1 mmol/L (98-107) L 06/30/22 05:46 Carbon Dioxide 22 mmol/L (22-30) 06/30/22 05:46 Anion Gap 13 mmol/L 06/30/22 05:46 BUN 4 mg/dL (9-20) L 06/30/22 05:46 Creatinine 0.3 mg/dL (0.8-1.3) L 06/30/22 05:46 Estimated GFR > 60 ml/min 06/30/22 05:46 BUN/Creatinine Ratio 13 % 06/30/22 05:46 Glucose 132 mg/dL (75-100) H 06/30/22 05:46 POC Glucose 163 mg/dL (70-105) H 06/29/22 22:10 Hemoglobin A1c 15.6 % (4-6) H 06/14/22 09:08 Lactic Acid 1.80 mmol/L (0.7-2.0) 06/14/22 16:27 Calcium 7.2 mg/dL (8.4-10.2) L 06/30/22 05:46 Magnesium 1.50 mg/dL (1.7-2.3) L 06/30/22 05:46 Iron 18 ug/dL (49-181) L 06/14/22 09:08 TIBC 79 mcg/dL (250-450) L 06/14/22 09:08 Ferritin 894.3 ng/mL (30.0-300.0) H 06/14/22 09:08 Total Bilirubin 0.60 mg/dL (0.1-1.2) 06/13/22 22:05 AST 37 units/L (5-40) 06/13/22 22:05 ALT 43 units/L (7-56) 06/13/22 22:05 Alkaline Phosphatase 127 units/L (35-129) 06/13/22 22:05 C-Reactive Protein 8.00 mg/dL (0.00-1.30) H 06/27/22 04:53 Total Protein 7.0 g/dL (6.3-8.2) 06/13/22 22:05 Albumin 2.2 g/dL (3.9-5) L 06/13/22 22:05 Albumin/Globulin Ratio 0.5 % 06/13/22 22:05 Vancomycin Trough 7.3 ug/mL (5.0-20.0) 06/16/22 06:00 HIV DNA Qual (PCR) Not detected (Not Detected) 06/16/22 11:11 HIV 1&2 Antibody Rapid Non react (Non React) 06/16/22 11:11 HIV P24 Antigen Non react (Non React) 06/16/22 11:11 Blood Type O POSITIVE 06/25/22 04:34 Antibody Screen Negative 06/25/22 04:34 Microbiology: Microbiology 06/29/22 Unknown Other (Please Specify:) - Abscess Surgical Culture - Preliminary Perez/IV: Voiding Method Urinal Active Medications - Current Medications Current Medications: Generic Name Dose Route Start Last Admin Trade Name Freq PRN Reason Stop Dose Admin Acetaminophen 650 mg 06/14/22 10:00 06/18/22 17:05 Acetaminophen 325 Mg Tab PO 650 mg Q4H PRN Administration Pain MILD(1-3)/Fever >100.5/ALMAZAN Dextrose 50 ml 06/14/22 15:48 06/21/22 22:42 Dextrose 50% In Water (25gm) 50 Ml Syringe IV 50 ml Q30MIN PRN Administration Hypoglycemia Protocol Heparin Sodium (Porcine) 5,000 unit 06/14/22 14:00 06/30/22 05:43 Heparin 5,000 Unit/1 Ml Vial SUB-Q 5,000 unit Q8HR KARAN Administration Hydromorphone HCl 1 mg 06/14/22 10:00 06/28/22 15:00 Hydromorphone 0.5 Mg/0.5 Ml Inj IV 1 mg Q4H PRN Administration Pain , Severe (7-10) Ceftriaxone Sodium 2 gm in 100 mls @ 200 mls/hr 06/28/22 14:00 06/29/22 15:25 Rocephin/Ns 2 Gm/100 Ml IV Not Given Q24H [facility] Protocol Vancomycin HCl 1,500 mg/ 530 mls @ 333.333 mls/hr 06/28/22 17:00 06/30/22 05:39 Sodium Chloride IV 333.333 mls/hr Q12H KARAN Administration Magnesium Sulfate 2 gm in 50 mls @ 25 mls/hr 06/30/22 09:08 Magnesium Sulfate 2gm/50ml IV 06/30/22 11:07 ONCE ONE Insulin Human Isoph/Insulin Regular 5 unit 06/15/22 12:09 06/30/22 09:01 Insulin Nph/Regular 70/30 Inj SUB-Q Not Given BIDDIAB [facility] Insulin Human Regular 0 units 06/14/22 16:30 06/30/22 09:00 Insulin Regular, Human 100 Units/1 Ml SUB-Q Not Given ACHS [facility] Protocol Metoclopramide HCl 10 mg 06/14/22 04:33 06/14/22 07:44 Metoclopramide 10 Mg/2 Ml Inj IV 10 mg Q6H PRN Administration Nausea And Vomiting Ondansetron HCl 4 mg 06/14/22 10:00 Ondansetron 4 Mg/2 Ml Inj IV Q8H PRN Nausea And Vomiting Oxycodone/Acetaminophen 1 tab 06/14/22 10:00 06/21/22 05:13 Oxycodone /Acetaminophen 5-325mg Tab PO 1 tab Q6H PRN Administration Pain, Moderate (4-6) Sodium Chloride 10 ml 06/14/22 04:33 06/29/22 05:44 Sodium Chloride 0.9% 10 Ml Flush Syringe IV 10 ml PRN PRN Administration LINE FLUSH Sodium Chloride 10 ml 06/14/22 10:00 06/30/22 09:08 Sodium Chloride 0.9% 10 Ml Flush Syringe IV 10 ml BID KARAN Administration Sodium Chloride 1 gm 06/30/22 10:00 Sodium Chloride 1 Gm Tab PO BID KARAN Sodium Hypochlorite 1 applic 06/20/22 09:39 Sodium Hypochlorite, Dakin's Full Strength (0.5%) 473 Ml Topical Soln TP Q12H PRN Wound Care Nutrition/Malnutrition Assess - Dietary Evaluation Nutrition/Malnutrition Findings: Nutrition Notes Start: 06/15/22 16:25 Freq: Status: Active Protocol: Document 06/29/22 11:42 BRIANDA (Rec: 06/29/22 12:12 BRIANDA [id number]) Nutrition Notes Initial or Follow up Reassessment Current Diagnosis Diabetes,Sepsis,Malnutrition Other Pertinent Diagnosis Posterior-Neck & Subscapular Abscesses, Anemia. Current Diet Consistent Carbohydrates Diet (since L 06/17)+D Suppl (from D 06/25). Labs/Tests 06/28: Na 126, Cl 94.9, BUN 4, Crea 0.3, Glu 107, Ca 7.4. Pertinent Medications 06/29: Humulin 70/30 5U, Humulin R 2U, others nutritionally unremarkable. Height 5 ft 5 in Weight 73.3 kg [place] Body Weight (kg) 61.81 BMI 26.9 Weight change and time frame No body weight change reported in 1 week. Weight Status Overweight Subjective/Other Information RD consult for routine F/U on dietary advancement. Diet+ONS continue as prescribed, Pt's PO intake of meals has been Good (75-100%), according to ADL notes. Pt is on Room Air, O2 saturation @ 98%, according to Physical Assessment History notes. Pt shows posterior-neck surgical incision as sign of concern for skin risk at the time, according to Physical Assessment History notes. WoundVac changed on 06/25, culture showed MRSA & Klebsiella; different from previous culture withy MSSA, according to Progress notes. Pt awaiting transfer [facility], according to Progress notes. Percent of energy/protein needs met: Prescribed Consistent Carbohydrates Diet provides for energy/protein needs (2, 061 Kcal/91 g) during LOS; additionally, Dietary Supplements will compensate for possible poor or insufficient PO intake of meals with 660 Kcal and 30 g of protein. Burn Absent Trauma Absent GI Symptoms None Food Allergy No Skin Integrity/Comment Neck surgical wound. 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 Diagnosis Progress(for reassessment Improved documentation) #1 Nutrition Diagnosis Increased nutrient needs ( specify in comment below) Comments: Protein to support wound healing processes. Diagnosis Progress(for reassessment Continues documentation) Is patient on ventilator? No Is Patient Ambulatory and/or Out of Bed Yes REE-([place]-St. Jeor-ambulatory/OOB) [ 2047.344 [id number]] Kcal/Kg value to use for calculation 21 Approximate Energy Requirements Using 1539 kcal/Kg Calculation Used for Recommendations Kcal/kg Additional Notes Protein: 1.25-1.5 g/Kg ABW; 84 -101 g/day. Fluids: 1 ml/Kcal, or as per MD. Nutrition Intervention Change Diet Order: Continue Consistent Carbohydrates Diet as tolerated. Add Supplement/Snack (indicate name/kcal Continue 8 fl oz Glucerna; TID /protein ) . Provides kCal: 660 Provides Protein (gm) 30 Goal #1 Support, through dietary supplementation, wound healing processes during LOS. Goal #2 Adjust the dietary intervention to better serve Pt's needs and clinical conditions during LOS. Follow-Up By: 07/06/22 Additional Comments Continue monitoring food tolerance, %PO intake of meals , dietary supplements, and BM.
[2022-06-30] MEDS ORDERED: HYDROmorphone 1 MG/1 ML INJ ONE (09:42)
[2022-06-30] MEDS ORDERED: LIDOCAINE MPF (2%) 20 MG/1 ML VIAL 5 ML ONE (09:43)
[2022-06-30] MEDS ORDERED: propofoL 200 MG/20 ML VIAL IV ONE (09:43)
[2022-06-30] MEDS ORDERED: ROCURONIUM 50 MG/5 ML INJ IV ONE (09:43)
[2022-06-30] MEDS ORDERED: MAGNESIUM SULFATE 2 GM/50 ML BAG IV ONE (10:00)
[2022-06-30] MEDS ORDERED: SODIUM HYPOCHLORITE, DAKIN'S 1/2 STRENGTH (0.25%) 473 ML TOPICAL SOLN ONE (10:02)
[2022-06-30] MEDS ORDERED: SODIUM CHLORIDE 0.9% 1000 ML 1,000 ML ONE ×2 (10:04→11:29)
--- NOTE | 2022-06-30 10:11 | Anesthesia Day of Surgery ---
Anesthesia Day of Surgery - Day of Surgery Patient Examined: Yes Patient H&P Reviewed: Yes Patient is NPO: Yes
[2022-06-30] MEDS ORDERED: GLYCOPYRROLATE 0.4 MG/2 ML INJ ONE (11:05)
[2022-06-30] MEDS ORDERED: NEOSTIGMINE 10MG/10 ML INJ MDV ONE (11:05)
[2022-06-30] MEDS ORDERED: ONDANSETRON 4 MG/2 ML INJ ONE (11:06)
--- NOTE | 2022-06-30 11:31 | Operative Report ---
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 Patel EBL: Less than 10 cc Anesthesia: General endotracheal anesthesia Specimen: None Procedure: The patient is taken to the OR and after timeouts are completed. Patient is intubated and then rolled into a prone position all pressure points were padded. The Chronic wound of posterior neck is prepped with Betadine and draped in a sterile fashion. Thick necrotic tissue was encountered and debrided mechanically with a curved Campbell and an Allis forceps. The Acronis generator platform was then used with the flat tip for ultrasound debridement of the interface between the necrotic tissue and the living tissue. The wound site including all areas of tunneling is 16 cm x 9 cm x 1 cm. Total wound area 148.5 cm2. After debridement wound size is 16cm x 9cm x 1.2cm. Debridement is of the dermis and epidermis muscle and deep fascia and subcutaneous tissue. Electrocautery was used for hemostasis. The wound is then irrigated with copious amounts of saline. Dakin's quarter percent is used to irrigate the wound. The black foam from the wound VAC kit is then placed into the wound in all areas of tunneling. Skin-Prep is used along the wound edge. Wound VAC adhesive dressing is then placed and attached to vacuum. A good seal was obtained.
--- NOTE | 2022-06-30 17:46 | Progress Note ---
Assessment and Plan Cultures: 06/13/2022 blood culture: No growth 06/14/2022 surgical culture: MSSA, Klebsiella pneumoniae 06/25/2022 surgical culture MRSA, Klebsiella A/P: 41-year-old male with diabetes: #Extensive, necrotic posterior neck abscess extending to the paraspinal musculature: No evidence of osteomyelitis on imaging. S/p extensive I&D on 06/14/2022, 06/15/2022 and 06/17/2022 by general surgery. VAC changed on 06/21/2022. #R shoulder abscess: CT right shoulder with and without contrast showed multiple abscesses in the right subscapularis muscle bed. #Diabetes mellitus type 2, uncontrolled: HbA1c 15.6 #Leucopenia: resolved. HIV negative. Recs: -Continue vancomycin, ceftriaxone -continue wound care and glycemic control -Follow-up cultures from aspiration of abscess. Levon Burns MD [facility] [place] O: [phone] F: [phone] Subjective Date of service: 06/30/22 Interval history: Afebrile, normal white count. Taken back to the OR today for further debridemen t. Objective - Exam Narrative Exam: Physical Exam: Constitutional: Alert, cooperative. No acute distress Head, Ears, Nose: Normocephalic, atraumatic. External ears, nose normal Eyes: Conjunctivae/corneas clear. No icterus. No ptosis. Neck: Posterior neck and scalp region with a large wound, VAC + Cardiovascular: S1, S2 + Respiratory: Good air entry, clear to auscultation bilaterally GI: Soft, non-tender; bowel sounds normal. No peritoneal signs Musculoskeletal: R shoulder painful ROM Skin: No rash or abscess Hem/Lymphatic: No palpable cervical or supraclavicular nodes. No lymphangitis Psych: Mood ok. Affect normal Neurological: Awake, alert, oriented. No gross abnormality - Constitutional Vitals: Vital Signs Temp Pulse Resp BP Pulse Ox 97.2 F L 81 16 119/62 100 06/30/22 11:23 06/30/22 12:00 06/30/22 12:00 06/30/22 12:00 06/30/22 12:00 Temperature -Last 24 Hours Temperature 97.2 F Temperature 98.2 F Temperature 98.4 F Temperature 99.7 F - Labs CBC & Chem 7: 06/25/22 04:34 06/30/22 05:46 Labs: Abnormal lab results 06/29/22 06/29/22 06/30/22 Range/Units 18:06 22:10 05:46 Sodium 126 L (137-145) mmol/L Chloride 95.1 L (98-107) mmol/L BUN 4 L (9-20) mg/dL Creatinine 0.3 L (0.8-1.3) mg/dL Glucose 132 H (75-100) mg/dL POC Glucose 205 H 163 H (70-105) mg/dL Calcium 7.2 L (8.4-10.2) mg/dL Magnesium 1.50 L (1.7-2.3) mg/dL 06/30/22 06/30/22 Range/Units 07:59 11:30 Sodium (137-145) mmol/L Chloride (98-107) mmol/L BUN (9-20) mg/dL Creatinine (0.8-1.3) mg/dL Glucose (75-100) mg/dL POC Glucose 124 H 113 H (70-105) mg/dL Calcium (8.4-10.2) mg/dL Magnesium (1.7-2.3) mg/dL
[2022-06-30] MEDS: SODIUM CHLORIDE 1 GM TAB PO SCH ×2 (18:26→22:55)
[2022-06-30] MEDS: cefTRIAXone/NS 2 GM/100 ML 2 GM/100 ML BAG IV SCH (18:58)
[2022-07-01] MEDS: HEPARIN 5,000 UNIT/1 ML VIAL SUB-Q SCH ×3 (05:10→22:41)
[2022-07-01] MEDS: VANCOMYCIN 1,500 MG in SODIUM CHLORIDE 0.9% 500 ML 500 ML IV SCH (05:10)
[2022-07-01] MEDS: INSULIN NPH/REGULAR 70/30 INJ SUB-Q SCH ×2 (08:41→17:07)
[2022-07-01] MEDS: INSULIN REGULAR, HUMAN 100 UNITS/1 ML SUB-Q SCH ×4 (08:41→22:41)
[2022-07-01] MEDS: oxyCODONE /ACETAMINOPHEN 5-325MG TAB PO PRN (10:05)
--- NOTE | 2022-07-01 11:10 | Progress Note ---
Assessment and Plan Continue local wound care continue IV antibiotics. Discussed with hospitalist regarding low white counts and large septic area. HIV testing was negative. CT of the shoulder is showing a large abscess under the scapula. Patient status post debridement yesterday with placement of wound VAC. Wound is markedly improved. Wound VAC today is intact and functional. 2 days ago patient had a CT-guided aspiration of the right subscapularis muscle abscess. Culture sensitivity remain pending on this. Continue IV antibiotics for now. Plan changing the wound VAC on Monday. May need to possibly repeat CT of the right shoulder on Monday as well.. Subjective Date of service: 07/01/22 Patient Reports: Positive: no new complaints, still having pain Narrative: Patient status post debridement yesterday with placement of wound VAC. Wound is markedly improved. Wound VAC today is intact and functional. 2 days ago patient had a CT-guided aspiration of the right subscapularis muscle abscess. Culture sensitivity remain pending on this. Continue IV antibiotics for now. Plan changing the wound VAC on Monday. May need to possibly repeat CT of the right shoulder on Monday as well. Objective - Labs 06/25/22 04:34 06/30/22 05:46
[2022-07-01] MEDS: SODIUM CHLORIDE 1 GM TAB PO SCH ×2 (17:07→22:41)
[2022-07-01] MEDS: cefTRIAXone/NS 2 GM/100 ML 2 GM/100 ML BAG IV SCH (17:13)
--- NOTE | 2022-07-01 18:29 | Progress Note ---
Assessment and Plan Cultures: 06/13/2022 blood culture: No growth 06/14/2022 surgical culture: MSSA, Klebsiella pneumoniae 06/25/2022 surgical culture MRSA, Klebsiella A/P: 41-year-old male with diabetes: #Extensive, necrotic posterior neck abscess extending to the paraspinal musculature: No evidence of osteomyelitis on imaging. S/p extensive I&D on 06/14/2022, 06/15/2022 and 06/17/2022 by general surgery. VAC changed on 06/21/2022. #R shoulder abscess: CT right shoulder with and without contrast showed multiple abscesses in the right subscapularis muscle bed. #Diabetes mellitus type 2, uncontrolled: HbA1c 15.6 #Leucopenia: HIV negative. Recs: -Continue vancomycin, ceftriaxone -continue wound care and glycemic control -Follow-up cultures from aspiration of abscess. Levon Burns MD [facility] O: [phone] F: [phone] Subjective Date of service: 07/01/22 Interval history: Afebrile, no acute change. Most recent cultures negative. Plan for wound VAC change on Monday. Objective - Exam Narrative Exam: Physical Exam: Constitutional: Alert, cooperative. No acute distress Head, Ears, Nose: Normocephalic, atraumatic. External ears, nose normal Eyes: Conjunctivae/corneas clear. No icterus. No ptosis. Neck: Posterior neck and scalp region with a large wound, VAC + Cardiovascular: S1, S2 + Respiratory: Good air entry, clear to auscultation bilaterally GI: Soft, non-tender; bowel sounds normal. No peritoneal signs Musculoskeletal: R shoulder painful ROM Skin: No rash or abscess Hem/Lymphatic: No palpable cervical or supraclavicular nodes. No lymphangitis Psych: Mood ok. Affect normal Neurological: Awake, alert, oriented. No gross abnormality - Constitutional Vitals: Vital Signs Temp Pulse Resp BP Pulse Ox 98.1 F 83 18 115/72 100 07/01/22 16:52 07/01/22 16:52 07/01/22 16:52 07/01/22 16:52 07/01/22 16:52 Temperature -Last 24 Hours Temperature 98.1 F Temperature 99.7 F - Labs CBC & Chem 7: 06/25/22 04:34 06/30/22 05:46 Labs: Abnormal lab results 06/30/22 07/01/22 07/01/22 Range/Units 21:46 07:58 11:49 POC Glucose 115 H 119 H 116 H (70-105) mg/dL 07/01/22 Range/Units 16:21 POC Glucose 122 H (70-105) mg/dL
--- NOTE | 2022-07-01 18:31 | Progress Note ---
Assessment and Plan Assessment and plan: #R scapular abscess Right subcapsular muscle abscess: successful CT-guided aspiration of the right subcu scapular abscess present for fluid analysis ID change antibiotics to vancomycin and ceftriaxone Follow cultures #Posterior neck abscess secondary to Klebsiella + staph aureus Chronic wound of posterior neck s/p Debridement of Chronic wound of posterior neck 06/30/2022 #Septic joint #Lactic acidosisresolved CT of the head and chest with contrast revealing "large peripherally enhancing multiseptated organized collection seen extending from the posterior scalp along the subcutis tissues + paraspinal musculature to the level of T1 spinous process". continue IV Ancef 2 g every 8 hours while inpatient. Upon discharge, plan for p.o. Keflex 750 mg QID for 3 weeks General surgery consulted; appreciate recs. status post I&D of posterior neck abscess. Blood cultures negative. wound cultures positive for Klebsiella and staph aureus. Currently exchanging wound vacs. Infectious disease consulted; appreciate recs. HIV negative. CRP 12.60 -> 9.30 Continue analgesics as needed. Occupational Therapy consulted due to decreased mobility of right shoulder; recommending acute rehab. - CT of the R arm showed possible fluid collections at the the subscapularis muscle bed. Discussed findings with general surgery, concern for septic joint - Orthopaedics consulted, plan for arthrocentesis -wound VAC exchanged 06/25 -General surgery recommends patient transfer to OSH for intervention of the abscesses at subscapularis muscle bed. [place] [facility] [place] was contacted again. They are unable to accept the patient at this time. #Non-insulin dependent type II diabetes mellitus - hemoglobin A1c: 15.6 - home regimen: None - current regimen: NPH 70/30 5 units twice daily + moderate SSI - blood glucose goal 140-180 while inpatient - continue to monitor #Hyponatremia-stable Continue to monitor with repeat BMP #Hypokalemia will continue to replete and monitor #Iron deficiency anemia Hemoglobin 7-8 Iron 18, TIBC 79, ferritin 894 Transfuse if hemoglobin <7 or patient become symptomatic. #Hypocalcemia Calcium 7.5 Replete. Continue to monitor. #Moderate protein caloric malnutrition Albumin 2.2 Continue dietary supplementation #Advanced care planning -Disease education conducted, care plan discussed, diagnoses discussed, prognosis discussed, and patient acknowledges understanding with care plan -Time: +30 min #Social issues -Patient is undocumented and does not have health insurance. All items needed for wound VAC and medications may be required to self-pay. Case management/social work aware to attempt to provide patient with lucero items DC planning per case management We will closely monitor patient and adjust management as needed Plan of care reviewed with the patient and his nurse History Interval history: I have seen and examined the patient at the bedside Patient's chart and medications reviewed Patient had surgical debridement of chronic wound in the back of the neck yesterday 06/30 Complains of some mild pain at the surgical site Afebrile vital signs stable Hospitalist Physical - Constitutional Vitals: Temp Pulse Resp BP Pulse Ox 98.1 F 83 18 115/72 100 07/01/22 16:52 07/01/22 16:52 07/01/22 16:52 07/01/22 16:52 07/01/22 16:52 General appearance: Present: no acute distress, well-nourished - EENT Eyes: Present: PERRL, EOM intact - Neck Neck: Present: supple, normal ROM - Respiratory Respiratory effort: normal Respiratory: bilateral: diminished, negative: rales, rhonchi, wheezing - Cardiovascular Rhythm: regular Heart Sounds: Present: S1 & S2 - Extremities Extremities: no ischemia, No edema - Abdominal General gastrointestinal: soft, non-tender, non-distended, normal bowel sounds - Integumentary Integumentary: Present: clear, warm - Psychiatric Psychiatric: appropriate mood/affect, cooperative - Neurologic Neurologic: CNII-XII intact, moves all extremities Results - Labs CBC & Chem 7: 06/25/22 04:34 06/30/22 05:46 Labs: Laboratory Last Values WBC 5.8 K/mm3 (4.5-11.0) 06/25/22 04:34 RBC 2.77 M/mm3 (3.65-5.03) L 06/25/22 04:34 Hgb 8.1 gm/dl (11.8-15.2) L 06/25/22 04:34 Hct 23.7 % (35.5-45.6) L 06/25/22 04:34 MCV 85 fl (84-94) 06/25/22 04:34 MCH 29 pg (28-32) 06/25/22 04:34 MCHC 34 % (32-34) 06/25/22 04:34 RDW 14.2 % (13.2-15.2) 06/25/22 04:34 Plt Count 419 K/mm3 (140-440) 06/25/22 04:34 Lymph % (Auto) 17.6 % (13.4-35.0) 06/21/22 04:00 [place] % (Auto) 8.4 % (0.0-7.3) H 06/21/22 04:00 Eos % (Auto) 1.5 % (0.0-4.3) 06/21/22 04:00 Baso % (Auto) 0.5 % (0.0-1.8) 06/21/22 04:00 Lymph # (Auto) 1.0 K/mm3 (1.2-5.4) L 06/21/22 04:00 [place] # (Auto) 0.5 K/mm3 (0.0-0.8) 06/21/22 04:00 Eos # (Auto) 0.1 K/mm3 (0.0-0.4) 06/21/22 04:00 Baso # (Auto) 0.0 K/mm3 (0.0-0.1) 06/21/22 04:00 Seg Neutrophils % 72.0 % (40.0-70.0) H 06/21/22 04:00 Seg Neutrophils # 4.2 K/mm3 (1.8-7.7) 06/21/22 04:00 Sodium 126 mmol/L (137-145) L 06/30/22 05:46 Potassium 3.9 mmol/L (3.6-5.0) 06/30/22 05:46 Chloride 95.1 mmol/L (98-107) L 06/30/22 05:46 Carbon Dioxide 22 mmol/L (22-30) 06/30/22 05:46 Anion Gap 13 mmol/L 06/30/22 05:46 BUN 4 mg/dL (9-20) L 06/30/22 05:46 Creatinine 0.3 mg/dL (0.8-1.3) L 06/30/22 05:46 Estimated GFR > 60 ml/min 06/30/22 05:46 BUN/Creatinine Ratio 13 % 06/30/22 05:46 Glucose 132 mg/dL (75-100) H 06/30/22 05:46 POC Glucose 122 mg/dL (70-105) H 07/01/22 16:21 Hemoglobin A1c 15.6 % (4-6) H 06/14/22 09:08 Lactic Acid 1.80 mmol/L (0.7-2.0) 06/14/22 16:27 Calcium 7.2 mg/dL (8.4-10.2) L 06/30/22 05:46 Magnesium 1.50 mg/dL (1.7-2.3) L 06/30/22 05:46 Iron 18 ug/dL (49-181) L 06/14/22 09:08 TIBC 79 mcg/dL (250-450) L 06/14/22 09:08 Ferritin 894.3 ng/mL (30.0-300.0) H 06/14/22 09:08 Total Bilirubin 0.60 mg/dL (0.1-1.2) 06/13/22 22:05 AST 37 units/L (5-40) 06/13/22 22:05 ALT 43 units/L (7-56) 06/13/22 22:05 Alkaline Phosphatase 127 units/L (35-129) 06/13/22 22:05 C-Reactive Protein 8.00 mg/dL (0.00-1.30) H 06/27/22 04:53 Total Protein 7.0 g/dL (6.3-8.2) 06/13/22 22:05 Albumin 2.2 g/dL (3.9-5) L 06/13/22 22:05 Albumin/Globulin Ratio 0.5 % 06/13/22 22:05 Vancomycin Trough 8.6 ug/mL (5.0-20.0) 06/30/22 17:45 HIV DNA Qual (PCR) Not detected (Not Detected) 06/16/22 11:11 HIV 1&2 Antibody Rapid Non react (Non React) 06/16/22 11:11 HIV P24 Antigen Non react (Non React) 06/16/22 11:11 Blood Type O POSITIVE 06/25/22 04:34 Antibody Screen Negative 06/25/22 04:34 Microbiology: Microbiology 06/25/22 Unknown Neck Anaerobic Culture - Final 06/29/22 Unknown Other (Please Specify:) - Abscess Surgical Culture - Preli minary Perez/IV: Voiding Method Urinal Active Medications - Current Medications Current Medications: Generic Name Dose Route Start Last Admin Trade Name Freq PRN Reason Stop Dose Admin Acetaminophen 650 mg 06/14/22 10:00 06/18/22 17:05 Acetaminophen 325 Mg Tab PO 650 mg Q4H PRN Administration Pain MILD(1-3)/Fever >100.5/ALMAZAN Dextrose 50 ml 06/14/22 15:48 06/21/22 22:42 Dextrose 50% In Water (25gm) 50 Ml Syringe IV 50 ml Q30MIN PRN Administration Hypoglycemia Protocol Heparin Sodium (Porcine) 5,000 unit 06/14/22 14:00 07/01/22 17:12 Heparin 5,000 Unit/1 Ml Vial SUB-Q 5,000 unit Q8HR KARAN Administration Hydromorphone HCl 1 mg 06/14/22 10:00 06/28/22 15:00 Hydromorphone 0.5 Mg/0.5 Ml Inj IV 1 mg Q4H PRN Administration Pain , Severe (7-10) Ceftriaxone Sodium 2 gm in 100 mls @ 200 mls/hr 06/28/22 14:00 07/01/22 17:13 Rocephin/Ns 2 Gm/100 Ml IV 200 mls/hr Q24H KARAN Administration Protocol Vancomycin HCl 1,750 mg/ 535 mls @ 333.333 mls/hr 07/01/22 17:00 Sodium Chloride IV Q12H [facility] Insulin Human Isoph/Insulin Regular 5 unit 06/15/22 12:09 07/01/22 17:07 Insulin Nph/Regular 70/30 Inj SUB-Q Not Given BIDDIAB [facility] Insulin Human Regular 0 units 06/14/22 16:30 07/01/22 16:59 Insulin Regular, Human 100 Units/1 Ml SUB-Q Not Given ACHS [facility] Protocol Metoclopramide HCl 10 mg 06/14/22 04:33 06/14/22 07:44 Metoclopramide 10 Mg/2 Ml Inj IV 10 mg Q6H PRN Administration Nausea And Vomiting Ondansetron HCl 4 mg 06/14/22 10:00 Ondansetron 4 Mg/2 Ml Inj IV Q8H PRN Nausea And Vomiting Oxycodone/Acetaminophen 1 tab 06/14/22 10:00 07/01/22 10:05 Oxycodone /Acetaminophen 5-325mg Tab PO 1 tab Q6H PRN Administration Pain, Moderate (4-6) Sodium Chloride 10 ml 06/14/22 04:33 06/29/22 05:44 Sodium Chloride 0.9% 10 Ml Flush Syringe IV 10 ml PRN PRN Administration LINE FLUSH Sodium Chloride 10 ml 06/14/22 10:00 07/01/22 17:07 Sodium Chloride 0.9% 10 Ml Flush Syringe IV 10 ml BID KARAN Administration Sodium Chloride 1 gm 06/30/22 10:00 07/01/22 17:07 Sodium Chloride 1 Gm Tab PO 1 gm BID KARAN Administration Sodium Hypochlorite 1 applic 06/20/22 09:39 Sodium Hypochlorite, Dakin's Full Strength (0.5%) 473 Ml Topical Soln TP Q12H PRN Wound Care Nutrition/Malnutrition Assess - Dietary Evaluation Nutrition/Malnutrition Findings: Nutrition Notes Start: 06/15/22 16:25 Freq: Status: Active Protocol: Document 06/29/22 11:42 BRIANDA (Rec: 06/29/22 12:12 BRIANDA [id number]) Nutrition Notes Initial or Follow up Reassessment Current Diagnosis Diabetes,Sepsis,Malnutrition Other Pertinent Diagnosis Posterior-Neck & Subscapular Abscesses, Anemia. Current Diet Consistent Carbohydrates Diet (since L 06/17)+D Suppl (from D 06/25). Labs/Tests 06/28: Na 126, Cl 94.9, BUN 4, Crea 0.3, Glu 107, Ca 7.4. Pertinent Medications 06/29: Humulin 70/30 5U, Humulin R 2U, others nutritionally unremarkable. Height 5 ft 5 in Weight 73.3 kg [place] Body Weight (kg) 61.81 BMI 26.9 Weight change and time frame No body weight change reported in 1 week. Weight Status Overweight Subjective/Other Information RD consult for routine F/U on dietary advancement. Diet+ONS continue as prescribed, Pt's PO intake of meals has been Good (75-100%), according to ADL notes. Pt is on Room Air, O2 saturation @ 98%, according to Physical Assessment History notes. Pt shows posterior-neck surgical incision as sign of concern for skin risk at the time, according to Physical Assessment History notes. WoundVac changed on 06/25, culture showed MRSA & Klebsiella; different from previous culture withy MSSA, according to Progress notes. [facility]. Percent of energy/protein needs met: Prescribed Consistent Carbohydrates Diet provides for energy/protein needs (2, 061 Kcal/91 g) during LOS; additionally, Dietary Supplements will compensate for possible poor or insufficient PO intake of meals with 660 Kcal and 30 g of protein. Burn Absent Trauma Absent GI Symptoms None Food Allergy No Skin Integrity/Comment Neck surgical wound. 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 Diagnosis Progress(for reassessment Improved documentation) #1 Nutrition Diagnosis Increased nutrient needs ( specify in comment below) Comments: Protein to support wound healing processes. Diagnosis Progress(for reassessment Continues documentation) Is patient on ventilator? No Is Patient Ambulatory and/or Out of Bed Yes REE-(Clarion-St. Jeor-ambulatory/OOB) [ 2047.344 [id number]] Kcal/Kg value to use for calculation 21 Approximate Energy Requirements Using 1539 kcal/Kg Calculation Used for Recommendations Kcal/kg Additional Notes Protein: 1.25-1.5 g/Kg ABW; 84 -101 g/day. Fluids: 1 ml/Kcal, or as per MD. Nutrition Intervention Change Diet Order: Continue Consistent Carbohydrates Diet as tolerated. Add Supplement/Snack (indicate name/kcal Continue 8 fl oz Glucerna; TID /protein ) . Provides kCal: 660 Provides Protein (gm) 30 Goal #1 Support, through dietary supplementation, wound healing processes during LOS. Goal #2 Adjust the dietary intervention to better serve Pt's needs and clinical conditions during LOS. Follow-Up By: 07/06/22 Additional Comments Continue monitoring food tolerance, %PO intake of meals , dietary supplements, and BM.
[2022-07-01] MEDS: VANCOMYCIN 1,750 MG in SODIUM CHLORIDE 0.9% 500 ML 500 ML IV SCH (18:39)
[2022-07-02] MEDS: VANCOMYCIN 1,750 MG in SODIUM CHLORIDE 0.9% 500 ML 500 ML IV SCH ×2 (06:03→17:54)
[2022-07-02] MEDS: HEPARIN 5,000 UNIT/1 ML VIAL SUB-Q SCH ×3 (06:04→21:28)
[2022-07-02] MEDS: INSULIN REGULAR, HUMAN 100 UNITS/1 ML SUB-Q SCH ×4 (08:32→22:40)
[2022-07-02] MEDS: INSULIN NPH/REGULAR 70/30 INJ SUB-Q SCH ×2 (08:32→17:54)
[2022-07-02] MEDS: cefTRIAXone/NS 2 GM/100 ML 2 GM/100 ML BAG IV SCH (13:07)
[2022-07-02] MEDS: SODIUM CHLORIDE 1 GM TAB PO SCH ×2 (13:07→21:28)
--- NOTE | 2022-07-02 17:51 | Progress Note ---
Assessment and Plan Assessment and plan: 06/29/2022 right scapular muscle abscess CT-guided aspiration of the abscess 06/30/2020; chronic wound posterior neck/s/p debridement with wound VAC [of chronic wound of the posterior neck [on general endotracheal anesthesia'] #R scapular abscess Right subcapsular muscle abscess: successful CT-guided aspiration of the right subcu scapular abscess present for fluid analysis ID change antibiotics to vancomycin and ceftriaxone Follow cultures #Posterior neck abscess secondary to Klebsiella + staph aureus Chronic wound of posterior neck s/p Debridement of Chronic wound of posterior neck 06/30/2022 Wound VAC functioning well #Septic joint #Lactic acidosisresolved CT of the head and chest with contrast revealing "large peripherally enhancing multiseptated organized collection seen extending from the posterior scalp along the subcutis tissues + paraspinal musculature to the level of T1 spinous process". continue IV Ancef 2 g every 8 hours while inpatient. Upon discharge, plan for p.o. Keflex 750 mg QID for 3 weeks General surgery consulted; appreciate recs. status post I&D of posterior neck abscess. Blood cultures negative. wound cultures positive for Klebsiella and s taph aureus. Currently exchanging wound vacs. Infectious disease consulted; appreciate recs. HIV negative. CRP 12.60 -> 9.30 Continue analgesics as needed. Occupational Therapy consulted due to decreased mobility of right shoulder; recommending acute rehab. - CT of the R arm showed possible fluid collections at the the subscapularis muscle bed. Discussed findings with general surgery, concern for septic joint - Orthopaedics consulted, plan for arthrocentesis -wound VAC exchanged 06/25 -General surgery recommends patient transfer to OSH for intervention of the ab scesses at subscapularis muscle bed. [place], [facility] [place] was contacted again. They are unable to accept the patient at this time. #Non-insulin dependent type II diabetes mellitus - hemoglobin A1c: 15.6 - home regimen: None - current regimen: NPH 70/30 5 units twice daily + moderate SSI - blood glucose goal 140-180 while inpatient - continue to monitor #Hyponatremia-stable Continue to monitor with repeat BMP #Hypokalemia will continue to replete and monitor #Iron deficiency anemia Hemoglobin 7-8 Iron 18, TIBC 79, ferritin 894 Transfuse if hemoglobin <7 or patient become symptomatic. #Hypocalcemia Calcium 7.5 Replete. Continue to monitor. #Moderate protein caloric malnutrition Albumin 2.2 Continue dietary supplementation #Advanced care planning -Disease education conducted, care plan discussed, diagnoses discussed, prognosis discussed, and patient acknowledges understanding with care plan -Time: +30 min #Social issues -Patient is undocumented and does not have health insurance. All items needed for wound VAC and medications may be required to self-pay. Case management/social work aware to attempt to provide patient with lucero items DC planning per case management We will closely monitor patient and adjust management as needed Plan of care reviewed with the patient and his nurse Continue current management Consults and recommendations noted and appreciated Plan of care reviewed with the patient and her nurse nurse 06/29/2022; CT-guided aspiration of right scapular abscess 06/30/2020; debridement of 4 neck wound with wound VAC 07/02/2022; patient's wound VAC is functioning, feels better History Interval history: I have seen and examined the patient at the bedside Patient feels slightly better anxious to go home Patient has wound VAC post his back of the neck debridement procedure Functioning well Patient feels better vital signs noted Hospitalist Physical - Constitutional Vitals: Temp Pulse Resp BP Pulse Ox 98.0 F 89 20 106/65 100 07/02/22 10:35 07/02/22 10:35 07/02/22 10:35 07/02/22 10:35 07/02/22 10:35 General appearance: Present: no acute distress, well-nourished - EENT Eyes: Present: PERRL, EOM intact - Neck Neck: Present: supple, normal ROM, other (Surgical dressing and wound VAC in place) - Respiratory Respiratory effort: normal Respiratory: bilateral: diminished, negative: rales, rhonchi, wheezing - Cardiovascular Rhythm: regular Heart Sounds: Present: S1 & S2 - Extremities Extremities: no ischemia, No edema - Abdominal General gastrointestinal: soft, non-tender, non-distended, normal bowel sounds - Integumentary Integumentary: Present: clear, warm - Psychiatric Psychiatric: appropriate mood/affect, cooperative - Neurologic Neurologic: moves all extremities Results - Labs CBC & Chem 7: 06/25/22 04:34 06/30/22 05:46 Labs: Laboratory Last Values WBC 5.8 K/mm3 (4.5-11.0) 06/25/22 04:34 RBC 2.77 M/mm3 (3.65-5.03) L 06/25/22 04:34 Hgb 8.1 gm/dl (11.8-15.2) L 06/25/22 04:34 Hct 23.7 % (35.5-45.6) L 06/25/22 04:34 MCV 85 fl (84-94) 06/25/22 04:34 MCH 29 pg (28-32) 06/25/22 04:34 MCHC 34 % (32-34) 06/25/22 04:34 RDW 14.2 % (13.2-15.2) 06/25/22 04:34 Plt Count 419 K/mm3 (140-440) 06/25/22 04:34 Lymph % (Auto) 17.6 % (13.4-35.0) 06/21/22 04:00 [place] % (Auto) 8.4 % (0.0-7.3) H 06/21/22 04:00 Eos % (Auto) 1.5 % (0.0-4.3) 06/21/22 04:00 Baso % (Auto) 0.5 % (0.0-1.8) 06/21/22 04:00 Lymph # (Auto) 1.0 K/mm3 (1.2-5.4) L 06/21/22 04:00 [place] # (Auto) 0.5 K/mm3 (0.0-0.8) 06/21/22 04:00 Eos # (Auto) 0.1 K/mm3 (0.0-0.4) 06/21/22 04:00 Baso # (Auto) 0.0 K/mm3 (0.0-0.1) 06/21/22 04:00 Seg Neutrophils % 72.0 % (40.0-70.0) H 06/21/22 04:00 Seg Neutrophils # 4.2 K/mm3 (1.8-7.7) 06/21/22 04:00 Sodium 126 mmol/L (137-145) L 06/30/22 05:46 Potassium 3.9 mmol/L (3.6-5.0) 06/30/22 05:46 Chloride 95.1 mmol/L (98-107) L 06/30/22 05:46 Carbon Dioxide 22 mmol/L (22-30) 06/30/22 05:46 Anion Gap 13 mmol/L 06/30/22 05:46 BUN 4 mg/dL (9-20) L 06/30/22 05:46 Creatinine 0.3 mg/dL (0.8-1.3) L 06/30/22 05:46 Estimated GFR > 60 ml/min 06/30/22 05:46 BUN/Creatinine Ratio 13 % 06/30/22 05:46 Glucose 132 mg/dL (75-100) H 06/30/22 05:46 POC Glucose 120 mg/dL (70-105) H 07/02/22 11:38 Hemoglobin A1c 15.6 % (4-6) H 06/14/22 09:08 Lactic Acid 1.80 mmol/L (0.7-2.0) 06/14/22 16:27 Calcium 7.2 mg/dL (8.4-10.2) L 06/30/22 05:46 Magnesium 1.50 mg/dL (1.7-2.3) L 06/30/22 05:46 Iron 18 ug/dL (49-181) L 06/14/22 09:08 TIBC 79 mcg/dL (250-450) L 06/14/22 09:08 Ferritin 894.3 ng/mL (30.0-300.0) H 06/14/22 09:08 Total Bilirubin 0.60 mg/dL (0.1-1.2) 06/13/22 22:05 AST 37 units/L (5-40) 06/13/22 22:05 ALT 43 units/L (7-56) 06/13/22 22:05 Alkaline Phosphatase 127 units/L (35-129) 06/13/22 22:05 C-Reactive Protein 8.00 mg/dL (0.00-1.30) H 06/27/22 04:53 Total Protein 7.0 g/dL (6.3-8.2) 06/13/22 22:05 Albumin 2.2 g/dL (3.9-5) L 06/13/22 22:05 Albumin/Globulin Ratio 0.5 % 06/13/22 22:05 Vancomycin Trough 8.6 ug/mL (5.0-20.0) 06/30/22 17:45 HIV DNA Qual (PCR) Not detected (Not Detected) 06/16/22 11:11 HIV 1&2 Antibody Rapid Non react (Non React) 06/16/22 11:11 HIV P24 Antigen Non react (Non React) 06/16/22 11:11 Blood Type O POSITIVE 06/25/22 04:34 Antibody Screen Negative 06/25/22 04:34 Microbiology: Microbiology 06/29/22 Unknown Other (Please Specify:) - Abscess Surgical Culture - Final Perez/IV: Voiding Method Urinal Active Medications - Current Medications Current Medications: Generic Name Dose Route Start Last Admin Trade Name Freq PRN Reason Stop Dose Admin Acetaminophen 650 mg 06/14/22 10:00 06/18/22 17:05 Acetaminophen 325 Mg Tab PO 650 mg Q4H PRN Administration Pain MILD(1-3)/Fever >100.5/ALMAZAN Dextrose 50 ml 06/14/22 15:48 06/21/22 22:42 Dextrose 50% In Water (25gm) 50 Ml Syringe IV 50 ml Q30MIN PRN Administration Hypoglycemia Protocol Heparin Sodium (Porcine) 5,000 unit 06/14/22 14:00 07/02/22 13:07 Heparin 5,000 Unit/1 Ml Vial SUB-Q 5,000 unit Q8HR KARAN Administration Hydromorphone HCl 1 mg 06/14/22 10:00 06/28/22 15:00 Hydromorphone 0.5 Mg/0.5 Ml Inj IV 1 mg Q4H PRN Administration Pain , Severe (7-10) Ceftriaxone Sodium 2 gm in 100 mls @ 200 mls/hr 06/28/22 14:00 07/02/22 13:07 Rocephin/Ns 2 Gm/100 Ml IV 200 mls/hr Q24H KARAN Administration Protocol Vancomycin HCl 1,750 mg/ 535 mls @ 333.333 mls/hr 07/01/22 17:00 07/02/22 06:03 Sodium Chloride IV 333.333 mls/hr Q12H KARAN Administration Insulin Human Isoph/Insulin Regular 5 unit 06/15/22 12:09 07/02/22 08:32 Insulin Nph/Regular 70/30 Inj SUB-Q Not [facility] Insulin Human Regular 0 units 06/14/22 16:30 07/02/22 12:36 Insulin Regular, Human 100 Units/1 Ml SUB-Q Not Given [facility] Protocol Metoclopramide HCl 10 mg 06/14/22 04:33 06/14/22 07:44 Metoclopramide 10 Mg/2 Ml Inj IV 10 mg Q6H PRN Administration Nausea And Vomiting Ondansetron HCl 4 mg 06/14/22 10:00 Ondansetron 4 Mg/2 Ml Inj IV Q8H PRN Nausea And Vomiting Oxycodone/Acetaminophen 1 tab 06/14/22 10:00 07/01/22 10:05 Oxycodone /Acetaminophen 5-325mg Tab PO 1 tab Q6H PRN Administration Pain, Moderate (4-6) Sodium Chloride 10 ml 06/14/22 04:33 07/02/22 06:04 Sodium Chloride 0.9% 10 Ml Flush Syringe IV 10 ml PRN PRN Administration LINE FLUSH Sodium Chloride 10 ml 06/14/22 10:00 07/02/22 13:07 Sodium Chloride 0.9% 10 Ml Flush Syringe IV 10 ml BID KARAN Administration Sodium Chloride 1 gm 06/30/22 10:00 07/02/22 13:07 Sodium Chloride 1 Gm Tab PO 1 gm BID KARAN Administration Sodium Hypochlorite 1 applic 06/20/22 09:39 Sodium Hypochlorite, Dakin's Full Strength (0.5%) 473 Ml Topical Soln TP Q12H PRN Wound Care Nutrition/Malnutrition Assess - Dietary Evaluation Nutrition/Malnutrition Findings: Nutrition Notes Start: 06/15/22 16:25 Freq: Status: Active Protocol: Document 06/29/22 11:42 BRIANDA (Rec: 06/29/22 12:12 BRIANDA [id number]) Nutrition Notes Initial or Follow up Reassessment Current Diagnosis Diabetes,Sepsis,Malnutrition Other Pertinent Diagnosis Posterior-Neck & Subscapular Abscesses, Anemia. Current Diet Consistent Carbohydrates Diet (since L 06/17)+D Suppl (from D 06/25). Labs/Tests 06/28: Na 126, Cl 94.9, BUN 4, Crea 0.3, Glu 107, Ca 7.4. Pertinent Medications 06/29: Humulin 70/30 5U, Humulin R 2U, others nutritionally unremarkable. Height 5 ft 5 in Weight 73.3 kg [place] Body Weight (kg) 61.81 BMI 26.9 Weight change and time frame No body weight change reported in 1 week. Weight Status Overweight Subjective/Other Information RD consult for routine F/U on dietary advancement. Diet+ONS continue as prescribed, Pt's PO intake of meals has been Good (75-100%), according to ADL notes. Pt is on Room Air, O2 saturation @ 98%, according to Physical Assessment History notes. Pt shows posterior-neck surgical incision as sign of concern for skin risk at the time, according to Physical Assessment History notes. WoundVac changed on 06/25, culture showed MRSA & Klebsiella; different from previous culture withy MSSA, according to Progress notes. [facility]. Percent of energy/protein needs met: Prescribed Consistent Carbohydrates Diet provides for energy/protein needs (2, 061 Kcal/91 g) during LOS; additionally, Dietary Supplements will compensate for possible poor or insufficient PO intake of meals with 660 Kcal and 30 g of protein. Burn Absent Trauma Absent GI Symptoms None Food Allergy No Skin Integrity/Comment Neck surgical wound. Current % PO Good (75-100%) Minimum of two criteria No Fluid Accumulation N/A Reduced [employer] Strength N/A (non-severe) Protein-Calorie Malnutrition N\\A #2 Nutrition Diagnosis Inadequate protein-energy intake Comments: Diet+ONS continue as prescribed, Pt's PO intake of meals has been Good (75-100%), according to ADL notes. Diagnosis Progress(for reassessment Improved documentation) #1 Nutrition Diagnosis Increased nutrient needs ( specify in comment below) Comments: Protein to support wound healing processes. Diagnosis Progress(for reassessment Continues documentation) Is patient on ventilator? No Is Patient Ambulatory and/or Out of Bed Yes REE-([facility]-ambulatory/OOB) [ 7.344 NUTR.[id number]] Kcal/Kg value to use for calculation 21 Approximate Energy Requirements Using 1539 kcal/Kg Calculation Used for Recommendations Kcal/kg Additional Notes Protein: 1.25-1.5 g/Kg ABW; 84 -101 g/day. Fluids: 1 ml/Kcal, or as per MD. Nutrition Intervention Change Diet Order: Continue Consistent Carbohydrates Diet as tolerated. Add Supplement/Snack (indicate name/kcal Continue 8 fl oz Glucerna; TID /protein ) . Provides kCal: 660 Provides Protein (gm) 30 Goal #1 Support, through dietary supplementation, wound healing processes during LOS. Goal #2 Adjust the dietary intervention to better serve Pt's needs and clinical conditions during LOS. Follow-Up By: 07/06/22 Additional Comments Continue monitoring food tolerance, %PO intake of meals , dietary supplements, and BM.
--- NOTE | 2022-07-02 18:07 | Progress Note ---
Assessment and Plan Cultures: 06/13/2022 blood culture: No growth 06/14/2022 surgical culture: MSSA, Klebsiella pneumoniae 06/25/2022 surgical culture MRSA, Klebsiella A/P: 41-year-old male with diabetes: #Extensive, necrotic posterior neck abscess extending to the paraspinal musculature: No evidence of osteomyelitis on imaging. S/p extensive I&D on 06/14/2022, 06/15/2022 and 06/17/2022 by general surgery. VAC changed on 06/21/2022. #R shoulder abscess: CT right shoulder with and without contrast showed multiple abscesses in the right subscapularis muscle bed. #Diabetes mellitus type 2, uncontrolled: HbA1c 15.6 #Leucopenia: HIV negative. Recs: -Continue vancomycin, ceftriaxone -continue wound care and glycemic control -Follow-up cultures from aspiration of abscess. -OK to DC with Keflex 500mg q6h for 10 days ID will sign off Pleae call with questions Levon Burns MD [facility] O: [phone] F: [phone] Subjective Date of service: 07/02/22 Interval history: Afebrile, no acute change Objective - Exam Narrative Exam: Physical Exam: Constitutional: Alert, cooperative. No acute distress Head, Ears, Nose: Normocephalic, atraumatic. External ears, nose normal Eyes: Conjunctivae/corneas clear. No icterus. No ptosis. Neck: Posterior neck and scalp region with a large wound, VAC + Cardiovascular: S1, S2 + Respiratory: Good air entry, clear to auscultation bilaterally GI: Soft, non-tender; bowel sounds normal. No peritoneal signs Musculoskeletal: R shoulder painful ROM Skin: No rash or abscess Hem/Lymphatic: No palpable cervical or supraclavicular nodes. No lymphangitis Psych: Mood ok. Affect normal Neurological: Awake, alert, oriented. No gross abnormality - Constitutional Vitals: Vital Signs Temp Pulse Resp BP Pulse Ox 99.0 F 91 H 18 128/79 99 07/02/22 17:18 07/02/22 17:18 07/02/22 17:18 07/02/22 17:18 07/02/22 17:18 Temperature -Last 24 Hours Temperature 99.0 F Temperature 98.0 F Temperature 99.2 F - Labs CBC & Chem 7: 06/25/22 04:34 06/30/22 05:46 Labs: Abnormal lab results 07/01/22 07/02/22 07/02/22 Range/Units 20:40 07:06 11:38 POC Glucose 155 H 116 H 120 H (70-105) mg/dL
[2022-07-03] MEDS: VANCOMYCIN 1,750 MG in SODIUM CHLORIDE 0.9% 500 ML 500 ML IV SCH ×2 (05:52→18:17)
[2022-07-03] MEDS: HEPARIN 5,000 UNIT/1 ML VIAL SUB-Q SCH ×3 (05:53→22:19)
[2022-07-03] MEDS: INSULIN REGULAR, HUMAN 100 UNITS/1 ML SUB-Q SCH ×4 (10:05→22:26)
[2022-07-03] MEDS: SODIUM CHLORIDE 1 GM TAB PO SCH ×2 (10:05→22:19)
[2022-07-03] MEDS: INSULIN NPH/REGULAR 70/30 INJ SUB-Q SCH ×2 (10:05→18:17)
--- NOTE | 2022-07-03 11:23 | Progress Note ---
Assessment and Plan Assessment and plan: 06/29/[address] right scap[address] muscle abscess CT-guided aspiration of the abscess 06/30/2020; chronic wound posterior neck/s/p debridement with wound VAC [of chronic wound of the posterior neck [on general endotracheal anesthesia'] #R scapular abscess Right subcapsular muscle abscess: successful CT-guided aspiration of the right subcu scapular abscess present for fluid analysis ID change antibiotics to vancomycin and ceftriaxone Follow cultures #Posterior neck abscess secondary to Klebsiella + staph aureus Chronic wound of posterior neck s/p Debridement of Chronic wound of posterior neck 06/30/2022 Wound VAC functioning well #Septic joint #Lactic acidosisresolved CT of the head and chest with contrast revealing "large peripherally enhancing multiseptated organized collection seen extending from the posterior scalp along the subcutis tissues + paraspinal musculature to the level of T1 spinous process". continue IV Ancef 2 g every 8 hours while inpatient. Upon discharge, plan for p.o. Keflex 750 mg QID for 3 weeks General surgery consulted; appreciate recs. status post I&D of posterior neck abscess. Blood cultures negative. wound cultures positive for Klebsiella and staph aureus. Currently exchanging wound vacs. Infectious disease consulted; appreciate recs. HIV negative. CRP 12.60 -> 9.30 Continue analgesics as needed. Occupational Therapy consulted due to decreased mobility of right shoulder; recommending acute rehab. - CT of the R arm showed possible fluid collections at the the subscapularis muscle bed. Discussed findings with general surgery, concern for septic joint - Orthopaedics consulted, plan for arthrocentesis -wound VAC exchanged 06/25 -General surgery recommends patient transfer to OSH for intervention of the abscesses at subscapularis muscle bed. [facility], [facility] was contacted again. They are unable to accept the patient at this time. #Non-insulin dependent type II diabetes mellitus - hemoglobin A1c: 15.6 - home regimen: None - current regimen: NPH 70/30 5 units twice daily + moderate SSI - blood glucose goal 140-180 while inpatient - continue to monitor #Hyponatremia-stable Continue to monitor with repeat BMP #Hypokalemia will continue to replete and monitor #Iron deficiency anemia Hemoglobin 7-8 Iron 18, TIBC 79, ferritin 894 Transfuse if hemoglobin <7 or patient become symptomatic. #Hypocalcemia Calcium 7.5 Replete. Continue to monitor. #Moderate protein caloric malnutrition Albumin 2.2 Continue dietary supplementation #Advanced care planning -Disease education conducted, care plan discussed, diagnoses discussed, prognosis discussed, and patient acknowledges understanding with care plan -Time: +30 min #Social issues -Patient is undocumented and does not have health insurance. All items needed for wound VAC and medications may be required to self-pay. Case management/social work aware to attempt to provide patient with lucero items DC planning per case management We will closely monitor patient and adjust management as needed Plan of care reviewed with the patient and his nurse Continue current management Consults and recommendations noted and appreciated Plan of care reviewed with the patient and her nurse nurse 06/29/2022; CT-guided aspiration of right scapular abscess 06/30/2020; debridement of 4 neck wound with wound VAC 07/02/2022; patient's wound VAC is functioning, feels better 07/03; continue current management wound VAC/antibiotics History Interval history: I have seen and examined the patient at the bedside Patient's chart and medications reviewed No new events reported by the nursing Vital signs noted Wound VAC is in place, functional Patient has no new complaints Hospitalist Physical - Constitutional Vitals: Temp Pulse Resp BP Pulse Ox 100.5 F H 83 18 118/78 98 07/02/22 21:20 07/02/22 21:20 07/02/22 21:20 07/02/22 21:20 07/02/22 22:00 General appearance: Present: no acute distress, well-nourished - EENT Eyes: Present: PERRL, EOM intact ENT: other (Dressing back of the neck in place wound VAC functioning) - Neck Neck: Present: supple, normal ROM - Respiratory Respiratory effort: normal Respiratory: bilateral: diminished, negative: rales, rhonchi, wheezing - Cardiovascular Rhythm: regular Heart Sounds: Present: S1 & S2 - Extremities Extremities: no ischemia, No edema - Abdominal General gastrointestinal: soft, non-tender, non-distended, normal bowel sounds - Integumentary Integumentary: Present: clear, warm - Psychiatric Psychiatric: appropriate mood/affect, cooperative - Neurologic Neurologic: moves all extremities Results - Labs CBC & Chem 7: 06/25/22 04:34 06/30/22 05:46 Labs: Laboratory Last Values WBC 5.8 K/mm3 (4.5-11.0) 06/25/22 04:34 RBC 2.77 M/mm3 (3.65-5.03) L 06/25/22 04:34 Hgb 8.1 gm/dl (11.8-15.2) L 06/25/22 04:34 Hct 23.7 % (35.5-45.6) L 06/25/22 04:34 MCV 85 fl (84-94) 06/25/22 04:34 MCH 29 pg (28-32) 06/25/22 04:34 MCHC 34 % (32-34) 06/25/22 04:34 RDW 14.2 % (13.2-15.2) 06/25/22 04:34 Plt Count 419 K/mm3 (140-440) 06/25/22 04:34 Lymph % (Auto) 17.6 % (13.4-35.0) 06/21/22 04:00 [place] % (Auto) 8.4 % (0.0-7.3) H 06/21/22 04:00 Eos % (Auto) 1.5 % (0.0-4.3) 06/21/22 04:00 Baso % (Auto) 0.5 % (0.0-1.8) 06/21/22 04:00 Lymph # (Auto) 1.0 K/mm3 (1.2-5.4) L 06/21/22 04:00 Baldwin # (Auto) 0.5 K/mm3 (0.0-0.8) 06/21/22 04:00 Eos # (Auto) 0.1 K/mm3 (0.0-0.4) 06/21/22 04:00 Baso # (Auto) 0.0 K/mm3 (0.0-0.1) 06/21/22 04:00 Seg Neutrophils % 72.0 % (40.0-70.0) H 06/21/22 04:00 Seg Neutrophils # 4.2 K/mm3 (1.8-7.7) 06/21/22 04:00 Sodium 126 mmol/L (137-145) L 06/30/22 05:46 Potassium 3.9 mmol/L (3.6-5.0) 06/30/22 05:46 Chloride 95.1 mmol/L (98-107) L 06/30/22 05:46 Carbon Dioxide 22 mmol/L (22-30) 06/30/22 05:46 Anion Gap 13 mmol/L 06/30/22 05:46 BUN 4 mg/dL (9-20) L 06/30/22 05:46 Creatinine 0.3 mg/dL (0.8-1.3) L 06/30/22 05:46 Estimated GFR > 60 ml/min 06/30/22 05:46 BUN/Creatinine Ratio 13 % 06/30/22 05:46 Glucose 132 mg/dL (75-100) H 06/30/22 05:46 POC Glucose 107 mg/dL (70-105) H 07/03/22 07:18 Hemoglobin A1c 15.6 % (4-6) H 06/14/22 09:08 Lactic Acid 1.80 mmol/L (0.7-2.0) 06/14/22 16:27 Calcium 7.2 mg/dL (8.4-10.2) L 06/30/22 05:46 Magnesium 1.50 mg/dL (1.7-2.3) L 06/30/22 05:46 Iron 18 ug/dL (49-181) L 06/14/22 09:08 TIBC 79 mcg/dL (250-450) L 06/14/22 09:08 Ferritin 894.3 ng/mL (30.0-300.0) H 06/14/22 09:08 Total Bilirubin 0.60 mg/dL (0.1-1.2) 06/13/22 22:05 AST 37 units/L (5-40) 06/13/22 22:05 ALT 43 units/L (7-56) 06/13/22 22:05 Alkaline Phosphatase 127 units/L (35-129) 06/13/22 22:05 C-Reactive Protein 8.00 mg/dL (0.00-1.30) H 06/27/22 04:53 Total Protein 7.0 g/dL (6.3-8.2) 06/13/22 22:05 Albumin 2.2 g/dL (3.9-5) L 06/13/22 22:05 Albumin/Globulin Ratio 0.5 % 06/13/22 22:05 Vancomycin Trough 11.2 ug/mL (5.0-20.0) 07/03/22 04:30 HIV DNA Qual (PCR) Not detected (Not Detected) 06/16/22 11:11 HIV 1&2 Antibody Rapid Non react (Non React) 06/16/22 11:11 HIV P24 Antigen Non react (Non React) 06/16/22 11:11 Blood Type O POSITIVE 06/25/22 04:34 Antibody Screen Negative 06/25/22 04:34 Microbiology: Microbiology 06/29/22 Unknown Other (Please Specify:) - Abscess Surgical Culture - Final Perez/IV: Voiding Method Urinal Active Medications - Current Medications Current Medications: Generic Name Dose Route Start Last Admin Trade Name Freq PRN Reason Stop Dose Admin Acetaminophen 650 mg 06/14/22 10:00 06/18/22 17:05 Acetaminophen 325 Mg Tab PO 650 mg Q4H PRN Administration Pain MILD(1-3)/Fever >100.5/ALMAZAN Dextrose 50 ml 06/14/22 15:48 06/21/22 22:42 Dextrose 50% In Water (25gm) 50 Ml Syringe IV 50 ml Q30MIN PRN Administration Hypoglycemia Protocol Heparin Sodium (Porcine) 5,000 unit 06/14/22 14:00 07/03/22 05:53 Heparin 5,000 Unit/1 Ml Vial SUB-Q 5,000 unit Q8HR KARAN Administration Hydromorphone HCl 1 mg 06/14/22 10:00 06/28/22 15:00 Hydromorphone 0.5 Mg/0.5 Ml Inj IV 1 mg Q4H PRN Administration Pain , Severe (7-10) Ceftriaxone Sodium 2 gm in 100 mls @ 200 mls/hr 06/28/22 14:00 07/02/22 13:07 Rocephin/Ns 2 Gm/100 Ml IV 200 mls/hr Q24H KARAN Administration Protocol Vancomycin HCl 1,750 mg/ 535 mls @ 333.333 mls/hr 07/01/22 17:00 07/03/22 05:52 Sodium Chloride IV 333.333 mls/hr Q12H KARAN Administration Insulin Human Isoph/Insulin Regular 5 unit 06/15/22 12:09 07/03/22 10:05 Insulin Nph/Regular 70/30 Inj SUB-Q Not Given BIDDIAB KARAN Insulin Human Regular 0 units 06/14/22 16:30 07/03/22 10:05 Insulin Regular, Human 100 Units/1 Ml SUB-Q Not Given ACHS [facility] Protocol Metoclopramide HCl 10 mg 06/14/22 04:33 06/14/22 07:44 Metoclopramide 10 Mg/2 Ml Inj IV 10 mg Q6H PRN Administration Nausea And Vomiting Ondansetron HCl 4 mg 06/14/22 10:00 Ondansetron 4 Mg/2 Ml Inj IV Q8H PRN Nausea And Vomiting Oxycodone/Acetaminophen 1 tab 06/14/22 10:00 07/01/22 10:05 Oxycodone /Acetaminophen 5-325mg Tab PO 1 tab Q6H PRN Administration Pain, Moderate (4-6) Sodium Chloride 10 ml 06/14/22 04:33 07/02/22 06:04 Sodium Chloride 0.9% 10 Ml Flush Syringe IV 10 ml PRN PRN Administration LINE FLUSH Sodium Chloride 10 ml 06/14/22 10:00 07/03/22 10:05 Sodium Chloride 0.9% 10 Ml Flush Syringe IV 10 ml BID KARAN Administration Sodium Chloride 1 gm 06/30/22 10:00 07/03/22 10:05 Sodium Chloride 1 Gm Tab PO 1 gm BID KARAN Administration Sodium Hypochlorite 1 applic 06/20/22 09:39 Sodium Hypochlorite, [place]'s Full Strength (0.5%) 473 Ml Topical Soln TP Q12H PRN Wound Care Nutrition/Malnutrition Assess - Dietary Evaluation Nutrition/Malnutrition Findings: Nutrition Notes Start: 06/15/22 16:25 Freq: Status: Active Protocol: Document 06/29/22 11:42 BRIANDA (Rec: 06/29/22 12:12 BRIANDA [id number]) Nutrition Notes Initial or Follow up Reassessment Current Diagnosis Diabetes,Sepsis,Malnutrition Other Pertinent Diagnosis Posterior-Neck & Subscapular Abscesses, Anemia. Current Diet Consistent Carbohydrates Diet (since L 06/17)+D Suppl (from D 06/25). Labs/Tests 06/28: Na 126, Cl 94.9, BUN 4, Crea 0.3, Glu 107, Ca 7.4. Pertinent Medications 06/29: Humulin 70/30 5U, Humulin R 2U, others nutritionally unremarkable. Height 5 ft 5 in Weight 73.3 kg [place] Body Weight (kg) 61.81 BMI 26.9 Weight change and time frame No body weight change reported in 1 week. Weight Status Overweight Subjective/Other Information RD consult for routine F/U on dietary advancement. Diet+ONS continue as prescribed, Pt's PO intake of meals has been Good (75-100%), according to ADL notes. Pt is on Room Air, O2 saturation @ 98%, according to Physical Assessment History notes. Pt shows posterior-neck surgical incision as sign of concern for skin risk at the time, according to Physical Assessment History notes. WoundVac changed on 06/25, culture showed MRSA & Klebsiella; different from previous culture withy MSSA, according to Progress notes. [facility] according to Progress notes. Percent of energy/protein needs met: Prescribed Consistent Carbohydrates Diet provides for energy/protein needs (2, 061 Kcal/91 g) during LOS; additionally, Dietary Supplements will compensate for possible poor or insufficient PO intake of meals with 660 Kcal and 30 g of protein. Burn Absent Trauma Absent GI Symptoms None Food Allergy No Skin Integrity/Comment Neck surgical wound. Current % PO Good (75-100%) Minimum of two criteria No Fluid Accumulation N/A Reduced Hospitalist Program Director Strength N/A (non-severe) Protein-Calorie Malnutrition N\\A #2 Nutrition Diagnosis Inadequate protein-energy intake Comments: Diet+ONS continue as prescribed, Pt's PO intake of meals has been Good (75-100%), according to ADL notes. Diagnosis Progress(for reassessment Improved documentation) #1 Nutrition Diagnosis Increased nutrient needs ( specify in comment below) Comments: Protein to support wound healing processes. Diagnosis Progress(for reassessment Continues documentation) Is patient on ventilator? No Is Patient Ambulatory and/or Out of Bed Yes REE-([facility]-ambulatory/OOB) [ 7.344 NUTR.[id number]] Kcal/Kg value to use for calculation 21 Approximate Energy Requirements Using 1539 kcal/Kg Calculation Used for Recommendations Kcal/kg Additional Notes Protein: 1.25-1.5 g/Kg ABW; 84 -101 g/day. Fluids: 1 ml/Kcal, or as per MD. Nutrition Intervention Change Diet Order: Continue Consistent Carbohydrates Diet as tolerated. Add Supplement/Snack (indicate name/kcal Continue 8 fl oz Glucerna; TID /protein ) . Provides kCal: 660 Provides Protein (gm) 30 Goal #1 Support, through dietary supplementation, wound healing processes during LOS. Goal #2 Adjust the dietary intervention to better serve Pt's needs and clinical conditions during LOS. Follow-Up By: 07/06/22 Additional Comments Continue monitoring food tolerance, %PO intake of meals , dietary supplements, and BM.
[2022-07-03] MEDS: cefTRIAXone/NS 2 GM/100 ML 2 GM/100 ML BAG IV SCH (14:37)
[2022-07-04] MEDS: VANCOMYCIN 1,750 MG in SODIUM CHLORIDE 0.9% 500 ML 500 ML IV SCH ×2 (04:55→17:26)
[2022-07-04] MEDS: HEPARIN 5,000 UNIT/1 ML VIAL SUB-Q SCH ×3 (05:36→22:00)
--- NOTE | 2022-07-04 09:08 | Progress Note ---
Assessment and Plan Assessment and plan: # Necrotic posterior neck abscess: extending to paraspinal muscles without evidence of osteomyelitis Status post incision drainage 06/14/2022 , 06/15/2022, 06/17/2022 wound VAC that was changed on 06/21/2022 Patient had surgical debridement of chronic wound posterior neck on 06/30/2022 Surgery following, wound VAC in place Patient had wound debridement again today 07/04/2022 and change of wound VAC Patient tolerated the procedure well 06/29/2022 right scapular muscle abscess CT-guided aspiration of the abscess 06/30/2020; chronic wound posterior neck/s/p debridement with wound VAC [of chronic wound of the posterior neck [on general endotracheal anesthesia'] #R scapular abscess Right subcapsular muscle abscess: successful CT-guided aspiration of the right subcu scapular abscess present for fluid analysis ID change antibiotics to vancomycin and ceftriaxone Follow cultures #Posterior neck abscess secondary to Klebsiella + staph aureus Chronic wound of posterior neck s/p Debridement of Chronic wound of posterior neck 06/30/2022 Wound VAC functioning well #Septic joint #Lactic acidosisresolved CT of the head and chest with contrast revealing "large peripherally enhancing multiseptated organized collection seen extending from the posterior scalp along the subcutis tissues + paraspinal musculature to the level of T1 spinous process". continue IV Ancef 2 g every 8 hours while inpatient. Upon discharge, plan for p.o. Keflex 750 mg QID for 3 weeks General surgery consulted; appreciate recs. status post I&D of posterior neck abscess. Blood cultures negative. wound cultures positive for Klebsiella and staph aureus. Currently exchanging wound vacs. Infectious disease consulted; appreciate recs. HIV negative. CRP 12.60 -> 9.30 Continue analgesics as needed. Occupational Therapy consulted due to decreased mobility of right shoulder; recommending acute rehab. - CT of the R arm showed possible fluid collections at the the subscapularis muscle bed. Discussed findings with general surgery, concern for septic joint - Orthopaedics consulted, plan for arthrocentesis -wound VAC exchanged 06/25 -General surgery recommends patient transfer to OSH for intervention of the abscesses at subscapularis muscle bed. [place], [facility] was contacted again. They are unable to accept the patient at this time. #Non-insulin dependent type II diabetes mellitus - hemoglobin A1c: 15.6 - home regimen: None - current regimen: NPH 70/30 5 units twice daily + moderate SSI - blood glucose goal 140-180 while inpatient - continue to monitor #Hyponatremia-stable Continue to monitor with repeat BMP #Hypokalemia will continue to replete and monitor #Iron deficiency anemia Hemoglobin 7-8 Iron 18, TIBC 79, ferritin 894 Transfuse if hemoglobin <7 or patient become symptomatic. #Hypocalcemia Calcium 7.5 Replete. Continue to monitor. #Moderate protein caloric malnutrition Albumin 2.2 Continue dietary supplementation #Advanced care planning -Disease education conducted, care plan discussed, diagnoses discussed, prognosis discussed, and patient acknowledges understanding with care plan -Time: +30 min #Social issues -Patient is undocumented and does not have health insurance. All items needed for wound VAC and medications may be required to self-pay. Case management/social work aware to attempt to provide patient with [employer] items DC planning per case management We will closely monitor patient and adjust management as needed Plan of care reviewed with the patient and his nurse Continue current management Consults and recommendations noted and appreciated Plan of care reviewed with the patient and her nurse nurse 06/29/2022; CT-guided aspiration of right scapular abscess 06/30/2020; debridement of 4 neck wound with wound VAC 07/02;; patient's wound VAC is functioning, feels better 07/03; continue current management wound VAC/antibiotics 07/04;; patient had session of wound debridement of the necrotic tissue back of the neck Continue current antibiotics ID following Disposition; closely monitor. Follow ID and surgeon recommendations Discharge when stable and cleared by consultants History Interval history: Seen and examined patient at the bedside this afternoon, Patient's chart and medications reviewed Patient underwent yet another session of wound debridement of back of the neck and change of wound VAC . Patient tolerated the procedure well., Complains of some pain in the neck Vital signs reviewed Hospitalist Physical - Constitutional Vitals: Temp Pulse Resp BP Pulse Ox 99.5 F 78 18 123/74 99 07/04/22 04:56 07/04/22 04:56 07/04/22 04:56 07/04/22 04:56 07/04/22 04:56 General appearance: Present: no acute distress, well-nourished - EENT Eyes: Present: PERRL, EOM intact - Neck Neck: Present: supple, normal ROM, other (Surgical dressing in place) - Respiratory Respiratory effort: normal Respiratory: bilateral: diminished, negative: rales, rhonchi, wheezing - Cardiovascular Rhythm: regular Heart Sounds: Present: S1 & S2 - Extremities Extremities: no ischemia, No edema - Abdominal General gastrointestinal: soft, non-tender, non-distended, normal bowel sounds - Integumentary Integumentary: Present: clear, warm - Psychiatric Psychiatric: appropriate mood/affect, cooperative - Neurologic Neurologic: moves all extremities Results - Labs CBC & Chem 7: 06/25/22 04:34 06/30/22 05:46 Labs: Laboratory Last Values WBC 5.8 K/mm3 (4.5-11.0) 06/25/22 04:34 RBC 2.77 M/mm3 (3.65-5.03) L 06/25/22 04:34 Hgb 8.1 gm/dl (11.8-15.2) L 06/25/22 04:34 Hct 23.7 % (35.5-45.6) L 06/25/22 04:34 MCV 85 fl (84-94) 06/25/22 04:34 MCH 29 pg (28-32) 06/25/22 04:34 MCHC 34 % (32-34) 06/25/22 04:34 RDW 14.2 % (13.2-15.2) 06/25/22 04:34 Plt Count 419 K/mm3 (140-440) 06/25/22 04:34 Lymph % (Auto) 17.6 % (13.4-35.0) 06/21/22 04:00 [place] % (Auto) 8.4 % (0.0-7.3) H 06/21/22 04:00 Eos % (Auto) 1.5 % (0.0-4.3) 06/21/22 04:00 Baso % (Auto) 0.5 % (0.0-1.8) 06/21/22 04:00 Lymph # (Auto) 1.0 K/mm3 (1.2-5.4) L 06/21/22 04:00 [place] # (Auto) 0.5 K/mm3 (0.0-0.8) 06/21/22 04:00 Eos # (Auto) 0.1 K/mm3 (0.0-0.4) 06/21/22 04:00 Baso # (Auto) 0.0 K/mm3 (0.0-0.1) 06/21/22 04:00 Seg Neutrophils % 72.0 % (40.0-70.0) H 06/21/22 04:00 Seg Neutrophils # 4.2 K/mm3 (1.8-7.7) 06/21/22 04:00 Sodium 126 mmol/L (137-145) L 06/30/22 05:46 Potassium 3.9 mmol/L (3.6-5.0) 06/30/22 05:46 Chloride 95.1 mmol/L (98-107) L 06/30/22 05:46 Carbon Dioxide 22 mmol/L (22-30) 06/30/22 05:46 Anion Gap 13 mmol/L 06/30/22 05:46 BUN 4 mg/dL (9-20) L 06/30/22 05:46 Creatinine 0.3 mg/dL (0.8-1.3) L 06/30/22 05:46 Estimated GFR > 60 ml/min 06/30/22 05:46 BUN/Creatinine Ratio 13 % 06/30/22 05:46 Glucose 132 mg/dL (75-100) H 06/30/22 05:46 POC Glucose 187 mg/dL (70-105) H 07/03/22 21:41 Hemoglobin A1c 15.6 % (4-6) H 06/14/22 09:08 Lactic Acid 1.80 mmol/L (0.7-2.0) 06/14/22 16:27 Calcium 7.2 mg/dL (8.4-10.2) L 06/30/22 05:46 Magnesium 1.50 mg/dL (1.7-2.3) L 06/30/22 05:46 Iron 18 ug/dL (49-181) L 06/14/22 09:08 TIBC 79 mcg/dL (250-450) L 06/14/22 09:08 Ferritin 894.3 ng/mL (30.0-300.0) H 06/14/22 09:08 Total Bilirubin 0.60 mg/dL (0.1-1.2) 06/13/22 22:05 AST 37 units/L (5-40) 06/13/22 22:05 ALT 43 units/L (7-56) 06/13/22 22:05 Alkaline Phosphatase 127 units/L (35-129) 06/13/22 22:05 C-Reactive Protein 8.00 mg/dL (0.00-1.30) H 06/27/22 04:53 Total Protein 7.0 g/dL (6.3-8.2) 06/13/22 22:05 Albumin 2.2 g/dL (3.9-5) L 06/13/22 22:05 Albumin/Globulin Ratio 0.5 % 06/13/22 22:05 Vancomycin Trough 11.2 ug/mL (5.0-20.0) 07/03/22 04:30 HIV DNA Qual (PCR) Not detected (Not Detected) 06/16/22 11:11 HIV 1&2 Antibody Rapid Non react (Non React) 06/16/22 11:11 HIV P24 Antigen Non react (Non React) 06/16/22 11:11 Blood Type O POSITIVE 06/25/22 04:34 Antibody Screen Negative 06/25/22 04:34 Perez/IV: Voiding Method Urinal Active Medications - Current Medications Current Medications: Generic Name Dose Route Start Last Admin Trade Name Freq PRN Reason Stop Dose Admin Acetaminophen 650 mg 06/14/22 10:00 06/18/22 17:05 Acetaminophen 325 Mg Tab PO 650 mg Q4H PRN Administration Pain MILD(1-3)/Fever >100.5/ALMAZAN Dextrose 50 ml 06/14/22 15:48 06/21/22 22:42 Dextrose 50% In Water (25gm) 50 Ml Syringe IV 50 ml Q30MIN PRN Administration Hypoglycemia Protocol Heparin Sodium (Porcine) 5,000 unit 06/14/22 14:00 07/04/22 05:36 Heparin 5,000 Unit/1 Ml Vial SUB-Q 5,000 unit Q8HR KARAN Administration Hydromorphone HCl 1 mg 06/14/22 10:00 06/28/22 15:00 Hydromorphone 0.5 Mg/0.5 Ml Inj IV 1 mg Q4H PRN Administration Pain , Severe (7-10) Ceftriaxone Sodium 2 gm in 100 mls @ 200 mls/hr 06/28/22 14:00 07/03/22 14:37 Rocephin/Ns 2 Gm/100 Ml IV 200 mls/hr Q24H KARAN Administration Protocol Vancomycin HCl 1,750 mg/ 535 mls @ 333.333 mls/hr 07/01/22 17:00 07/04/22 04:55 Sodium Chloride IV 333.333 mls/hr Q12H KARAN Administration Insulin Human Isoph/Insulin Regular 5 unit 06/15/22 12:09 07/03/22 18:17 Insulin Nph/Regular 70/30 Inj SUB-Q Not Given BIDDIAB KARAN Insulin Human Regular 0 units 06/14/22 16:30 07/03/22 22:26 Insulin Regular, Human 100 Units/1 Ml SUB-Q 2 units ACHS KARAN Administration Protocol Metoclopramide HCl 10 mg 06/14/22 04:33 06/14/22 07:44 Metoclopramide 10 Mg/2 Ml Inj IV 10 mg Q6H PRN Administration Nausea And Vomiting Ondansetron HCl 4 mg 06/14/22 10:00 Ondansetron 4 Mg/2 Ml Inj IV Q8H PRN Nausea And Vomiting Oxycodone/Acetaminophen 1 tab 06/14/22 10:00 07/01/22 10:05 Oxycodone /Acetaminophen 5-325mg Tab PO 1 tab Q6H PRN Administration Pain, Moderate (4-6) Sodium Chloride 10 ml 06/14/22 04:33 07/02/22 06:04 Sodium Chloride 0.9% 10 Ml Flush Syringe IV 10 ml PRN PRN Administration LINE FLUSH Sodium Chloride 10 ml 06/14/22 10:00 07/03/22 22:20 Sodium Chloride 0.9% 10 Ml Flush Syringe IV 10 ml BID KARAN Administration Sodium Chloride 1 gm 06/30/22 10:00 07/03/22 22:19 Sodium Chloride 1 Gm Tab PO 1 gm BID KARAN Administration Sodium Hypochlorite 1 applic 06/20/22 09:39 Sodium Hypochlorite, Dakin's Full Strength (0.5%) 473 Ml Topical Soln TP Q12H PRN Wound Care Nutrition/Malnutrition Assess - Dietary Evaluation Nutrition/Malnutrition Findings: Nutrition Notes Start: 06/15/22 16:25 Freq: Status: Active Protocol: Document 06/29/22 11:42 BRIANDA (Rec: 06/29/22 12:12 BRIANDA [id number]) Nutrition Notes Initial or Follow up Reassessment Current Diagnosis Diabetes,Sepsis,Malnutrition Other Pertinent Diagnosis Posterior-Neck & Subscapular Abscesses, Anemia. Current Diet Consistent Carbohydrates Diet (since L 06/17)+D Suppl (from D 06/25). Labs/Tests 06/28: Na 126, Cl 94.9, BUN 4, Crea 0.3, Glu 107, Ca 7.4. Pertinent Medications 06/29: Humulin 70/30 5U, Humulin R 2U, others nutritionally unremarkable. Height 5 ft 5 in Weight 73.3 kg [place] Body Weight (kg) 61.81 BMI 26.9 Weight change and time frame No body weight change reported in 1 week. Weight Status Overweight Subjective/Other Information RD consult for routine F/U on dietary advancement. Diet+ONS continue as prescribed, Pt's PO intake of meals has been Good (75-100%), according to ADL notes. Pt is on Room Air, O2 saturation @ 98%, according to Physical Assessment History notes. Pt shows posterior-neck surgical incision as sign of concern for skin risk at the time, according to Physical Assessment History notes. WoundVac changed on 06/25, culture showed MRSA & Klebsiella; different from previous culture withy MSSA, according to Progress notes. [facility], according to Progress notes. Percent of energy/protein needs met: Prescribed Consistent Carbohydrates Diet provides for energy/protein needs (2, 061 Kcal/91 g) during LOS; additionally, Dietary Supplements will compensate for possible poor or insufficient PO intake of meals with 660 Kcal and 30 g of protein. Burn Absent Trauma Absent GI Symptoms None Food Allergy No Skin Integrity/Comment Neck surgical wound. 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 Diagnosis Progress(for reassessment Improved documentation) #1 Nutrition Diagnosis Increased nutrient needs ( specify in comment below) Comments: Protein to support wound healing processes. Diagnosis Progress(for reassessment Continues documentation) Is patient on ventilator? No Is Patient Ambulatory and/or Out of Bed Yes REE-([facility]-ambulatory/OOB) [ [id number] [id number]] Kcal/Kg value to use for calculation 21 Approximate Energy Requirements Using 1539 kcal/Kg Calculation Used for Recommendations Kcal/kg Additional Notes Protein: 1.25-1.5 g/Kg ABW; 84 -101 g/day. Fluids: 1 ml/Kcal, or as per MD. Nutrition Intervention Change Diet Order: Continue Consistent Carbohydrates Diet as tolerated. Add Supplement/Snack (indicate name/kcal Continue 8 fl oz Glucerna; TID /protein ) . Provides kCal: 660 Provides Protein (gm) 30 Goal #1 Support, through dietary supplementation, wound healing processes during LOS. Goal #2 Adjust the dietary intervention to better serve Pt's needs and clinical conditions during LOS. Follow-Up By: 07/06/22 Additional Comments Continue monitoring food tolerance, %PO intake of meals , dietary supplements, and BM.
[2022-07-04] MEDS ORDERED: LIDOCAINE (1%) 10 MG/1 ML VIAL 20 ML MDV ONE (09:55)
[2022-07-04] MEDS: INSULIN REGULAR, HUMAN 100 UNITS/1 ML SUB-Q SCH ×4 (09:56→23:03)
[2022-07-04] MEDS ORDERED: BUPIVACAINE-EPINEPHRINE/PF 0.5%-1:200,000 (30 ML) VIAL INFILTRATI ONE (09:56)
[2022-07-04] MEDS: INSULIN NPH/REGULAR 70/30 INJ SUB-Q SCH ×2 (09:57→17:26)
[2022-07-04] MEDS ORDERED: fentaNYL 100 MCG/2 ML INJ ONE (09:58)
[2022-07-04] MEDS ORDERED: propofoL 200 MG/20 ML VIAL IV ONE (09:58)
[2022-07-04] MEDS ORDERED: ROCURONIUM 50 MG/5 ML INJ IV ONE (09:59)
[2022-07-04] MEDS ORDERED: MIDAZOLAM 2 MG/2 ML INJ ONE (09:59)
[2022-07-04] MEDS ORDERED: LACTATED RINGERS 1,000 ML ONE (10:35)
[2022-07-04] MEDS ORDERED: PHENYLEPHRINE/NS 1,000 MCG/10 ML SYRINGE (OR USE) IV ONE (10:35)
[2022-07-04] MEDS ORDERED: ONDANSETRON 4 MG/2 ML INJ ONE (10:35)
[2022-07-04] MEDS ORDERED: SODIUM CHLORIDE 0.9% IRR 1,500 ML BOTTLE IR ONE (10:42)
[2022-07-04] MEDS ORDERED: NEOSTIGMINE 10MG/10 ML INJ MDV ONE (10:44)
[2022-07-04] MEDS ORDERED: GLYCOPYRROLATE 0.4 MG/2 ML INJ ONE ×2 (10:44)
[2022-07-04] MEDS ORDERED: HYDROmorphone 0.5 MG/0.5 ML INJ IV PRN (10:49)
--- NOTE | 2022-07-04 10:49 | Anesthesia Day of Surgery ---
Anesthesia Day of Surgery - Day of Surgery Patient Examined: Yes Patient H&P Reviewed: Yes Patient is NPO: Yes
--- NOTE | 2022-07-04 11:00 | Operative Report ---
Operative Report Operative Report: Date: 07/04/2022 Preoperative diagnosis: Chronic wound of posterior neck Postop diagnosis: Same Procedure: Debridement of Chronic wound of posterior neck,changing wound vac Surgeon: Dr. Patel EBL: Less than 10 cc Anesthesia: General endotracheal anesthesia Specimen: None Procedure: The patient is taken to the OR and after timeouts are completed. Patient is intubated and then rolled into a prone position all pressure points were padded. The Chronic wound of posterior neck is prepped with Betadine and draped in a sterile fashion. Thick necrotic tissue was encountered and debrided mechanically with a curved Campbell and an Allis forceps. The wound site including all areas of tunneling is 11.7 cm x 9 cm x 0.9 cm. Total wound area 94.77 cm2. After debridement wound size is 16cm x 9cm x 1.0cm. Debridement is of the dermis and epidermis muscle and deep fascia and subcutaneous tissue. Electrocautery was used for hemostasis. The wound is then irrigated with copious amounts of saline. The black foam from the wound VAC kit is then placed into the wound in all areas of tunneling. Skin-Prep is used along the wound edge. Wound VAC adhesive dressing is then placed and attached to vacuum. A good seal was obtained.
--- NOTE | 2022-07-04 12:30 | Post Anesthesia Evaluation ---
- Post Anesthesia Evaluation Patient Participated: Yes Airway Patent: Yes Stable Respiratory Function: Yes Nausea/Vomiting: No Temp > 96.8F: Yes Pain Manageable: Yes Adequeate Hydration: Yes Anesthesia Complications: No
[2022-07-04] MEDS: cefTRIAXone/NS 2 GM/100 ML 2 GM/100 ML BAG IV SCH (14:05)
[2022-07-04] MEDS: SODIUM CHLORIDE 1 GM TAB PO SCH ×2 (14:08→21:59)
[2022-07-05] MEDS: HEPARIN 5,000 UNIT/1 ML VIAL SUB-Q SCH ×3 (05:11→22:11)
[2022-07-05] MEDS: VANCOMYCIN 1,750 MG in SODIUM CHLORIDE 0.9% 500 ML 500 ML IV SCH ×2 (05:11→16:49)
[2022-07-05 07:01] LABS: Blood Urea Nitrogen 5 mg/dL (9-20); Calcium 7.7 mg/dL (8.4-10.2); Hemolysis Index 0
[2022-07-05 07:18] LABS: BUN/Creatinine Ratio 17
[2022-07-05] MEDS: INSULIN REGULAR, HUMAN 100 UNITS/1 ML SUB-Q SCH ×4 (08:27→23:55)
[2022-07-05] MEDS: INSULIN NPH/REGULAR 70/30 INJ SUB-Q SCH ×2 (09:23→17:21)
[2022-07-05] MEDS: SODIUM CHLORIDE 1 GM TAB PO SCH ×2 (09:25→22:11)
[2022-07-05] MEDS: cefTRIAXone/NS 2 GM/100 ML 2 GM/100 ML BAG IV SCH (13:16)
--- NOTE | 2022-07-05 14:56 | Progress Note ---
Assessment and Plan # Necrotic posterior neck abscess: extending to paraspinal muscles without evidence of osteomyelitis Status post incision drainage 06/14/2022 , 06/15/2022, 06/17/2022 wound VAC that was changed on 06/21/2022 Patient had surgical debridement of chronic wound posterior neck on 06/30/2022 Surgery following, wound VAC in place Patient had wound debridement again today 07/04/2022 and change of wound VAC Patient tolerated the procedure well 06/29/[address]22 right scap[address] muscle abscess CT-guided aspiration of the abscess 06/30/2020; chronic wound posterior neck/s/p debridement with wound VAC [of chronic wound of the posterior neck [on general endotracheal anesthesia'] #R scapular abscess Right subcapsular muscle abscess: successful CT-guided aspiration of the right subcu scapular abscess present for fluid analysis ID change antibiotics to vancomycin and ceftriaxone Follow cultures #Posterior neck abscess secondary to Klebsiella + staph aureus Chronic wound of posterior neck s/p Debridement of Chronic wound of posterior neck 06/30/2022 Wound VAC functioning well #Septic joint #Lactic acidosisresolved CT of the head and chest with contrast revealing "large peripherally enhancing multiseptated organized collection seen extending from the posterior scalp along the subcutis tissues + paraspinal musculature to the level of T1 spinous process". continue IV Ancef 2 g every 8 hours while inpatient. Upon discharge, plan for p.o. Keflex 750 mg QID for 3 weeks General surgery consulted; appreciate recs. status post I&D of posterior neck abscess. Blood cultures negative. wound cultures positive for Klebsiella and staph aureus. Currently exchanging wound vacs. Infectious disease consulted; appreciate recs. HIV negative. CRP 12.60 -> 9.30 Continue analgesics as needed. Occupational Therapy consulted due to decreased mobility of right shoulder; recommending acute rehab. - CT of the R arm showed possible fluid collections at the the subscapularis muscle bed. Discussed findings with general surgery, concern for septic joint - Orthopaedics consulted, plan for arthrocentesis -wound VAC exchanged 06/25 -General surgery recommends patient transfer to OSH for intervention of the abscesses at subscapularis muscle bed. [place], [facility] was contacted again. They are unable to accept the patient at this time. #Non-insulin dependent type II diabetes mellitus - hemoglobin A1c: 15.6 - home regimen: None - current regimen: NPH 70/30 5 units twice daily + moderate SSI - blood glucose goal 140-180 while inpatient - continue to monitor #Hyponatremia-stable Continue to monitor with repeat BMP #Hypokalemia will continue to replete and monitor #Iron deficiency anemia Hemoglobin 7-8 Iron 18, TIBC 79, ferritin 894 Transfuse if hemoglobin <7 or patient become symptomatic. #Hypocalcemia Calcium 7.5 Replete. Continue to monitor. #Moderate protein caloric malnutrition Albumin 2.2 Continue dietary supplementation #Advanced care planning -Disease education conducted, care plan discussed, diagnoses discussed, prognosis discussed, and patient acknowledges understanding with care plan -Time: +30 min #Social issues -Patient is undocumented and does not have health insurance. All items needed for wound VAC and medications may be required to self-pay. Case management/social work aware to attempt to provide patient with [employer] items DC planning per case management We will closely monitor patient and adjust management as needed Plan of care reviewed with the patient and his nurse Continue current management Consults and recommendations noted and appreciated Plan of care reviewed with the patient and her nurse nurse 06/29/2022; CT-guided aspiration of right scapular abscess 06/30/2020; debridement of 4 neck wound with wound VAC 07/02;; patient's wound VAC is functioning, feels better 07/03; continue current management wound VAC/antibiotics 07/04;; patient had session of wound debridement of the necrotic tissue back of the neck Continue current antibiotics ID following Disposition; closely monitor. Follow ID and surgeon recommendations Discharge when stable and cleared by consultants Subjective Date of service: 07/05/22 Objective - Constitutional Vitals: Vital Signs - 12hr 07/05/22 07/05/22 07/05/22 05:48 10:59 12:28 Temperature 98.0 F 98.1 F Pulse Rate 79 93 H Respiratory 18 16 Rate Blood Pressure 133/79 108/67 O2 Sat by Pulse 100 98 98 Oximetry - Labs CBC & Chem 7: 06/25/22 04:34 07/05/22 05:32 Labs: Abnormal lab results 07/04/22 07/04/22 07/05/22 Range/Units 07:57 16:38 05:32 Sodium 134 L D (137-145) mmol/L BUN 5 L (9-20) mg/dL Creatinine 0.3 L (0.8-1.3) mg/dL Glucose 122 H (75-100) mg/dL POC Glucose 106 H 170 H (70-105) mg/dL Calcium 7.7 L (8.4-10.2) mg/dL 07/05/22 07/05/22 Range/Units 07:45 10:57 Sodium (137-145) mmol/L BUN (9-20) mg/dL Creatinine (0.8-1.3) mg/dL Glucose (75-100) mg/dL POC Glucose 136 H 168 H (70-105) mg/dL Calcium (8.4-10.2) mg/dL
[2022-07-06] MEDS: HEPARIN 5,000 UNIT/1 ML VIAL SUB-Q SCH ×4 (04:33→22:49)
[2022-07-06] MEDS: VANCOMYCIN 1,750 MG in SODIUM CHLORIDE 0.9% 500 ML 500 ML IV SCH ×2 (04:33→17:16)
[2022-07-06] MEDS: INSULIN REGULAR, HUMAN 100 UNITS/1 ML SUB-Q SCH ×4 (08:09→22:48)
[2022-07-06] MEDS: INSULIN NPH/REGULAR 70/30 INJ SUB-Q SCH ×2 (08:09→17:11)
[2022-07-06] MEDS: SODIUM CHLORIDE 1 GM TAB PO SCH ×2 (10:07→22:48)
--- NOTE | 2022-07-06 11:08 | Cat Scan Report ---
CT UPPER EXTREMITY RIGHT WITHOUT CONTRAST INDICATION : increased pain rt shoulder. TECHNIQUE: Axial imaging performed through the shoulder without the use of contrast. All CT scans a t this location are performed using CT dose reduction for ALARA by means of automated exposure contro l. COMPARISON: 06/21/2022. 06/29/2022. FINDINGS: This exam is slightly limited without IV contrast but the previously drained fluid collecti on in the subscapular muscle bed appears to have reaccumulated measuring up to 3.9 cm in thickness wh ich is similar to previous exams prior to the drainage. A focal area of bony/cortical destruction has developed in the posterior right humeral head which is best demonstrated on image 50, series 2 consistent with osteomyelitis. The remaining bony structures are unremarkable. Moderate right glenohumeral joint effusion is again noted and unchanged. This likely represents a sep tic joint. IMPRESSION: 1. Limited exam without IV contrast, however the complex fluid collection/abscess in the subscapular muscle bed appears to have reaccumulated. 2. There is new bony destruction involving the posterior right humeral head consistent with osteomyel itis. Probable septic joint. Signer Name: Antonio Conner Jr, MD Signed: 07/06/2022 11:04 AM Workstation Name: [id number]
[2022-07-06] MEDS: cefTRIAXone/NS 2 GM/100 ML 2 GM/100 ML BAG IV SCH (13:10)
--- NOTE | 2022-07-06 16:09 | Progress Note ---
Assessment and Plan # Necrotic posterior neck abscess: extending to paraspinal muscles without evidence of osteomyelitis Status post incision drainage 06/14/2022 , 06/15/2022, 06/17/2022 wound VAC that was changed on 06/21/2022 Patient had surgical debridement of chronic wound posterior neck on 06/30/2022 Surgery following, wound VAC in place Patient had wound debridement again today 07/04/2022 and change of wound VAC Patient tolerated the procedure well 06/29/2022 right scapular muscle abscess CT-guided aspiration of the abscess 06/30/2020; chronic wound posterior neck/s/p debridement with wound VAC [of chronic wound of the posterior neck [on general endotracheal anesthesia'] #R scapular abscess Right subcapsular muscle abscess: successful CT-guided aspiration of the right subcu scapular abscess present for fluid analysis ID change antibiotics to vancomycin and ceftriaxone Follow cultures #Posterior neck abscess secondary to Klebsiella + staph aureus Chronic wound of posterior neck s/p Debridement of Chronic wound of posterior neck 06/30/2022 Wound VAC functioning well #Septic joint #Lactic acidosisresolved CT of the head and chest with contrast revealing "large peripherally enhancing multiseptated organized collection seen extending from the posterior scalp along the subcutis tissues + paraspinal musculature to the level of T1 spinous process". continue IV Ancef 2 g every 8 hours while inpatient. Upon discharge, plan for p.o. Keflex 750 mg QID for 3 weeks General surgery consulted; appreciate recs. status post I&D of posterior neck abscess. Blood cultures negative. wound cultures positive for Klebsiella and staph aureus. Currently exchanging wound vacs. Infectious disease consulted; appreciate recs. HIV negative. CRP 12.60 -> 9.30 Continue analgesics as needed. Occupational Therapy consulted due to decreased mobility of right shoulder; recommending acute rehab. - CT of the R arm showed possible fluid collections at the the subscapularis muscle bed. Discussed findings with general surgery, concern for septic joint - Orthopaedics consulted, plan for arthrocentesis -wound VAC exchanged 06/25 -General surgery recommends patient transfer to OSH for intervention of the abscesses at subscapularis muscle bed. [place], [facility] was contacted again. They are unable to accept the patient at this time. #Non-insulin dependent type II diabetes mellitus - hemoglobin A1c: 15.6 - home regimen: None - current regimen: NPH 70/30 5 units twice daily + moderate SSI - blood glucose goal 140-180 while inpatient - continue to monitor #Hyponatremia-stable Continue to monitor with repeat BMP #Hypokalemia will continue to replete and monitor #Iron deficiency anemia Hemoglobin 7-8 Iron 18, TIBC 79, ferritin 894 Transfuse if hemoglobin <7 or patient become symptomatic. #Hypocalcemia Calcium 7.5 Replete. Continue to monitor. #Moderate protein caloric malnutrition Albumin 2.2 Continue dietary supplementation #Advanced care planning -Disease education conducted, care plan discussed, diagnoses discussed, prognosis discussed, and patient acknowledges understanding with care plan -Time: +30 min #Social issues -Patient is undocumented and does not have health insurance. All items needed for wound VAC and medications may be required to self-pay. Case management/social work aware to attempt to provide patient with Tip or Skip items DC planning per case management We will closely monitor patient and adjust management as needed Plan of care reviewed with the patient and his nurse Continue current management Consults and recommendations noted and appreciated Plan of care reviewed with the patient and her nurse nurse 06/29/2022; CT-guided aspiration of right scapular abscess 06/30/2020; debridement of 4 neck wound with wound VAC 07/02;; patient's wound VAC is functioning, feels better 07/03; continue current management wound VAC/antibiotics 07/04;; patient had session of wound debridement of the necrotic tissue back of the neck Continue current antibiotics ID following Disposition; closely monitor. Follow ID and surgeon recommendations Discharge when stable and cleared by consultants Subjective Date of service: 07/06/22 Objective - Constitutional Vitals: Vital Signs - 12hr 07/06/22 07/06/22 07/06/22 05:32 11:10 11:58 Temperature 98.5 F 98.2 F Pulse Rate 78 82 Respiratory 18 16 20 Rate Blood Pressure 134/83 127/82 O2 Sat by Pulse 98 100 98 Oximetry - Labs CBC & Chem 7: 06/25/22 04:34 07/05/22 05:32 Labs: Abnormal lab results 07/05/22 07/05/22 07/06/22 Range/Units 15:28 22:58 07:56 POC Glucose 141 H 154 H 108 H (70-105) mg/dL
[2022-07-06] MEDS: oxyCODONE /ACETAMINOPHEN 5-325MG TAB PO PRN (22:49)
[2022-07-07] MEDS: VANCOMYCIN 1,750 MG in SODIUM CHLORIDE 0.9% 500 ML 500 ML IV SCH ×2 (04:53→17:44)
[2022-07-07] MEDS: HEPARIN 5,000 UNIT/1 ML VIAL SUB-Q SCH ×3 (05:00→21:51)
[2022-07-07] MEDS: oxyCODONE /ACETAMINOPHEN 5-325MG TAB PO PRN ×2 (05:01→21:55)
[2022-07-07] MEDS: INSULIN REGULAR, HUMAN 100 UNITS/1 ML SUB-Q SCH ×4 (07:45→21:52)
[2022-07-07] MEDS: INSULIN NPH/REGULAR 70/30 INJ SUB-Q SCH ×2 (07:46→17:45)
[2022-07-07] MEDS: SODIUM CHLORIDE 1 GM TAB PO SCH ×2 (09:04→21:51)
--- NOTE | 2022-07-07 09:05 | Progress Note ---
Assessment and Plan Continue local wound care continue IV antibiotics. Discussed with hospitalist regarding low white counts and large septic area. HIV testing was negative. CT of the shoulder is showing a large abscess under the scapula. Patient with a fair amount of pain into the right shoulder yesterday. CT scan of the shoulder shows the collection in the subscapular area to have increased. There is also evidence of a septic arthritis with bony changes to the humeral head. We will asked Dr. Thomas to see the patient again today. Wound VAC changed at bedside. The wound remains fairly large with extensive tunneling and overhanging. We will continue wound VAC for now. Subjective Date of service: 07/07/22 Patient Reports: Positive: no new complaints, pain is less Narrative: Patient with a fair amount of pain into the right shoulder yesterday. CT scan of the shoulder shows the collection in the subscapular area to have increased. There is also evidence of a septic arthritis with bony changes to the humeral head. We will asked Dr. Thomas to see the patient again today. Wound VAC changed at bedside. The wound remains fairly large with extensive tunneling and overhanging. We will continue wound VAC for now. Objective Vital Signs - 12hr 07/06/22 07/06/22 07/06/22 22:00 22:30 22:49 Temperature 98.9 F Pulse Rate 94 H Respiratory 18 18 Rate Respiratory 17 Rate [Right Arm ] Respiratory 17 Rate [Right Shoulder] Blood Pressure 120/76 Blood Pressure [Left] O2 Sat by Pulse 98 Oximetry 07/06/22 07/06/22 07/07/22 23:00 23:49 05:01 Temperature Pulse Rate Respiratory 18 17 17 Rate Respiratory Rate [Right Arm ] Respiratory Rate [Right Shoulder] Blood Pressure Blood Pressure [Left] O2 Sat by Pulse 98 Oximetry 07/07/22 07/07/22 05:33 06:01 Temperature 98.4 F Pulse Rate 87 Respiratory 18 16 Rate Respiratory Rate [Right Arm ] Respiratory Rate [Right Shoulder] Blood Pressure Blood Pressure 126/73 [Left] O2 Sat by Pulse 98 Oximetry - Labs 06/25/22 04:34 07/05/22 05:32
[2022-07-07] MEDS: cefTRIAXone/NS 2 GM/100 ML 2 GM/100 ML BAG IV SCH (14:05)
--- NOTE | 2022-07-07 14:36 | Progress Note ---
Assessment and Plan # Necrotic posterior neck abscess: extending to paraspinal muscles without evidence of osteomyelitis Status post incision drainage 06/14/2022 , 06/15/2022, 06/17/2022 wound VAC that was changed on 06/21/2022 Patient had surgical debridement of chronic wound posterior neck on 06/30/2022 Surgery following, wound VAC in place Patient had wound debridement again today 07/04/2022 and change of wound VAC Patient tolerated the procedure well 06/29/2022 right scapular muscle abscess CT-guided aspiration of the abscess 06/30/2020; chronic wound posterior neck/s/p debridement with wound VAC [of chronic wound of the posterior neck [on general endotracheal anesthesia'] #R scapular abscess Right subcapsular muscle abscess: successful CT-guided aspiration of the right subcu scapular abscess present for fluid analysis ID change antibiotics to vancomycin and ceftriaxone Follow cultures #Posterior neck abscess secondary to Klebsiella + staph aureus Chronic wound of posterior neck s/p Debridement of Chronic wound of posterior neck 06/30/2022 Wound VAC functioning well #Septic joint #Lactic acidosisresolved CT of the head and chest with contrast revealing "large peripherally enhancing multiseptated organized collection seen extending from the posterior scalp along the subcutis tissues + paraspinal musculature to the level of T1 spinous process". continue IV Ancef 2 g every 8 hours while inpatient. Upon discharge, plan for p.o. Keflex 750 mg QID for 3 weeks General surgery consulted; appreciate recs. status post I&D of posterior neck abscess. Blood cultures negative. wound cultures positive for Klebsiella and staph aureus. Currently exchanging wound vacs. Infectious disease consulted; appreciate recs. HIV negative. CRP 12.60 -> 9.30 Continue analgesics as needed. Occupational Therapy consulted due to decreased mobility of right shoulder; recommending acute rehab. - CT of the R arm showed possible fluid collections at the the subscapularis muscle bed. Discussed findings with general surgery, concern for septic joint - Orthopaedics consulted, plan for arthrocentesis -wound VAC exchanged 06/25 -General surgery recommends patient transfer to OSH for intervention of the abscesses at subscapularis muscle bed. [place], [facility] [place] contacted again. They are unable to accept the patient at this time. #Non-insulin dependent type II diabetes mellitus - hemoglobin A1c: 15.6 - home regimen: None - current regimen: NPH 70/30 5 units twice daily + moderate SSI - blood glucose goal 140-180 while inpatient - continue to monitor #Hyponatremia-stable Continue to monitor with repeat BMP #Hypokalemia will continue to replete and monitor #Iron deficiency anemia Hemoglobin 7-8 Iron 18, TIBC 79, ferritin 894 Transfuse if hemoglobin <7 or patient become symptomatic. #Hypocalcemia Calcium 7.5 Replete. Continue to monitor. #Moderate protein caloric malnutrition Albumin 2.2 Continue dietary supplementation #Advanced care planning -Disease education conducted, care plan discussed, diagnoses discussed, prognosis discussed, and patient acknowledges understanding with care plan -Time: +30 min #Social issues -Patient is undocumented and does not have health insurance. All items needed for wound VAC and medications may be required to self-pay. Case management/social work aware to attempt to provide patient with [employer] [employer] items DC planning per case management We will closely monitor patient and adjust management as needed Plan of care reviewed with the patient and his nurse Continue current management Consults and recommendations noted and appreciated Plan of care reviewed with the patient and her nurse nurse 06/29/2022; CT-guided aspiration of right scapular abscess 06/30/2020; debridement of 4 neck wound with wound VAC 07/02;; patient's wound VAC is functioning, feels better 07/03; continue current management wound VAC/antibiotics 07/04;; patient had session of wound debridement of the necrotic tissue back of the neck Continue current antibiotics ID following Disposition; closely monitor. Follow ID and surgeon recommendations Discharge when stable and cleared by consultants Subjective Date of service: 07/07/22 Objective - Constitutional Vitals: Vital Signs - 12hr 07/07/22 07/07/22 07/07/22 05:01 05:33 06:01 Temperature 98.4 F Pulse Rate 87 Respiratory 17 18 16 Rate Blood Pressure Blood Pressure 126/73 [Left] O2 Sat by Pulse 98 Oximetry 07/07/22 11:06 Temperature 98.1 F Pulse Rate 91 H Respiratory 20 Rate Blood Pressure 139/83 Blood Pressure [Left] O2 Sat by Pulse 99 Oximetry - Labs CBC & Chem 7: 06/25/22 04:34 07/08/22 04:17 Labs: Abnormal lab results 07/06/22 07/06/22 07/06/22 Range/Units 11:09 16:10 22:28 POC Glucose 131 H 151 H 162 H (70-105) mg/dL 07/07/22 07/07/22 07/07/22 Range/Units 08:01 11:03 12:10 POC Glucose 109 H 57 L 133 H (70-105) mg/dL
[2022-07-08 04:24] VITALS: BP 141/86
[2022-07-08 05:17] LABS: Blood Urea Nitrogen 4 mg/dL (9-20); Calcium 7.7 mg/dL (8.4-10.2); Hemolysis Index 8
[2022-07-08 05:31] LABS: BUN/Creatinine Ratio 20
[2022-07-08] MEDS: VANCOMYCIN 1,750 MG in SODIUM CHLORIDE 0.9% 500 ML 500 ML IV SCH (05:54)
[2022-07-08] MEDS: HEPARIN 5,000 UNIT/1 ML VIAL SUB-Q SCH ×2 (05:55→13:29)
[2022-07-08] MEDS: INSULIN REGULAR, HUMAN 100 UNITS/1 ML SUB-Q SCH ×2 (07:30→11:30)
[2022-07-08] MEDS: INSULIN NPH/REGULAR 70/30 INJ SUB-Q SCH (08:00)
[2022-07-08] MEDS: SODIUM CHLORIDE 1 GM TAB PO SCH (10:11)
[2022-07-08] MEDS: cefTRIAXone/NS 2 GM/100 ML 2 GM/100 ML BAG IV SCH (13:28)
--- NOTE | 2022-07-08 14:11 | Progress Note ---
Assessment and Plan r/o sepsis right shoulder under sterile conditions, right shoulder aspiration attempted with no aspirate, " dry tap " .... CT scan appears to show subscapular fluid collection recommend head/neck surgeon possible drainage... Subjective Date of service: 07/08/22 Interval history: still c/o right shoulder pain...CT scan recently show findings suggestive of septic joint... Objective Vital signs: Vital Signs - 12hr 07/08/22 04:09 Temperature 98.2 F Pulse Rate 89 Respiratory 18 Rate Blood Pressure 141/86 O2 Sat by Pulse 100 Oximetry Narrative Exam: right shoulder - no obvious swelling, erythema, passive ROM dec... attempted aspiration today with no fluid return... - Labs CBC & BMP: 06/25/22 04:34 07/08/22 04:17 Labs: Abnormal lab results 07/07/22 07/07/22 07/08/22 Range/Units 16:41 21:14 04:17 Sodium 135 L (137-145) mmol/L BUN 4 L (9-20) mg/dL Creatinine 0.2 L (0.8-1.3) mg/dL Glucose 125 H (75-100) mg/dL POC Glucose 113 H 126 H (70-105) mg/dL Calcium 7.7 L (8.4-10.2) mg/dL 07/08/22 Range/Units 07:25 Sodium (137-145) mmol/L BUN (9-20) mg/dL Creatinine (0.8-1.3) mg/dL Glucose (75-100) mg/dL POC Glucose 120 H (70-105) mg/dL Calcium (8.4-10.2) mg/dL
--- NOTE | 2022-07-08 14:57 | Discharge Summary ---
Providers - Providers Date of Admission: 06/14/22 08:28 Date of discharge: 07/08/22 Attending physician: ZULEIKA MACIAS 06/14/22 04:14 Consult to Physician [CONS] Stat Comment: NANETTE Arnold spoke with Dr. Patel @ [phone] Consulting Provider: ADITYA PATEL Physician Instructions: NPO, IV Abx, Fluids, Hospitalist admission Reason For Exam: Posterior neck abscess 06/14/22 08:34 Consult to Physician [CONS] Routine Comment: Consulting Provider: DAQUAN KRISHNAN Physician Instructions: Reason For Exam: Antibiotic management 06/14/22 15:46 Occupational Therapy Evaluate and Treat [CONS] Routine Comment: Reason For Exam: Evaluate range of motion after procedure 06/16/22 10:37 Physical Therapy Evaluation and Treat [CONS] Urgent Comment: Reason For Exam: UE weakness and decreased rom 06/22/22 09:28 Consult to Interventional Radiology [CONS] Routine Consulting Provider: FARA MOON Reason For Exam: R shoulder abscess drainage Place consult to:: dr. moon Notified:: office Phone number called:: overhead paged. Was contact made?: No Time called:: 11:10 06/23/22 13:21 Consult to Physician [CONS] Routine Comment: Consulting Provider: BIMAL [place] Physician Instructions: Reason For Exam: Septic joint 06/25/22 12:37 Consult to Dietitian/Nutrition [CONS] Stat Physician Instructions: Protein supplements. Reason For Exam: low electrolytes, underweight. Reason for Consult: Pt needs oral supplement Primary care physician: TRICIA WILLINGHAM Hospitalization Condition: Stable Hospital course: Discharge Diagnosis: # Necrotic posterior neck abscess: extending to paraspinal muscles without evidence of osteomyelitis Status post incision drainage 06/14/2022 , 06/15/2022, 06/17/2022 wound VAC that was changed on 06/21/2022 Patient had surgical debridement of chronic wound posterior neck on 06/30/2022 Surgery following, wound VAC in place Patient had wound debridement again today 07/04/2022 and change of wound VAC Patient tolerated the procedure well 06/29/2022 right scapular muscle abscess CT-guided aspiration of the abscess 06/30/2020; chronic wound posterior neck/s/p debridement with wound VAC [of chronic wound of the posterior neck [on general endotracheal anesthesia'] #R scapular abscess Right subcapsular muscle abscess: successful CT-guided aspiration of the right subcu scapular abscess present for fluid analysis ID change antibiotics to vancomycin and ceftriaxone Follow cultures #Posterior neck abscess secondary to Klebsiella + staph aureus Chronic wound of posterior neck s/p Debridement of Chronic wound of posterior neck 06/30/2022 Wound VAC functioning well #Septic joint #Lactic acidosisresolved CT of the head and chest with contrast revealing "large peripherally enhancing multiseptated organized collection seen extending from the posterior scalp along the subcutis tissues + paraspinal musculature to the level of T1 spinous process". continue IV Ancef 2 g every 8 hours while inpatient. Upon discharge, plan for p.o. Keflex 750 mg QID for 3 weeks General surgery consulted; appreciate recs. status post I&D of posterior neck abscess. Blood cultures negative. wound cultures positive for Klebsiella and staph aureus. Currently exchanging wound vacs. Infectious disease consulted; appreciate recs. HIV negative. CRP 12.60 -> 9.30 Continue analgesics as needed. Occupational Therapy consulted due to decreased mobility of right shoulder; recommending acute rehab. - CT of the R arm showed possible fluid collections at the the subscapularis muscle bed. Discussed findings with general surgery, concern for septic joint - Orthopaedics consulted, plan for arthrocentesis -wound VAC exchanged 06/25 -General surgery recommends patient transfer to OSH for intervention of the abscesses at subscapularis muscle bed. [place], [facility] [place]. They are unable to accept the patient at this time. #Non-insulin dependent type II diabetes mellitus - hemoglobin A1c: 15.6 - home regimen: None - current regimen: NPH 70/30 5 units twice daily + moderate SSI - blood glucose goal 140-180 while inpatient - continue to monitor #Hyponatremia-stable Continue to monitor with repeat BMP #Hypokalemia will continue to replete and monitor #Iron deficiency anemia Hemoglobin 7-8 Iron 18, TIBC 79, ferritin 894 Transfuse if hemoglobin <7 or patient become symptomatic. #Hypocalcemia Calcium 7.5 Replete. Continue to monitor. #Moderate protein caloric malnutrition Albumin 2.2 Continue dietary supplementation Disposition: 01 HOME / SELF CARE / HOMELESS Time spent for discharge: 34 minutes Exam - Constitutional Vitals: Temp Pulse Resp BP Pulse Ox 98.2 F 89 18 141/86 100 07/08/22 04:09 07/08/22 04:09 07/08/22 04:09 07/08/22 04:09 07/08/22 04:09 Plan Activity: advance as tolerated Diet: regular Wound: per your surgeon's advice, per wound nurse instructions, drain care as instructed Additional Instructions: please come back to our wound care center for follow up. Follow up with: TRICIA WILLINGHAM MD [Primary Care Provider] - 3-5 Days ADITYA PATEL MD [Staff Physician] - 7 Days Prescriptions: Sodium Hypochlorite [Dakin's Full Strength] 1 applic TP Q12H PRN #2 bottle PRN Reason: Wound Care cephALEXin [Keflex] 500 mg PO Q6HR #40 capsule oxyCODONE /ACETAMINOPHEN [Percocet 5/325 mg] 1 tab PO Q6H PRN #20 tablet PRN Reason: Pain, Moderate (4-6)
== END 2022-07-08 17:00 | disposition home health service (06) | DRG 571 ==
LOC: ED 12:59 → 3A 06-14 08:28
PROVIDERS: ADMIT Student in an Organized Health Care Education/Training Program; ATTEND Internal Medicine
PROC: 0JB50ZZ Excision of Left Neck Subcutaneous Tissue and Fascia, Open Approach (ICD-10-PCS; principal; 2022-06-14)
PROC: 0JB40ZZ Excision of Right Neck Subcutaneous Tissue and Fascia, Open Approach (ICD-10-PCS; 2022-06-14)
PROC: 0HD4XZZ Extraction of Neck Skin, External Approach (ICD-10-PCS; 2022-06-15)
PROC: 0JD Subcutaneous Tissue and Fascia, Extraction (ICD-10-PCS; 2022-06-15)
PROC: 0JD Subcutaneous Tissue and Fascia, Extraction (ICD-10-PCS; 2022-06-19)
PROC: 0JB40ZZ Excision of Right Neck Subcutaneous Tissue and Fascia, Open Approach (ICD-10-PCS; 2022-06-19)
PROC: 0JB50ZZ Excision of Left Neck Subcutaneous Tissue and Fascia, Open Approach (ICD-10-PCS; 2022-06-25)
PROC: 0JB40ZZ Excision of Right Neck Subcutaneous Tissue and Fascia, Open Approach (ICD-10-PCS; 2022-06-25)
PROC: 0K953ZZ Drainage of Right Shoulder Muscle, Percutaneous Approach (ICD-10-PCS; 2022-06-29)
PROC: 0JD50ZZ Extraction of Left Neck Subcutaneous Tissue and Fascia, Open Approach (ICD-10-PCS; 2022-06-30)
PROC: 0JD Subcutaneous Tissue and Fascia, Extraction (ICD-10-PCS; 2022-06-30)
DX: L02.11 Cutaneous abscess of neck (principal); E44.0 Moderate protein-calorie malnutrition; E87.1 Hypo-osmolality and hyponatremia; E87.2 Acidosis; L02.811 Cutaneous abscess of head [any part, except face]; B95.4 Other streptococcus as the cause of diseases classified elsewhere; E11.65 Type 2 diabetes mellitus with hyperglycemia; E83.51 Hypocalcemia; Z68.24 Body mass index [BMI] 24.0-24.9, adult; Z83.3 Family history of diabetes mellitus; Z82.49 Family history of ischemic heart disease and other diseases of the circulatory system; D50.9 Iron deficiency anemia, unspecified; E87.6 Hypokalemia
CPT/HCPCS: 10160; 36415; 70460; 70491; 71260; 77012; 80048; 80053; 80202; 82140; 82728; 82962; 83036; 83550; 83735; 85025; 85027; 86140; 86850; 86900; 86901; 87040; 87075; 87076; 87102; 87116; 87186; 87220; 87535; 87806; 88304; 90715; 93005; G0378; J1815; J3490; Q0177; Q9967; J0330; J0610; J0690; J0692; J0696; J1100; J1170; J1644; J1885; J2250; J2270; J2370; J2405; J2543; J2704; J2710; J2765; J3010; J3370; J7030; J7040; J7050; J7120

== ENCOUNTER 2022-07-12 10:54 | Emergency (ER) | payer SELFPAY ==
[2022-07-12 11:35] VITALS: BP 118/74
--- NOTE | 2022-07-12 12:14 | Emergency Department Report ---
ED General Adult HPI - General Chief complaint: Wound/Laceration Stated complaint: CHANGE HEAD BANDAGES Time Seen by Provider: 07/12/22 12:00 Source: patient, RN notes reviewed Mode of arrival: Ambulatory - History of Present Illness Initial comments: This patient is a 41-year-old gentleman who presents to the ER today with a complaint of painless request to have his wound dressing VAC changed. He denies additional injuries and complaints. He specifically denies headache, chest pain, abdominal pain, shortness of breath, nausea, vomiting, diarrhea and urinary symptoms. He does have chronic right posterior tricep pain, and subacute right shoulder pain. Patient has a complex past medical history. This patient was recently admitted to this hospital, and found to have necrotic posterior neck abscess, extending to the paraspinal muscles, without evidence of osteomyelitis. He had incision and drainage performed on June 14, , with a wound VAC, that was changed on August 21. He also had surgical debridement of a chronic wound on the posterior neck, on June 30, 2022. Surgery and orthopedics following following, with wound VAC in place. He also had a right scapular muscle abscess, with reported successful CT-guided aspiration of the abscess. The patient tells me that he was instructed to present to this hospital, to have his wound dressings changed. He otherwise denies acute injuries and complaints. Recent discharge summary and medical/consult of documentation reviewed and appreciated Location: neck Severity scale (0 -10): 0 Associated Symptoms: denies other symptoms, other (Chronic right tricep, and right shoulder pain) - Related Data Previous Rx's Medication Instructions Recorded Last Taken Type Sodium Hypochlorite [Dakin's Full 1 applic TP Q12H PRN #2 bottle 07/08/22 Unknown Rx Strength] cephALEXin [Keflex] 500 mg PO Q6HR #40 capsule 07/08/22 Unknown Rx oxyCODONE /ACETAMINOPHEN [Percocet 1 tab PO Q6H PRN #20 tablet 07/08/22 Unknown Rx 5/325 mg] Allergies Allergy/AdvReac Type Severity Reaction Status Date / Time No Known Allergies Allergy Verified 06/13/22 21:45 ED Review of Systems ROS: Stated complaint: CHANGE HEAD BANDAGES Other details as noted in HPI Constitutional: denies: fever Eyes: denies: eye discharge ENT: denies: epistaxis Respiratory: denies: cough Cardiovascular: denies: chest pain Gastrointestinal: denies: abdominal pain Musculoskeletal: myalgia Neurological: denies: weakness ED Past Medical Hx - Past Medical History Previous Medical History?: Yes Hx Diabetes: Yes Hx HIV: No - Social History Smoking Status: Former Smoker - Medications Home Medications: Home Medications Medication Instructions Recorded Confirmed Last Taken Type Sodium Hypochlorite [Dakin's Full 1 applic TP Q12H PRN #2 bottle 07/08/22 Unknown Rx Strength] cephALEXin [Keflex] 500 mg PO Q6HR #40 capsule 07/08/22 Unknown Rx oxyCODONE /ACETAMINOPHEN [Percocet 1 tab PO Q6H PRN #20 tablet 07/08/22 Unknown Rx 5/325 mg] ED Physical Exam - General Limitations: No Limitations General appearance: alert, anxious - Head Head exam: Present: atraumatic, normocephalic - Eye Eye exam: Present: normal appearance, EOMI. Absent: nystagmus - ENT ENT exam: Present: normal exam, normal orophraynx, mucous membranes moist, normal external ear exam - Neck Neck exam: Present: full ROM, other (There is a wound VAC in place on the right posterior neck). Absent: tenderness, meningismus - Respiratory Respiratory exam: Present: normal lung sounds bilaterally. Absent: respiratory distress, wheezes, rales, rhonchi, stridor, decreased breath sounds - Cardiovascular Cardiovascular Exam: Present: regular rate, normal rhythm, normal heart sounds. Absent: bradycardia, tachycardia, irregular rhythm, systolic murmur, diastolic murmur, rubs, gallop - GI/Abdominal GI/Abdominal exam: Present: soft. Absent: distended, tenderness, guarding, rebound, rigid, pulsatile mass - Rectal Rectal exam: Present: deferred - Extremities Exam Extremities exam: Present: normal inspection (The right shoulder is without redness, warmth, pus or streaking. The right shoulder is nontender. Partial range of motion is intact to the right shoulder), tenderness (The right posterior tricep is normally tender.), other (2+ pulses noted in the bilateral upper and lower extremities. There is no palpable cord. negative Homans sign. Muscular compartments are soft. The pelvis is stable.). Absent: pedal edema, joint swelling, calf tenderness - Back Exam Back exam: Present: normal inspection. Absent: tenderness, CVA tenderness (R), CVA tenderness (L), paraspinal tenderness, vertebral tenderness - Neurological Exam Neurological exam: Present: alert, oriented X3, other (There is no facial droop. The tongue is midline. EOMI. 5 out of 5 strength in 4 extremities) - Psychiatric Psychiatric exam: Present: anxious - Skin Skin exam: Present: warm, dry, intact, normal color. Absent: rash - Other Other exam information: Patient able to AB duct shoulder about 80 degrees. Able to internally and externally rotate the shoulder. Elbow and wrist range of motion intact ED Course Vital Signs 07/12/22 11:30 Temperature 97.6 F Pulse Rate 103 H Respiratory 18 Rate Blood Pressure 118/74 [Left] O2 Sat by Pulse 100 Oximetry - Reevaluation(s) Reevaluation #1: 07/12/22 12:26 Differential diagnosis, including but not limited to: Encounter for wound care dressing change Assessment and plan: 41-year-old gentleman, who was just discharged from our hospital earlier on this week, presenting today with request for wound change. He indicates that he was instructed to go to the office of the general surgeon, Dr. Anastasiya Patel, to have his wound dressings changed. Have reached out to Dr. Patel. He reports he is currently on the way up to the emergency room, and assist 07/12/22 13:51 The patient is endorsing readiness for discharge. Dr. Patel has personally come by, and reapply the patient's wound dressing. The patient wants to be discharged. Dr. Patel advises me that when the patient was recently discharged from this hospital, he was set up for 6 visits to the wound care center, in spite of him not having insurance. The patient is instructed to present to the wound care center this Monday, and next coming Monday, and Fridays. The patient verbalized understanding He has follow-up at the wound care center, this Monday, at 2:30 PM. Discussed this with the patient. He articulates understanding. All questions answered. Return precautions are reviewed 07/12/22 13:55 Critical care attestation.: If time is entered above; I have spent that time in minutes in the direct care of this critically ill patient, excluding procedure time. ED Disposition Clinical Impression: Dressing change Disposition: HOME / SELF CARE / HOMELESS Is pt being admited?: No Does the pt Need Aspirin: No Condition: Good Additional Instructions: Please continue current outpatient medications. Patient has a follow-up appointment, this July 15, at 2:30 PM. Of the surgical team have recommended that the patient presents each Monday and Monday to the wound care center. The wound care center address is located as follows: [address] [place] [address] The patient is instructed to present to the wound care center, each Monday and Monday. In addition, recommend follow-up with a general primary care doctor, within the next [address] Darius Mendoza Is a local primary care doctor Please follow-up with your general surgeon at the wound care center or in his office within the next [address] Patel is a local general surgeon. Please return to the emergency room right away with new pain, worsened pain, migration of pain, projectile vomiting, change in mental status, confusion, inability tolerate liquid feeds, new, worsened or different symptoms not present on the initial emergency room evaluation Contine con los medicamentos ambulatorios actuales. El paciente tiene izabela sherry de seguimiento, waldemar viernes a las 14:30. Del equipo quirrgico silverman recomendado que el paciente se presente cada domenica y viernes al centro de atencin de heridas. La direccin del centro de cuidado de heridas se encuentra de la siguiente manera: [address] [place] [address] Se le indica al paciente que se presente al centro de atencin de heridas, todos los domenica y viernes. Adems, recomiende seguimiento con un mdico general de atencin primaria, dentro de las prximas [address] Darius Mendoza Es un mdico local de atencin primaria. Elda un seguimiento con brown cirujano general en el centro de atencin de heridas o en brown consultorio dentro de las prximas [address] Patel es un cirujano general local. Regrese a la marylou de emergencias de inmediato con dolor nuevo, empeoramiento del dolor, migracin del dolor, vmitos proyectiles, cambio en el estado mental, confusin, incapacidad para tolerar alimentos lquidos, sntomas nuevos, empeorados o diferentes que no estaban presentes en la evaluacin inicial de la marylou de emergencias. Referrals: TRICIA MENDOZA MD [Primary Care Provider] - as needed SAMANTHA,ADITYA GUO MD [Staff Physician] - 7-10 days [facility] [Outside] - 07/15/22 2:30 pm Forms: Work/School Release Form(ED)
== END 2022-07-12 14:32 | disposition home or self-care (01) ==
LOC: ED 10:54
DX: S11.90XD Unspecified open wound of unspecified part of neck, subsequent encounter (principal); M25.511 Pain in right shoulder; E11.9 Type 2 diabetes mellitus without complications; Z87.891 Personal history of nicotine dependence; Z79.899 Other long term (current) drug therapy; X58.XXXD Exposure to other specified factors, subsequent encounter
CPT/HCPCS: 99282

== ENCOUNTER 2022-07-15 14:28 | Outpatient (CLI) | payer SELFPAY | END 2022-07-15 14:29 | disposition home or self-care (01) | LOC: WOUND 14:28 | PROVIDERS: ATTEND Surgery | DX: T81.89XA Other complications of procedures, not elsewhere classified, initial encounter (principal); E11.9 Type 2 diabetes mellitus without complications; Z87.891 Personal history of nicotine dependence; Z79.899 Other long term (current) drug therapy; Y83.8 Other surgical procedures as the cause of abnormal reaction of the patient, or of later complication, without mention of misadventure at the time of the procedure; Y92.238 Other place in hospital as the place of occurrence of the external cause | CPT/HCPCS: 97605; G0463; 99214 ==

== ENCOUNTER 2022-07-18 09:19 | Emergency (ER) | payer SELFPAY | END 2022-07-18 09:25 | disposition left against medical advice (07) | LOC: ED 09:19 | DX: L03.221 Cellulitis of neck (principal); Z53.21 Procedure and treatment not carried out due to patient leaving prior to being seen by health care provider ==

== ENCOUNTER 2022-07-22 09:11 | Outpatient (CLI) | payer SELFPAY ==
[2022-07-22] MEDS ORDERED: LIDOCAINE (4%) 40 MG/ML TOPICAL SOLN 50 ML BOTTLE TP ONE (09:30)
== END 2022-07-22 09:12 | disposition home or self-care (01) ==
LOC: WOUND 09:11
PROVIDERS: ATTEND Surgery
DX: T81.89XD Other complications of procedures, not elsewhere classified, subsequent encounter (principal); E11.9 Type 2 diabetes mellitus without complications; Z87.891 Personal history of nicotine dependence; Z79.899 Other long term (current) drug therapy; Y83.8 Other surgical procedures as the cause of abnormal reaction of the patient, or of later complication, without mention of misadventure at the time of the procedure
CPT/HCPCS: 97605

== ENCOUNTER 2022-07-26 09:13 | Outpatient (CLI) | payer SELFPAY | END 2022-07-26 09:14 | disposition home or self-care (01) | LOC: WOUND 09:13 | PROVIDERS: ATTEND Surgery | DX: T81.89XD Other complications of procedures, not elsewhere classified, subsequent encounter (principal); E11.9 Type 2 diabetes mellitus without complications; Z87.891 Personal history of nicotine dependence; Z79.899 Other long term (current) drug therapy; Y83.8 Other surgical procedures as the cause of abnormal reaction of the patient, or of later complication, without mention of misadventure at the time of the procedure | CPT/HCPCS: 97605 ==

== ENCOUNTER 2022-07-29 09:07 | Outpatient (CLI) | payer SELFPAY ==
[2022-07-29] MEDS ORDERED: LIDOCAINE (4%) 40 MG/ML TOPICAL SOLN 50 ML BOTTLE TP ONE (09:30)
== END 2022-07-29 09:08 | disposition home or self-care (01) ==
LOC: WOUND 09:07
PROVIDERS: ATTEND Surgery
DX: T81.89XD Other complications of procedures, not elsewhere classified, subsequent encounter (principal); E11.9 Type 2 diabetes mellitus without complications; Z87.891 Personal history of nicotine dependence; Z79.899 Other long term (current) drug therapy; Y83.8 Other surgical procedures as the cause of abnormal reaction of the patient, or of later complication, without mention of misadventure at the time of the procedure
CPT/HCPCS: 97605

== ENCOUNTER 2022-08-03 11:06 | Inpatient (IN) | payer SELFPAY ==
--- NOTE | 2022-08-03 11:41 | Emergency Department Report ---
ED General Adult HPI - General Chief complaint: Skin/Abscess/Foreign Body Stated complaint: HEAD INJURY Time Seen by Provider: 08/03/22 11:26 Source: patient Mode of arrival: Ambulatory Limitations: No Limitations - History of Present Illness Initial comments: Patient is a 41-year-old male presenting to ED for admission by Dr. Patel for removal of surgical drain/wound VAC and evaluation of subscapular abscess. He was recently admitted several weeks ago and underwent several procedures for necrotic posterior neck abscess extending to the paraspinal muscles. He denies any complaints today. Severity scale (0 -10): 0 - Related Data Previous Rx's Medication Instructions Recorded Last Taken Type Sodium Hypochlorite [Dakin's Full 1 applic TP Q12H PRN #2 bottle 07/08/22 Unknown Rx Strength] cephALEXin [Keflex] 500 mg PO Q6HR #40 capsule 07/08/22 Unknown Rx oxyCODONE /ACETAMINOPHEN [Percocet 1 tab PO Q6H PRN #20 tablet 07/08/22 Unknown Rx 5/325 mg] Allergies Allergy/AdvReac Type Severity Reaction Status Date / Time No Known Allergies Allergy Verified 06/13/22 21:45 ED Review of Systems ROS: Stated complaint: HEAD INJURY Other details as noted in HPI Constitutional: denies: chills, fever Respiratory: denies: cough, shortness of breath, wheezing Cardiovascular: denies: chest pain, palpitations Gastrointestinal: denies: abdominal pain, nausea, diarrhea Musculoskeletal: denies: back pain, joint swelling, arthralgia Skin: denies: rash, lesions Neurological: denies: headache, weakness, paresthesias Psychiatric: denies: anxiety, depression ED Past Medical Hx - Past Medical History Hx Diabetes: Yes Hx HIV: No - Surgical History Additional Surgical History: wound vac to neck - Social History Smoking Status: Never Smoker Substance Use Type: None - Medications Home Medications: Home Medications Medication Instructions Recorded Confirmed Last Taken Type Sodium Hypochlorite [Dakin's Full 1 applic TP Q12H PRN #2 bottle 07/08/22 U nknown Rx Strength] cephALEXin [Keflex] 500 mg PO Q6HR #40 capsule 07/08/22 Unknown Rx oxyCODONE /ACETAMINOPHEN [Percocet 1 tab PO Q6H PRN #20 tablet 07/08/22 Unknown Rx 5/325 mg] ED Physical Exam - General Limitations: No Limitations General appearance: alert, in no apparent distress - Head Head exam: Present: atraumatic, normocephalic - Neck Neck exam: Present: other (Wound VAC to posterior neck) - Respiratory Respiratory exam: Present: normal lung sounds bilaterally. Absent: respiratory distress - Cardiovascular Cardiovascular Exam: Present: regular rate, normal rhythm, normal heart sounds - GI/Abdominal GI/Abdominal exam: Present: soft. Absent: distended, tenderness - Rectal Rectal exam: Present: deferred - Neurological Exam Neurological exam: Present: alert, oriented X3 - Psychiatric Psychiatric exam: Present: normal affect, normal mood - Skin Skin exam: Present: warm, dry, intact, normal color ED Course Vital Signs 08/03/22 08/03/22 11:10 11:27 Temperature 98.4 F 98.3 F Pulse Rate 103 H 107 H Respiratory 16 22 Rate Blood Pressure 132/80 Blood Pressure 145/85 132/80 [Left] O2 Sat by Pulse 100 100 Oximetry ED Medical Decision Making - Lab Data Result diagrams: 08/03/22 11:33 08/03/22 11:33 - Medical Decision Making CT chest reveals persistent right subcapsular abscess. Labs grossly unremarkable. Time came by to evaluate patient. Request admission for removal of wound VAC/skin graft and drainage of subcapsular abscess. Critical care attestation.: If time is entered above; I have spent that time in minutes in the direct care of this critically ill patient, excluding procedure time. ED Disposition Clinical Impression: Abscess, Encounter for management of wound VAC Disposition: ADMITTED INPATIENT Is pt being admited?: Yes Condition: Stable
--- NOTE | 2022-08-03 12:12 | Cat Scan Report ---
CT CHEST WITHOUT CONTRAST INDICATION / CLINICAL INFORMATION: Follow-up of right shoulder abscess. TECHNIQUE: Axial CT images were obtained through the chest without contrast. All CT scans at this [facility] are performed using CT dose reduction for ALARA by means of automated exposure control. COMPARISON: CT right upper extremity without contrast from 07/06/2022. CT chest with contrast from 06/07. FINDINGS: HEART: No significant abnormality. CORONARY ARTERY CALCIFICATION: Absent -- None. THORACIC AORTA: No significant abnormality. MEDIASTINUM / TRISH: No significant abnormality. PLEURA: No pleural effusion. No pneumothorax. LUNGS: Multiple nodular opacities are again seen along the right lung, predominantly along the right lower lobe, and have not significantly changed. Previously seen left upper lobe nodules have resolved along the left lung apex and nearly completely resolved. More posteriorly and laterally along the le ft upper lobe. No new significant abnormality of the lungs is identified. ADDITIONAL FINDINGS: There is a persistent right subcapsular abscess with extension into the glenohum eral joint, measuring 7.2 x 2.8 cm along the subcapsular region on image 18 of series 2, previously 6 .6 x 3.7 cm. Associated destructive changes are again seen along the humeral head. New heterotopic anisa ne versus other osseous bodies versus other areas of calcification are seen along the proximal right humerus. UPPER ABDOMEN: No significant abnormality. SKELETAL SYSTEM: As above. No significant abnormality elsewhere along the visualized bones. IMPRESSION: 1. Persistent right subcapsular abscess with extension into the glenohumeral joint and suspected asso ciated septic arthritis as well as possible pulmonary septic emboli. 2. No other significant interval changes. Signer Name: Scott Mathews MD Signed: 08/03/2022 12:07 PM Workstation Name: [id number]
[2022-08-03 13:17] LABS: Hematocrit 28.4 % (35.5-45.6); Hemoglobin 9.7 gm/dl (11.8-15.2); Mean Corpuscular HGB Conc 34 % (32-34); Mean Corpuscular Volume 86 fl (84-94); Platelet Count 309 K/mm3 (140-440); Red Blood Count 3.32 M/mm3 (3.65-5.03); Red Cell Distribution Width 15.6 % (13.2-15.2)
[2022-08-03 13:37] LABS: Blood Urea Nitrogen 10 mg/dL (9-20); Calcium 9.1 mg/dL (8.4-10.2); Hemolysis Index 0
[2022-08-03 14:05] LABS: BUN/Creatinine Ratio 17
[2022-08-03] MEDS ORDERED: oxyCODONE /ACETAMINOPHEN 5-325MG TAB PO PRN (14:21)
[2022-08-03] MEDS ORDERED: HYDROmorphone 0.5 MG/0.5 ML INJ IV PRN (14:21)
[2022-08-03] MEDS ORDERED: ONDANSETRON 4 MG/2 ML INJ IV PRN (14:21)
[2022-08-03] MEDS ORDERED: ALBUTEROL 2.5 MG/3 ML NEBU IH PRN (14:21)
[2022-08-03] MEDS ORDERED: ACETAMINOPHEN 325 MG TAB PO PRN (14:21)
--- NOTE | 2022-08-03 14:21 | History and Physical Report ---
History of Present Illness Chief complaint: My wound is getting worse History of present illness: 41 YO Male with HTN, DM, Subscapular Abscess S/P wound vac placement presents ED for evaluation. Patient reports my doctor told to come here". Patient states that he has experienced redness to his posterior neck in the area of his wound VAC. Patient was seen and evaluated by Dr. Foreman and instructed to seek further care at [facility] patient seen and evaluated emergency department. All lab and imaging studies reviewed. Patient found to have back cellulitis complicated by subscapular abscess with malfunctioning of wound VAC. Patient admitted to medical floor due to increased risk of worsening symptoms after medical stabilization. Patient seen and evaluated in the emergency department by surgical team. Patient pending surgical intervention. Patient had fever, chills, chest pain, palpitation, productive cough, skin rash and recent contact, known exposure to COVID-19. Prior admission on 06/14/2022 reviewed. All medication listed at time of admission has been reconciled. Advanced care planning conducted in ED. Past History Past Medical History: diabetes, hypertension Past Surgical History: No surgical history, Other (Reviewed) Social history: single. denies: smoking, alcohol abuse, prescription drug abuse Family history: diabetes, hypertension Medications and Allergies Allergies Allergy/AdvReac Type Severity Reaction Status Date / Time No Known Allergies Allergy Verified 06/13/22 21:45 Home Medications Medication Instructions Recorded Confirmed Last Taken Type Sodium Hypochlorite [Dakin's Full 1 applic TP Q12H PRN #2 bottle 07/08/22 Unknown Rx Strength] cephALEXin [Keflex] 500 mg PO Q6HR #40 capsule 07/08/22 Unknown Rx oxyCODONE /ACETAMINOPHEN [Percocet 1 tab PO Q6H PRN #20 tablet 07/08/22 Unknown Rx 5/325 mg] Review of Systems Constitutional: no weight loss, no weight gain, no fever, no chills Ears, nose, mouth and throat: no ear pain, no ear discharge, no tinnitis, no nose pain Cardiovascular: no chest pain, no orthopnea, no palpitations, no syncope Respiratory: no cough, no dyspnea on exertion Gastrointestinal: no abdominal pain, no vomiting, no diarrhea, no change in bowel habits, no hematemesis Genitourinary Male: no hematuria, no flank pain, no discharge, no urinary hesitancy, no nocturia, no erectile dysfunction, no genital pain Rectal: no pain, no incontinence, no bleeding Musculoskeletal: no neck stiffness, no arm numbness/tingling, no shooting leg pain, no leg numbness/tingling, no morning stiffness, no muscle weakness, no muscle cramps Integumentary: no rash, no sores, no wounds Neurological: no head injury, no paralysis, no parathesias, no numbness, no seizures, no tremors Psychiatric: no anxiety, no sleep disturbances, no hypersomnia Endocrine: no cold intolerance, no excessive thirst, no nocturia Hematologic/Lymphatic: no easy bruising Allergic/Immunologic: no urticaria, no wheezing Exam - Constitutional Vitals: Temp Pulse Resp BP Pulse Ox 98.3 F 107 H 22 132/80 100 08/03/22 11:27 08/03/22 11:27 08/03/22 11:27 08/03/22 11:08/03/22 11:27 General appearance: Present: mild distress - EENT Eyes: Present: PERRL ENT: hearing intact, clear oral mucosa - Neck Neck: Present: supple, normal ROM - Respiratory Respiratory effort: normal Respiratory: bilateral: CTA - Cardiovascular Heart Sounds: Present: S1 & S2. Absent: rub, click - Extremities Extremities: pulses symmetrical, No edema Peripheral Pulses: within normal limits - Abdominal General gastrointestinal: Present: soft, non-tender, non-distended, normal bowel sounds Male genitourinary: Present: normal - Integumentary Integumentary: Present: clear, warm, dry - Musculoskeletal Musculoskeletal: gait normal, strength equal bilaterally - Psychiatric Psychiatric: appropriate mood/affect, intact judgment & insight - Neurologic Neurologic: CNII-XII intact, moves all extremities Results - Labs CBC & Chem 7: 08/03/22 11:33 08/03/22 11:33 Labs: Abnormal lab results 08/03/22 08/03/22 Range/Units 11:33 11:33 RBC 3.32 L (3.65-5.03) M/mm3 Hgb 9.7 L (11.8-15.2) gm/dl Hct 28.4 L (35.5-45.6) % RDW 15.6 H (13.2-15.2) % Sodium 133 L (137-145) mmol/L Chloride 97.1 L (98-107) mmol/L Creatinine 0.6 L (0.8-1.3) mg/dL Glucose 208 H (75-100) mg/dL Assessment and Plan - Patient Problems (1) Cellulitis and abscess of neck Current Visit: No Status: Acute Plan to address problem: CBC,, CT scan chest, pain control, supportive care. Surgical team consulted. Patient pending surgical intervention. (2) Diabetes Current Visit: Yes Status: Acute Plan to address problem: Consistent carbohydrate diet, Accu-Chek, insulin protocol, hypoglycemia protocol. (3) Hypertension Current Visit: Yes Status: Acute Qualifiers: Hypertension type: primary hypertension Qualified Code(s): I10 - Essential (primary) hypertension Plan to address problem: Monitor blood pressure every shift, continue medical management. (4) Abscess Current Visit: Yes Status: Acute Plan to address problem: Surgeon consulted. Surgical debridement as per surgical team for subscapular abscess. Pain control, supportive care, empiric IV antibiotic therapy. (5) Encounter for management of wound VAC Current Visit: Yes Status: Acute Plan to address problem: transit planning manager consulted for assistance with wound VAC. Wound care consulted. (6) Acute hyponatremia Current Visit: No Status: Acute Plan to address problem: IV fluid resuscitation therapy, BMP, repeat BMP in AM. (7) DVT prophylaxis Current Visit: Yes Status: Acute Plan to address problem: SCD to bilateral lower extremities while in bed (8) Advance care planning Current Visit: Yes Status: Acute Plan to address problem: Disease education data, care plan discussed, diagnosis discussed, patient is full code. +30 minutes. (9) Preventative health care Current Visit: Yes Status: Acute Plan to address problem: Patient counseled on risk factor reduction, medication compliance, compliance with wound care, compliance with wound VAC care. +30 minutes.
--- NOTE | 2022-08-03 15:35 | Anesthesia Consultation ---
Anesthesia Consult and Med Hx Date of service: 08/04/22 - Airway Anesthetic Teeth Evaluation: Good ROM Head & Neck: Adequate Mental/Hyoid Distance: Adequate Mallampati Class: Class II Intubation Access Assessment: Probably Good - Pulmonary Exam CTA: Yes - Cardiac Exam Cardiac Exam: RRR - Pre-Operative Health Status ASA Pre-Surgery Classification: ASA3 Proposed Anesthetic Plan: General - Pulmonary Hx Smoking: No Hx Sleep Apnea: No - Cardiovascular System Hx Hypertension: Yes Hx Heart Attack/AMI: No Hx Cardia Arrhythmia: No - Gastrointestinal Hx Gastroesophageal Reflux Disease: No - Endocrine Hx Renal Disease: No Hx Liver Disease: No Hx Non-Insulin Dependent Diabetes: Yes (HgbA1C 15.6) Hx Thyroid Disease: No - Hematic Hx Anemia: No - Other Systems Hx Alcohol Use: No Hx Obesity: No - Additional Comments Anesthesia Medical History Comments: no GAC. no FHAC.
[2022-08-04 06:02] LABS: Basophils % (Auto) 0.6 % (0.0-1.8); Eosinophils # (Auto) 0.4 K/mm3 (0.0-0.4); Eosinophils % (Auto) 7.8 % (0.0-4.3); Hematocrit 28.6 % (35.5-45.6); Hemoglobin 9.6 gm/dl (11.8-15.2); Lymphocytes # (Auto) 1.6 K/mm3 (1.2-5.4); Lymphocytes % (Auto) 28.1 % (13.4-35.0); Mean Corpuscular HGB Conc 33 % (32-34); Mean Corpuscular Volume 86 fl (84-94); Monocytes # (Auto) 0.5 K/mm3 (0.0-0.8); Monocytes % (Auto) 9.6 % (0.0-7.3); Platelet Count 323 K/mm3 (140-440); Red Blood Count 3.35 M/mm3 (3.65-5.03); Red Cell Distribution Width 15.9 % (13.2-15.2)
[2022-08-04 06:13] LABS: Alanine Aminotransferase 14 units/L (7-56); Albumin 3.7 g/dL (3.9-5); Blood Urea Nitrogen 10 mg/dL (9-20); Calcium 9.3 mg/dL (8.4-10.2); Hemolysis Index 3
[2022-08-04 06:16] LABS: BUN/Creatinine Ratio 25
--- NOTE | 2022-08-04 08:01 | Progress Note ---
Hospitalist Physical - Constitutional Vitals: Temp Pulse Resp BP Pulse Ox 98.1 F 83 20 147/85 100 08/04/22 06:44 08/04/22 06:44 08/04/22 06:44 08/04/22 06:44 08/04/22 06:44 General appearance: Present: mild distress Results - Labs CBC & Chem 7: 08/04/22 05:21 08/04/22 05:21 Labs: Laboratory Last Values WBC 5.6 K/mm3 (4.5-11.0) 08/04/22 05:21 RBC 3.35 M/mm3 (3.65-5.03) L 08/04/22 05:21 Hgb 9.6 gm/dl (11.8-15.2) L 08/04/22 05:21 Hct 28.6 % (35.5-45.6) L 08/04/22 05:21 MCV 86 fl (84-94) 08/04/22 05:21 MCH 29 pg (28-32) 08/04/22 05:21 MCHC 33 % (32-34) 08/04/22 05:21 RDW 15.9 % (13.2-15.2) H 08/04/22 05:21 Plt Count 323 K/mm3 (140-440) 08/04/22 05:21 Lymph % (Auto) 28.1 % (13.4-35.0) 08/04/22 05:21 Grundy % (Auto) 9.6 % (0.0-7.3) H 08/04/22 05:21 Eos % (Auto) 7.8 % (0.0-4.3) H 08/04/22 05:21 Baso % (Auto) 0.6 % (0.0-1.8) 08/04/22 05:21 Lymph # (Auto) 1.6 K/mm3 (1.2-5.4) 08/04/22 05:21 Grundy # (Auto) 0.5 K/mm3 (0.0-0.8) 08/04/22 05:21 Eos # (Auto) 0.4 K/mm3 (0.0-0.4) 08/04/22 05:21 Baso # (Auto) 0.0 K/mm3 (0.0-0.1) 08/04/22 05:21 Seg Neutrophils % 53.9 % (40.0-70.0) 08/04/22 05:21 Seg Neutrophils # 3.0 K/mm3 (1.8-7.7) 08/04/22 05:21 Sodium 136 mmol/L (137-145) L 08/04/22 05:21 Potassium 4.2 mmol/L (3.6-5.0) 08/04/22 05:21 Chloride 99.8 mmol/L (98-107) 08/04/22 05:21 Carbon Dioxide 27 mmol/L (22-30) 08/04/22 05:21 Anion Gap 13 mmol/L 08/04/22 05:21 BUN 10 mg/dL (9-20) 08/04/22 05:21 Creatinine 0.4 mg/dL (0.8-1.3) L 08/04/22 05:21 Estimated GFR > 60 ml/min 08/04/22 05:21 BUN/Creatinine Ratio 25 % 08/04/22 05:21 Glucose 156 mg/dL (75-100) H 08/04/22 05:21 Calcium 9.3 mg/dL (8.4-10.2) 08/04/22 05:21 Total Bilirubin 0.30 mg/dL (0.1-1.2) 08/04/22 05:21 AST 22 units/L (5-40) 08/04/22 05:21 ALT 14 units/L (7-56) 08/04/22 05:21 Alkaline Phosphatase 101 units/L (35-129) 08/04/22 05:21 Total Protein 7.5 g/dL (6.3-8.2) 08/04/22 05:21 Albumin 3.7 g/dL (3.9-5) L 08/04/22 05:21 Albumin/Globulin Ratio 1.0 % 08/04/22 05:21 Blood Type O POSITIVE 08/04/22 05:21 Antibody Screen Negative 08/04/22 05:21 Perez/IV: Voiding Method Toilet Active Medications - Current Medications Current Medications: Generic Name Dose Route Start Last Admin Trade Name Freq PRN Reason Stop Dose Admin Acetaminophen 650 mg 08/03/22 14:21 Acetaminophen 325 Mg Tab PO Q4H PRN Pain MILD(1-3)/Fever >100.5/ALMAZAN Albuterol 2.5 mg 08/03/22 14:21 Albuterol 2.5 Mg/3 Ml Nebu IH Q4HRT PRN Shortness Of Breath Hydromorphone HCl 0.5 mg 08/03/22 14:21 Hydromorphone 0.5 Mg/0.5 Ml Inj IV Q13H PRN Pain , Severe (7-10) Ondansetron HCl 4 mg 08/03/22 14:21 Ondansetron 4 Mg/2 Ml Inj IV Q8H PRN Nausea And Vomiting Oxycodone/Acetaminophen 1 tab 08/03/22 14:21 Oxycodone /Acetaminophen 5-325mg Tab PO Q6H PRN Pain, Moderate (4-6) Sodium Chloride 10 ml 08/03/22 22:00 08/04/22 00:11 Sodium Chloride 0.9% 10 Ml Flush Syringe IV 10 ml BID KARAN Administration Sodium Chloride 10 ml 08/03/22 14:21 Sodium Chloride 0.9% 10 Ml Flush Syringe IV PRN PRN LINE FLUSH
[2022-08-04] MEDS ORDERED: BUPIVACAINE/PF (0.5%) 5 MG/1 ML 30 ML VIAL INFILTRATI ONE ×2 (09:32→11:17)
[2022-08-04] MEDS ORDERED: BACITRACIN ZINC OINT 28.4 GM TP ONE (09:32)
[2022-08-04] MEDS ORDERED: MINERAL OIL Light (Sterile) 10 ML VIAL TP ONE ×2 (09:33→11:17)
[2022-08-04] MEDS ORDERED: LIDOCAINE 1.5% /EPINEPHRINE 1:200,000 AMP (5 ML) INFILTRATI ONE (09:33)
[2022-08-04] MEDS ORDERED: HYDROmorphone 1 MG/1 ML INJ ONE (09:49)
[2022-08-04] MEDS ORDERED: ROCURONIUM 50 MG/5 ML INJ IV ONE (09:49)
[2022-08-04] MEDS ORDERED: LIDOCAINE MPF (2%) 20 MG/1 ML VIAL 5 ML ONE (09:49)
[2022-08-04] MEDS ORDERED: propofoL 200 MG/20 ML VIAL IV ONE (09:50)
--- NOTE | 2022-08-04 09:59 | Anesthesia Day of Surgery ---
Anesthesia Day of Surgery - Day of Surgery Patient Examined: Yes Patient H&P Reviewed: Yes Patient is NPO: Yes
[2022-08-04] MEDS ORDERED: HYDROmorphone 0.5 MG/0.5 ML INJ IV PRN (10:00)
[2022-08-04] MEDS ORDERED: SODIUM CHLORIDE 0.9% IRR 1,500 ML BOTTLE IR ONE (11:16)
[2022-08-04] MEDS ORDERED: ONDANSETRON 4 MG/2 ML INJ ONE (11:23)
[2022-08-04] MEDS ORDERED: NEOSTIGMINE 10MG/10 ML INJ MDV ONE (11:23)
[2022-08-04] MEDS ORDERED: GLYCOPYRROLATE 0.4 MG/2 ML INJ ONE (11:23)
[2022-08-04] MEDS ORDERED: KETOROLAC 30 MG/1 ML INJ ONE (11:23)
[2022-08-04] MEDS ORDERED: ceFAZolin 1 GM VIAL ONE (11:26)
--- NOTE | 2022-08-04 11:51 | Operative Report ---
Operative Report Operative Report: Date of procedure: 08/04/2022 Preop diagnosis: Nonhealing wound posterior neck size 4 x 5 cm Postop diagnosis: Same Procedure: Split-thickness skin graft to nonhealing wound posterior neck Surgeon: Dr. Patel Butter Melter: Anesthesia: General endotracheal anesthesia Estimated blood loss: 25 cc Specimen: None Findings: The patient is taken to the OR and under general anesthesia he is placed in the prone position. Timeouts and consents are noted to be on the chart. The chronic neck wound is prepped with Betadine and the site for the donor skin graft on the back toward the left is prepped with ChloraPrep and shaved. Both places are then sterilely draped. The dermatome is used to harvest a split-thickness skin graft from the donor site. The donor site is infiltrated with 1/2% Marcaine. Xeroform gauze is placed over the donor site. Pressure is held for hemostasis. The site is janki ntually dressed with Ioban and a closed wound wound VAC system peco. The skin graft is then meshed in 1-2 mesh pattern. It is placed over the wound and the bask of the neck. It is sutured in place with 3-0 Vicryl suture. A Xeroform gauze is placed over the split-thickness skin graft. The black foam from the wound VAC is then placed over the Xeroform gauze. A adhesive dressing is in occlusively placed and a good seal is established with the wound VAC suction. Patient tolerated procedure well and is returned to recovery room in good condition.
--- NOTE | 2022-08-04 11:59 | Discharge Summary ---
Providers - Providers Date of Admission: 08/03/22 14:21 Date of discharge: 08/04/22 Attending physician: DORIS MACEDO MD 08/03/22 14:23 Consult to Case Management [CONS] Routine Services Needed at Discharge: Other Wound Vac Notified:: in am Consult to Wound/ET Nurse [CONS] Routine Reason For Exam: wound eval Primary care physician: [facility] Hospitalization Reason for admission: skin graft placement to chronic wound Condition: Stable Hospital course: Patient is a 41-year-old female with history of hypertension, diabetes and subscapular abscess status post wound placement who presented to the ED for removal wound VAC and skin graft placement. Skin graft was placed on 08/04 successfully. After procedure patient was discharged home. Disposition: 01 HOME / SELF CARE / HOMELESS Final Discharge Diagnosis (Prints w/discharge instructions): Subscapular abscess status post wound VAC placement. Skin graft placement. Type 2 diabetes. Hypertension. Acute hyponatremia Time spent for discharge: 30 minutes Core Measure Documentation - Palliative Care Palliative Care/ Comfort Measures: Not Applicable - Core Measures Any of the following diagnoses?: none Exam - Physical Exam Narrative exam: GENERAL: Well-developed well-nourished. In no acute distress. HEENT: Normocephalic. Atraumatic. NECK: Posterior neck wound with wound vac and serosanginous discharge. CHEST/LUNGS: CTAB on room air HEART/CARDIOVASCULAR: RRR. No murmur, rubs or gallops appreciated. ABDOMEN: +BS. NT/ND. NEURO: No focal motor deficit. Follows all commands. MUSCULOSKELETAL: No joint effusion EXTREMITIES: No cyanosis, clubbing or edema. PSYCH: Cooperative. - Constitutional Vitals: Temp Pulse Resp BP Pulse Ox 98.1 F 83 20 147/85 100 08/04/22 06:44 08/04/22 06:44 08/04/22 06:44 08/04/22 06:44 08/04/22 10:00 Plan Care Plan Goals: Please follow-up with Dr. Patel in the wound clinic. If you have any problems with your wound please return to the ED. Follow up with: NITIN VIDAL MD [Primary Care Provider] - 7 Days ADITYA PTAEL MD [Staff Physician] - 7 Days Prescriptions: oxyCODONE /ACETAMINOPHEN [Percocet 5/325 mg] 1 tab PO Q4H PRN 3 Days #18 tablet PRN Reason: Pain, Moderate (4-6)
[2022-08-04 13:18] VITALS: BP 129/77
== END 2022-08-04 15:59 | disposition home or self-care (01) | DRG 574 ==
LOC: ED 11:06 → 3A 14:21
PROVIDERS: ADMIT Internal Medicine; ATTEND Student in an Organized Health Care Education/Training Program
PROC: 0HR Skin and Breast, Replacement (ICD-10-PCS; principal; 2022-08-04)
DX: L03.221 Cellulitis of neck (principal); E87.1 Hypo-osmolality and hyponatremia; L02.11 Cutaneous abscess of neck; I10 Essential (primary) hypertension; E11.9 Type 2 diabetes mellitus without complications; Z83.3 Family history of diabetes mellitus; Z82.49 Family history of ischemic heart disease and other diseases of the circulatory system
CPT/HCPCS: 36415; 71250; 80048; 80053; 82962; 85025; 85027; 86850; 86900; 86901; 94760; 99285; G0378; J1815; J3490; J8610; J0690; J1170; J1885; J2405; J2704; J2710